=== PATIENT | female | born 1990 | race Caucasian/White ===

== ENCOUNTER → 2016-09-05 | Outpatient (REF) | payer BC | LOC: M LAB REF 13:05 | PROVIDERS: ATTEND Obstetrics & Gynecology | DX: Z11.3 Encounter for screening for infections with a predominantly sexual mode of transmission (principal) ==

== ENCOUNTER → 2017-02-20 | Outpatient (REF) | payer BC ==
[~2017-02-20] MED LIST: ALLE60TA69 PO; INDE1CAP5 PO; INSUDET SC; INSUH10VL SC; LEXA1TAB2 PO; PRIL20CA9 PO; ZOFR4TAB3 PO
== END ==
LOC: M LAB REF 17:02
PROVIDERS: ATTEND Obstetrics & Gynecology
DX: R30.0 Dysuria (principal); R10.2 Pelvic and perineal pain

== ENCOUNTER 2017-04-20 12:06 | Emergency (ER) | payer BC, OTHER ==
[~2017-04-20] VITALS: Ht 167.6 cm; Wt 77.3 kg
[2017-04-20] MEDS ORDERED: PRIL20CA9 PO (12:19)
[2017-04-20] MEDS ORDERED: INSUH10VL SC (12:19)
[2017-04-20] MEDS ORDERED: INSUDET SC (12:19)
[2017-04-20] MEDS ORDERED: LEXA1TAB2 PO (12:19)
[2017-04-20] MEDS ORDERED: INDE1CAP5 PO (12:19)
[2017-04-20] MEDS ORDERED: ALLE60TA69 PO (12:20)
[2017-04-20] MEDS ORDERED: ZOFR4TAB3 PO (12:20)
[2017-04-20] MEDS ORDERED: NS 1,000 ML IV ONE (12:30)
[2017-04-20] MEDS ORDERED: ONDANSETRON 4MG/2ML VIAL (J2405) IV ONE ×2 (12:30→13:30)
[2017-04-20] MEDS ORDERED: diphenhydrAMINE INJ 50MG/ML VIAL (J1200) IV STA (13:30)
[2017-04-20 14:44] VITALS: BP 105/64
== END 2017-04-20 14:51 | disposition home or self-care (01) ==
LOC: M ED 12:06
DX: A08.4 Viral intestinal infection, unspecified (principal); E10.9 Type 1 diabetes mellitus without complications
CPT/HCPCS: 96361; 96374; 96375; 96376; 99283; J1200; J2405

== ENCOUNTER 2017-07-09 08:22 | Emergency (ER) | payer OTHER ==
[~2017-07-09] VITALS: Ht 167.6 cm; Wt 76.4 kg
[2017-07-09] MEDS ORDERED: COLA100C5 PO (08:37)
[2017-07-09] MEDS ORDERED: MEDR1VL IM (08:38)
[2017-07-09] MEDS ORDERED: ONDANSETRON 4 MG ORAL DISINTEGRATING TAB (S0181) PO ONE (08:45)
[2017-07-09] MEDS ORDERED: PROMETHAZINE 25 MG TAB PO ONE (09:15)
[2017-07-09] MEDS ORDERED: ZOFR4TAB3 PO (09:21)
--- NOTE | 2017-07-09 09:21 | REP ---
Clinical: Epigastric and abdominal pain. Technique: Upright view of the chest with supine and upright views of the abdomen and pelvis. Findings: Frontal upright view of the chest demonstrates no acute cardiopulmonary process or free air below the diaphragm to suspect pneumoperitoneum. Supine and upright views of the abdomen and pelvis demonstrate nonspecific bowel gas pattern without obstruction or perforation. No organomegaly. No abnormal calcifications. Skeletal structures normal for age. Evidence of prior cholecystectomy and gastric surgery. Impression: Nonspecific bowel gas pattern. Signed by Jamin Patel MD 07/09/2017 09:12 A
[2017-07-09] MEDS ORDERED: MAGNESIUM CITRATE 300 ML BTL PO ONE (09:30)
[2017-07-09 09:33] VITALS: BP 128/77
== END 2017-07-09 09:38 | disposition home or self-care (01) ==
LOC: M ED 08:22
DX: R11.2 Nausea with vomiting, unspecified (principal); K59.00 Constipation, unspecified; E10.9 Type 1 diabetes mellitus without complications; Z79.899 Other long term (current) drug therapy; Z79.4 Long term (current) use of insulin; Z88.5 Allergy status to narcotic agent; Z88.8 Allergy status to other drugs, medicaments and biological substances

== ENCOUNTER → 2017-08-22 | Outpatient (CLI) | payer OTHER ==
[2017-08-22 16:35] LABS: HEMATOCRIT 48.2 % (36.0-47.0); MEAN CORPUSCULAR HEMOGLOBIN 29.9 pg (27.0-33.0); MEAN CORPUSCULAR HGB CONC 33.2 g/dl (32.0-36.5); MEAN CORPUSCULAR VOLUME 90.1 fl (80.0-96.0); PLATELET COUNT, AUTOMATED 375 10^3/uL (150-450); RED BLOOD COUNT 5.35 10^6/uL (4.00-5.40); RED CELL DISTRIBUTION WIDTH 12.8 % (11.5-14.5); WHITE BLOOD COUNT 16.3 10^3/uL (4.0-10.0)
[2017-08-22 16:54] LABS: ALBUMIN 4.5 GM/DL (3.2-5.2); ALBUMIN/GLOBULIN RATIO 1.13 (1.00-1.93); ALKALINE PHOSPHATASE 251 U/L (45-117); ALT/SGPT 98 U/L (12-78); ANION GAP 7 MEQ/L (8-16); AST/SGOT 73 U/L (7-37); BILIRUBIN,TOTAL 0.3 MG/DL (0.2-1.0); BLOOD UREA NITROGEN 12 MG/DL (7-18); CALCIUM LEVEL 9.8 MG/DL (8.5-10.1); CARBON DIOXIDE LEVEL 29 MEQ/L (21-32); CHLORIDE LEVEL 103 MEQ/L (98-107); CREATININE FOR GFR 0.98 MG/DL (0.55-1.02); FREE T4 1.31 NG/DL (0.76-1.46); GLOMERULAR FILTRATION RATE > 60.0 (>60); GLUCOSE, FASTING 210 MG/DL (70-105); POTASSIUM SERUM 4.3 MEQ/L (3.5-5.1); SODIUM LEVEL 139 MEQ/L (136-145); TOTAL PROTEIN 8.5 GM/DL (6.4-8.2)
[2017-08-25 00:09] LABS: TISSUE TRANSGLUTAMINASE IgA <2 U/mL (0-3)
== END ==
LOC: M LAB 15:52
DX: K59.00 Constipation, unspecified (principal)
CPT/HCPCS: 74019

== ENCOUNTER 2018-01-17 03:06 | Emergency (ER) | payer OTHER ==
[2018-01-17] MEDS ORDERED: ONDANSETRON 4MG/2ML VIAL (J2405) As Ordered (03:39)
[2018-01-17] MEDS: NS 1,000 ML IV (03:41)
[2018-01-17 03:50] LABS: VENOUS BASE EXCESS 0.6 (-2.0-2.0); VENOUS HCO3 26.1 MEQ/L (23.0-27.0); VENOUS O2 SATURATION 84.8 % (60.0-80.0); VENOUS PARTIAL PRESSURE CO2 45.3 mmHg (38.0-50.0); VENOUS PARTIAL PRESSURE O2 49.9 mmHg (30.0-50.0); VENOUS PH 7.379 UNITS (7.330-7.430); VENOUS STANDARD HCO3 24.7 MEQ/L; VENOUS TOTAL CO2 27.5 MEQ/L (24.0-28.0)
[2018-01-17 03:51] LABS: HEMATOCRIT 42.3 % (36.0-47.0); HEMOGLOBIN 13.9 g/dl (12.0-15.5); MEAN CORPUSCULAR HEMOGLOBIN 30.1 pg (27.0-33.0); MEAN CORPUSCULAR HGB CONC 32.9 g/dl (32.0-36.5); MEAN CORPUSCULAR VOLUME 91.6 fl (80.0-96.0); PLATELET COUNT, AUTOMATED 555 10^3/uL (150-450); RED BLOOD COUNT 4.62 10^6/uL (4.00-5.40); RED CELL DISTRIBUTION WIDTH 12.7 % (11.5-14.5); WHITE BLOOD COUNT 15.2 10^3/uL (4.0-10.0)
[2018-01-17 04:02] LABS: ADD MANUAL DIFFER YES; DIFF SLIDE NUMBER 70; POSITIVE DIFF POS FLAG
[2018-01-17 04:12] LABS: ANION GAP 7 MEQ/L (8-16); BLOOD UREA NITROGEN 14 MG/DL (7-18); CARBON DIOXIDE LEVEL 28 MEQ/L (21-32); CHLORIDE LEVEL 102 MEQ/L (98-107); GLOMERULAR FILTRATION RATE 57.8 (>60); GLUCOSE, FASTING 375 MG/DL (70-100); POTASSIUM SERUM 4.4 MEQ/L (3.5-5.1); SODIUM LEVEL 137 MEQ/L (136-145)
[2018-01-17 04:18] LABS: BEDSIDE GLUCOSE 193 MG/DL (70-105)
[2018-01-17 04:22] LABS: CONTROL LINE HCG INT CTR LINE PRESENT; HCG, SERUM QUALITATIVE NEGATIVE (NEGATIVE)
[2018-01-17 04:35] LABS: ATYPICAL LYMPH 2 % (0-5); EOSINOPHILS 1 % (0-5); LYMPHOCYTES 26 % (16-52); MONOCYTES 7 % (0-8); NEUTROPHILS 64 % (35-75); PLATELET ESTIMATE INCREASED (NORMAL)
[2018-01-17 04:45] LABS: KETONE, URINE AUTO RFX NEGATIVE (NEGATIVE); NITRITE, URINE AUTO RFX NEGATIVE (NEGATIVE); RBC, URINE AUTO RFX 2 /HPF (0-3); SPECIFIC GRAVITY UR AUTO RFX 1.017 (1.002-1.035); SQUAM EPITHELIAL CELL UR AURFX 1 /HPF (0-6); WBC, URINE AUTO RFX 2 /HPF (0-3)
[2018-01-17 04:53] LABS: LEUKOCYTE ESTERASE UR AUTO RFX TRACE (NEGATIVE)
[2018-01-17 05:13] LABS: BEDSIDE GLUCOSE 72 MG/DL (70-105)
[2018-01-21 11:16] LABS: BEDSIDE GLUCOSE 357 MG/DL (70-105)
[2018-01-31] MEDS: ONDANSETRON 4MG/2ML VIAL (J2405) IV (05:30)
== END 2018-01-17 05:45 | disposition home or self-care (01) ==
LOC: M ED 03:06
DX: E10.65 Type 1 diabetes mellitus with hyperglycemia (principal); K21.9 Gastro-esophageal reflux disease without esophagitis; Z88.5 Allergy status to narcotic agent; Z88.3 Allergy status to other anti-infective agents; Z79.899 Other long term (current) drug therapy
CPT/HCPCS: J2405

== ENCOUNTER → 2018-03-14 | Outpatient (CLI) | payer OTHER ==
[2018-03-14 14:38] LABS: BASO % 0.2 % (0.0-1.0); EOS % 0.1 % (0.0-3.0); HEMATOCRIT 41.6 % (36.0-47.0); HEMOGLOBIN 13.4 g/dl (12.0-15.5); IMMATURE GRANULOCYTE % 0.6 % (0-3.0); LYMPH # 1.6 10^3/uL (1.5-6.5); LYMPH % 8.4 % (24.0-44.0); MEAN CORPUSCULAR HEMOGLOBIN 30.5 pg (27.0-33.0); MEAN CORPUSCULAR HGB CONC 32.2 g/dl (32.0-36.5); MEAN CORPUSCULAR VOLUME 94.8 fl (80.0-96.0); MONO # 0.2 10^3/uL (0.0-0.8); NEUTROPHILS # 16.7 10^3/uL (1.8-7.7); NEUTROPHILS % 89.7 % (36.0-66.0); PLATELET COUNT, AUTOMATED 632 10^3/uL (150-450); RED BLOOD COUNT 4.39 10^6/uL (4.00-5.40); RED CELL DISTRIBUTION WIDTH 13.8 % (11.5-14.5); WHITE BLOOD COUNT 18.7 10^3/uL (4.0-10.0)
[2018-03-14 14:58] LABS: ALBUMIN 3.9 GM/DL (3.2-5.2); ALBUMIN/GLOBULIN RATIO 0.98 (1.00-1.93); ALKALINE PHOSPHATASE 137 U/L (45-117); ALT/SGPT 118 U/L (12-78); ANION GAP 8 MEQ/L (8-16); AST/SGOT 26 U/L (7-37); BILIRUBIN,TOTAL 0.2 MG/DL (0.2-1.0); BLOOD UREA NITROGEN 16 MG/DL (7-18); CALCIUM LEVEL 9.5 MG/DL (8.5-10.1); CARBON DIOXIDE LEVEL 24 MEQ/L (21-32); CHLORIDE LEVEL 105 MEQ/L (98-107); CREATININE FOR GFR 1.43 MG/DL (0.55-1.30); GLOMERULAR FILTRATION RATE 47.2 (>60); GLUCOSE, FASTING 215 MG/DL (70-100); POTASSIUM SERUM 5.1 MEQ/L (3.5-5.1); SODIUM LEVEL 137 MEQ/L (136-145); TOTAL PROTEIN 7.9 GM/DL (6.4-8.2)
== END ==
LOC: M LAB 14:13
DX: E84.9 Cystic fibrosis, unspecified (principal)
CPT/HCPCS: 80053

== ENCOUNTER 2018-03-16 03:43 | Emergency (ER) | payer OTHER ==
[2018-03-16 04:37] LABS: HEMOGLOBIN 15.2 g/dl (12.0-15.5); MEAN CORPUSCULAR HEMOGLOBIN 30.8 pg (27.0-33.0); MEAN CORPUSCULAR VOLUME 93.1 fl (80.0-96.0); PLATELET COUNT, AUTOMATED 678 10^3/uL (150-450); RED BLOOD COUNT 4.94 10^6/uL (4.00-5.40); RED CELL DISTRIBUTION WIDTH 13.6 % (11.5-14.5); WHITE BLOOD COUNT 25.1 10^3/uL (4.0-10.0)
[2018-03-16 04:40] LABS: ADD MANUAL DIFFER YES; DIFF SLIDE NUMBER 90; POSITIVE DIFF POS FLAG
[2018-03-16] MEDS: NS 1,000 ML IV ×2 (04:42→07:09)
[2018-03-16] MEDS: diphenhydrAMINE INJ 50MG/ML VIAL (J1200) IV (04:43)
[2018-03-16] MEDS: HALOPERIDOL 5 MG/ML VIAL (J1630) IV (04:44)
[2018-03-16] MEDS ORDERED: DEXTROSE 50% 50 ML SYRINGE As Ordered (04:45)
[2018-03-16] MEDS: HYDROMORPHONE HCL 0.5 MG/ 0.5 ML SYRINGE (J1170 PER 1) IV ×2 (04:46→08:55)
[2018-03-16 04:53] LABS: CONTROL LINE HCG INT CTR LINE PRESENT; HCG, SERUM QUALITATIVE NEGATIVE (NEGATIVE)
[2018-03-16 04:56] LABS: BEDSIDE GLUCOSE 51 MG/DL (70-105)
[2018-03-16 05:00] LABS: ATYPICAL LYMPH 4 % (0-5); LYMPHOCYTES 20 % (16-52); MONOCYTES 8 % (0-8); NEUTROPHILS 68 % (35-75); PLATELET ESTIMATE INCREASED (NORMAL)
[2018-03-16] MEDS: DEXTROSE 50% 50 ML SYRINGE IV (05:00)
[2018-03-16 05:01] LABS: ACETONE/KETONE 0.78 MG/DL (<2.81); ALBUMIN 4.2 GM/DL (3.2-5.2); ALBUMIN/GLOBULIN RATIO 0.95 (1.00-1.93); ALKALINE PHOSPHATASE 143 U/L (45-117); ALT/SGPT 137 U/L (12-78); ANION GAP 8 MEQ/L (8-16); AST/SGOT 37 U/L (7-37); BILIRUBIN,DIRECT 0.1 MG/DL (0.0-0.2); BILIRUBIN,TOTAL 0.5 MG/DL (0.2-1.0); BLOOD UREA NITROGEN 16 MG/DL (7-18); CALCIUM LEVEL 10.4 MG/DL (8.5-10.1); CARBON DIOXIDE LEVEL 32 MEQ/L (21-32); CHLORIDE LEVEL 105 MEQ/L (98-107); CREATININE FOR GFR 1.24 MG/DL (0.55-1.30); GLOMERULAR FILTRATION RATE 55.7 (>60); GLUCOSE, FASTING 52 MG/DL (70-100); LIPASE 32 U/L (73-393); POTASSIUM SERUM 3.8 MEQ/L (3.5-5.1); SODIUM LEVEL 145 MEQ/L (136-145); TOTAL PROTEIN 8.6 GM/DL (6.4-8.2)
[2018-03-16] MEDS: GASTROGRAFIN SOLUTION 30ML (Q9963) PO ×2 (05:11→05:41)
[2018-03-16] MEDS: HYDROCORTISONE 100 MG/2 ML VIAL (J1720) IV (05:13)
[2018-03-16] MEDS ORDERED: ISOVUE-370 76% 100ML VIAL (Q9967) As Ordered (05:56)
[2018-03-16 10:31] LABS: BEDSIDE GLUCOSE 99 MG/DL (70-105)
[2018-03-16] MEDS: ONDANSETRON 4MG/2ML VIAL (J2405) IV (12:05)
[2018-03-16 12:26] LABS: BEDSIDE GLUCOSE 125 MG/DL (70-105)
== END 2018-03-16 12:46 | disposition short-term general hospital (02) ==
LOC: M ED 03:43
DX: K56.609 Unspecified intestinal obstruction, unspecified as to partial versus complete obstruction (principal); E11.9 Type 2 diabetes mellitus without complications; I10 Essential (primary) hypertension; K21.9 Gastro-esophageal reflux disease without esophagitis; E84.9 Cystic fibrosis, unspecified; Z79.4 Long term (current) use of insulin; Z79.899 Other long term (current) drug therapy; Z88.5 Allergy status to narcotic agent
CPT/HCPCS: J1720

== ENCOUNTER 2018-04-14 14:39 | Emergency (ER) | payer OTHER ==
[2018-04-14] MEDS: ONDANSETRON 4MG/2ML VIAL (J2405) IV (15:51)
[2018-04-14] MEDS: GASTROGRAFIN SOLUTION 30ML PO ×2 (15:51→16:29)
[2018-04-14] MEDS: NS 1,000 ML IV ×2 (15:51→16:59)
[2018-04-14] MEDS: MORPHINE 4 MG/ML 1ML VIAL/SYRINGE (J2270) IV ×2 (15:52→16:56)
[2018-04-14 15:54] LABS: BASO # 0.1 10^3/uL (0.0-0.2); BASO % 0.6 % (0.0-1.0); EOS # 0.3 10^3/uL (0.0-0.50); EOS % 2.1 % (0.0-3.0); HEMATOCRIT 39.8 % (36.0-47.0); HEMOGLOBIN 13.4 g/dl (12.0-15.5); IMMATURE GRANULOCYTE % 0.2 % (0-3.0); LYMPH # 3.3 10^3/uL (1.5-6.5); LYMPH % 25.9 % (24.0-44.0); MEAN CORPUSCULAR HEMOGLOBIN 31.6 pg (27.0-33.0); MEAN CORPUSCULAR HGB CONC 33.7 g/dl (32.0-36.5); MEAN CORPUSCULAR VOLUME 93.9 fl (80.0-96.0); NEUTROPHILS # 8.1 10^3/uL (1.8-7.7); NEUTROPHILS % 63.2 % (36.0-66.0); PLATELET COUNT, AUTOMATED 568 10^3/uL (150-450); RED BLOOD COUNT 4.24 10^6/uL (4.00-5.40); RED CELL DISTRIBUTION WIDTH 12.8 % (11.5-14.5); WHITE BLOOD COUNT 12.9 10^3/uL (4.0-10.0)
[2018-04-14 16:09] LABS: CONTROL LINE HCG INT CTR LINE PRESENT; HCG, SERUM QUALITATIVE NEGATIVE (NEGATIVE)
[2018-04-14 16:20] LABS: ALT/SGPT 58 U/L (12-78); ANION GAP 8 MEQ/L (8-16); AST/SGOT 56 U/L (7-37); BLOOD UREA NITROGEN 11 MG/DL (7-18); CALCIUM LEVEL 9.2 MG/DL (8.5-10.1); CARBON DIOXIDE LEVEL 26 MEQ/L (21-32); CHLORIDE LEVEL 105 MEQ/L (98-107); CREATININE FOR GFR 1.03 MG/DL (0.55-1.30); GLOMERULAR FILTRATION RATE > 60.0 (>60); GLUCOSE, FASTING 267 MG/DL (70-100); SODIUM LEVEL 139 MEQ/L (136-145)
[2018-04-14 16:21] LABS: ALBUMIN 3.6 GM/DL (3.2-5.2); ALBUMIN/GLOBULIN RATIO 0.88 (1.00-1.93); ALKALINE PHOSPHATASE 204 U/L (45-117); BILIRUBIN,DIRECT < 0.1 MG/DL (0.0-0.2); BILIRUBIN,TOTAL 0.4 MG/DL (0.2-1.0); LIPASE 28 U/L (73-393); TOTAL PROTEIN 7.7 GM/DL (6.4-8.2)
[2018-04-14 16:23] LABS: POTASSIUM SERUM 5.8 MEQ/L (3.5-5.1)
[2018-04-14] MEDS ORDERED: ISOVUE-370 76% 100ML VIAL (Q9967) As Ordered (17:01)
== END 2018-04-14 18:23 | disposition home or self-care (01) ==
LOC: M ED 14:39
DX: R10.9 Unspecified abdominal pain (principal); E11.9 Type 2 diabetes mellitus without complications; E84.9 Cystic fibrosis, unspecified; N28.89 Other specified disorders of kidney and ureter; Z79.4 Long term (current) use of insulin; Z79.899 Other long term (current) drug therapy; Z88.5 Allergy status to narcotic agent; Z88.8 Allergy status to other drugs, medicaments and biological substances
CPT/HCPCS: J2270

== ENCOUNTER → 2018-09-26 | Outpatient (REF) | payer OTHER ==
[~2018-09-26] MED LIST changes: +AUGM875T28 PO; +BACT800T5 PO; +COLA100C5 PO; +IBUP100S5 PO; +IBUP80TA PO; -INDE1CAP5 PO; +INDE60CA4 PO; +IPRA0.00 INH; +LINZ145C; +MEDR1VL IM; +OMEP40CA2 PO; +PERC5TAB12 PO; +PRED20TA PO; +PRED5CON PO; +PROP20TA PO; +PULM1SOL INH; +REST15CA PO; +SODI3NEB INH; +TOBR0.3S37 NEB; +TOBR1NEB INH; +TYLE500T78 PO; +XANA0.5T PO; +ZENP1CAP64 PO; +ZOFR4TAB14 PO; -ZOFR4TAB3 PO; +ZOSY2INJ2 IV; +[UNRECOGNIZED DRUG - OTHER] NEB; +[UNRECOGNIZED DRUG - OTHER] PO
[2018-09-26 20:30] LABS: CHLAMYDIA DNA AMPLIFICATION NEGATIVE (NEGATIVE); GC DNA AMPLIFICATION NEGATIVE (NEGATIVE)
== END ==
LOC: M LAB REF 17:21
PROVIDERS: ATTEND Obstetrics & Gynecology
DX: Z11.3 Encounter for screening for infections with a predominantly sexual mode of transmission (principal)

== ENCOUNTER → 2018-10-08 | Outpatient (REF) | payer OTHER ==
[2018-10-08 20:39] LABS: CHLAMYDIA DNA AMPLIFICATION NEGATIVE (NEGATIVE); GC DNA AMPLIFICATION NEGATIVE (NEGATIVE)
== END ==
LOC: M LAB REF 17:27
PROVIDERS: ATTEND Obstetrics & Gynecology
DX: Z11.3 Encounter for screening for infections with a predominantly sexual mode of transmission (principal)

== ENCOUNTER 2018-11-20 18:24 | Emergency (ER) | payer OTHER ==
[~2018-11-20] VITALS: Ht 167.6 cm; Wt 77.3 kg
[~2018-11-20 18:24] MED LIST changes: -IBUP100S5 PO; +IBUP100S65 PO
[2018-11-20] MEDS ORDERED: AZIT-12 PO (18:58)
[2018-11-20] MEDS ORDERED: ONDANSETRON 4MG/2ML VIAL (J2405) IV ONE (19:45)
[2018-11-20] MEDS ORDERED: MORPHINE 4 MG/ML 1ML VIAL/SYRINGE (J2270) IV PRN (19:45)
[2018-11-20] MEDS ORDERED: NS 1,000 ML IV ONE (19:45)
[2018-11-20 19:48] LABS: VENOUS BASE EXCESS 2.4 (-2.0-2.0); VENOUS HCO3 29.7 MEQ/L (23.0-27.0); VENOUS O2 SATURATION 81.5 % (60.0-80.0); VENOUS PARTIAL PRESSURE CO2 56.5 mmHg (38.0-50.0); VENOUS PARTIAL PRESSURE O2 44.5 mmHg (30.0-50.0); VENOUS PH 7.338 UNITS (7.330-7.430); VENOUS STANDARD HCO3 26.2 MEQ/L; VENOUS TOTAL CO2 31.4 MEQ/L (24.0-28.0)
[2018-11-20 20:03] LABS: BASO # 0.1 10^3/uL (0.0-0.2); BASO % 0.4 % (0.0-1.0); EOS % 0.2 % (0.0-3.0); HEMOGLOBIN 14.4 g/dl (12.0-15.5); LYMPH # 0.9 10^3/uL (1.5-6.5); MEAN CORPUSCULAR HEMOGLOBIN 30.3 pg (27.0-33.0); MEAN CORPUSCULAR HGB CONC 32.7 g/dl (32.0-36.5); MEAN CORPUSCULAR VOLUME 92.4 fl (80.0-96.0); MONO # 0.8 10^3/uL (0.0-0.8); MONO % 5.4 % (0.0-5.0); NEUTROPHILS # 12.9 10^3/uL (1.8-7.7); NEUTROPHILS % 87.7 % (36.0-66.0); PLATELET COUNT, AUTOMATED 784 10^3/uL (150-450); RED BLOOD COUNT 4.76 10^6/uL (4.00-5.40); WHITE BLOOD COUNT 14.8 10^3/uL (4.0-10.0)
[2018-11-20 20:06] LABS: HCG, SERUM QUALITATIVE NEGATIVE (NEGATIVE)
[2018-11-20 20:08] LABS: ALBUMIN 4.2 GM/DL (3.2-5.2); ALT/SGPT 217 U/L (12-78); BILIRUBIN,DIRECT 0.2 MG/DL (0.0-0.2); BILIRUBIN,TOTAL 0.7 MG/DL (0.2-1.0); BLOOD UREA NITROGEN 13 MG/DL (7-18); CALCIUM LEVEL 9.3 MG/DL (8.5-10.1); CARBON DIOXIDE LEVEL 28 MEQ/L (21-32); CHLORIDE LEVEL 105 MEQ/L (98-107); CREATININE FOR GFR 0.85 MG/DL (0.55-1.30); GLOMERULAR FILTRATION RATE > 60.0 (>60); GLUCOSE, FASTING 157 MG/DL (70-100); LIPASE 23 U/L (73-393); POTASSIUM SERUM 4.4 MEQ/L (3.5-5.1); SODIUM LEVEL 138 MEQ/L (136-145); TOTAL PROTEIN 7.7 GM/DL (6.4-8.2)
[2018-11-20] MEDS ORDERED: ISOVUE-370 76% 100ML VIAL (Q9967) As Ordered ONE (20:17)
--- NOTE | 2018-11-20 20:53 | REP ---
Clinical: Abdominal pain and vomiting. Technique: Axial contrast enhanced images from the lung bases to the pubic symphysis using 100 ml Isovue 370 intravenous contrast material with coronal and sagittal re-formations. Comparison: 04/14/2018. Findings: Liver, bilateral adrenal glands, and kidneys are normal. 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 Small splenule is suggested in the left pericolic gutter. The enteric system is without obstruction or acute inflammatory process. Normal cecum, terminal ileum and appendix are identified in the right lower quadrant. Pelvis demonstrates normal bladder and age-appropriate uterus/adnexa. No pelvic fluid. No ascites. No free air. No significant intraperitoneal or retroperitoneal adenopathy. Abdominal aorta and vasculature appears normal. Osseous structures are intact. Lung bases are clear. Impression: 1. No acute abdominopelvic pathology is appreciated. Specifically, no ascites, focal inflammatory stranding, or adenopathy. 2. Evidence of prior cholecystectomy, splenectomy, and possible near complete auto-pancreatectomy. Electronically Signed by Jamin Patel MD 11/20/2018 08:44 P
[2018-11-20] MEDS ORDERED: METOCLOPRAMIDE INJ 10MG/2ML VIAL (J2765) As Ordered ONE (21:22)
[2018-11-20] MEDS ORDERED: METOCLOPRAMIDE INJ 10MG/2ML VIAL (J2765) IV ONE (21:45)
[2018-11-20 23:00] VITALS: BP 102/63
[2018-11-20] MEDS ORDERED: REGL10TA6 PO (23:12)
== END 2018-11-20 23:30 | disposition home or self-care (01) ==
LOC: M ED 18:24
DX: A08.4 Viral intestinal infection, unspecified (principal); E10.9 Type 1 diabetes mellitus without complications; Z79.899 Other long term (current) drug therapy; Z79.4 Long term (current) use of insulin; Z88.5 Allergy status to narcotic agent; Z88.8 Allergy status to other drugs, medicaments and biological substances
CPT/HCPCS: 74177; 80048; 80076; 81001; 82803; 83605; 83690; 84703; 85025; 93041; 96361; 96374; 96375; 99284; J2270; J2405; J2765; Q9967

== ENCOUNTER → 2018-12-22 | Outpatient (REF) | payer OTHER ==
[~2018-12-22] MED LIST changes: +AZIT-12 PO; +REGL10TA6 PO
[2018-12-22 14:07] LABS: HEMATOCRIT 41.5 % (36.0-47.0); HEMOGLOBIN 13.4 g/dl (12.0-15.5); MEAN CORPUSCULAR HEMOGLOBIN 29.9 pg (27.0-33.0); MEAN CORPUSCULAR HGB CONC 32.3 g/dl (32.0-36.5); MEAN CORPUSCULAR VOLUME 92.6 fl (80.0-96.0); PLATELET COUNT, AUTOMATED 534 10^3/uL (150-450); RED BLOOD COUNT 4.48 10^6/uL (4.00-5.40); WHITE BLOOD COUNT 18.2 10^3/uL (4.0-10.0)
[2018-12-22 14:35] LABS: ALBUMIN 3.8 GM/DL (3.2-5.2); ALT/SGPT 97 U/L (12-78); BILIRUBIN,TOTAL 0.2 MG/DL (0.2-1.0); BLOOD UREA NITROGEN 18 MG/DL (7-18); CALCIUM LEVEL 8.9 MG/DL (8.5-10.1); CARBON DIOXIDE LEVEL 26 MEQ/L (21-32); CHLORIDE LEVEL 105 MEQ/L (98-107); CREATININE FOR GFR 1.08 MG/DL (0.55-1.30); GLOMERULAR FILTRATION RATE > 60.0 (>60); GLUCOSE, FASTING 89 MG/DL (70-100); POTASSIUM SERUM 4.7 MEQ/L (3.5-5.1); SODIUM LEVEL 137 MEQ/L (136-145); TOTAL PROTEIN 7.4 GM/DL (6.4-8.2)
[2018-12-22 14:40] LABS: EOSINOPHILS 5 % (0-5); LYMPHOCYTES 25 % (16-52); MONOCYTES 6 % (0-8); NEUTROPHILS 64 % (35-75)
[2018-12-22 14:42] LABS: PLATELET ESTIMATE INCREASED (NORMAL)
== END ==
LOC: M LAB REF 13:38
PROVIDERS: ATTEND Internal Medicine Critical Care Medicine
DX: E84.8 Cystic fibrosis with other manifestations (principal)

== ENCOUNTER → 2018-12-29 | Outpatient (REF) | payer OTHER ==
[2018-12-29 12:04] LABS: HEMATOCRIT 41.4 % (36.0-47.0); HEMOGLOBIN 13.3 g/dl (12.0-15.5); MEAN CORPUSCULAR HEMOGLOBIN 30.3 pg (27.0-33.0); MEAN CORPUSCULAR HGB CONC 32.1 g/dl (32.0-36.5); MEAN CORPUSCULAR VOLUME 94.3 fl (80.0-96.0); PLATELET COUNT, AUTOMATED 636 10^3/uL (150-450); RED BLOOD COUNT 4.39 10^6/uL (4.00-5.40); WHITE BLOOD COUNT 11.5 10^3/uL (4.0-10.0)
[2018-12-29 12:24] LABS: ALBUMIN 3.4 GM/DL (3.2-5.2); ALT/SGPT 36 U/L (12-78); BILIRUBIN,TOTAL 0.2 MG/DL (0.2-1.0); BLOOD UREA NITROGEN 10 MG/DL (7-18); CALCIUM LEVEL 9.3 MG/DL (8.5-10.1); CARBON DIOXIDE LEVEL 28 MEQ/L (21-32); CHLORIDE LEVEL 105 MEQ/L (98-107); CREATININE FOR GFR 1.13 MG/DL (0.55-1.30); GLOMERULAR FILTRATION RATE > 60.0 (>60); GLUCOSE, FASTING 105 MG/DL (70-100); POTASSIUM SERUM 5.2 MEQ/L (3.5-5.1); SODIUM LEVEL 138 MEQ/L (136-145)
[2018-12-29 13:05] LABS: ATYPICAL LYMPH 5 % (0-5); BASOPHILS 2 % (0-4); EOSINOPHILS 9 % (0-5); LYMPHOCYTES 44 % (16-52); MONOCYTES 5 % (0-8); NEUTROPHILS 35 % (35-75)
[2018-12-29 13:06] LABS: CRENATED RBC 1+; PLATELET ESTIMATE INCREASED (NORMAL)
[2018-12-30 10:16] LABS: TOTAL 25(OH) VITAMIN D 20.6 NG/ML (30.0-100.0)
== END ==
LOC: M SHH 11:08
PROVIDERS: ATTEND Internal Medicine Critical Care Medicine
DX: E84.8 Cystic fibrosis with other manifestations (principal)

== ENCOUNTER → 2019-06-18 | Outpatient (CLI) | payer OTHER ==
[~2019-06-18] MED LIST changes: -OMEP40CA2 PO; +OMEP40CA97 PO
--- NOTE | 2019-06-18 08:15 | REP ---
C-SPINE SERIES: Seven views. HISTORY: Neck pain. FINDINGS: Cervical vertebral body heights are preserved. Alignment is normal. Disc spaces are maintained in height and signal intensity. No subluxation or instability is seen on flexion/extension views. AP and open mouth odontoid views are unremarkable. Oblique radiographs demonstrate intact neural foramina bilaterally at each cervical level and normally aligned facets. IMPRESSION: Unremarkable radiographs of the cervical spine. Electronically Signed by Sebastián Scott MD 06/18/2019 08:35 A
== END ==
LOC: M RAD 01:31
PROVIDERS: ATTEND Physician Assistant
DX: M54.2 Cervicalgia (principal)

== ENCOUNTER → 2019-07-29 | Outpatient (REF) | payer OTHER | LOC: M LAB REF 17:24 | PROVIDERS: ATTEND Physician Assistant | DX: J02.9 Acute pharyngitis, unspecified (principal) ==

== ENCOUNTER → 2019-09-23 | Outpatient (CLI) | payer OTHER ==
[2019-09-23 12:37] LABS: BASO # 0.1 10^3/uL (0.0-0.2); BASO % 1.1 % (0.0-1.0); EOS # 0.4 10^3/uL (0.0-0.5); HEMATOCRIT 45.6 % (36.0-47.0); HEMOGLOBIN 14.4 g/dl (12.0-15.5); LYMPH # 3.2 10^3/uL (1.5-5.0); LYMPH % 34.2 % (24.0-44.0); MEAN CORPUSCULAR HEMOGLOBIN 30.5 pg (27.0-33.0); MEAN CORPUSCULAR HGB CONC 31.6 g/dl (32.0-36.5); MEAN CORPUSCULAR VOLUME 96.6 fl (80.0-96.0); MONO # 1.1 10^3/uL (0.0-0.8); MONO % 11.1 % (0.0-5.0); NEUTROPHILS # 4.7 10^3/uL (1.5-8.5); NEUTROPHILS % 49.5 % (36.0-66.0); PLATELET COUNT, AUTOMATED 646 10^3/uL (150-450); RED BLOOD COUNT 4.72 10^6/uL (4.00-5.40); WHITE BLOOD COUNT 9.5 10^3/uL (4.0-10.0)
[2019-09-23 13:21] LABS: ALBUMIN 4.5 GM/DL (3.2-5.2); ALT/SGPT 131 U/L (12-78); BILIRUBIN,TOTAL 0.4 MG/DL (0.2-1.0); BLOOD UREA NITROGEN 14 MG/DL (7-18); CALCIUM LEVEL 9.8 MG/DL (8.5-10.1); CARBON DIOXIDE LEVEL 30 MEQ/L (21-32); CHLORIDE LEVEL 102 MEQ/L (98-107); CHOLESTEROL LEVEL 179 MG/DL (<200); CHOLESTEROL RISK RATIO 2.841 (<5); CK-MB VALUE MASS < 1.0 NG/ML (<3.6); CPK CREATINE PHOSPHOKINASE 244 U/L (26-192); GLOMERULAR FILTRATION RATE > 60.0 (>60); GLUCOSE, FASTING 40 MG/DL (70-100); HDL CHOLESTEROL 63 MG/DL (>40); LDL CHOLESTEROL 101 MG/DL (<100); MB/CK RELATIVE INDEX 0.41 (< OR =4); NON-HDL-C 116 MG/DL; POTASSIUM SERUM 4.2 MEQ/L (3.5-5.1); SODIUM LEVEL 140 MEQ/L (136-145); TOTAL PROTEIN 8.3 GM/DL (6.4-8.2); TRIGLYCERIDES LEVEL 77 MG/DL (<150); TROPONIN I < 0.02 NG/ML (< 0.10)
== END ==
LOC: M LAB 11:22
PROVIDERS: ATTEND Physician Assistant
DX: R07.89 Other chest pain (principal)

== ENCOUNTER → 2019-11-26 | Outpatient (CLI) | payer OTHER | LOC: M LABSMTC 10:23 | PROVIDERS: ATTEND Family Medicine | DX: Z11.59 Encounter for screening for other viral diseases (principal); Z20.89 Contact with and (suspected) exposure to other communicable diseases ==

== ENCOUNTER → 2019-12-15 | Outpatient (CLI) | payer OTHER ==
--- NOTE | 2019-12-18 00:21 | SLEEPHOME ---
DATE OF PROCEDURE: 12/15/2019 ORDERED BY: Oscar Hoffmann Diagnostic home sleep testing was performed due to concern for the obstructive sleep apnea syndrome in this patient with excessive daytime fatigue. For testing a nocturnal T3 respiratory monitoring device was used. Continuous record was made of pulse, oxygen saturation, airflow, chest, abdominal strain and body position. 9 hours and 59 minutes of data were reviewed. There were 6 hours and 52 minutes marked as time in bed. During the interval marked time in bed, there were 54 respiratory events identified of 10 seconds in duration or greater for a respiratory event index of 7.9. The events were primarily obstructive. Baseline pulse rate 89 beats per minute, pulse rate range was 46-134. Baseline saturation 96%, saturations fell to 87%. Testing was performed in both the supine and nonsupine positions. IMPRESSION: Abnormal home sleep testing with repetitive respiratory events and oxygen desaturations to 87% with a respiratory event index of 7.9 is consistent with the obstructive sleep apnea syndrome. RECOMMENDATIONS: The patient should be encouraged to undergo a formal sleep evaluation.
== END ==
LOC: M SLEEP HO 09:49
PROVIDERS: ATTEND Physician Assistant
DX: G47.8 Other sleep disorders (principal)

== ENCOUNTER 2020-02-14 08:24 | Emergency (ER) | payer OTHER ==
[~2020-02-14] VITALS: Ht 167.6 cm; Wt 84.1 kg
[2020-02-14] MEDS ORDERED: EFFE150C2 PO (08:31)
[2020-02-14] MEDS ORDERED: ELEX1TAB PO (08:31)
[2020-02-14] MEDS ORDERED: [UNRECOGNIZED DRUG - CODE] PO (08:31)
[2020-02-14] MEDS ORDERED: LANTINJ4 SC (08:31)
[2020-02-14] MEDS ORDERED: AMBI10TA PO (08:31)
[2020-02-14] MEDS ORDERED: diphenhydrAMINE 50MG/ML VIAL (J1200) IV ONE (09:15)
[2020-02-14] MEDS ORDERED: PROMETHAZINE INJ 25 MG/ML VIAL (J2550) IV ONE (09:15)
[2020-02-14] MEDS ORDERED: NS 1,000 ML IV ONE (09:15)
[2020-02-14] MEDS ORDERED: KETOROLAC 30 MG/ML 1ML VIAL IV ONE (09:15)
[2020-02-14 10:17] LABS: FREE T4 0.97 NG/DL (0.76-1.46)
--- NOTE | 2020-02-14 10:28 | REP ---
Clinical: Menorrhagia . Technique: Transabdominal pelvic ultrasound followed by transvaginal examination for better evaluation of the endometrium and adnexa with color Doppler evaluation of the ovaries. Findings: Bladder is unremarkable and measures 9.3 x 7.8 x 6.1 cm . Normal anteverted uterus measures 5.6 x 3.4 x 3.9 cm . The endometrial complex measures 3.0 mm thickness. No discrete uterine or endometrial abnormalities are appreciated. Bilateral ovaries are normal in appearance and vascularity without evidence for torsion. Right ovary measures 2.0 x 3.9 x 3.7 cm with 3.6 cm presumed physiologic cyst with small daughter cyst ; R I = 0.59 . Left ovary measures 3.1 x 1.3 x 2.5 cm ; R I = 0.49 . No pelvic fluid or adnexal mass lesion . Impression: 1. 3.6 cm presumed physiologic right ovarian cyst. Otherwise normal examination. Consider follow-up examination in 4-6 weeks if necessary to evaluate for resolution. Electronically Signed by Jamin Patel MD 02/14/2020 10:19 A
[2020-02-14 11:02] LABS: BASO # 0.1 10^3/uL (0.0-0.2); BASO % 0.9 % (0.0-1.0); EOS # 0.3 10^3/uL (0.0-0.5); EOS % 2.9 % (0.0-3.0); HEMATOCRIT 41.6 % (36.0-47.0); HEMOGLOBIN 13.3 g/dl (12.0-15.5); LYMPH # 2.5 10^3/uL (1.5-5.0); LYMPH % 24.6 % (24.0-44.0); MEAN CORPUSCULAR HEMOGLOBIN 30.3 pg (27.0-33.0); MEAN CORPUSCULAR VOLUME 94.8 fl (80.0-96.0); MONO % 10.1 % (0.0-5.0); NEUTROPHILS # 6.2 10^3/uL (1.5-8.5); NEUTROPHILS % 61.3 % (36.0-66.0); PLATELET COUNT, AUTOMATED 580 10^3/uL (150-450); RED BLOOD COUNT 4.39 10^6/uL (4.00-5.40); WHITE BLOOD COUNT 10.1 10^3/uL (4.0-10.0)
[2020-02-14 11:08] LABS: BLOOD UREA NITROGEN 14 MG/DL (7-18); CALCIUM LEVEL 9.1 MG/DL (8.5-10.1); CARBON DIOXIDE LEVEL 29 MEQ/L (21-32); CHLORIDE LEVEL 106 MEQ/L (98-107); CREATININE FOR GFR 0.95 MG/DL (0.55-1.30); GLOMERULAR FILTRATION RATE > 60.0 (>60); GLUCOSE, FASTING 74 MG/DL (70-100); POTASSIUM SERUM 4.3 MEQ/L (3.5-5.1); SODIUM LEVEL 139 MEQ/L (136-145)
[2020-02-14 12:53] VITALS: BP 131/65
[2020-02-14 13:10] LABS: CHLAMYDIA DNA AMPLIFICATION NEGATIVE (NEGATIVE); GC DNA AMPLIFICATION NEGATIVE (NEGATIVE)
== END 2020-02-14 12:56 | disposition home or self-care (01) ==
LOC: M ED 08:24
DX: G43.909 Migraine, unspecified, not intractable, without status migrainosus (principal); N83.201 Unspecified ovarian cyst, right side; N93.8 Other specified abnormal uterine and vaginal bleeding; E10.9 Type 1 diabetes mellitus without complications; E84.9 Cystic fibrosis, unspecified; Z79.899 Other long term (current) drug therapy; Z79.4 Long term (current) use of insulin; Z88.5 Allergy status to narcotic agent; Z88.8 Allergy status to other drugs, medicaments and biological substances
CPT/HCPCS: 36415; 76830; 76856; 80048; 84439; 84443; 84702; 85025; 87210; 87661; 87880; 93976; 96361; 96374; 96375; 99284; J1200; J1885

== ENCOUNTER 2020-02-25 15:38 | Emergency (ER) | payer OTHER ==
[~2020-02-25] VITALS: Ht 167.6 cm; Wt 84.9 kg
[~2020-02-25 15:38] MED LIST changes: +AMBI10TA PO; +EFFE150C2 PO; +ELEX1TAB PO; +LANTINJ4 SC; +[UNRECOGNIZED DRUG - CODE] PO
[2020-02-25] MEDS ORDERED: TIZA4TAB4 (15:48)
[2020-02-25] MEDS ORDERED: GABA-1171 (15:48)
[2020-02-25] MEDS ORDERED: GABA-843 (15:48)
[2020-02-25] MEDS ORDERED: METH4PACK (15:48)
[2020-02-25] MEDS ORDERED: NS 1,000 ML IV ONE (17:00)
[2020-02-25] MEDS ORDERED: KETOROLAC 30 MG/ML 1ML VIAL IV ONE (17:00)
[2020-02-25] MEDS ORDERED: METOCLOPRAMIDE INJ 10MG/2ML VIAL (J2765 PER 1) IV ONE (17:00)
[2020-02-25] MEDS ORDERED: diphenhydrAMINE 50MG/ML VIAL (J1200) IV ONE (17:00)
[2020-02-25 17:45] LABS: BASO # 0.1 10^3/uL (0.0-0.2); BASO % 0.4 % (0.0-1.0); EOS % 0.3 % (0.0-3.0); HEMOGLOBIN 13.6 g/dl (12.0-15.5); LYMPH # 3.1 10^3/uL (1.5-5.0); MEAN CORPUSCULAR HEMOGLOBIN 31.1 pg (27.0-33.0); MEAN CORPUSCULAR HGB CONC 33.2 g/dl (32.0-36.5); MEAN CORPUSCULAR VOLUME 93.8 fl (80.0-96.0); MONO # 0.9 10^3/uL (0.0-0.8); MONO % 6.5 % (0.0-5.0); NEUTROPHILS % 70.5 % (36.0-66.0); PLATELET COUNT, AUTOMATED 613 10^3/uL (150-450); RED BLOOD COUNT 4.37 10^6/uL (4.00-5.40); WHITE BLOOD COUNT 14.1 10^3/uL (4.0-10.0)
--- NOTE | 2020-02-25 18:48 | REPVR ---
PROCEDURE INFORMATION: Exam: CT Head Without Contrast Exam date and time: 02/25/2020 6:37 PM Age: 29 years old Clinical indication: Pain; Headache; Additional info: L sided MARIE, neck pain x months, tingling arms TECHNIQUE: Imaging protocol: Computed tomography of the head without contrast. Radiation optimization: All CT scans at this facility use at least one of these dose optimization techniques: automated exposure control; mA and/or kV adjustment per patient size (includes targeted exams where dose is matched to clinical indication); or iterative reconstruction. COMPARISON: No relevant prior studies available. FINDINGS: Brain: Normal. No hemorrhage. Unremarkable white matter. No mass effect. Ventricles: Normal. No ventriculomegaly. Bones/joints: Unremarkable. No acute fracture. Sinuses: Mild paranasal sinus disease. Mastoid air cells: Visualized mastoid air cells are well aerated. Soft tissues: Unremarkable. IMPRESSION: No acute intracranial abnormality. Electronically signed by: Eusebio Mcghee On 02/25/2020 18:47:57 PM
--- NOTE | 2020-02-25 18:50 | REPVR ---
PROCEDURE INFORMATION: Exam: CT Cervical Spine Without Contrast Exam date and time: 02/25/2020 6:37 PM Age: 29 years old Clinical indication: Neck pain; Additional info: L sided MARIE, neck pain x months, tingling arms TECHNIQUE: Imaging protocol: Computed tomography images of the cervical spine without contrast. Radiation optimization: All CT scans at this facility use at least one of these dose optimization techniques: automated exposure control; mA and/or kV adjustment per patient size (includes targeted exams where dose is matched to clinical indication); or iterative reconstruction. COMPARISON: CR Spine, Cervical 06/18/2019 1:40 AM FINDINGS: Vertebrae: Vertebral body height and AP alignment is preserved. No acute cervical spine fracture. Discs/Spinal canal/Neural foramina: No definite significant central canal stenosis within limitations of technique. Soft tissues: Unremarkable. Lungs: Lung apices are normal. Pleural space: No visible pneumothorax. IMPRESSION: No acute osseous abnormality. Electronically signed by: Eusebio Mcghee On 02/25/2020 18:50:20 PM
[2020-02-25] MEDS ORDERED: REGL10TA6 PO (18:59)
[2020-02-25] MEDS ORDERED: KETO10TAB PO (18:59)
[2020-02-25 19:11] VITALS: BP 115/62
== END 2020-02-25 19:14 | disposition home or self-care (01) ==
LOC: M ED 15:38
DX: R51 Headache (principal); M54.2 Cervicalgia; E10.9 Type 1 diabetes mellitus without complications; Z79.899 Other long term (current) drug therapy; Z79.4 Long term (current) use of insulin; Z88.5 Allergy status to narcotic agent; Z88.8 Allergy status to other drugs, medicaments and biological substances
CPT/HCPCS: 70450; 72125; 80047; 83735; 84702; 85025; 96361; 96374; 96375; 99284; J1200; J1885; J2765

== ENCOUNTER → 2020-03-09 | Outpatient (CLI) | payer OTHER ==
[~2020-03-09] MED LIST changes: +GABA-1171; +GABA-843; +KETO10TAB PO; +METH4PACK; +TIZA4TAB4
--- NOTE | 2020-03-09 09:11 | REPVR ---
PROCEDURE INFORMATION: Exam: MR Cervical Spine Without Contrast Exam date and time: 03/09/2020 8:21 AM Age: 29 years old Clinical indication: Patient HX: Neck pain >3months, nki, ; additional info: Cervicalgia TECHNIQUE: Imaging protocol: Multiplanar magnetic resonance images of the cervical spine without contrast. COMPARISON: CT Spine,cervical w/o contrast 02/25/2020 6:33 PM FINDINGS: Vertebrae: There is straightening of the normal cervical lordosis. There is no fracture or listhesis. Normal vertebral body alignment and heights are preserved. Spinal cord: The cervicomedullary junction and cervical cord appear normal. C2-C3: There is shallow disc bulging. The spinal canal and neural foramina are patent. C3-C4: There is shallow disc bulging. The spinal canal and neural foramina are patent. C4-C5: There is shallow disc bulging. The spinal canal and neural foramina are patent. C5-C6: No significant disc disease. No significant spinal stenosis. C6-C7 there is shallow disc bulging. The spinal canal and neural foramina are patent. C7-T1: No significant disc disease. No significant spinal stenosis. Vertebral arteries: Expected flow voids in the vertebral arteries. Soft tissues: Unremarkable. IMPRESSION: Mild degenerative disc disease. No canal or foraminal compromise. Electronically signed by: Nalini Woodruff On 03/09/2020 09:11:35 AM
== END ==
LOC: M RAD 07:36
PROVIDERS: ATTEND Family Medicine
DX: M50.21 Other cervical disc displacement, high cervical region (principal); M50.221 Other cervical disc displacement at C4-C5 level

== ENCOUNTER → 2020-04-04 | Outpatient (REF) | LOC: M EMP 12:00 | PROVIDERS: ATTEND Family Medicine | DX: Z20.828 Contact with and (suspected) exposure to other viral communicable diseases (principal) ==

== ENCOUNTER → 2020-04-13 | Outpatient (CLI) | payer OTHER | LOC: M LABSMTC 09:44 | PROVIDERS: ATTEND Pediatrics | DX: Z03.818 Encounter for observation for suspected exposure to other biological agents ruled out (principal); Z11.59 Encounter for screening for other viral diseases ==

== ENCOUNTER → 2020-05-09 | Outpatient (CLI) | payer OTHER ==
[2020-05-09 16:04] LABS: HEMOGLOBIN A1c 7.5 %
== END ==
LOC: M LAB 12:20
PROVIDERS: ATTEND Family Medicine
DX: E10.65 Type 1 diabetes mellitus with hyperglycemia (principal)

== ENCOUNTER → 2020-06-01 | Outpatient (CLI) | payer OTHER | LOC: M LABSMTC 11:39 | PROVIDERS: ATTEND Pediatrics | DX: Z20.828 Contact with and (suspected) exposure to other viral communicable diseases (principal) | CPT/HCPCS: C9803; U0003 ==

== ENCOUNTER 2020-08-13 22:21 | Emergency (ER) | payer BC, OTHER ==
[~2020-08-13] VITALS: Ht 167.6 cm; Wt 86.4 kg
[2020-08-13 22:21] VITALS: BP 141/77
[2020-08-13] MEDS ORDERED: IBUP80TA PO (22:31)
--- NOTE | 2020-08-13 23:13 | REPVR ---
PROCEDURE INFORMATION: Exam: XR Left Forearm Exam date and time: 08/13/2020 10:43 PM Age: 30 years old Clinical indication: Pain; Lower or forearm; Left; Additional info: Fall TECHNIQUE: Imaging protocol: XR Left forearm. Views: 2 views. COMPARISON: No relevant prior studies available. FINDINGS: Bones/joints: Negative ulnar variance. No fractures. Soft tissues: Normal. IMPRESSION: 1. Negative ulnar variance. 2. Otherwise negative left forearm. Electronically signed by: Jorge Logan On 08/13/2020 23:13:06 PM
== END 2020-08-13 23:40 | disposition home or self-care (01) ==
LOC: M ED 22:21
DX: S56.212A Strain of other flexor muscle, fascia and tendon at forearm level, left arm, initial encounter (principal); W01.0XXA Fall on same level from slipping, tripping and stumbling without subsequent striking against object, initial encounter; Y92.410 Unspecified street and highway as the place of occurrence of the external cause; E10.9 Type 1 diabetes mellitus without complications; E84.9 Cystic fibrosis, unspecified; Z79.899 Other long term (current) drug therapy; Z79.4 Long term (current) use of insulin; Z88.5 Allergy status to narcotic agent; Z88.8 Allergy status to other drugs, medicaments and biological substances

== ENCOUNTER → 2020-08-26 | Outpatient (CLI) | payer BC ==
[2020-08-26 10:10] LABS: BASO # 0.1 10^3/uL (0.0-0.2); EOS # 0.3 10^3/uL (0.0-0.5); EOS % 2.7 % (0.0-3.0); HEMATOCRIT 45.6 % (36.0-47.0); HEMOGLOBIN 14.3 g/dl (12.0-15.5); LYMPH # 2.5 10^3/uL (1.5-5.0); LYMPH % 24.6 % (24.0-44.0); MEAN CORPUSCULAR HEMOGLOBIN 29.7 pg (27.0-33.0); MEAN CORPUSCULAR HGB CONC 31.4 g/dl (32.0-36.5); MEAN CORPUSCULAR VOLUME 94.6 fl (80.0-96.0); MONO % 9.9 % (0.0-5.0); NEUTROPHILS # 6.2 10^3/uL (1.5-8.5); NEUTROPHILS % 61.5 % (36.0-66.0); PLATELET COUNT, AUTOMATED 466 10^3/uL (150-450); RED BLOOD COUNT 4.82 10^6/uL (4.00-5.40); WHITE BLOOD COUNT 10.1 10^3/uL (4.0-10.0)
[2020-08-26 10:53] LABS: ALT/SGPT 433 U/L (12-78); BILIRUBIN,TOTAL 0.3 MG/DL (0.2-1.0); BLOOD UREA NITROGEN 15 MG/DL (7-18); CALCIUM LEVEL 9.5 MG/DL (8.5-10.1); CARBON DIOXIDE LEVEL 28 MEQ/L (21-32); CHLORIDE LEVEL 100 MEQ/L (98-107); CREATININE FOR GFR 1.09 MG/DL (0.55-1.30); GLOMERULAR FILTRATION RATE > 60.0 (>60); GLUCOSE, FASTING 190 MG/DL (70-100); POTASSIUM SERUM 4.8 MEQ/L (3.5-5.1); SODIUM LEVEL 135 MEQ/L (136-145); TOTAL PROTEIN 7.6 GM/DL (6.4-8.2)
[2020-08-26 13:12] LABS: HEMOGLOBIN A1c 9.4 %
== END ==
LOC: M LAB 08:32
PROVIDERS: ATTEND Physician Assistant
DX: E10.65 Type 1 diabetes mellitus with hyperglycemia (principal)

== ENCOUNTER → 2020-08-26 | Outpatient (CLI) | payer BC ==
[2020-08-26 10:11] LABS: BASO # 0.1 10^3/uL (0.0-0.2); EOS # 0.3 10^3/uL (0.0-0.5); EOS % 2.8 % (0.0-3.0); HEMATOCRIT 45.4 % (36.0-47.0); HEMOGLOBIN 14.1 g/dl (12.0-15.5); LYMPH # 2.5 10^3/uL (1.5-5.0); LYMPH % 24.6 % (24.0-44.0); MEAN CORPUSCULAR HEMOGLOBIN 29.7 pg (27.0-33.0); MEAN CORPUSCULAR HGB CONC 31.1 g/dl (32.0-36.5); MEAN CORPUSCULAR VOLUME 95.6 fl (80.0-96.0); MONO # 1.1 10^3/uL (0.0-0.8); MONO % 10.2 % (0.0-5.0); NEUTROPHILS # 6.3 10^3/uL (1.5-8.5); PLATELET COUNT, AUTOMATED 486 10^3/uL (150-450); RED BLOOD COUNT 4.75 10^6/uL (4.00-5.40); WHITE BLOOD COUNT 10.3 10^3/uL (4.0-10.0)
[2020-08-26 10:30] LABS: INR 0.89; PARTIAL THROMBOPLASTIN TIME 29.2 SECONDS (24.2-38.5); PROTHROMBIN TIME 12.2 SECONDS (12.5-14.3)
[2020-08-26 10:52] LABS: ALT/SGPT 433 U/L (12-78); BILIRUBIN,TOTAL 0.3 MG/DL (0.2-1.0); BLOOD UREA NITROGEN 15 MG/DL (7-18); CALCIUM LEVEL 9.6 MG/DL (8.5-10.1); CARBON DIOXIDE LEVEL 28 MEQ/L (21-32); CHLORIDE LEVEL 100 MEQ/L (98-107); CHOLESTEROL LEVEL 206 MG/DL (<200); CHOLESTEROL RISK RATIO 4.204 (<5); GLOMERULAR FILTRATION RATE > 60.0 (>60); GLUCOSE, FASTING 183 MG/DL (70-100); HDL CHOLESTEROL 49 MG/DL (>40); IRON (FE) 123 UG/DL (50-170); LDL CHOLESTEROL 112 MG/DL (<100); MAGNESIUM LEVEL 2.1 MG/DL (1.8-2.4); NON-HDL-C 157 MG/DL; PERCENT SATURATION 34.5 % (13.2-45.0); POTASSIUM SERUM 4.7 MEQ/L (3.5-5.1); SODIUM LEVEL 134 MEQ/L (136-145); TOTAL IRON BINDING CAPACITY 357 UG/DL (250-450); TOTAL PROTEIN 7.6 GM/DL (6.4-8.2); TRIGLYCERIDES LEVEL 227 MG/DL (<150)
[2020-08-26 11:47] LABS: TOTAL 25(OH) VITAMIN D 22.8 NG/ML (30.0-100.0)
== END ==
LOC: M LAB 08:34
PROVIDERS: ATTEND Internal Medicine Pulmonary Disease
DX: E84.9 Cystic fibrosis, unspecified (principal)

== ENCOUNTER → 2020-09-01 | Outpatient (CLI) | payer BC ==
[~2020-09-01] MED LIST changes: +GABA-282; -GABA-843
[2020-09-01 11:34] LABS: ALBUMIN 3.6 GM/DL (3.2-5.2); ALT/SGPT 134 U/L (12-78); BILIRUBIN,DIRECT < 0.1 MG/DL (0.0-0.2); BILIRUBIN,TOTAL 0.4 MG/DL (0.2-1.0); TOTAL PROTEIN 7.5 GM/DL (6.4-8.2)
[2020-09-01 11:40] LABS: HEPATITIS B SURFACE ANTIGEN NEGATIVE (NEGATIVE)
[2020-09-01 12:07] LABS: HEPATITIS C VIRUS ABY INDEX < 0.0 INDEX (<0.8)
[2020-09-01 12:08] LABS: HEPATITIS B CORE ANTIBODY IGM NEGATIVE (NEGATIVE)
[2020-09-01 12:10] LABS: HEPATITIS A ANTIBODY IGM NEGATIVE (NEGATIVE)
== END ==
LOC: M LAB 10:09
PROVIDERS: ATTEND Internal Medicine Pulmonary Disease
DX: E84.9 Cystic fibrosis, unspecified (principal); R79.89 Other specified abnormal findings of blood chemistry

== ENCOUNTER → 2020-09-12 | Outpatient (CLI) | payer BC ==
--- NOTE | 2020-09-12 09:26 | REP ---
INDICATION: CF, ELEVATED LFT'S COMPARISON: 12/12/2015 TECHNIQUE: Real time reddy scale ultrasound examination using curved array transducer. FINDINGS: Liver is normal in contour, size, and echogenicity without focal hepatic lesions identified. Pancreas is incompletely evaluated due to interposed bowel gas. The gallbladder is normal and without gallstones, wall thickening, or pericholecystic fluid. No biliary ductal dilatation is appreciated and the common bile duct measures 4.0 mm diameter. Right kidney is normal in reniform shape without hydronephrosis and measures 11.2 x 4.8 x 4.3 cm. No ascites in the visualized right upper quadrant. IMPRESSION: Normal limited right upper quadrant ultrasound <Electronically signed by Jamin Patel > 09/12/20 [id number]
== END ==
LOC: M RAD 08:53
PROVIDERS: ATTEND Internal Medicine Pulmonary Disease
DX: E84.9 Cystic fibrosis, unspecified (principal); R79.89 Other specified abnormal findings of blood chemistry

== ENCOUNTER 2020-10-21 06:30 | Emergency (ER) | payer BC ==
[~2020-10-21] VITALS: Ht 167.6 cm; Wt 89.2 kg
[2020-10-21] MEDS ORDERED: KETOROLAC 30 MG/ML 1ML VIAL IV ONE (07:00)
[2020-10-21] MEDS ORDERED: NS 1,000 ML IV ONE (07:00)
[2020-10-21 07:44] LABS: BASO # 0.1 10^3/uL (0.0-0.2); BASO % 0.8 % (0.0-1.0); EOS # 0.4 10^3/uL (0.0-0.5); EOS % 3.8 % (0.0-3.0); HEMOGLOBIN 12.7 g/dl (12.0-15.5); LYMPH # 2.7 10^3/uL (1.5-5.0); LYMPH % 25.3 % (24.0-44.0); MEAN CORPUSCULAR HEMOGLOBIN 29.5 pg (27.0-33.0); MEAN CORPUSCULAR HGB CONC 31.8 g/dl (32.0-36.5); MONO # 1.2 10^3/uL (0.0-0.8); NEUTROPHILS # 6.2 10^3/uL (1.5-8.5); NEUTROPHILS % 58.8 % (36.0-66.0); PLATELET COUNT, AUTOMATED 650 10^3/uL (150-450); WHITE BLOOD COUNT 10.5 10^3/uL (4.0-10.0)
[2020-10-21] MEDS ORDERED: ONDANSETRON 4MG/2ML VIAL IV ONE (07:45)
[2020-10-21 08:07] LABS: ALBUMIN 3.6 GM/DL (3.2-5.2); ALT/SGPT 45 U/L (12-78); BILIRUBIN,DIRECT < 0.1 MG/DL (0.0-0.2); BILIRUBIN,TOTAL 0.2 MG/DL (0.2-1.0); LIPASE 17 U/L (73-393); TOTAL PROTEIN 7.2 GM/DL (6.4-8.2)
--- NOTE | 2020-10-21 08:23 | ECGEPIP ---
[facility] - ED Test Date: 2020-10-21 Pat Name: ENRRIQUE AMAYA Department: Room: - Gender: Female [employer]: sg : 1990 Requested By: VITOR Devries PA-C Order Number: [id number] Reading MD: Ct Montes Measurements Intervals [place] Rate: 83 P: 74 IA: 134 QRS: 46 QRSD: 70 T: 58 QT: 358 QTc: 420 Interpretive Statements Normal sinus rhythm No prior Electronically Signed on 10-21-2020 8:22:[address]es
--- NOTE | 2020-10-21 08:30 | REP ---
INDICATION: R flank pain, h/o kidney stones COMPARISON: 11/20/2018 TECHNIQUE: Axial noncontrast images from the lung bases to the pubic symphysis with coronal and sagittal reformations. This CT examination was performed using the following dose reduction techniques: Automated exposure control, adjustment of mA and/or kv according to the patient's size, and use of iterative reconstruction technique. FINDINGS: Right-sided hydroureteronephrosis is appreciated without evidence for obstructing calculus, but 2 mm calculus is identified within the dependent portion of the bladder suggesting recently passed obstructing stone. The right kidney is otherwise unremarkable and without further nephrolithiasis. The left kidney includes 3 mm nonobstructing calculus. Liver, and bilateral adrenal glands are normal. Patient appears to be status post cholecystectomy, splenectomy and pancreatectomy. A small splenule in the left renal fossa is again identified and unchanged. The enteric system demonstrates mild/moderate fecal stasis. No bowel obstruction or acute inflammatory process noted. Normal terminal ileum and appendix identified in the right lower quadrant. Pelvis demonstrates bladder as described above and normal uterus/right adnexa. 4.1 cm left adnexal cyst is likely physiologic. No ascites. No free air. No adenopathy. Abdominal aorta without aneurysm. Musculoskeletal structures are intact. IMPRESSION: 1. Findings suggest recently passed right ureteral stone now identified in the bladder. 2. 3 mm nonobstructing left renal calculus. 3. Moderate fecal stasis. 4. 4 cm left ovarian cyst likely physiologic. 5. Postsurgical changes as noted above. <Electronically signed by Jamin Patel > 10/21/20 [id number]
[2020-10-21] MEDS ORDERED: FLOM0.4C39 PO (08:38)
[2020-10-21] MEDS ORDERED: KETO10TAB PO (08:38)
[2020-10-21] MEDS ORDERED: ONDA4TAB6 PO (08:59)
[2020-10-21 09:19] VITALS: BP 141/84
--- NOTE | 2020-10-22 07:31 | ED PDOC ---
Post-Departure Follow-Up ct abd/p faxed to dr toro for fu Sol Baptiste MD Oct 22, 2020 07:31
== END 2020-10-21 09:15 | disposition home or self-care (01) ==
LOC: M ED 06:30
DX: N83.202 Unspecified ovarian cyst, left side (principal); N20.2 Calculus of kidney with calculus of ureter; K59.00 Constipation, unspecified; E10.65 Type 1 diabetes mellitus with hyperglycemia; K21.9 Gastro-esophageal reflux disease without esophagitis; E84.9 Cystic fibrosis, unspecified; Z79.899 Other long term (current) drug therapy; Z79.4 Long term (current) use of insulin; Z88.5 Allergy status to narcotic agent; Z88.8 Allergy status to other drugs, medicaments and biological substances
CPT/HCPCS: 36415; 74176; 80047; 80076; 81001; 83690; 84702; 85025; 93005; 96361; 96374; 96375; 99284; J1885; J2405

== ENCOUNTER 2020-12-27 10:06 | Emergency (ER) | payer BC ==
[~2020-12-27] VITALS: Ht 167.6 cm; Wt 88.2 kg
[~2020-12-27 10:06] MED LIST changes: +FLOM0.4C39 PO; +ONDA4TAB6 PO
[2020-12-27] MEDS ORDERED: ONDANSETRON 4MG/2ML VIAL As Ordered ONE (10:44)
[2020-12-27] MEDS ORDERED: ONDANSETRON 4MG/2ML VIAL IV ONE (10:45)
[2020-12-27 10:47] LABS: BASO # 0.1 10^3/uL (0.0-0.2); BASO % 0.6 % (0.0-1.0); EOS # 0.5 10^3/uL (0.0-0.5); EOS % 3.4 % (0.0-3.0); HEMATOCRIT 45.1 % (36.0-47.0); HEMOGLOBIN 14.7 g/dl (12.0-15.5); LYMPH # 3.4 10^3/uL (1.5-5.0); LYMPH % 23.1 % (24.0-44.0); MEAN CORPUSCULAR HEMOGLOBIN 30.2 pg (27.0-33.0); MEAN CORPUSCULAR HGB CONC 32.6 g/dl (32.0-36.5); MEAN CORPUSCULAR VOLUME 92.8 fl (80.0-96.0); MONO # 1.2 10^3/uL (0.0-0.8); MONO % 8.2 % (2.0-8.0); NEUTROPHILS # 9.5 10^3/uL (1.5-8.5); NEUTROPHILS % 64.4 % (36.0-66.0); PLATELET COUNT, AUTOMATED 702 10^3/uL (150-450); RED BLOOD COUNT 4.86 10^6/uL (4.00-5.40); WHITE BLOOD COUNT 14.7 10^3/uL (4.0-10.0)
[2020-12-27] MEDS: MORPHINE 2 MG/ML 1ML VIAL (J2270) IV PRN ×2 (10:48→12:45)
[2020-12-27 11:10] LABS: ALBUMIN 3.6 GM/DL (3.2-5.2); ALT/SGPT 63 U/L (12-78); BILIRUBIN,TOTAL 0.2 MG/DL (0.2-1.0); BLOOD UREA NITROGEN 7 MG/DL (7-18); CALCIUM LEVEL 9.2 MG/DL (8.5-10.1); CARBON DIOXIDE LEVEL 25 MEQ/L (21-32); CHLORIDE LEVEL 108 MEQ/L (98-107); CREATININE FOR GFR 0.94 MG/DL (0.55-1.30); GLOMERULAR FILTRATION RATE > 60.0 (>60); GLUCOSE, FASTING 112 MG/DL (70-100); HCG, SERUM QUANTITATIVE < 1.0 MIU/ML; POTASSIUM SERUM 4.8 MEQ/L (3.5-5.1); SODIUM LEVEL 137 MEQ/L (136-145); TOTAL PROTEIN 7.6 GM/DL (6.4-8.2)
[2020-12-27] MEDS ORDERED: KETOROLAC 30 MG/ML 1ML VIAL IV ONE ×2 (11:15→14:55)
[2020-12-27] MEDS ORDERED: NS 1,000 ML IV ONE (11:15)
--- NOTE | 2020-12-27 12:09 | REP ---
INDICATION: FLANK PAIN COMPARISON: 10/21/2020. TECHNIQUE: CT Scan of the abdomen and pelvis was performed without intravenous contrast. Sagittal and coronal reconstruction images performed. FINDINGS: Lung bases: Unremarkable. Liver: Grossly unremarkable. Gallbladder: Prior cholecystectomy. Spleen: Prior splenectomy. Adrenals: Normal. Pancreas: Prior pancreatectomy. Kidneys: There are no right renal calculi and there is no evidence of right hydroureteronephrosis. There is a punctate calcification in the upper pole the left kidney, and a 2 mm calcification in the mid left kidney. There is moderate left hydroureteronephrosis caused by a 2 mm calculus at the left ureterovesical junction. Small and large bowel: Grossly unremarkable. Free fluid: None. Abdominal aorta: No aneurysm. Adenopathy: None. Appendix: Not inflamed. Osseous structures: Unremarkable. Pelvis: No mass. No bladder calculus seen. IMPRESSION: There is moderate left hydroureteronephrosis caused by a 2 mm calculus at the left ureterovesical junction. <Electronically signed by Rashad Ray > 12/27/20 [id number]
[2020-12-27] MEDS ORDERED: cefTRIAXone SOD 1 GM in D5W MINI-BAG PLUS 50 ML IV ONE (12:30)
[2020-12-27] MEDS ORDERED: TAMSULOSIN 0.4 MG CAP PO ONE (12:30)
[2020-12-27] MEDS ORDERED: METOCLOPRAMIDE INJ 10MG/2ML VIAL (J2765 PER 1) IV ONE (12:30)
[2020-12-27 14:41] VITALS: BP 123/75
[2020-12-27] MEDS ORDERED: CEFD1CAP8 PO (14:52)
[2020-12-27] MEDS ORDERED: PERC5TAB12 PO (14:52)
[2020-12-27] MEDS ORDERED: KETO10TAB PO (14:52)
[2020-12-27] MEDS ORDERED: FLOM0.4C39 PO (14:52)
[2020-12-27] MEDS ORDERED: ONDA4TAB6 PO (14:54)
== END 2020-12-27 15:32 | disposition home or self-care (01) ==
LOC: M ED 10:06
DX: N13.1 Hydronephrosis with ureteral stricture, not elsewhere classified (principal); E11.9 Type 2 diabetes mellitus without complications; F33.9 Major depressive disorder, recurrent, unspecified; F41.9 Anxiety disorder, unspecified; K21.9 Gastro-esophageal reflux disease without esophagitis; J30.2 Other seasonal allergic rhinitis; Z79.899 Other long term (current) drug therapy; Z79.4 Long term (current) use of insulin; Z88.5 Allergy status to narcotic agent; Z88.8 Allergy status to other drugs, medicaments and biological substances; Z79.3 Long term (current) use of hormonal contraceptives
CPT/HCPCS: 74176; 80053; 81001; 84702; 85025; 87086; 96361; 96365; 96375; 96376; 99284; J0696; J1885; J2270; J2405; J2765

== ENCOUNTER 2020-12-29 09:53 | Emergency (ER) | payer BC ==
[~2020-12-29] VITALS: Ht 167.6 cm; Wt 89.6 kg
[~2020-12-29 09:53] MED LIST changes: +CEFD1CAP8 PO
[2020-12-29 11:31] LABS: BASO # 0.1 10^3/uL (0.0-0.2); BASO % 0.7 % (0.0-1.0); EOS # 0.4 10^3/uL (0.0-0.5); EOS % 3.3 % (0.0-3.0); HEMATOCRIT 41.1 % (36.0-47.0); HEMOGLOBIN 13.2 g/dl (12.0-15.5); LYMPH # 2.2 10^3/uL (1.5-5.0); MEAN CORPUSCULAR HEMOGLOBIN 30.1 pg (27.0-33.0); MEAN CORPUSCULAR HGB CONC 32.1 g/dl (32.0-36.5); MEAN CORPUSCULAR VOLUME 93.6 fl (80.0-96.0); NEUTROPHILS # 7.2 10^3/uL (1.5-8.5); NEUTROPHILS % 66.6 % (36.0-66.0); PLATELET COUNT, AUTOMATED 608 10^3/uL (150-450); RED BLOOD COUNT 4.39 10^6/uL (4.00-5.40); WHITE BLOOD COUNT 10.9 10^3/uL (4.0-10.0)
--- NOTE | 2020-12-29 11:52 | REP ---
INDICATION: left flank pain. COMPARISON: MULTIPLE THE LATEST 2 DAYS AGO TECHNIQUE: Noncontrast enhanced helical stone protocol technique FINDINGS: The lung bases are clear and unchanged. The left-sided hydronephrosis and hydroureter due to a calculus in the left ureterovesical junction seen on the prior exam is all resolved. Bilateral incidental extrarenal pelvis is noted. There is an unchanged nonobstructing left nephrolith. There are no urinary bladder calcifications. There is an unchanged incidental right-sided pelvic phlebolith. There is no change in the solid intra-abdominal organs, pancreas, or adrenal glands. There is no change in the bowel loops or the mesenteries. There is no free fluid or free air. There is no change in the osseous structures. IMPRESSION: Findings on the left have resolved as described above. There are no new abnormalities. <Electronically signed by Jacob Mathews > 12/29/20 [id number]
[2020-12-29 11:57] LABS: ALBUMIN 3.4 GM/DL (3.2-5.2); ALT/SGPT 210 U/L (12-78); BILIRUBIN,DIRECT < 0.1 MG/DL (0.0-0.2); BILIRUBIN,TOTAL 0.2 MG/DL (0.2-1.0); LIPASE 13 U/L (73-393)
[2020-12-29] MEDS ORDERED: NS 1,000 ML IV ONE (12:30)
[2020-12-29] MEDS ORDERED: PYRI1TAB5 PO (14:02)
[2020-12-29 14:26] VITALS: BP 133/74
== END 2020-12-29 14:34 | disposition home or self-care (01) ==
LOC: M ED 09:53
DX: R30.0 Dysuria (principal); E10.9 Type 1 diabetes mellitus without complications; K21.9 Gastro-esophageal reflux disease without esophagitis; E84.9 Cystic fibrosis, unspecified; Z87.442 Personal history of urinary calculi; Z79.899 Other long term (current) drug therapy; Z79.4 Long term (current) use of insulin; Z88.5 Allergy status to narcotic agent; Z88.8 Allergy status to other drugs, medicaments and biological substances

== ENCOUNTER → 2021-01-10 | Outpatient (CLI) | payer BC ==
[~2021-01-10] MED LIST changes: +PYRI1TAB5 PO
[2021-01-11 08:41] LABS: ALBUMIN 3.8 GM/DL (3.2-5.2); ALT/SGPT 83 U/L (12-78); BILIRUBIN,TOTAL 0.2 MG/DL (0.2-1.0); BLOOD UREA NITROGEN 10 MG/DL (7-18); CALCIUM LEVEL 9.5 MG/DL (8.5-10.1); CARBON DIOXIDE LEVEL 29 MEQ/L (21-32); CHLORIDE LEVEL 99 MEQ/L (98-107); CREATININE FOR GFR 1.18 MG/DL (0.55-1.30); FREE T4 0.94 NG/DL (0.76-1.46); GLOMERULAR FILTRATION RATE 57.7 (>60); GLUCOSE, FASTING 494 MG/DL (70-100); HEPATITIS B SURFACE ANTIBODY POSITIVE (POSITIVE); HEPATITIS B SURFACE ANTIGEN NEGATIVE (NEGATIVE); POTASSIUM SERUM 4.5 MEQ/L (3.5-5.1); SODIUM LEVEL 134 MEQ/L (136-145); TOTAL PROTEIN 7.6 GM/DL (6.4-8.2)
[2021-01-18 16:16] LABS: CALPROTECTIN STOOL 31 ug/g (0-120)
[2021-01-19 17:13] LABS: A1A FOR PHENOTYPE 123 mg/dL (100-188); ANTI-MITOCHONDRIAL ANTIBODY <20.0 Units (0.0-20.0); ANTI-SMOOTH MUSCLE ANTIBODY 3 Units (0-19); CERULOPLASMIN 25.1 mg/dL (19.0-39.0); TISSUE TRANSGLUTAMINASE IgA <2 U/mL (0-3)
== END ==
LOC: M LAB 16:20
PROVIDERS: ATTEND Internal Medicine Gastroenterology
DX: R19.4 Change in bowel habit (principal)

== ENCOUNTER → 2021-01-10 | Outpatient (CLI) | payer BC ==
--- NOTE | 2021-01-10 17:16 | REP ---
INDICATION: CALCULUS OF URETER /LAB FIRST COMPARISON: None. TECHNIQUE: Supine views of the abdomen and pelvis. FINDINGS: No obvious urinary tract calcifications are appreciated. Tiny 2 mm calcification in the right hemipelvis consistent with phlebolith and confirmed by recent CT. Small nonobstructing left intrarenal calculus identified on recent CT is not visible on x-ray. The bowel gas pattern demonstrates moderate fecal stasis without obstruction or perforation. No organomegaly. No foreign body. Skeletal structures intact. IMPRESSION: No obvious urinary tract calcifications identified by current radiographic evaluation. The small 2-3 mm left renal calculus on CT dated 12/29/2020 is not visible by x-ray. <Electronically signed by Jamin Patel > 01/10/21 [id number]
== END ==
LOC: M RAD 16:24
PROVIDERS: ATTEND Urology
DX: K59.89 Other specified functional intestinal disorders (principal)

== ENCOUNTER 2021-02-20 20:39 | Emergency (ER) | payer BC ==
[~2021-02-20] VITALS: Ht 167.6 cm; Wt 85.1 kg
[~2021-02-20 20:39] MED LIST changes: +OMEP40CA4 PO; -OMEP40CA97 PO
[2021-02-20] MEDS ORDERED: BUPR15TA PO (20:48)
[2021-02-20] MEDS ORDERED: XANA0.5T PO (20:48)
[2021-02-20] MEDS ORDERED: BUSP5TA PO (20:48)
[2021-02-20] MEDS ORDERED: ALPRAZolam 0.5 MG TAB PO ONE (22:15)
[2021-02-20 22:38] LABS: HEMATOCRIT 44.8 % (36.0-47.0); HEMOGLOBIN 14.6 g/dl (12.0-15.5); MEAN CORPUSCULAR HGB CONC 32.6 g/dl (32.0-36.5); PLATELET COUNT, AUTOMATED 687 10^3/uL (150-450); RED BLOOD COUNT 4.87 10^6/uL (4.00-5.40); WHITE BLOOD COUNT 13.3 10^3/uL (4.0-10.0)
[2021-02-20 23:16] LABS: ACETAMINOPHEN LEVEL < 2.0 UG/ML (10.0-30.0); ALBUMIN 3.7 GM/DL (3.2-5.2); ALT/SGPT 41 U/L (12-78); BILIRUBIN,DIRECT < 0.1 MG/DL (0.0-0.2); BILIRUBIN,TOTAL 0.2 MG/DL (0.2-1.0); BLOOD UREA NITROGEN 5 MG/DL (7-18); CALCIUM LEVEL 9.2 MG/DL (8.5-10.1); CARBON DIOXIDE LEVEL 25 MEQ/L (21-32); CHLORIDE LEVEL 106 MEQ/L (98-107); CREATININE FOR GFR 1.03 MG/DL (0.55-1.30); ETHYL ALCOHOL (ETHANOL) < 0.003 % (0.000-0.010); GLOMERULAR FILTRATION RATE > 60.0 (>60); GLUCOSE, FASTING 200 MG/DL (70-100); POTASSIUM SERUM 4.5 MEQ/L (3.5-5.1); SALICYLATE LEVEL < 1.7 MG/DL (5.0-30.0); SODIUM LEVEL 140 MEQ/L (136-145); TOTAL PROTEIN 7.7 GM/DL (6.4-8.2)
[2021-02-21 00:11] VITALS: BP 108/63
== END 2021-02-21 00:27 | disposition home or self-care (01) ==
LOC: M ED 20:39
DX: F33.9 Major depressive disorder, recurrent, unspecified (principal); F43.23 Adjustment disorder with mixed anxiety and depressed mood; D47.3 Essential (hemorrhagic) thrombocythemia; E11.65 Type 2 diabetes mellitus with hyperglycemia; R74.8 Abnormal levels of other serum enzymes; F41.9 Anxiety disorder, unspecified; E84.9 Cystic fibrosis, unspecified; Z79.4 Long term (current) use of insulin; Z79.899 Other long term (current) drug therapy; Z88.5 Allergy status to narcotic agent; Z88.1 Allergy status to other antibiotic agents; Z81.8 Family history of other mental and behavioral disorders

== ENCOUNTER → 2021-02-27 | Outpatient (REF) | payer BC ==
[~2021-02-27] MED LIST changes: +BASA100I; +BUPR15TA PO; +BUSP5TA PO; -CEFD1CAP8 PO; +CEFD300C41 PO; +HUMA100I5; +PLEC3TAB; +REGL5TAB2 PO; +TIZA10TA; -TIZA4TAB4
== END ==
LOC: M SFHCWAGY 13:14
PROVIDERS: ATTEND Obstetrics & Gynecology
DX: Z12.4 Encounter for screening for malignant neoplasm of cervix (principal)

== ENCOUNTER → 2021-04-23 | Outpatient (REF) ==
[~2021-04-23] MED LIST changes: -BASA100I; +CEFD1CAP8 PO; -CEFD300C41 PO; -HUMA100I5; -PLEC3TAB; -REGL5TAB2 PO; -TIZA10TA; +TIZA4TAB4
== END ==
LOC: M EMP 11:29
PROVIDERS: ATTEND Pediatrics
DX: Z20.822 Contact with and (suspected) exposure to COVID-19 (principal)

== ENCOUNTER → 2021-04-25 | Outpatient (REF) | LOC: M EMP 08:11 | PROVIDERS: ATTEND Family Medicine | DX: Z11.52 Encounter for screening for COVID-19 (principal) ==

== ENCOUNTER → 2021-05-25 | Outpatient (REF) | payer BC ==
[2021-05-25 11:59] LABS: BASO # 0.1 10^3/uL (0.0-0.2); BASO % 0.6 % (0.0-1.0); EOS # 0.2 10^3/uL (0.0-0.5); EOS % 1.2 % (0.0-3.0); HEMATOCRIT 45.8 % (36.0-47.0); LYMPH % 22.1 % (24.0-44.0); MEAN CORPUSCULAR HEMOGLOBIN 30.1 pg (27.0-33.0); MEAN CORPUSCULAR HGB CONC 32.8 g/dl (32.0-36.5); MONO # 0.9 10^3/uL (0.0-0.8); MONO % 6.4 % (2.0-8.0); NEUTROPHILS # 9.3 10^3/uL (1.5-8.5); NEUTROPHILS % 69.4 % (36.0-66.0); PLATELET COUNT, AUTOMATED 686 10^3/uL (150-450); RED BLOOD COUNT 4.98 10^6/uL (4.00-5.40); WHITE BLOOD COUNT 13.4 10^3/uL (4.0-10.0)
[2021-05-25 12:52] LABS: HEMOGLOBIN A1c 10.3 %
[2021-05-25 13:57] LABS: ALBUMIN 4.2 GM/DL (3.2-5.2); ALT/SGPT 52 U/L (12-78); BILIRUBIN,TOTAL 0.2 MG/DL (0.2-1.0); BLOOD UREA NITROGEN 12 MG/DL (7-18); CALCIUM LEVEL 10.5 MG/DL (8.5-10.1); CARBON DIOXIDE LEVEL 26 MEQ/L (21-32); CHLORIDE LEVEL 103 MEQ/L (98-107); CREATININE FOR GFR 0.83 MG/DL (0.55-1.30); GLOMERULAR FILTRATION RATE > 60.0 (>60); GLUCOSE, FASTING 99 MG/DL (70-100); POTASSIUM SERUM 4.4 MEQ/L (3.5-5.1); SODIUM LEVEL 138 MEQ/L (136-145); TOTAL 25(OH) VITAMIN D 30.1 NG/ML (30.0-100.0); TOTAL PROTEIN 8.2 GM/DL (6.4-8.2)
[2021-05-25 15:27] LABS: MALB URINE SIEMENS 8.4 MG/L; MAU/CREAT RATIO 6.1 MCG/MG (0.0-30.0)
== END ==
LOC: M LAB REF 11:16
PROVIDERS: ATTEND Physician Assistant
DX: E10.65 Type 1 diabetes mellitus with hyperglycemia (principal)

== ENCOUNTER 2021-06-16 09:50 | Emergency (ER) | payer BC ==
[~2021-06-16] VITALS: Ht 167.6 cm; Wt 78.0 kg
[~2021-06-16 09:50] MED LIST changes: +RALTEGRAVIR 400 MG TAB (ISENTRESS) PO SCH; +TRUVADA 200MG/300MG TABLET PO SCH
--- OUTSIDE RECORDS SUMMARY | 2021-06-16 09:59 | CCD ---
Author Author [facility] Organization [facility] Address Unknown Phone Unavailable Care Team Providers Care Software Applications Specialist Name Role Phone Hua Singh Unavailable PROBLEMS No Information ALLERGIES Allergen (clinical drug ingredient) Drug/Non Drug Allergy do cumented on EMR Reaction Allergy Type Onset Date Status acetaminophen / hydrocodone Hydrocodone-Acetaminophen([facility] Co de:[address]-22) Unknown Drug Allergy Active metronidazole Flagyl([facility] Code:[address]-34) Unknown Drug Allergy Active ENCOUNTERS from 1990 to 2021-06-06 Encounter Location Date Provider Diagnosis [facility] [address] [place] [address] [place] [address] May, Hua Singh IMMUNIZATIONS No Information SOCIAL HISTORY Tobacco Use: Social History Observation Description Date Details (start date - stop date) Never Smoker Sex Assigned At : Social History Observation Description Sex Assigned At Unknown Alcohol Screening: Question Answer Notes Did you have a drink containing alcohol in the past year? No Points 0 Interpretation Negative Tobacco Use: Question Answer Notes Are you a: never smoker REASON FOR REFERRAL No Information VITAL SIGNS No information MEDICATIONS Medication SIG (Take, Route, Frequency, Duration) Notes Start Da te End Date Status Doxycycline Hyclate 100 MG 1 capsule Orally Twice a day for 30 d ays Jan, Not-Taking HumaLOG 100 UNIT/ML as directed Subcutaneous Active Anoro Ellipta 62.5-25 MCG/INH 1 puff Inhalation Once a day Active Benadryl Not-Taking Triamcinolone Acetonide 0.1 % 1 application Externally BID for 14 day s Active predniSONE 10 MG 1 tablet Orally BID for 5 days, QD for 5 days f or 30 day(s) Not-Taking Ambien 10 MG 1 tablet at bedtime as needed Orally Once a day Active Triamcinolone Acetonide 0.1 % 1 application Externally Two times a Week for 14 Days Jan, Not-Taking Lantus 100 UNIT/ML as directed Subcutaneous Not-Taking Nexplanon 68 MG as directed Subcutaneous Active NovoLOG 100 UNIT/ML as directed Subcutaneous Not-Taking Tretinoin 0.05 % 1 application in the evening to face Externally Once a day for 30 days Jan, Not-Taking Levocetirizine Dihydrochloride 5 MG 1 tablet in the ev ening Orally Once a day for 30 day(s) Active ZyrTEC Allergy 10 MG 1 tablet Orally Once a day for 30 day(s) Active Clindamycin Phosphate 1 % 1 application Externally Twice a day f or 30 days Jan, Active PROCEDURES No Information RESULTS No Results REASON FOR VISIT yeast infections MEDICAL (GENERAL) HISTORY Type Description Date Medical History cystic fibrosis Medical History diabetes Medical History anxiety Medical History GERD Medical History depression Medical History kidney stones Surgical History cholecystectomy Surgical History cyst on spleen Surgical History endoscopy Goals Section No Information Health Concerns No Information MEDICAL EQUIPMENT No Information MENTAL STATUS No Information FUNCTIONAL STATUS No Information ASSESSMENTS No Information PLAN OF TREATMENT No Information Insurance Providers Payer Name Payer Address Payer Phone Insured Name Patient Relati onship to Insured Coverage Start Date Coverage End Date BCBS [place] ROSS PPO [phone] [facility] [employer] [place] [id number] ENRRIQUE AMAYA self
--- OUTSIDE RECORDS SUMMARY | 2021-06-16 09:59 | CCD | Continuity of Care Document ---
Author Author Lidia RAMOS PA Organization [place] [address] Phone [phone] Care Team Providers Care Lye Treater Name Role Phone Kavita English D.O. AUTM Bruce Gorman AUTM [phone] Ur Neurology AUTM [phone] Problems Active Problems Provider Date Type II diabetes mellitus uncontrolled Kavita English D.O. Onset: 11/18/2015 Cystic fibrosis with intestinal manifestations Kavita Smith D.O. Onset: 11/18/2015 Generalized anxiety disorder Kavita English D.O. Onse t: 11/18/2015 Entire body organ Kavita English D.O. Onset: 2015 Liver function tests abnormal Kavita English D.O. Ons et: 12/02/2015 Type 2 diabetes mellitus Kavita English D.O. Onset: 0 03/02/2016 Psoriasis Kavita English D.O. Onset: 2015 Seborrheic dermatitis of scalp Kavita English D.O. On set: 03/02/2016 Vitamin D deficiency Kavita English D.O. Onset: 09/03 Cystic fibrosis of the lung DONIS Proctor Onset: 01/2018 Type 1 diabetes mellitus uncontrolled DONIS Proctor O nset: 03/24/2018 Moderate recurrent major depression DONIS Castro Onse t: 08/22/2020 Long-term current use of insulin DONIS Castro Onset: 08/22/2020 Social History Type Date Description Comments Sex Unknown ETOH Use Denies alcohol use Tobacco Use Start: Unknown Patient has never smoked Recreational Drug Use Denies Drug Use Smoking Status Reviewed: 04/15/20 Patient has never smoked Exercise Type/Frequency Spin class Sun Exposure Uses sunscreen Seat Belt/Car Seat Always uses seat belt Allergies, Adverse Reactions, Alerts Active Allergies Criticality Reaction | Severity Comments Date Flagyl Unable to assess criticality Urticaria 11/18/2015 Hydrocodone Unable to assess criticality Urticaria 12/02/2015 Medications Active Medications SIG Qnty Indications Ordering Provide r Date Phentermine HCL 37.5mg Capsules take one capsule by mouth daily before first meal of day 30caps Kavita English D.O. 05/18/2021 Tamsulosin HCL 0.4mg Capsules 1 tab by mouth every day every morning 90caps Kavita Gonzalez er, D.O. 10/25/2020 Effexor XR 75mg Caps ER 24HR 1 by mouth every day in combination with effexor 150 mg 90caps Kavita English D.O. 08/23/2020 Nurtec 75mg Tablets Dispers one tablet by mouth once every 24 hours as needed 8tabs Gaston Dowling.O. 07/04/2020 Ajovy 225mg/1.5ML Solution Auto-In ject one injector once a month in subcutaneous tissue 4.5ml Gaston Aleman.OWagner 06/09/2020 Rizatriptan Benzoate 10mg Tablets 1 tablet by mouth as needed at onset of symptoms. repeat dose after 2 hours if necessary (8 tablets max per month) 42tabs Gaston Briones.OWagner 06/09/2020 Linzess 290mcg Capsules 1 by mouth every day 90caps Gaston Briones.O. 06/09 Novofine 32G X 6 mm Misc to be used with novolog pen 3-4 times daily 300units Gena BrionesOWagner 06/09/2020 Imitrex 100mg Tablets 1 tablet at the initial sign of headache and repeat in 2 hours if symptoms persist (10 headaches a month) 20tabs Gena BrionesOWagner 02/25 Tizanidine HCL 4mg Tablets 1 tablet by mouth every 8 hours as needed for pain/ spasms 90tabs M54.2 Gaston Hernandez.OWagner 02/19/2020 Venlafaxine HCL ER 150mg Caps ER 2 4HR 1 by mouth every day 90caps F33.1 Gaston Briones.OWagner 12/06 Ambien 10mg Tablets take one tablet by mouth before bed as needed 30tabs Gaston Briones.OWagner 09/24/2019 Trikafta 100-50-75&150mg TBPK Gaston Briones.OWagner 07/29/2019 Devilbiss Glass Nebulizer/Hand-Held Misc one device to use with albuterol solution, every 6 hours as needed E84.0 Gaston Briones.OWagner 12/22/2018 Marcia LC Sprint Nebulizer Set Misc nebulizer set, prognosis Good 2units E84.0 Kavita Gonzalez er, D.OWagner 12/12/2018 Ondansetron HCL 4mg Tablets 1-2 tablets by mouth every 6 hours as needed for nausea 42tabs J06.9 Gaston Briones.O. 11/11/[address] take 1 capsule by mouth every day 90caps E84.19 Gaston Briones.O. Xanax 0.5mg Tablets take one tablet by mouth every 12 hours as needed 60tabs Gaston Borden.OWagner Ventolin HFA 108(90Base) mcg/Act A erosol 2 puffs every 4 hours shortness of breath or wheezing Unknown Pulmozyme 1mg/ml Solution 1 vial via nebulizer once daily Unknown Azithromycin 250mg Tablets 1 tab by mouth daily Unknown Novolog Flexpen 100U nit/ML Solution Pen-Inject inject per sliding scale before meals maximum daily dose = 90 un its 45ml Gena BrionesO. Tobramycin 300mg/5ML Nebulizer Unknown Albuterol Sulfate (2 .5mg/3ML) 0.083% Nebulizer 3 mLs by nebulizer every 4 hour as needed for wheezing. Unknown Glucagon Emergency 1mg Kit use as needed for hypoglycemia Unknown Ipratropium [place]/Albuterol Sulfate 0.5-2.5(3)mg/3ML Solution take 3mLs by nebulation every 4 hrs as needed. Unknown Multivitamin Adults Tablets take 1 tablet once daily Unknown Vitamin C 500mg Tablets 1 by mouth every day Unknown Vitamin B Complex Tablets 1 by mouth every day Unknown Tretinoin 0.05% Cream Unknown History Medications Sulfacetamide Sodium 10% Solution 1 drop in both eyes 4 times a day for 5 days. 15ml Gena NortonO. 04/23/2021 - 05/25/2021 Immunizations Description No Information Available Vital Signs Date Vital Result Comment 05/25/2021 9:39am BP Systolic 130 mmHg BP Diastolic 80 mmHg Height 65.5 inches 5'5.50" Weight 171.50 lb BMI (Body Mass Index) 28.1 kg/m2 Heart Rate 94 /min Respiratory Rate 14 /min Body Temperature 98.0 F O2 % BldC Oximetry 98 % [place] Body Weight 125 lb 08/22/2020 10:01am BP Systolic 122 mmHg BP Diastolic 72 mmHg Height 65.5 inches 5'5.50" Weight 190.12 lb BMI (Body Mass Index) 31.2 kg/m2 Heart Rate 112 /min Respiratory Rate 18 /min Body Temperature 98.5 F O2 % BldC Oximetry 95 % [place] Body Weight 125 lb Results Test Acquired Date Facility Test Result H/L Range Note Hemoglobin A1c 05/25/2021 [facility] [address] [place] [address] [phone] Hemoglobin A1c 10.3 % Normal 1 Estimated Average Glucose 249 mg/dL High 60-110 CBC With Differential 05/25/[address] [place] [address] [phone] White Blood Count 13.4 10 High 4.0-10.0 Red Blood Count 4.98 10 Normal 4.00-5.40 Hemoglobin 15.0 g/dL Normal 12.0-15.5 Hematocrit 45.8 % Normal 36.0-47.0 Mean Corpuscular Volume 92.0 fl Normal 80.0-96.0 Mean Corpuscular Hemoglobin 30.1 pg Normal 27.0-33.0 Mean Corpuscular HGB Conc 32.8 g/dL Normal 32.0-36.5 Red Cell Distribution Width 13.2 % Normal 11.5-14.5 Platelet Count, Automated 686 10 High 150-450 Neutrophils % 69.4 % High 36.0-66.0 Lymph % 22.1 % Low 24.0-44.0 Overton % 6.4 % Normal 2.0-8.0 Eos % 1.2 % Normal 0.0-3.0 Baso % 0.6 % Normal 0.0-1.0 Immature Granulocyte % 0.3 % Normal 0-3.0 Nucleated Red Blood Cell % 0.0 % Normal 0-0 Neutrophils # 9.3 10 High 1.5-8.5 Lymph # 3.0 10 Normal 1.5-5.0 Overton # 0.9 10 High 0.0-0.8 Eos # 0.2 10 Normal 0.0-0.5 Baso # 0.1 10 Normal 0.0-0.2 Microalbumin Random 05/25/2021 [facility] [address] [place] [address] [phone] Creatinine, Urine 137.0 mg/dL Normal Malb Urine Siemens 8.4 mg/L Normal Carlos/Creat Ratio 6.1 MCG/MG Normal 0.0-30.0 2 Laboratory test finding 05/25/[address] [address] [phone] Total 25(Oh) Vitamin D 30.1 NG/ML Normal 30.0-100. 0 Comprehensive Metabolic Profil 05/25/[address] [address] [phone] Glucose, Fasting 99 mg/dL Normal 70-100 Blood Urea Nitrogen 12 mg/dL Normal 7-18 Creatinine For GFR 0.83 mg/dL Normal 0.55-1.30 Glomerular Filtration Rate > 60.0 Normal >60 3 Sodium Level 138 mEq/L Normal 136-145 Potassium Serum 4.4 mEq/L Normal 3.5-5.1 Chloride Level 103 mEq/L Normal 98-107 Carbon Dioxide Level 26 mEq/L Normal 21-32 Anion Gap 9 mEq/L Normal 8-16 Calcium Level 10.5 mg/dL High 8.5-10.1 Ast/Sgot 23 U/L Normal 7-37 Alt/SGPT 52 U/L Normal 12-78 Alkaline Phosphatase 236 U/L High 45-117 Bilirubin,Total 0.2 mg/dL Normal 0.2-1.0 Total Protein 8.2 GM/DL Normal 6.4-8.2 Albumin 4.2 GM/DL Normal 3.2-5.2 Albumin/Globulin Ratio 1.1 Low 1.2-2.2 Complete Blood Count 02/20/2021 [facility] Outpatient Test ing (Registration) [address] [place] [address] [phone] White Blood Count 13.3 10 High 4.0-10.0 Red Blood Count 4.87 10 Normal 4.00-5.40 Hemoglobin 14.6 g/dL Normal 12.0-15.5 Hematocrit 44.8 % Normal 36.0-47.0 Mean Corpuscular Volume 92.0 fl Normal 80.0-96.0 Mean Corpuscular Hemoglobin 30.0 pg Normal 27.0-33.0 Mean Corpuscular HGB Conc 32.6 g/dL Normal 32.0-36.5 Red Cell Distribution Width 13.4 % Normal 11.5-14.5 Platelet Count, Automated 687 10 High 150-450 Nucleated Red Blood Cell % 0.0 % Normal 0-0 Liver Profile 02/20/2021 [facility] Outpatient Testi ng (Registration) [address] [place] [address] [id number] [phone] Ast/Sgot 18 U/L Normal 7-37 Alt/SGPT 41 U/L Normal 12-78 Alkaline Phosphatase 220 U/L High 45-117 Bilirubin,Total 0.2 mg/dL Normal 0.2-1.0 Bilirubin,Direct < 0.1 mg/dL Normal 0.0-0.2 Total Protein 7.7 GM/DL Normal 6.4-8.2 Albumin 3.7 GM/DL Normal 3.2-5.2 Albumin/Globulin Ratio 0.9 Low 1.2-2.2 Basic Metabolic Profile 02/20/2021 [facility] Outpatient T esting (Registration) [address] [place] [address] [phone] Glucose, Fasting 200 mg/dL High 70-100 Blood Urea Nitrogen 5 mg/dL Low 7-18 Creatinine For GFR 1.03 mg/dL Normal 0.55-1.30 Glomerular Filtration Rate > 60.0 Normal >60 4 Sodium Level 140 mEq/L Normal 136-145 Potassium Serum 4.5 mEq/L Normal 3.5-5.1 Chloride Level 106 mEq/L Normal 98-107 Carbon Dioxide Level 25 mEq/L Normal 21-32 Anion Gap 9 mEq/L Normal 8-16 Calcium Level 9.2 mg/dL Normal 8.5-10.1 Laboratory test finding 02/20/2021 [facility] Outpatient T esting (Registration) [address] [place] [address] [id number] [phone] Ethyl Alcohol (Ethanol) < 0.003 % Normal 0.000-0. 010 Salicylate Level < 1.7 mg/dL Low 5.0-30.0 Acetaminophen Level < 2.0 UG/ML Low 10.0-30.0 Thyroid Stimulating Hormone 3.050 uIU/ML Normal 0.358-3.740 Comprehensive Metabolic Profil 01/10/2021 [facility] Outpa tient Testing (Registration) [address] [place] [address] [phone] Glucose, Fasting 494 mg/dL Critical high 70-100 Blood Urea Nitrogen 10 mg/dL Normal 7-18 Creatinine For GFR 1.18 mg/dL Normal 0.55-1.30 Glomerular Filtration Rate 57.7 Low >60 5 Sodium Level 134 mEq/L Low 136-145 Potassium Serum 4.5 mEq/L Normal 3.5-5.1 Chloride Level 99 mEq/L Normal 98-107 Carbon Dioxide Level 29 mEq/L Normal 21-32 Anion Gap 6 mEq/L Low 8-16 Calcium Level 9.5 mg/dL Normal 8.5-10.1 Ast/Sgot 42 U/L High 7-37 Alt/SGPT 83 U/L High 12-78 Alkaline Phosphatase 264 U/L High 45-117 Bilirubin,Total 0.2 mg/dL Normal 0.2-1.0 Total Protein 7.6 GM/DL Normal 6.4-8.2 Albumin 3.8 GM/DL Normal 3.2-5.2 Albumin/Globulin Ratio 1.0 Low 1.2-2.2 Laboratory test finding 01/10/2021 [facility] Outpatient T esting (Registration) [address] [place] [address] [phone] Tissue Transglutaminase IgA <2 U/mL Normal 0-3 6 Ceruloplasmin 25.1 mg/dL Normal 19.0-39.0 7 Anti-Mitochondrial Antibody <20.0 units Normal 0.0-20.0 8 Alpha 1 Antitrypsin Phenotype 01/10/2021 [facility] Outpat ient Testing (Registration) [address] [place] [address] [phone] A1a For Phenotype 123 mg/dL Normal 100-188 Eohbw-8-Ngnlkxgwpgn Phenotype MM Normal . 9 Laboratory test finding 01/10/2021 [facility] Outpatient T esting (Registration) [address] [place] [address] [phone] Anti-Smooth Muscle Antibody 3 units Normal 0-19 10 FT4&TSH Panel 01/10/2021 [facility] Outpatient Testi ng (Registration) [address] [place] [address] [phone] Thyroid Stimulating Hormone 1.900 uIU/ML Normal 0. 358-3.740 Free T4 0.94 ng/dL Normal 0.76-1.46 Laboratory test finding 01/10/2021 [facility] Outpatient T esting (Registration) [address] [place] [address] [phone] Hepatitis C Virus Ruby Index 0.0 INDEX Normal <0.8 11 Immunoglobulin A 428.0 mg/dL High 70-400 Hepatitis B Surface Antigen NEGATIVE Normal Negative Hepatitis B Surface Antibody POSITIVE Normal Positive Laboratory test finding 01/10/2021 [facility] Outpatient T esting (Registration) [address] [place], [place] [address] [phone] Pancreatic Elastase Stool TNP Normal 12 Calprotectin Stool 31 ug/g Normal 0-120 13 Gastrointestinal (GI) Panel 01/10/2021 [facility] Outpatie nt Testing (Registration) [address] [place] [address] [phone] Gastrointestinal (GI) Panel This Gastrointes <SEE NOTE > 14 Ua W/ Reflex To Culture 12/27/2020 [facility] Outpatient T esting (Registration) [address] [place] [address] [phone] Appearance, Urine RFX HAZY Normal Clear Color, Urine RFX STRAW Normal Yellow PH,Urine RFX 5.0 units Normal 5.0-9.0 Specific [place] Ur Auto RFX 1.009 Normal 1.002-1.035 Protein, Urine Auto RFX NEGATIVE mg/dL Normal Negative Glucose, Urine (Ua) Auto RFX NEGATIVE mg/dL Normal Negative Ketone, Urine Auto RFX NEGATIVE mg/dL Normal Negative Urobilinogen, Urine Auto RFX 0.2 mg/dL Normal 0.0-2.0 Bilirubin, Urine Auto RFX NEGATIVE Normal Negative Nitrite, Urine Auto RFX NEGATIVE Normal Negative Leukocyte Esterase Ur Auto RFX 3+ High Negative Blood, Urine Blood RFX 3+ High Negative WBC, Urine Auto RFX 11 /HPF High 0-3 RBC, Urine Auto RFX 32 /HPF High 0-3 Bacteria, Urine Auto RFX 1+ High Negative Squam Epithelial Cell Ur Aurfx 4 /HPF Normal 0-6 Mucus, Urine RFX SMALL Normal Negative Hyaline Cast, Urine Auto RFX 0 /LPF Normal 0-1 CBC With Differential 12/27/2020 [facility] Outpatient Loretta ting (Registration) [address] [place] [address] [phone] White Blood Count 14.7 10 High 4.0-10.0 Red Blood Count 4.86 10 Normal 4.00-5.40 Hemoglobin 14.7 g/dL Normal 12.0-15.5 Hematocrit 45.1 % Normal 36.0-47.0 Mean Corpuscular Volume 92.8 fl Normal 80.0-96.0 Mean Corpuscular Hemoglobin 30.2 pg Normal 27.0-33.0 Mean Corpuscular HGB Conc 32.6 g/dL Normal 32.0-36.5 Red Cell Distribution Width 13.4 % Normal 11.5-14.5 Platelet Count, Automated 702 10 High 150-450 Neutrophils % 64.4 % Normal 36.0-66.0 Lymph % 23.1 % Low 24.0-44.0 Overton % 8.2 % High 2.0-8.0 Eos % 3.4 % High 0.0-3.0 Baso % 0.6 % Normal 0.0-1.0 Immature Granulocyte % 0.3 % Normal 0-3.0 Nucleated Red Blood Cell % 0.0 % Normal 0-0 Neutrophils # 9.5 10 High 1.5-8.5 Lymph # 3.4 10 Normal 1.5-5.0 Overton # 1.2 10 High 0.0-0.8 Eos # 0.5 10 Normal 0.0-0.5 Baso # 0.1 10 Normal 0.0-0.2 Comprehensive Metabolic Profil 12/27/2020 [facility] Outpa tient Testing (Registration) [address] [place], [place] [id number] [phone] Glucose, Fasting 112 mg/dL High 70-100 Blood Urea Nitrogen 7 mg/dL Normal 7-18 Creatinine For GFR 0.94 mg/dL Normal 0.55-1.30 Glomerular Filtration Rate > 60.0 Normal >60 1 5 Sodium Level 137 mEq/L Normal 136-145 Potassium Serum 4.8 mEq/L Normal 3.5-5.1 Chloride Level 108 mEq/L High 98-107 Carbon Dioxide Level 25 mEq/L Normal 21-32 Anion Gap 4 mEq/L Low 8-16 Calcium Level 9.2 mg/dL Normal 8.5-10.1 Ast/Sgot 24 U/L Normal 7-37 Alt/SGPT 63 U/L Normal 12-78 Alkaline Phosphatase 261 U/L High 45-117 Bilirubin,Total 0.2 mg/dL Normal 0.2-1.0 Total Protein 7.6 GM/DL Normal 6.4-8.2 Albumin 3.6 GM/DL Normal 3.2-5.2 Albumin/Globulin Ratio 0.9 Low 1.2-2.2 Laboratory test finding 12/27/2020 [facility] Outpatient T esting (Registration) [address] [place] [address] [phone] HCG, Serum Quantitative < 1.0 MIU/ML Normal 16 Reflex Urine Culture 12/27/2020 [facility] Outpatient Test ing (Registration) [address] [place] [address] [phone] Reflex Urine Culture FULL REPORT IN L <SEE NOTE> Norm al 17 1 REFERENCE RANGES: <=5.6% NORMAL 5.7-6.4% SUGGESTS IMPAIRED GLUCOSE META BOLISM/PREDIABETIC >= 6.5% ABNORMAL 2 THE [employer] ATION STATES THAT MICROALBUMINURIA IS PRESENT IF THE MICROALBUMIN/CREATININE RATIO EXCEEDS 30 MCG/MG. THE THRESHOLD FOR CLINICAL ALBUMINURIA IS REACHED AT 300 MCG/MG. THE CLASSIFICATION OF A PATIENT SHOULD BE BASED UPON AT LEAST 2 OF 3 ABNORMAL RESULTS ON SPECIMENS COLLECTED WITHIN A 3 TO 6 MONTH TIME FRAME. 3 Units are mL/min/1.73 m2 Chronic Kidney Disease Staging per NKF: Stage I & II GFR >=60 Normal to Mildly Decreased Stage III GFR 30-59 Moderately Decreased Stage IV GFR 15-29 Severely Decreased Stage V GFR <15 Very Little GFR Left ESRD GFR <15 on APPLIANCE SERVICE SUPERVISOR 4 Units are mL/min/1.73 m2 Chronic Kidney Disease Staging per NKF: Stage I & II GFR >=60 Normal to Mildly Decreased Stage III GFR 30-59 Moderately Decreased Stage IV GFR 15-29 Severely Decreased Stage V GFR <15 Very Little GFR Left ESRD GFR <15 on APPLIANCE SERVICE SUPERVISOR 5 Units are mL/min/1.73 m2 Chronic Kidney Disease Staging per NKF: Stage I & II GFR >=60 Normal to Mildly Decreased Stage III GFR 30-59 Moderately Decreased Stage IV GFR 15-29 Severely Decreased Stage V GFR <15 Very Little GFR Left ESRD GFR <15 on APPLIANCE SERVICE SUPERVISOR 6 Negative 0 - 3 Weak Positive 4 - 10 Positive >10 . Tissue Transglutaminase (tTG) has been identified as the endomysial antigen. Studies have demonstr- ated that endomysial IgA antibodies have over 99% specificity for gluten sensitive enteropathy. 7 Performed at: - [facility] [address] [id number] Wealth Management Advisor: Charley Tiwari MD, Phone: [phone] Performed at: - [facility] [address] [id number] Wealth Management Advisor: Vance Veras MD, Phone: [phone] 8 Negative 0.0 - 20.0 Equivocal 20.1 - 24.9 Positive >24.9 . Mitochondrial (M2) Antibodies are found in 90-96% of patients with primary biliary cirrhosis. 9 Phenotype Population A- 1-AT Concentration* Incidence % % of MM (Typical Range) MM 86.5% 100% (96 - 189) MS 8.0% 86% (83 - 161) MZ 3.9% 61% (60 - 111) FM 0.4% 100% (93 - 191) SZ 0.3% 41% (42 - 75) SS 0.1% 64% (62 - 119) ZZ 0.05% 19% (16 - 38) FS 0.05% 70% (70 - 128) FZ Unknown 46% (44 - 88) FF Unknown Unknown *A-1-AT concentration in the homozygous MM phenotype is taken as the reference normal. Percent deficiency in each phenotype is reported relative to this reference. Ranges used to confirm phenotype. 10 Negative 0 - 19 Weak positive 20 - 30 Moderate to strong positive >30 . Actin Antibodies are found in 52-85% of patients with autoimmune hepatitis or chronic active hepatitis and in 22% of patients with primary biliary cirrhosis. 11 Negative Not infected with HCV, unless recent infection is suspected or other evidence exists to indicate HCV infection. 12 Request Problem Test not performed. Consistency of stool specimen too watery for analysis. TEST: [id number] Pancreatic Elastase, Fecal Testing performed at reference lab . Report copy to follow on a separate form. 01/17/21 REF LAB#:[id number] 13 Concentration Interpreta tion Follow-Up <16 - 50 ug/g Normal None >50 -120 ug/g Borderline Re-evaluate in 4-6 weeks >120 ug/g Abnormal Repeat as clinically indicated 14 This Gastrointestinal PCR Pa rodríguez detects the following bacteria, parasites and viruses: Campylobacter (jejuni, coli and upsaliensis), Clostridium difficile (toxin A/B), Plesiomonas shigelloides, Salmonella, Yersinia enterocolitica, Vibrio (parahaemolyticus, vulnificus and cholerae), Vibrio clolerae, Enteroaggregative E. coli (EAEC), Enteropathogenis E. coli (EPEC), Enterotoxigenic E. coli (ETEC) it/st, Shiga-like producing E. coli (STEC) stx1/stc2, E.coli O157, Shigella/Enteroinvasive E. coli (EIEC), Cryptosporidium, Cyclospora cayetanensis, Entamoeba histolytica, Giardia lamblia, Adenovirus F 40/41, Astrovirus, Norovirus GI/GII, Rotavirus A and Sapovirus (I, II, IV, V). NEGATIVE by MULTIPLEXED NUCLEIC ACID PCR 15 Units are mL/min/1.73 m2 Chronic Kidney Disease Staging per NKF: Stage I & II GFR >=60 Normal to Mildly Decreased Stage III GFR 30-59 Moderately Decreased Stage IV GFR 15-29 Severely Decreased Stage V GFR <15 Very Little GFR Left ESRD GFR <15 on APPLIANCE SERVICE SUPERVISOR 16 GESTATIONAL AGE APPROXIMATE HCG RANGE (MIU/ML) - 0.2-1 WEEK 5-50 1-2 WEEKS 50-500 2-3 WEEKS 100-5,000 3-4 WEEKS 500-10,000 4-5 WEEKS 1,000-50,000 5-6 WEEKS 10,000-100,000 6-8 WEEKS 15,000-200,000 2-3 MONTHS 10,000-100,00 0 NON FEMALES LESS THAN 3.0 Patient samples may contain human heterophilic antibodies that could react with immunoassays to give falsely elevated or depressed results. This assay has been designed to minimize interference from heterophilic antibodies. Elevated hCG levels have also been associated with trophoblastic disease and nontrophoblastic neoplasms. The possibility of having these diseases should be considered before a diagnosis of is made. This test is not intended for use as a surrogate marker for aiding in the diagnosis or monitoring the treatment of cancer patients. Siemens Nostalgia Bingo methodology. 17 FULL REPORT IN LAB NOTES (eC W and [facility]). NO GROWTH Procedures Date Code Description Status 05/25/2021 16773 Office/Outpatient Established Lo w MDM 20-29 Min Completed Medical Devices Description No Information Available Encounters Type Date Location Provider Dx Diagnosis Office Visit 05/25/2021 9:30a [facility] DONIS Castro E10.65 Type 1 diabetes mellitus wit h hyperglycemia E84.0 Cystic fibrosis with pulmona ry manifestations F33.1 Major depressive disorder, r ecurrent, moderate E66.3 Overweight Z68.28 Body mass index [BMI] 28.0-2 8.9, adult Assessments Date Code Description Provider 05/25/2021 E10.65 Type 1 diabetes mellitus with hy perglycemia DONIS Castro 05/25/2021 E84.0 Cystic fibrosis with pulmonary m anifestations DONIS Castro 05/25/2021 F33.1 Major depressive disorder, recur rent, moderate DONIS Castro 05/25/2021 E66.3 Overweight DONIS Castro 05/25/2021 Z68.28 Body mass index [BMI] 28.0-28.9, adult DONIS Castro Plan of Treatment Future Appointment(s):* 06/27/2021 8:00 am - DONIS Castro at [facility] Functional Status Description No Information Available Mental Status Description No Information Available Referrals Description No Information Available
--- OUTSIDE RECORDS SUMMARY | 2021-06-16 09:59 | CCD | Continuity of Care Document ---
Author Author Lidia WOOTEN MD Organization Unknown Address [address] [place] [address] Phone [phone] Care Team Providers Care Audit Control Clerk Name Role Phone Patricia Zaldivar MD AUTM [phone] Kavita English DO AUTM Unavailable Problems Description No Information Available Social History Type Date Description Comments ETOH Use Rarely consumes alcohol Tobacco Use Start: Unknown Patient has never smoked Allergies and adverse reactions Active Allergies Criticality Reaction | Severity Comments Date Hydrocodone Unable to assess criticality 02/14/2021 Flagyl Unable to assess criticality 02/14/2021 Medications Active Medications SIG Qnty Indications Ordering Provide r Date Nifedipine 10mg Capsules 6 caps concentrated to 0.2% in 30gm eucerin cream; apply to perianal area three times a day for anal fissure 60caps Ayo Wooten MD Humalog 100Unit/ML Solution Cartridge Unknown Trikafta 100-50-75&150mg TBPK Unknown Linzess 290mcg Capsules 1 by mouth every day Unknown Ambien 10mg Tablets Unknown Albuterol Sulfate ER 4mg Tablets E R 12HR Unknown Omeprazole 40mg Capsules DR Unknown Pulmozyme 1mg/ml Solution Unknown Effexor XR 150mg Caps ER 24HR Unknown Wellbutrin SR 150mg Tablets ER 12HR Unknown Buspirone HCL 5mg Tablets Unknown Xanax 0.5mg Tablets 1 by mouth twice a day as needed anxiety Unknown Xyzal Allergy 24HR 5mg Tablets Unknown Azithromycin 250mg Tablets Unknown Immunizations Description No Information Available Vital Signs Date Vital Result Comment 05/23/2021 1:21pm BP Systolic 152 mmHg BP Diastolic 93 mmHg Heart Rate 90 /min Body Temperature 98.0 F Respiratory Rate 16 /min Height 66 inches 5'6" Weight 174.00 lb BMI (Body Mass Index) 28.1 kg/m2 02/14/2021 10:14am BP Systolic 125 mmHg BP Diastolic 76 mmHg Heart Rate 82 /min Body Temperature 98.2 F Respiratory Rate 18 /min Height 66 inches 5'6" Weight 190.00 lb BMI (Body Mass Index) 30.7 kg/m2 Results Description No Information Available Procedures Date Code Description Status 05/23/2021 26040 Office/Outpatient Established SF MDM 10-19 Min Completed 02/14/2021 79075 Office/Outpatient New SF MDM 15- 29 Minutes Completed Medical Devices Description No Information Available Encounters Type Date Location Provider Dx Diagnosis Office Visit 05/23/2021 1:15p [facility] Ayo Wooten MD 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 For all intents and purposes is healed. I told her that if she had any recurrent pain to call and be seen but otherwise stay with her stool softeners and fiber and fluids. Functional Status Description No Information Available Mental Status Description No Information Available Referrals Description No Information Available
--- OUTSIDE RECORDS SUMMARY | 2021-06-16 09:59 | CCD | Continuity of Care Document ---
Author Author Lidia RAMOS PA Organization Unknown [place] [address] Phone [phone] Care Team Providers Care Certified Medical Dosimetrist Name Role Phone Kavita English D.O. AUTM [phone] Gorman AUTM [phone] [facility] AUTM [phone] Problems Active Problems Provider Date Type II [...] Seat Belt/Car Seat Always uses seat belt Allergies and adverse reactions Active Allergies Criticality Reaction | Severity Comments Date Flagyl Unable to assess criticality Urticaria 11/18/2015 Hydrocodone Unable to assess criticality Urticaria 12/02/2015 Medications Active Medications SIG Qnty Indications Ordering Provide r Date Vitamin D (Ergocalciferol) 1.25mg (90106 Ut) Capsules 1 capsule weekly for 12 weeks 12capdevin Shoemaker D.O. 05/31/2021 Phentermine HCL 37.5mg Capsules take one capsule by mouth daily before first meal of day 30caps Gaston Briones.O. 05/18/2021 Tamsulosin HCL 0.4mg Capsules 1 tab by mouth every day every morning 90caps Kavita Gonzalez er, D.O. 10/25/2020 Effexor XR 75mg Caps ER 24HR 1 by mouth every day in combination with effexor 150 mg 90rubys Kavita English D.O. 08/23/2020 Nurtec 75mg Tablets [...] with novolog pen 3-4 times daily 300units Gaston Briones.O. 06/09/2020 Imitrex 100mg Tablets 1 tablet at the initial sign of headache and repeat in 2 hours if symptoms persist (10 headaches a month) 20tabs Gaston Briones.OWagner 02/25 Tizanidine HCL 4mg Tablets 1 tablet by mouth every 8 hours as needed for pain/ spasms 90tabs M54.2 Gaston Hernandez.O. 02/19/2020 Venlafaxine HCL ER 150mg Caps ER 2 4HR 1 by mouth every day 90caps F33.1 Gaston Briones.O. 12/06 Ambien 10mg Tablets take one tablet by mouth before bed as needed 30tabs Gaston Briones.O. 09/24/2019 Trikafta 100-50-75&150mg TBPK Gaston Briones.O. 07/29/2019 Devilbiss Glass Nebulizer/Hand-Held Misc one device to use with albuterol solution, every 6 hours as needed E84.0 Gaston Briones.OWagner 12/22/2018 Marcia LC Sprint Nebulizer Set Misc nebulizer set, prognosis Good 2units E84.0 Kavita Gonzalez er, D.O. 12/12/2018 Ondansetron HCL 4mg Tablets 1-2 tablets by mouth every 6 hours as needed for nausea 42tabs J06.9 Gaston Briones.O. 11/11/[address] take 1 capsule by mouth every day 90caps E84.19 Gaston Briones.O. Xanax 0.5mg Tablets take one tablet by mouth every 12 hours as needed 60tabs Gaston Borden.O. Ventolin HFA 108(90Base) mcg/Act A erosol 2 [...] use as needed for hypoglycemia Unknown Ipratropium Sharples/Albuterol Sulfate 0.5-2.5(3)mg/3ML Solution take 3mLs by nebulation [...] F O2 % BldC Oximetry 98 % [place] Body Weight 125 lb 08/22/2020 10:01am BP Systolic 122 mmHg BP Diastolic 72 mmHg Height 65.5 inches 5'5.50" Weight 190.12 lb BMI (Body Mass Index) 31.2 kg/m2 Heart Rate 112 /min Respiratory Rate 18 /min Body Temperature 98.5 F O2 % BldC Oximetry 95 % [place] Body Weight 125 lb Results Test Acquired Date Facility Test Result H/L Range Note Hemoglobin A1c 05/25/2021 [facility] [address] [place] [address] [phone] Hemoglobin A1c 10.3 % Normal 1 Estimated Average Glucose 249 mg/dL High 60-110 CBC With Differential 05/25/[address] [address] [phone] White Blood Count 13.4 10 High 4.0-10.0 [...] 36.0-66.0 Lymph % 22.1 % Low 24.0-44.0 Briscoe % 6.4 % Normal 2.0-8.0 Eos % 1.2 % Normal 0.0-3.0 Baso % 0.6 % Normal 0.0-1.0 Immature Granulocyte % 0.3 % Normal 0-3.0 Nucleated Red Blood Cell % 0.0 % Normal 0-0 Neutrophils # 9.3 10 High 1.5-8.5 Lymph # 3.0 10 Normal 1.5-5.0 Briscoe # 0.9 10 High 0.0-0.8 Eos # 0.2 10 Normal 0.0-0.5 Baso # 0.1 10 Normal 0.0-0.2 Microalbumin Random 05/25/2021 [facility] [address] [place] [phone] Creatinine, Urine 137.0 mg/dL Normal Malb Urine Siemens 8.4 mg/L Normal Carlos/Creat Ratio 6.1 MCG/MG Normal 0.0-30.0 2 Laboratory test finding 05/25/2021 [place] [place] [address] [place] [address] [phone] Total 25(Oh) Vitamin D 30.1 NG/ML Normal 30.0-100. 0 Comprehensive Metabolic Profil 05/25/[address] [address] [phone] Glucose, Fasting 99 mg/dL Normal 70-100 Blood [...] 1.1 Low 1.2-2.2 Complete Blood Count 02/20/2021 [facility] Outpatient Test ing (Registration) [address] [place] [address] [phone] White Blood Count 13.3 10 High 4.0-10.0 [...] 0.0 % Normal 0-0 Liver Profile 02/20/2021 [facility] Outpatient Testi ng (Registration) [address] [place] [address] [phone] Ast/Sgot 18 U/L Normal 7-37 Alt/SGPT 41 U/L Normal 12-78 Alkaline Phosphatase 220 U/L High 45-117 Bilirubin,Total 0.2 mg/dL Normal 0.2-1.0 Bilirubin,Direct < 0.1 mg/dL Normal 0.0-0.2 Total Protein 7.7 GM/DL Normal 6.4-8.2 Albumin 3.7 GM/DL Normal 3.2-5.2 Albumin/Globulin Ratio 0.9 Low 1.2-2.2 Basic Metabolic Profile 02/20/2021 [facility] Outpatient T esting (Registration) [address] [place] [address] [phone] Glucose, Fasting 200 mg/dL High 70-100 Blood [...] mg/dL Normal 8.5-10.1 Laboratory test finding 02/20/2021 [facility] Outpatient T esting (Registration) [address] [place] [address] [phone] Ethyl Alcohol (Ethanol) < 0.003 % Normal 0.000-0. 010 Salicylate Level < 1.7 mg/dL Low 5.0-30.0 Acetaminophen Level < 2.0 UG/ML Low 10.0-30.0 Thyroid Stimulating Hormone 3.050 uIU/ML Normal 0.358-3.740 Comprehensive Metabolic Profil 01/10/2021 [facility] Outpa tient Testing (Registration) [address] [place] [address] [phone] Glucose, Fasting 494 mg/dL Critical high 70-100 [...] 1.0 Low 1.2-2.2 Laboratory test finding 01/10/2021 [facility] Outpatient T esting (Registration) [address] [place] [address] [phone] Tissue Transglutaminase IgA <2 U/mL Normal 0-3 6 Ceruloplasmin 25.1 mg/dL Normal 19.0-39.0 7 Anti-Mitochondrial Antibody <20.0 units Normal 0.0-20.0 8 Alpha 1 Antitrypsin Phenotype 01/10/2021 [facility] Outpat ient Testing (Registration) [address] [place], [place] [address] [phone] A1a For Phenotype 123 mg/dL Normal 100-188 Pmqvr-8-Mdnmjhkztyd Phenotype MM Normal . 9 Laboratory test finding 01/10/2021 [facility] Outpatient T esting (Registration) [address] [place], [place] [address] [phone] Anti-Smooth Muscle Antibody 3 units Normal 0-19 10 FT4&TSH Panel 01/10/2021 [facility] Outpatient Testi ng (Registration) [address] [place] [address] [phone] Thyroid Stimulating Hormone 1.900 uIU/ML Normal 0. 358-3.740 Free T4 0.94 ng/dL Normal 0.76-1.46 Laboratory test finding 01/10/2021 [facility] Outpatient T esting (Registration) [address] [place] [address] [phone] Hepatitis C Virus Ruby Index 0.0 INDEX Normal <0.8 11 Immunoglobulin A 428.0 mg/dL High 70-400 Hepatitis B Surface Antigen NEGATIVE Normal Negative Hepatitis B Surface Antibody POSITIVE Normal Positive Laboratory test finding 01/10/2021 [facility] Outpatient T esting (Registration) [address] [place] [address] [phone] Pancreatic Elastase Stool TNP Normal 12 Calprotectin Stool 31 ug/g Normal 0-120 13 Gastrointestinal (GI) Panel 01/10/2021 [facility] Outpatie nt Testing (Registration) [address] [place] [address] [phone] Gastrointestinal (GI) Panel This Gastrointes <SEE NOTE > 14 Ua W/ Reflex To Culture 12/27/2020 [facility] Outpatient T esting (Registration) [address] [place] [address] [phone] Appearance, Urine RFX HAZY Normal Clear Color, Urine RFX STRAW Normal Yellow PH,Urine RFX 5.0 units Normal 5.0-9.0 Specific Palmer Ur Auto RFX 1.009 Normal 1.002-1.035 Protein, [...] /LPF Normal 0-1 CBC With Differential 12/27/2020 [facility] Outpatient Loretta ting (Registration) [address] [place] [address] [phone] White Blood Count 14.7 10 High 4.0-10.0 [...] 36.0-66.0 Lymph % 23.1 % Low 24.0-44.0 Briscoe % 8.2 % High 2.0-8.0 Eos % 3.4 % High 0.0-3.0 Baso % 0.6 % Normal 0.0-1.0 Immature Granulocyte % 0.3 % Normal 0-3.0 Nucleated Red Blood Cell % 0.0 % Normal 0-0 Neutrophils # 9.5 10 High 1.5-8.5 Lymph # 3.4 10 Normal 1.5-5.0 Briscoe # 1.2 10 High 0.0-0.8 Eos # 0.5 10 Normal 0.0-0.5 Baso # 0.1 10 Normal 0.0-0.2 Comprehensive Metabolic Profil 12/27/2020 [facility] Outpa tient Testing (Registration) [address] [place] [address] [phone] Glucose, Fasting 112 mg/dL High 70-100 Blood [...] 0.9 Low 1.2-2.2 Laboratory test finding 12/27/2020 [facility] Outpatient T esting (Registration) [address] [place] [address] [phone] HCG, Serum Quantitative < 1.0 MIU/ML Normal 16 Reflex Urine Culture 12/27/2020 [facility] Outpatient Test ing (Registration) [address] [place] [address] [phone] Reflex Urine Culture FULL REPORT IN L <SEE NOTE> Norm al 17 1 REFERENCE RANGES: <=5.6% NORMAL 5.7-6.4% SUGGESTS IMPAIRED GLUCOSE META BOLISM/PREDIABETIC >= 6.5% ABNORMAL 2 THE [employer] AT[employer] STATES THAT MICROALBUMINURIA IS [...] Little GFR Left ESRD GFR <15 on WAREHOUSE COORDINATOR 4 Units are mL/min/1.73 m2 Chronic Kidney Disease Staging per NKF: Stage I & II GFR >=60 Normal to Mildly Decreased Stage III GFR 30-59 Moderately Decreased Stage IV GFR 15-29 Severely Decreased Stage V GFR <15 Very Little GFR Left ESRD GFR <15 on WAREHOUSE COORDINATOR 5 Units are mL/min/1.73 m2 Chronic Kidney Disease Staging per NKF: Stage I & II GFR >=60 Normal to Mildly Decreased Stage III GFR 30-59 Moderately Decreased Stage IV GFR 15-29 Severely Decreased Stage V GFR <15 Very Little GFR Left ESRD GFR <15 on WAREHOUSE COORDINATOR 6 Negative 0 - 3 Weak Positive 4 - 10 Positive >10 . Tissue Transglutaminase (tTG) has been identified as the endomysial antigen. Studies have demonstr- ated that endomysial IgA antibodies have over 99% specificity for gluten sensitive enteropathy. 7 Performed at: - [facility] [address] [id number] Cheesemaker Helper: Charley Tiwari MD, Phone: [phone] Performed at: - [facility] [address] [id number] Cheesemaker Helper: Vance Veras MD, Phone: [phone] 8 Negative 0.0 - 20.0 Equivocal 20.1 [...] stool specimen too watery for analysis. TEST: [id number] Pancreatic Elastase, Fecal Testing performed at reference lab . Report copy to follow on a separate form. 01/17/21 REF LAB#:[id number] 13 Concentration Interpreta tion Follow-Up <16 - [...] Little GFR Left ESRD GFR <15 on WAREHOUSE COORDINATOR 16 GESTATIONAL AGE APPROXIMATE HCG RANGE (MIU/ML) [...] monitoring the treatment of cancer patients. Siemens Chelaile methodology. 17 FULL REPORT IN LAB NOTES (eC W and [facility]). NO GROWTH Procedures Date Code Description Status 05/25/2021 81175 Office/Outpatient Established Lo w MDM 20-29 Min Completed Medical Devices Description No Information Available Encounters Type Date Location Provider Dx Diagnosis Office Visit 05/25/2021 9:30a [facility] DONIS Han E10.65 Type 1 diabetes mellitus wit h [...] 06/27/2021 8:00 am - DONIS Castro at [facility] Functional Status Description No Information Available Mental Status Description No Information Available Referrals Description No Information Available
--- OUTSIDE RECORDS SUMMARY | 2021-06-16 09:59 | CCD | Continuity of Care Document ---
Author Author Lidia RAMOS PA Organization Unknown [place] [address] Phone [phone] Care Team Providers Care Head Sampler Name Role Phone Kavita English D.O. AUTM Bruce Gorman AUTM [phone] Ur Neurology AUTM [phone] Problems Active Problems Provider Date Type II [...] On set: 03/02/2016 Vitamin D deficiency Kavita Englsih D.O. Onset: 09/03 Cystic fibrosis of the [...] hours as needed E84.0 Gaston Briones.OWagner 12/22/2018 Amrcia LC Sprint Nebulizer Set Misc nebulizer set, [...] use as needed for hypoglycemia Unknown Ipratropium [place]/Albuterol Sulfate 0.5-2.5(3)mg/3ML Solution take 3mLs by nebulation [...] F O2 % BldC Oximetry 98 % [place] Body Weight 125 lb 08/22/2020 10:01am BP Systolic 122 mmHg BP Diastolic 72 mmHg Height 65.5 inches 5'5.50" Weight 190.12 lb BMI (Body Mass Index) 31.2 kg/m2 Heart Rate 112 /min Respiratory Rate 18 /min Body Temperature 98.5 F O2 % BldC Oximetry 95 % Seco Body Weight 125 lb Results Test Acquired Date Facility Test Result H/L Range Note Hemoglobin A1c 05/25/2021 [facility]ter [address] [place] [address] [phone] Hemoglobin A1c 10.3 % Normal 1 Estimated Average Glucose 249 mg/dL High 60-110 CBC With Differential 05/25/[address] [place] [address] [phone] White Blood Count 13.4 10 High 4.0-10.0 [...] 36.0-66.0 Lymph % 22.1 % Low 24.0-44.0 [place] % 6.4 % Normal 2.0-8.0 Eos % 1.2 % Normal 0.0-3.0 Baso % 0.6 % Normal 0.0-1.0 Immature Granulocyte % 0.3 % Normal 0-3.0 Nucleated Red Blood Cell % 0.0 % Normal 0-0 Neutrophils # 9.3 10 High 1.5-8.5 Lymph # 3.0 10 Normal 1.5-5.0 [place] # 0.9 10 High 0.0-0.8 Eos # 0.2 10 Normal 0.0-0.5 Baso # 0.1 10 Normal 0.0-0.2 Microalbumin Random 05/25/2021 [facility] nter [address] [place] [address] [phone] Creatinine, Urine 137.0 mg/dL Normal Malb Urine Siemens 8.4 mg/L Normal Carlos/Creat Ratio 6.1 MCG/MG Normal 0.0-30.0 2 Laboratory test finding 05/25/[address] [address] [phone] Total 25(Oh) Vitamin D 30.1 NG/ML Normal 30.0-100. 0 Comprehensive Metabolic Profil 05/25/[address] [address] [phone] Glucose, Fasting 99 mg/dL Normal 70-100 Blood [...] 1.1 Low 1.2-2.2 Complete Blood Count 02/20/2021 [facility] Outpatient Test ing (Registration) [address] [place] [address] [phone] White Blood Count 13.3 10 High 4.0-10.0 [...] 0.0 % Normal 0-0 Liver Profile 02/20/2021 [facility] Outpatient Testi ng (Registration) [address] [place] [address] [phone] Ast/Sgot 18 U/L Normal 7-37 Alt/SGPT 41 U/L Normal 12-78 Alkaline Phosphatase 220 U/L High 45-117 Bilirubin,Total 0.2 mg/dL Normal 0.2-1.0 Bilirubin,Direct < 0.1 mg/dL Normal 0.0-0.2 Total Protein 7.7 GM/DL Normal 6.4-8.2 Albumin 3.7 GM/DL Normal 3.2-5.2 Albumin/Globulin Ratio 0.9 Low 1.2-2.2 Basic Metabolic Profile 02/20/2021 [facility] Outpatient T esting (Registration) [address] [place] [address] [phone] Glucose, Fasting 200 mg/dL High 70-100 Blood [...] mg/dL Normal 8.5-10.1 Laboratory test finding 02/20/2021 [facility] Outpatient T esting (Registration) [address] [place] [address] [phone] Ethyl Alcohol (Ethanol) < 0.003 % Normal 0.000-0. 010 Salicylate Level < 1.7 mg/dL Low 5.0-30.0 Acetaminophen Level < 2.0 UG/ML Low 10.0-30.0 Thyroid Stimulating Hormone 3.050 uIU/ML Normal 0.358-3.740 Comprehensive Metabolic Profil 01/10/2021 [facility] Outpa tient Testing (Registration) [address] [place] [address] [phone] Glucose, Fasting 494 mg/dL Critical high 70-100 [...] 1.0 Low 1.2-2.2 Laboratory test finding 01/10/2021 [facility] Outpatient T esting (Registration) [address] [place] [address] [phone] Tissue Transglutaminase IgA <2 U/mL Normal 0-3 6 Ceruloplasmin 25.1 mg/dL Normal 19.0-39.0 7 Anti-Mitochondrial Antibody <20.0 units Normal 0.0-20.0 8 Alpha 1 Antitrypsin Phenotype 01/10/2021 [facility] Outpat ient Testing (Registration) [address] [place] [address] [phone] A1a For Phenotype 123 mg/dL Normal 100-188 Copvs-6-Kajxycycqmn Phenotype MM Normal . 9 Laboratory test finding 01/10/2021 [facility] Outpatient T esting (Registration) [address] [place] [address] [phone] Anti-Smooth Muscle Antibody 3 units Normal 0-19 10 FT4&TSH Panel 01/10/2021 [facility] Outpatient Testi ng (Registration) [address] [place] [address] [phone] Thyroid Stimulating Hormone 1.900 uIU/ML Normal 0. 358-3.740 Free T4 0.94 ng/dL Normal 0.76-1.46 Laboratory test finding 01/10/2021 [facility] Outpatient T esting (Registration) [address] [place] [address] [phone] Hepatitis C Virus Ruby Index 0.0 INDEX Normal <0.8 11 Immunoglobulin A 428.0 mg/dL High 70-400 Hepatitis B Surface Antigen NEGATIVE Normal Negative Hepatitis B Surface Antibody POSITIVE Normal Positive Laboratory test finding 01/10/2021 [facility] Outpatient T esting (Registration) [address] [place], [place] [address] [phone] Pancreatic Elastase Stool TNP Normal 12 Calprotectin Stool 31 ug/g Normal 0-120 13 Gastrointestinal (GI) Panel 01/10/2021 [facility] Outpatie nt Testing (Registration) [address] [place] [address] [phone] Gastrointestinal (GI) Panel This Gastrointes <SEE NOTE > 14 Ua W/ Reflex To Culture 12/27/2020 [facility] Outpatient T esting (Registration) [address] [place] [address] [phone] Appearance, Urine RFX HAZY Normal Clear Color, Urine RFX STRAW Normal Yellow PH,Urine RFX 5.0 units Normal 5.0-9.0 Specific [place] Ur Auto RFX 1.009 Normal 1.002-1.035 Protein, [...] /LPF Normal 0-1 CBC With Differential 12/27/2020 [facility] Outpatient Loretta ting (Registration) [address] [place] [address] [phone] White Blood Count 14.7 10 High 4.0-10.0 [...] 36.0-66.0 Lymph % 23.1 % Low 24.0-44.0 [place] % 8.2 % High 2.0-8.0 Eos % 3.4 % High 0.0-3.0 Baso % 0.6 % Normal 0.0-1.0 Immature Granulocyte % 0.3 % Normal 0-3.0 Nucleated Red Blood Cell % 0.0 % Normal 0-0 Neutrophils # 9.5 10 High 1.5-8.5 Lymph # 3.4 10 Normal 1.5-5.0 [place] # 1.2 10 High 0.0-0.8 Eos # 0.5 10 Normal 0.0-0.5 Baso # 0.1 10 Normal 0.0-0.2 Comprehensive Metabolic Profil 12/27/2020 [facility] Outpa tient Testing (Registration) [address] [place], [place] [id number] [phone] Glucose, Fasting 112 mg/dL High 70-100 Blood [...] 0.9 Low 1.2-2.2 Laboratory test finding 12/27/2020 [facility] Outpatient T esting (Registration) [address] [place] [address] [phone] HCG, Serum Quantitative < 1.0 MIU/ML Normal 16 Reflex Urine Culture 12/27/2020 [facility] Outpatient Test ing (Registration) [address] [place] [address] [phone] Reflex Urine Culture FULL REPORT IN L <SEE NOTE> Norm al 17 1 REFERENCE RANGES: <=5.6% NORMAL 5.7-6.4% SUGGESTS IMPAIRED GLUCOSE META BOLISM/PREDIABETIC >= 6.5% ABNORMAL 2 THE [employer] AT[employer] STATES THAT MICROALBUMINURIA IS [...] Little GFR Left ESRD GFR <15 on TISSUE COORDINATOR 4 Units are mL/min/1.73 m2 Chronic Kidney Disease Staging per NKF: Stage I & II GFR >=60 Normal to Mildly Decreased Stage III GFR 30-59 Moderately Decreased Stage IV GFR 15-29 Severely Decreased Stage V GFR <15 Very Little GFR Left ESRD GFR <15 on TISSUE COORDINATOR 5 Units are mL/min/1.73 m2 Chronic Kidney Disease Staging per NKF: Stage I & II GFR >=60 Normal to Mildly Decreased Stage III GFR 30-59 Moderately Decreased Stage IV GFR 15-29 Severely Decreased Stage V GFR <15 Very Little GFR Left ESRD GFR <15 on TISSUE COORDINATOR 6 Negative 0 - 3 Weak Positive 4 - 10 Positive >10 . Tissue Transglutaminase (tTG) has been identified as the endomysial antigen. Studies have demonstr- ated that endomysial IgA antibodies have over 99% specificity for gluten sensitive enteropathy. 7 Performed at: - [facility] [address] [id number] Mapping Analyst: Charley Tiwari MD, Phone: [phone] Performed at: - [facility] [address] [id number] Mapping Analyst: Vance Veras MD, Phone: [phone] Negative 0.0 - 20.0 Equivocal 20.1 [...] stool specimen too watery for analysis. TEST: [id number] Pancreatic Elastase, Fecal Testing performed at reference lab . Report copy to follow on a separate form. 01/17/21 REF LAB#:[id number] Concentration Interpreta tion Follow-Up <16 - [...] Little GFR Left ESRD GFR <15 on TISSUE COORDINATOR 16 GESTATIONAL AGE APPROXIMATE HCG RANGE [...] monitoring the treatment of cancer patients. Siemens Sak[employer] methodology. 17 FULL REPORT IN LAB NOTES (eC W and Medent). NO GROWTH Procedures Date Code Description Status 05/25/2021 12070 Office/Outpatient Established Lo w MDM 20-29 Min Completed Medical Devices Description No Information Available Encounters Type Date Location Provider Dx Diagnosis Office Visit 05/25/2021 9:30a [facility] DONIS Castro E10.65 Type 1 diabetes mellitus [...] 06/27/2021 8:00 am - DONIS Castro at [facility] Functional Status Description No Information Available Mental Status Description No Information Available Referrals Description No Information Available
--- OUTSIDE RECORDS SUMMARY | 2021-06-16 09:59 | CCD | Continuity of Care Document ---
Author Lidia Thomas PA-C Organization Unknown Address [facility] [address] [place] [address] Phone [phone] Care Team Providers Care Staff Registered Nurse Name Role Phone AUTM Unavailable Kavita English Unavailable Problems Description No Information Available Social History Type Date Description Comments Sex Unknown Allergies and adverse reactions Active Allergies Criticality Reaction | Severity Comments Date Flagyl Unable to assess criticality Hives 09/23/2019 Hydrocodone Unable to assess criticality Hives 09/23/2019 Vancomycin Unable to assess criticality Red Man's Sy ndrome 09/23/2019 Adhesives Unable to assess criticality SKIN IRRITATION 09/23/2019 NKFA Unable to assess criticality 09/23/2019 Environmental Unable to assess criticality 09/23/2019 Medications Active Medications SIG Qnty Indications Ordering Provide r Date Bupropion Hydrochloride ER (XL) 150mg Tablets ER 24HR 1 by mouth every day 90tabs F33.9 James Mejia 12/28/2020 Buspirone HCL 5mg Tablets 1 tab by mouth twice a day 90tabs F33.9 Sebastián Chappell MD 05/18/2020 Ambien 10mg Tablets 1 tab by mouth every day at bedtime 30tabs F33.9 Sebastián Chappell MD 05/18/2020 Venlafaxine HCL ER 75mg Caps ER 24 HR 1 by mouth every day, add to 150mg to total 225mg 90caps F41.0 Christian Chappell MD 05/02/2020 Venlafaxine HCL ER 150mg Caps ER 2 4HR 1 by mouth every day 90caps Sebastián Chappell MD 11/19/2019 Lantus Solostar 100U nit/ML Solution Pen-Inject Inject 26 Units Into The Skin Q Night. MDD 48 Units Unknown 09/14/2019 Anoro Ellipta 62.5-25mcg/Inh Aeros ol Inl 1 puff Itl D Unknown 09/09/2019 BD Pen Needle/Lori/Ultra -Fine/32G X 4mm 32G X 4 mm Misc Use as Directed 4 Times Daily Unknown 09/02/2019 Contour Next Blood Glucose Test S trips Use To Test Blood Sugar 6 Times Daily Unknown 09/01/2019 Microlet Lancets Misc Use 6 Times Daily as Directed Unknown 09/01/2019 Novolog Flexpen 100U nit/ML Solution Pen-Inject Inject Into The Skin With Meals Using Al gorithm. Total Daily Dose Not To Exceed 75 Units With Titration And Priming Unkno wn 09/01/[address] SANCHEZ 1 C PO qd Unknown 08/25/2019 Nitrofurantoin Monohydrate/Macrocrystals 100mg Capsules Unknown 08/22/2019 Baqsimi One Pack 3mg/Dose Powder Use One [place] In One Nostril To Treat Severe Hypoglycemia Unknown 08/21/2019 Novolog 100Unit/ML Solution Use as Directed To Prime And Fill Insulin Pump MDD 100 Units Per Day Unknown 08/07/2019 Fluconazole 200mg Tablets TK 1 T PO After Finishing Antibiotics And 2 Days Later If Symptoms Persist Unknown 08/06/2019 Alprazolam 0.5mg Tablets 1 tab by mouth twice a day as needed 60tabs F41.0 Sebastián Chappell MD F41.9 F33.9 Proventil HFA 108(90Base) mcg/Act Aerosol Unknown Azithromycin 250mg Tablets Unknown Pulmozyme 1mg/ml Solution Unknown Trikafta 100-50-75&150mg TBPK Unknown Nexplanon 68mg Implant Unknown Fexofenadine HCL 180mg Tablets Unknown Glucagon Emergency 1mg Kit Unknown Ipratropium [place]/Albuterol Sulfate 0.5-2.5(3)mg/3ML Solution Unknown [address] [id number] Gracie Unknown Tizanidine HCL 2mg Capsules Unknown Sawyer Podhaler 28mg Capsules 4 cap Unknown Fluticasone Propionate 50mcg/Act Suspension Unknown Ketoconazole 2% Shampoo Unknown Ketostix Strips Unknown Immunizations Description No Information Available Vital Signs Date Vital Result Comment 09/23/2019 9:48am BP Systolic Sitting 125 mmHg BP Diastolic Sitting 80 mmHg Heart Rate 84 /min Body Temperature 97.8 F Oral Respiratory Rate 18 /min O2 % BldC Oximetry 100 % Weight 173.00 lb Weight 78.473 kg Height 66 inches 5'6" BMI (Body Mass Index) 27.9 kg/m2 BSA (Body Surface Area) 1.88 m2 Results Description No Information Available Procedures Date Code Description Status 05/31/2021 56151 Office/Outpatient Established Mo d MDM 30-39 Min Completed 03/02/2021 48180 Office/Outpatient Established Mo d MDM 30-39 Min Completed 01/30/2021 00955 Office/Outpatient Established Mo d MDM 30-39 Min Completed 12/28/2020 19024 Office/Outpatient Established Mo d MDM 30-39 Min Completed Medical Devices Description No Information Available Encounters Type Date Location Provider Dx Diagnosis Office Visit 05/31/2021 8:20a [facility] Steve Mascorro PA-C F33.9 Major depressive disorder, recurrent, unspecified F41.9 Anxiety disorder, unspecifie d Assessments Date Code Description Provider 05/31/2021 F33.9 Major depressive disorder, recur rent, unspecified Steve Mascorro PA-C 05/31/2021 F41.9 Anxiety disorder, unspecified Ca russel Mascorro PA-C 05/19/2021 F33.9 Major depressive disorder, recur rent, unspecified Nara Yolis, [facility] 05/19/2021 F41.9 Anxiety disorder, unspecified Th ea Yolis, [facility] 04/03/2021 F33.9 Major depressive disorder, recur rent, unspecified Nara Yolis, [facility] 04/03/2021 F41.9 Anxiety disorder, unspecified Th ea Yolis, [facility] 03/17/2021 F33.9 Major depressive disorder, recur rent, unspecified Nara Yolis, [facility] 03/17/2021 F41.9 Anxiety disorder, unspecified Th ea Yolis, [facility] 03/02/2021 F33.9 Major depressive disorder, recur rent, unspecified Steve Mascorro, PA-C 03/02/2021 F33.9 Major depressive disorder, recur rent, unspecified Nara Yolis, [facility] 03/02/2021 F41.9 Anxiety disorder, unspecified Ca leb Mascorro, PA-C 03/02/2021 F41.9 Anxiety disorder, unspecified Th ea Yolis, [facility] 02/22/2021 F33.9 Major depressive disorder, recur rent, unspecified Sloane Beagle, [facility] 02/22/2021 F41.9 Anxiety disorder, unspecified Me kacie Beagle, [facility] 02/02/2021 F33.9 Major depressive disorder, recur rent, unspecified Nara Yolis, [facility] 02/02/2021 F41.9 Anxiety disorder, unspecified Th ea Yolis, [facility] 01/30/2021 F33.9 Major depressive disorder, recur rent, unspecified Steve Mascorro, PA-C 01/30/2021 F41.9 Anxiety disorder, unspecified Ca leb Mascorro, PA-C 01/20/2021 F33.9 Major depressive disorder, recur rent, unspecified Nara Yolis, [facility] 01/20/2021 F41.9 Anxiety disorder, unspecified Th ea Yolis, [facility] 01/05/2021 F33.9 Major depressive disorder, recur rent, unspecified Nara Yolis, [facility] 01/05/2021 F41.9 Anxiety disorder, unspecified Th ea Yolis, [facility] 12/28/2020 F33.9 Major depressive disorder, recur rent, unspecified Steve Mascorro, PA-C 12/28/2020 F41.9 Anxiety disorder, unspecified Ca leb Mascorro, PA-C 12/22/2020 F33.9 Major depressive disorder, recur rent, unspecified Nara Yolis, [facility] 12/22/2020 F41.9 Anxiety disorder, unspecified Th ea Yolis, [facility] Plan of Treatment Future Appointment(s):* 08/28/2021 8:20 am - Steve Mascorro PA-C at [facility] * 07/11/2021 3:00 pm - [facility] at [facility] * 06/28/2021 3:00 pm - [facility] at [facility] * 06/14/2021 3:00 pm - [facility] at [facility] Functional Status Description No Information Available Mental Status Description No Information Available Referrals Description No Information Available
--- OUTSIDE RECORDS SUMMARY | 2021-06-16 09:59 | CCD | Continuity of Care Document ---
Author Author Lidia SOUZAP- Organization Unknown Address [address], [address] [place] [address] Phone [phone] Care Team Providers Care Plant Anatomist Name Role Phone EvaristoAngelKavita jung DO AUTM Problems Description No Information Available Social History Type Date Description Comments Sex Unknown Tobacco Use Start: Unknown Never Smoked Cigarettes ETOH Use Rarely consumes alcohol Sun Exposure minimum amount of sun exposure Sun Exposure Tanning bed - Has used in past. No longer using. Sun Exposure Has never experienced blistering from sunburns Sun Exposure Uses > 30 SPF Allergies and adverse reactions Active Allergies Criticality Reaction | Severity Comments Date Benzoyl Peroxide Unable to assess criticality 05/18/2021 Flagyl Unable to assess criticality 05/18/2021 Hydrocodone Unable to assess criticality 05/18/2021 Medications Active Medications SIG Qnty Indications Ordering Provide r Date Adapalene 0.3% Gel Apply thin layer to face every night 45gm L70.0 NOLVIA Carlin Sulfacetamide Sodium 10% Liquid Wash face 1-2 times daily 480ml L70.0 NOLVIA Carlin 05/22/2021 Nexplanon Unknown Glucagon Emergency Kit For Low Blood Sugar Unknown Ipratropium [place] Unknown Albuterol Sulfate Unknown 000 Pulmozyme Unknown Ventolin HFA Unknown Omeprazole Unknown Ondansetron Unknown Triamcinolone Acetonide Unknown 0 Venlafaxine HCL Unknown 0 Imitrex Unknown Linzess Unknown Rizatriptan Benzoate Unknown Meloxicam Unknown Tamsulosin HCL Unknown Phentermine HCL Unknown 0 Nurtec Unknown Ajovy Unknown Xanax Unknown Ambien Unknown Novolog Unknown Lantus Unknown Wellbutrin XL Unknown Effexor XR Unknown Immunizations Description No Information Available Vital Signs Date Vital Result Comment 05/22/2021 12:32pm BP Systolic 122 mmHg BP Diastolic 82 mmHg Heart Rate 80 /min Weight 186.00 lb Results Description No Information Available Procedures Date Code Description Status 05/22/2021 53528 Office/Outpatient New Moderate M DM 45-59 Minutes Completed Medical Devices Description No Information Available Encounters Type Date Location Provider Dx Diagnosis Office Visit 05/22/2021 12:30p Main Office NOLVIA Carlin L70. 0 Acne vulgaris Assessments Date Code Description Provider 05/31/2021 L98.8 Other specified disorders of the skin and subcutaneous tissue Cosmetic Consultation 05/22/2021 L70.0 Acne vulgaris NOLVIA Kaiser 05/22/2021 L70.0 Acne vulgaris NOLVIA Carlin 05/17/2021 L98.8 Other specified disorders of the skin and subcutaneous tissue Cosmetic Consultation Plan of Treatment Future Appointment(s):* 07/03/2021 2:00 pm - NOLVIA Carlin at Main Office * 06/02/2021 8:30 am - Aliza at [facility] * 06/05/2021 2:30 pm - Nathanael Schultz at [facility] 05/22/2021 - NOLVIA Carlin* L70.0 Acne vulgaris* New Medication:* Sulfacetamide Sodium 10 % - Wash face 1-2 times daily * Adapalene 0.3 % - Apply thin layer to face every night * Comments:* Discussed diagnosis and treatment.Skin looks great from recent peel.Start Sulfacetamide Sodium 10% wash 1-2 times daily.Discussed if wash is not covered by insurance to purchase an OTC Sulfa Lo bar.Start Adapalene 0.3% gel daily. Discussed to apply on a dry surface and that a pea-size will cover the whole face and that more is not better. Discussed using daily and that if there is a day that is too dry to skip that day and just use lotion until better, then restart Adapalene.Discussion about importance of using topical on a regular basis. Discussed that it takes 12-16 weeks for a full efficacy using topicals. Can use moisturizers PRN. States she plans on continuing to get chemical peels. States she is now going to obtain them on our cosmetic side instead of where she had recent peel.Call with problems. * Follow up:* 6 weeks - acne follow up Functional Status Description No Information Available Mental Status Description No Information Available Referrals Description No Information Available"
--- OUTSIDE RECORDS SUMMARY | 2021-06-16 09:59 | CCD | Continuity of Care Document ---
Author Author Lidia WOOTEN MD Organization Unknown Address [address] [place] [address] Phone [phone] Care Team Providers Care Patcher Wood Welder Name Role Phone Patricia Zaldivar MD AUTM [phone] Kavita English DO AUTM Unavailable Problems Description [...] Information Available Procedures Date Code Description Status 02/14/2021 72811 Office/Outpatient 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
--- OUTSIDE RECORDS SUMMARY | 2021-06-16 09:59 | CCD | Continuity of Care Document ---
Author Author Lidia MC [facility] Organization Unknown Address [facility] [address] [place] [address] Phone [phone] Care Team Providers Care Precision Agriculture Specialist Name Role Phone AUTM Unavailable Kavita English [...] Baqsimi One Pack 3mg/Dose Powder Use One [place] In One Nostril To Treat Severe Hypoglycemia [...] Unknown Glucagon Emergency 1mg Kit Unknown Ipratropium [place]/Albuterol Sulfate 0.5-2.5(3)mg/3ML Solution Unknown [address] [id number] C[address] Gracie Unknown Tizanidine HCL 2mg [...] Available Procedures Date Code Description Status 05/31/2021 30540 Office/Outpatient Established Mo d MDM 30-39 Min Completed 03/02/2021 05991 Office/Outpatient Established Mo d MDM 30-39 Min Completed 01/30/2021 54312 Office/Outpatient Established Mo d MDM 30-39 Min Completed 12/28/2020 02092 Office/Outpatient Established Mo d MDM 30-39 Min Completed Medical Devices Description No Information Available Encounters Description No Information Available Assessments Date Code Description Provider 05/31/2021 F33.9 Major depressive disorder, recur rent, unspecified Steve Mascorro PA-C 05/31/2021 F41.9 Anxiety disorder, unspecified Ca russel Mascorro PA-C 05/19/2021 F33.9 Major depressive disorder, recur rent, unspecified Nara Yolis, [facility] 05/19/2021 F41.9 Anxiety disorder, unspecified Th ea Yolis, [facility] 04/03/2021 F33.9 Major depressive disorder, recur rent, unspecified Nara Yolis, [facility] 04/03/2021 F41.9 Anxiety disorder, unspecified Th ea Yolis, [facility] 03/17/2021 F33.9 Major depressive disorder, recur rent, unspecified Nara Yolis, [facility] 03/17/2021 F41.9 Anxiety disorder, unspecified Th ea Yolis, [facility] 03/02/2021 F33.9 Major depressive disorder, recur rent, unspecified Steve Mascorro PA-C 03/02/2021 F33.9 Major depressive disorder, recur rent, unspecified Nara Yolis, [facility] 03/02/2021 F41.9 Anxiety disorder, unspecified Ca isaiahb Subha, [facility] 03/02/2021 F41.9 Anxiety disorder, unspecified Th ea Yolis, [facility] 02/22/2021 F33.9 Major depressive disorder, recur rent, unspecified Sloane Martin, [facility] 02/22/2021 F41.9 Anxiety disorder, unspecified Me kacie Martin, [facility] 02/02/2021 F33.9 Major depressive disorder, recur rent, unspecified Nara Yolis, [facility] 02/02/2021 F41.9 Anxiety disorder, unspecified Th ea Yolis, [facility] 01/30/2021 F33.9 Major depressive disorder, recur rent, unspecified Steve Subha, PA-C 01/30/2021 F41.9 Anxiety disorder, unspecified Ca isaiahb Subha, [facility] 01/20/2021 F33.9 Major depressive disorder, recur rent, unspecified Nara Yolis, [facility] 01/20/2021 F41.9 Anxiety disorder, unspecified Th ea Yolis, [facility] 01/05/2021 F33.9 Major depressive disorder, recur rent, unspecified Nara Yolis, [facility] 01/05/2021 F41.9 Anxiety disorder, unspecified Th ea Yolis, [facility] 12/28/2020 F33.9 Major depressive disorder, recur rent, unspecified Steve Mascorro, [facility] 12/28/2020 F41.9 Anxiety disorder, unspecified Ca leb Subha, [facility] 12/22/2020 F33.9 Major depressive disorder, recur rent, unspecified Nara Yolis, [facility] 12/22/2020 F41.9 Anxiety disorder, unspecified Th ea Yolis, [facility] Plan of Treatment Future Appointment(s):* 08/28/2021 8:20 am - Steve Mascorro PA-C at [facility] * 07/11/2021 3:00 pm - AMBER Rock at [facility] * 06/28/2021 3:00 pm - AMBER Rock at [facility] Functional Status Description No Information Available Mental Status Description No Information Available Referrals Description No Information Available
--- OUTSIDE RECORDS SUMMARY | 2021-06-16 10:00 | CCD | Continuity of Care Document ---
Author Author Lidia MC [facility] Organization Unknown Address [facility] [address] [place] [address] Phone [phone] Care Team Providers Care Outside Machinist Helper Name Role Phone AUTM Unavailable Kavita English Unavailable Problems Description No Information Available Social History Type Date Description Comments Sex Unknown Allergies, Adverse Reactions, Alerts Active Allergies Criticality [...] 150mg to total 225mg 90caps F41.0 Christian marizol Chappell MD 05/02/2020 Venlafaxine HCL ER 150mg [...] Unkno wn 09/01/[address] TK 1 C PO qd Unknown 08/25/2019 Nitrofurantoin Monohydrate/Macrocrystals 100mg Capsules Unknown 08/22/2019 Baqsimi One Pack 3mg/Dose Powder Use One [place] In One Nostril To Treat Severe Hypoglycemia [...] Unknown Glucagon Emergency 1mg Kit Unknown Ipratropium [place]/Albuterol Sulfate 0.5-2.5(3)mg/3ML Solution Unknown [address] [id number] C[address] Gracie Unknown Tizanidine HCL 2mg [...] Information Available Procedures Date Code Description Status 03/02/2021 13286 Office/Outpatient Established Mo d MDM 30-39 Min Completed 01/30/2021 78341 Office/Outpatient Established Mo d MDM 30-39 Min Completed 12/28/2020 69459 Office/Outpatient Established Mo d MDM 30-39 Min Completed Medical Devices Description No Information Available Encounters Description No Information Available Assessments Date Code Description Provider 05/19/2021 F33.9 Major depressive disorder, recur rent, unspecified Nara Yolis, [facility] 05/19/2021 F41.9 Anxiety disorder, unspecified Th ea Yolis, [facility] 04/03/2021 F33.9 Major depressive disorder, recur rent, unspecified Nara Yolis, [facility] 04/03/2021 F41.9 Anxiety disorder, unspecified Th ea Yolis, [facility] 03/17/2021 F33.9 Major depressive disorder, recur rent, unspecified Nara Yolis, [facility] 03/17/2021 F41.9 Anxiety disorder, unspecified Th ea Yolis, [facility] 03/02/2021 F33.9 Major depressive disorder, recur rent, unspecified Steve Mascorro PA-C 03/02/2021 F33.9 Major depressive disorder, recur rent, unspecified Nara Yolis, [facility] 03/02/2021 F41.9 Anxiety disorder, unspecified Ca russel Mascorro PA-C 03/02/2021 F41.9 Anxiety disorder, unspecified Th ea Yolis, [facility] 02/22/2021 F33.9 Major depressive disorder, recur rent, unspecified Sloane Martin, [facility] 02/22/2021 F41.9 Anxiety disorder, unspecified Me kacie Martin, [facility] 02/02/2021 F33.9 Major depressive disorder, recur rent, unspecified Nara Yolis, [facility] 02/02/2021 F41.9 Anxiety disorder, unspecified Th ea Yolis, [facility] 01/30/2021 F33.9 Major depressive disorder, recur rent, unspecified Steve Mascorro, [facility] 01/30/2021 F41.9 Anxiety disorder, unspecified Ca leb Subha, PA-C 01/20/2021 F33.9 Major depressive disorder, recur rent, unspecified Nara Yolis, [facility] 01/20/2021 F41.9 Anxiety disorder, unspecified Th ea Yolis, [facility] 01/05/2021 F33.9 Major depressive disorder, recur rent, unspecified Nara Yolis, [facility] 01/05/2021 F41.9 Anxiety disorder, unspecified Th ea Yolis, [facility] 12/28/2020 F33.9 Major depressive disorder, recur rent, unspecified Steve Mascorro, [facility] 12/28/2020 F41.9 Anxiety disorder, unspecified Ca leb Subha, [facility] 12/22/2020 F33.9 Major depressive disorder, recur rent, unspecified Nara Yolis, [facility] 12/22/2020 F41.9 Anxiety disorder, unspecified Th ea Yolis, [facility] Plan of Treatment Future Appointment(s):* 07/11/2021 3:00 pm - AMBER [facility] at [facility] * 06/28/2021 3:00 pm - AM[facility] [place] at [facility] * 06/14/2021 3:00 pm - AMBER [place] at [facility] * 05/31/2021 8:20 am - Steve Mascorro PA-C at [facility] Functional Status Description No Information Available Mental Status Description No Information Available Referrals Description No Information Available
--- OUTSIDE RECORDS SUMMARY | 2021-06-16 10:00 | CCD | Continuity of Care Document ---
Author Author Lidia MC [facility] Organization Unknown Address [facility] [address] [place] [address] Phone [phone] Care Team Providers Care Car Racer Name Role Phone AUTM Unavailable Kavita English [...] Baqsimi One Pack 3mg/Dose Powder Use One [place] In One Nostril To Treat Severe Hypoglycemia [...] Unknown Glucagon Emergency 1mg Kit Unknown Ipratropium [place]/Albuterol Sulfate 0.5-2.5(3)mg/3ML Solution Unknown [address] [id number] Caps [address] Gracie Unknown Tizanidine HCL 2mg [...] Available Procedures Date Code Description Status 03/02/2021 64370 Office/Outpatient Established Mo d MDM 30-39 Min Completed 01/30/2021 50323 Office/Outpatient Established Mo d MDM 30-39 Min Completed 12/28/2020 98725 Office/Outpatient Established Mo d MDM 30-39 Min Completed Medical Devices Description No Information Available Encounters Description No Information Available Assessments Date Code Description Provider 05/19/2021 F33.9 Major depressive disorder, recur rent, unspecified Nara Yolis, [facility] 05/19/2021 F41.9 Anxiety disorder, unspecified Th ea Yolis, [facility] 04/03/2021 F33.9 Major depressive disorder, recur rent, unspecified Nara Yolis, [facility] 04/03/2021 F41.9 Anxiety disorder, unspecified Th ea Yolis, [facility] 03/17/2021 F33.9 Major depressive disorder, recur rent, unspecified Nara Yolis, [facility] 03/17/2021 F41.9 Anxiety disorder, unspecified Th ea Yolis, [facility] 03/02/2021 F33.9 Major depressive disorder, recur rent, unspecified Steve Mascorro PA-C 03/02/2021 F33.9 Major depressive disorder, recur rent, unspecified Nara Yolis, [facility] 03/02/2021 F41.9 Anxiety disorder, unspecified Ca russel Mascorro PA-C 03/02/2021 F41.9 Anxiety disorder, unspecified Th ea Yolis, [facility] 02/22/2021 F33.9 Major depressive disorder, recur rent, unspecified Sloane Martin, [facility] 02/22/2021 F41.9 Anxiety disorder, unspecified Me kacie Martin, [facility] 02/02/2021 F33.9 Major depressive disorder, recur rent, unspecified Nara Yolis, [facility] 02/02/2021 F41.9 Anxiety disorder, unspecified Th ea Yolis, [facility] 01/30/2021 F33.9 Major depressive disorder, recur rent, unspecified Steve Mascorro, [facility] 01/30/2021 F41.9 Anxiety disorder, unspecified Ca leb Subha, PA-C 01/20/2021 F33.9 Major depressive disorder, recur rent, unspecified Nara Yolis, [facility] 01/20/2021 F41.9 Anxiety disorder, unspecified Th ea Yolis, [facility] 01/05/2021 F33.9 Major depressive disorder, recur rent, unspecified Nara Yolis, [facility] 01/05/2021 F41.9 Anxiety disorder, unspecified Th ea Yolis, [facility] 12/28/2020 F33.9 Major depressive disorder, recur rent, unspecified Steve Mascorro, [facility] 12/28/2020 F41.9 Anxiety disorder, unspecified Ca leb Subha, [facility] 12/22/2020 F33.9 Major depressive disorder, recur rent, unspecified Nara Yolis, [facility] 12/22/2020 F41.9 Anxiety disorder, unspecified Th ea Yolis, [facility] Plan of Treatment Future Appointment(s):* 07/11/2021 3:00 pm - AMBER Rock at [facility] * 06/28/2021 3:00 pm - AMBER Rock at [facility] * 06/14/2021 3:00 pm - AMBER Rock at [facility] * 05/31/2021 8:20 am - Steve Mascorro PA-C at [facility] Functional Status Description No Information Available Mental Status Description No Information Available Referrals Description No Information Available
--- OUTSIDE RECORDS SUMMARY | 2021-06-16 10:00 | CCD | Continuity of Care Document ---
Author Author Lidia MC [facility] Organization Unknown Address [facility] [address] [place] [address] Phone [phone] Care Team Providers Care Principal Java Software Engineer Name Role Phone AUTM Unavailable Kavita English [...] Baqsimi One Pack 3mg/Dose Powder Use One [place] In One Nostril To Treat Severe Hypoglycemia [...] Unknown Glucagon Emergency 1mg Kit Unknown Ipratropium [place]/Albuterol Sulfate 0.5-2.5(3)mg/3ML Solution Unknown 0 [address] [id number] C[address] Gracie Unknown Tizanidine HCL 2mg [...] Available Procedures Date Code Description Status 03/02/2021 49611 Office/Outpatient Established Mo d MDM 30-39 Min Completed 01/30/2021 05881 Office/Outpatient Established Mo d MDM 30-39 Min Completed 12/28/2020 22057 Office/Outpatient Established Mo d MDM 30-39 Min Completed Medical Devices Description No Information Available Encounters Description No Information Available Assessments Date Code Description Provider 05/19/2021 F33.9 Major depressive disorder, recur rent, unspecified Nara Yolis, [facility] 05/19/2021 F41.9 Anxiety disorder, unspecified Th ea Yolis, [facility] 04/03/2021 F33.9 Major depressive disorder, recur rent, unspecified Nara Yolis, [facility] 04/03/2021 F41.9 Anxiety disorder, unspecified Th ea Yolis, [facility] 03/17/2021 F33.9 Major depressive disorder, recur rent, unspecified Nara Yolis, [facility] 03/17/2021 F41.9 Anxiety disorder, unspecified Th ea Yolis, [facility] 03/02/2021 F33.9 Major depressive disorder, recur rent, unspecified Steve Mascorro PA-C 03/02/2021 F33.9 Major depressive disorder, recur rent, unspecified Nara Yolis, [facility] 03/02/2021 F41.9 Anxiety disorder, unspecified Ca russel Mascorro PA-C 03/02/2021 F41.9 Anxiety disorder, unspecified Th ea Yolis, [facility] 02/22/2021 F33.9 Major depressive disorder, recur rent, unspecified Sloane Martin, [facility] 02/22/2021 F41.9 Anxiety disorder, unspecified Me kacie Martin, [facility] 02/02/2021 F33.9 Major depressive disorder, recur rent, unspecified Nara Yolis, [facility] 02/02/2021 F41.9 Anxiety disorder, unspecified Th ea Yolis, [facility] 01/30/2021 F33.9 Major depressive disorder, recur rent, unspecified Steve Mascorro, [facility] 01/30/2021 F41.9 Anxiety disorder, unspecified Ca leb Subha, PA-C 01/20/2021 F33.9 Major depressive disorder, recur rent, unspecified Nara Yolis, [facility] 01/20/2021 F41.9 Anxiety disorder, unspecified Th ea Yolis, [facility] 01/05/2021 F33.9 Major depressive disorder, recur rent, unspecified Nara Yolis, [facility] 01/05/2021 F41.9 Anxiety disorder, unspecified Th ea Yolis, [facility] 12/28/2020 F33.9 Major depressive disorder, recur rent, unspecified Steve Mascorro, [facility] 12/28/2020 F41.9 Anxiety disorder, unspecified Ca leb Subha, [facility] 12/22/2020 F33.9 Major depressive disorder, recur rent, unspecified Nara Yolis, [facility] 12/22/2020 F41.9 Anxiety disorder, unspecified Th ea Yolis, [facility] Plan of Treatment Future Appointment(s):* 07/11/2021 3:00 pm - AMBER Rock at [facility] * 06/28/2021 3:00 pm - AMBER [place] at [facility] * 06/14/2021 3:00 pm - AMBER Rock at [facility] * 05/31/2021 8:20 am - Steve Mascorro PA-C at [facility] Functional Status Description No Information Available Mental Status Description No Information Available Referrals Description No Information Available
--- OUTSIDE RECORDS SUMMARY | 2021-06-16 10:02 | CCD ---
Author Author [facility] Organization [facility] Address Unknown Phone Unavailable Care Team Providers Care Yarrow Gatherer Name Role Phone Alma Cota MD Unavailable Unavailable BeataAlma MD Unavailable Unavailable Beata, Alma Aaron MD Unavailable Unavailable Beata, Alma Aaron MD Unavailable Unavailable Beata, Alma Aaron MD Unavailable Unavailable BeataAlma MD Unavailable Unavailable BeataAlma MD Unavailable Unavailable BeataAlma MD Unavailable Unavailable BeataAlma MD Unavailable Unavailable BeataAlma MD Unavailable Unavailable BeataAlma MD Unavailable Unavailable BeataAlma MD Unavailable Unavailable BeataAlma MD Unavailable Unavailable BeataAlma MD Unavailable Unavailable BeataAlma MD Unavailable Unavailable BeataAlma MD Unavailable Unavailable BeataAlma MD Unavailable Unavailable BeataAlma MD Unavailable Unavailable Beata, Alma Aaron MD Unavailable Unavailable Beata, Alma Aaron MD Unavailable Unavailable Beata, Alma Aaron MD Unavailable Unavailable Beata, Alma Aaron MD Unavailable Unavailable Beata, Alma Aaron MD Unavailable Unavailable Beata, Alma Aaron MD Unavailable Unavailable Beata, Alma Aaron MD Unavailable Unavailable Beata, Alma Aaron MD Unavailable Unavailable Beata, Alma Aaron MD Unavailable Unavailable Beata, Alma Aaron MD Unavailable Unavailable Beata, Alma Aaron MD Unavailable Unavailable Beata, Alma Aaron MD Unavailable Unavailable Beata, Alma Aaron MD Unavailable Unavailable Beata, Alma Aaron MD Unavailable Unavailable Beata, Alma Aaron MD Unavailable Unavailable Beata, Alma Aaron MD Unavailable Unavailable Beata, Alma Aaron MD Unavailable Unavailable Beata, Alma Aaron MD Unavailable Unavailable Beata, Alma Aaron MD Unavailable Unavailable Beata, Alma Aaron MD Unavailable Unavailable Beata, Alma Aaron MD Unavailable Unavailable Beata, Alma Aaron MD Unavailable Unavailable Beata, Alma Aaron MD Unavailable Unavailable Beata, Alma Aaron MD Unavailable Unavailable Beata, Alma Aaron MD Unavailable Unavailable Beata, Alma Aaron MD Unavailable Unavailable Beata, Alma Aaron MD Unavailable Unavailable Beata, Alma Aaron MD Unavailable Unavailable Beata, Alma Aaron MD Unavailable Unavailable Beata, Alma Aaron MD Unavailable Unavailable Beata, Alma Aaron MD Unavailable Unavailable Beata, Alma Aaron MD Unavailable Unavailable Beata, Alma Aaron MD Unavailable Unavailable Beata, Alma Aaron MD Unavailable Unavailable Beata, Alma Aaron MD Unavailable Unavailable Beata, Alma Aaron MD Unavailable Unavailable Beata, Alma Aaron MD Unavailable Unavailable Beata, Alma Aaron MD Unavailable Unavailable Beata, Alma Aaron MD Unavailable Unavailable Beata, Alma Aaron MD Unavailable Unavailable Beata, Alma Aaron MD Unavailable Unavailable Beata, Alma Aaron MD Unavailable Unavailable Imani Tuttle MD Unavailable Unavailable Imani Tuttle MD Unavailable Unavailable Imani Tuttle MD Unavailable Unavailable Imani Tuttle MD Unavailable Unavailable Imani Tuttle MD Unavailable Unavailable Imani Tuttle MD Unavailable Unavailable Imani Tuttle MD Unavailable Unavailable Imani Tuttle MD Unavailable Unavailable Tuttle, Sumendra MD Unavailable Unavailable Tuttle, Sumendra MD Unavailable Unavailable Tuttle, Sumendra MD Unavailable Unavailable Tuttle, Sumendra MD Unavailable Unavailable Tuttle, Sumendra MD Unavailable Unavailable Tuttle, Sumendra MD Unavailable Unavailable Tuttle, Sumendra MD Unavailable Unavailable Tuttle, Sumendra MD Unavailable Unavailable Tuttle, Sumendra MD Unavailable Unavailable Tuttle, Sumendra MD Unavailable Unavailable Tuttle, Sumendra MD Unavailable Unavailable Tuttle, Sumendra MD Unavailable Unavailable Tuttle, Sumendra MD Unavailable Unavailable Tuttle, Sumendra MD Unavailable Unavailable Tuttle, Sumendra MD Unavailable Unavailable Tuttle, Sumendra MD Unavailable Unavailable Tuttle, Sumendra MD Unavailable Unavailable Tuttle, Sumendra MD Unavailable Unavailable Tuttle, Sumendra MD Unavailable Unavailable Tuttle, Sumendra MD Unavailable Unavailable Tuttle, Sumendra MD Unavailable Unavailable Tuttle, Sumendra MD Unavailable Unavailable Tuttle, Sumendra MD Unavailable Unavailable Tuttle, Sumendra MD Unavailable Unavailable Tuttle, Sumendra MD Unavailable Unavailable Tuttle, Sumendra MD Unavailable Unavailable Tuttle, Sumendra MD Unavailable Unavailable Tuttle, Sumendra MD Unavailable Unavailable Tuttle, Sumendra MD Unavailable Unavailable Tuttle, Sumendra MD Unavailable Unavailable Tuttle, Sumendra MD Unavailable Unavailable IBARRA, J ROMAINE PA Unavailable Unavailable IBARRA, J ROMAINE PA Unavailable Unavailable IBARRA, J ROMAINE PA Unavailable Unavailable IBARRA, J ROMAINE PA Unavailable Unavailable IBARRA, J ROMAINE PA Unavailable Unavailable IBARRA, J ROMAINE PA Unavailable Unavailable IBARRA, J ROMAINE PA Unavailable Unavailable IBARRA, J ROMAINE PA Unavailable Unavailable IBARRA, J ROMAINE PA Unavailable Unavailable IBARRA, J ROMAINE PA Unavailable Unavailable IBARRA, J ROMAINE PA Unavailable Unavailable IBARRA, J ROMAINE PA Unavailable Unavailable IBARRA, J ROMAINE PA Unavailable Unavailable IBARRA, J ROMAINE PA Unavailable Unavailable IBARRA, J ROMAINE PA Unavailable Unavailable IBARRA, J ROMAINE PA Unavailable Unavailable IBARRA, J ROMAINE PA Unavailable Unavailable IBARRA, J ROMAINE PA Unavailable Unavailable IBARRA, J ROMAINE PA Unavailable Unavailable IBARRA, J ROMAINE PA Unavailable Unavailable IBARRA, J ROMAINE PA Unavailable Unavailable IBARRA, J ROMAINE PA Unavailable Unavailable IBARRA, J ROMAINE PA Unavailable Unavailable IBARRA, J ROMAINE PA Unavailable Unavailable IBARRA, J ROMAINE PA Unavailable Unavailable IBARRA, J ROMAINE PA Unavailable Unavailable IBARRA, J ROMAINE PA Unavailable Unavailable Kal RAYA Unavailable Unavailable Sexton, M Barratt PA Unavailable Unavailable Sexton, M Barratt PA Unavailable Unavailable Sexton, M Barratt PA Unavailable Unavailable Sexton, M Barratt PA Unavailable Unavailable Sexton, M Barratt PA Unavailable Unavailable Sexton, M Barratt PA Unavailable Unavailable Sexton, M Barratt PA Unavailable Unavailable Sexton, M Barratt PA Unavailable Unavailable Sexton, M Barratt PA Unavailable Unavailable Sexton, M Barratt PA Unavailable Unavailable Sexton, M Barratt PA Unavailable Unavailable Sexton, M Barratt PA Unavailable Unavailable Sexton, M Barratt PA Unavailable Unavailable Sexton, M Barratt PA Unavailable Unavailable Sexton, M Barratt PA Unavailable Unavailable Sexton, M Barratt PA Unavailable Unavailable Sexton, M Barratt PA Unavailable Unavailable Sexton, M Barratt PA Unavailable Unavailable Sexton, M Barratt PA Unavailable Unavailable Sexton, M Barratt PA Unavailable Unavailable Sexton, M Barratt PA Unavailable Unavailable Sexton, M Barratt PA Unavailable Unavailable Sexton, M Barratt PA Unavailable Unavailable Sexton, M Barratt PA Unavailable Unavailable Sexton, M Barratt PA Unavailable Unavailable Sexton, M Barratt PA Unavailable Unavailable Sexton, M Barratt PA Unavailable Unavailable Sexton, M Barratt PA Unavailable Unavailable Sexton, M Barratt PA Unavailable Unavailable KENNEDY, L RADHAMES Unavailable Unavailable IBARRA, J ROMAINE PA Unavailable Unavailable IBARRA, J ROMAINE PA Unavailable Unavailable IBARRA, J ROMAINE PA Unavailable Unavailable IBARRA, J ROMAINE PA Unavailable Unavailable IBARRA, J ROMAINE PA Unavailable Unavailable IBARRA, J ROMAINE PA Unavailable Unavailable IBARRA, J ROMAINE PA Unavailable Unavailable IBARRA, J ROMAINE PA Unavailable Unavailable IBARRA, J ROMAINE PA Unavailable Unavailable IBARRA, J ROMAINE PA Unavailable Unavailable IBARRA, J ROMAINE PA Unavailable Unavailable IBARRA, J ROMAINE PA Unavailable Unavailable IBARRA, J ROMAINE PA Unavailable Unavailable IBARRA, J ROMAINE PA Unavailable Unavailable IBARRA, J ROMAINE PA Unavailable Unavailable IBARRA, J ROMAINE PA Unavailable Unavailable IBARRA, J ROMAINE PA Unavailable Unavailable IBARRA, J ROMAINE PA Unavailable Unavailable IBARRA, J ROMAINE PA Unavailable Unavailable IBARRA, J ROMAINE PA Unavailable Unavailable IBARRA, J ROMAINE PA Unavailable Unavailable IBARRA, J ROMAINE PA Unavailable Unavailable IBARRA, J ROMAINE PA Unavailable Unavailable IBARRA, J ROMAINE PA Unavailable Unavailable IBARRA, J ROMAINE PA Unavailable Unavailable IBARRA, J ROMAINE PA Unavailable Unavailable IBARRA, J ROMAINE PA Unavailable Unavailable KENNEDY L RADHAMES Unavailable Unavailable James Zaldivar MD Unavailable Unavailable James Zaldivar MD Unavailable Unavailable James Zaldivar MD Unavailable Unavailable James Zaldivar MD Unavailable Unavailable James Zaldivar MD Unavailable Unavailable James Zaldivar MD Unavailable Unavailable James Zaldivar MD Unavailable Unavailable James Zaldivar MD Unavailable Unavailable James Zaldivar MD Unavailable Unavailable James Zaldivar MD Unavailable Unavailable James Zaldivar MD Unavailable Unavailable James Zaldivar MD Unavailable Unavailable James Zaldivar MD Unavailable Unavailable James Zaldivar MD Unavailable Unavailable James Zaldivar MD Unavailable Unavailable James Zaldivar MD Unavailable Unavailable James Zaldivar MD Unavailable Unavailable James Zaldivar MD Unavailable Unavailable James Zaldivar MD Unavailable Unavailable James Zaldivar MD Unavailable Unavailable James Zaldivar MD Unavailable Unavailable James Zaldivar MD Unavailable Unavailable James Zaldivar MD Unavailable Unavailable James Zaldivar MD Unavailable Unavailable James Zaldivar MD Unavailable Unavailable James Zaldivar MD Unavailable Unavailable James Zaldivar MD Unavailable Unavailable James Zaldivar MD Unavailable Unavailable James Zaldivar MD Unavailable Unavailable James Zaldivar MD Unavailable Unavailable James Zaldivar MD Unavailable Unavailable James Zaldivar MD Unavailable Unavailable James Zaldivar MD Unavailable Unavailable James Zaldivar MD Unavailable Unavailable James Zaldivar MD Unavailable Unavailable James Zaldivar MD Unavailable Unavailable James Zaldivar MD Unavailable Unavailable James Zaldivar MD Unavailable Unavailable James Zaldivar MD Unavailable Unavailable James Zaldivar MD Unavailable Unavailable James Zaldivar MD Unavailable Unavailable James Zaldivar MD Unavailable Unavailable James Zaldivar MD Unavailable Unavailable James Zaldivar MD Unavailable Unavailable James Zaldivar MD Unavailable Unavailable James Zaldivar MD Unavailable Unavailable James Zaldivar MD Unavailable Unavailable James Zaldivar MD Unavailable Unavailable James Zaldivar MD Unavailable Unavailable James Zaldivar MD Unavailable Unavailable James Zaldivar MD Unavailable Unavailable James Zaldivar MD Unavailable Unavailable James Zaldivar MD Unavailable Unavailable James Zaldivar MD Unavailable Unavailable James Zaldivar MD Unavailable Unavailable James Zaldivar MD Unavailable Unavailable James Zaldivar MD Unavailable Unavailable James Zaldivar MD Unavailable Unavailable James Zaldivar MD Unavailable Unavailable James Zaldivar MD Unavailable Unavailable James Zaldivar MD Unavailable Unavailable James Zaldivar MD Unavailable Unavailable James Zaldivar MD Unavailable Unavailable James Zaldivar MD Unavailable Unavailable ÁLVARO MC Unavailable Unavailable DARIAN FRANCISCO Unavailable Unavailable ELODIA LEBRON Unavailable Unavailable Kayla Wooten MD Unavailable Unavailable Kayla Wooten MD Unavailable Unavailable Kayla Wooten MD Unavailable Unavailable Kayla Wooten MD Unavailable Unavailable Kayla Wooten MD Unavailable Unavailable Kayla Wooten MD Unavailable Unavailable Kayla Wooten MD Unavailable Unavailable Kayla Wooten MD Unavailable Unavailable Kayla Wooten MD Unavailable Unavailable Kayla Wooten MD Unavailable Unavailable Kayla Wooten MD Unavailable Unavailable Kayla Wooten MD Unavailable Unavailable Kayla Wooten MD Unavailable Unavailable Kayla Wooten MD Unavailable Unavailable Kayla Wooten MD Unavailable Unavailable Kayla Wooten MD Unavailable Unavailable Kayla Wooten MD Unavailable Unavailable Kayla Wooten MD Unavailable Unavailable Kayla Wooten MD Unavailable Unavailable Kayla Wooten MD Unavailable Unavailable Kayla Wooten MD Unavailable Unavailable Kayla Wooten MD Unavailable Unavailable Kayla Wooten MD Unavailable Unavailable Kayla Wooten MD Unavailable Unavailable Kayla Wooten MD Unavailable Unavailable Kayla Wooten MD Unavailable Unavailable Kayla Wooten MD Unavailable Unavailable Kayla Wooten MD Unavailable Unavailable Kayla Wooten MD Unavailable Unavailable Kayla Wooten MD Unavailable Unavailable Kayla Wooten MD Unavailable Unavailable Kayla Wooten MD Unavailable Unavailable WootenKayla treadwell MD Unavailable Unavailable WootenKayla treadwell MD Unavailable Unavailable WootenKayla treadwell MD Unavailable Unavailable WootenKayla treadwell MD Unavailable Unavailable WootenKayla treadwell MD Unavailable Unavailable WootenKayla treadwell MD Unavailable Unavailable WootenKayla treadwell MD Unavailable Unavailable WootenKayla treadwell MD Unavailable Unavailable WootenKayla MD Unavailable Unavailable WootenKayla treadwell MD Unavailable Unavailable WootenKalya MD Unavailable Unavailable WootenKayla treadwell MD Unavailable Unavailable WootenKayla MD Unavailable Unavailable WootenKayla treadwell MD Unavailable Unavailable WootenKayla MD Unavailable Unavailable WootenKayla treadwell MD Unavailable Unavailable WootenKayla MD Unavailable Unavailable WootenKayla treadwell MD Unavailable Unavailable WootenKayla treadwell MD Unavailable Unavailable WootenKayla treadwell MD Unavailable Unavailable WootenKayla treadwell MD Unavailable Unavailable WootenKayla treadwell MD Unavailable Unavailable WootenKayla treadwell MD Unavailable Unavailable WootenKayla treadwell MD Unavailable Unavailable WootenKayla treadwell MD Unavailable Unavailable Kayla Wooten MD Unavailable Unavailable WootenKayla treadwell MD Unavailable Unavailable Kayla Wooten MD Unavailable Unavailable Kayla Wooten MD Unavailable Unavailable Kyala Wooten MD Unavailable Unavailable Kayla Wooten MD Unavailable Unavailable WootenKayla treadwell MD Unavailable Unavailable Kayla Wooten MD Unavailable Unavailable Kayla Wooten MD Unavailable Unavailable Kayla Wooetn MD Unavailable Unavailable Kayla Wooten MD Unavailable Unavailable Kayla Wooten MD Unavailable Unavailable Kayla Wooten MD Unavailable Unavailable Kayla Wooten MD Unavailable Unavailable Kayla Wooten MD Unavailable Unavailable Kayla Wooten MD Unavailable Unavailable Kayla Wooten MD Unavailable Unavailable Kayla Wooten MD Unavailable Unavailable Kayla Wooten MD Unavailable Unavailable Kayla Wooten MD Unavailable Unavailable Kayla Wooten MD Unavailable Unavailable MEDENT_991, NA Unavailable [phone] CRISTINA SOUZA Unavailable [phone] CRISTINA SOUZA Unavailable [phone] EUSEBIO-TEJAL, GRAHAM DO Unavailable Unavailable EUSEBIO-TEJAL, GRAHAM DO Unavailable Unavailable EUSEBIO-TEJAL, GRAHAM DO Unavailable Unavailable EUSEBIO-TEJAL, GRAHAM DO Unavailable Unavailable EUSEBIO-TEJAL, GRAHAM DO Unavailable Unavailable EUSEBIO-TEJAL, GRAHAM DO Unavailable Unavailable EUSEBIO-TEJAL, GRAHAM DO Unavailable Unavailable EUSEBIO-TEJAL, GRAHAM DO Unavailable Unavailable EUSEBIO-TEJAL, GRAHAM DO Unavailable Unavailable EUSEBIO-TEJAL, GRAHAM DO Unavailable Unavailable EUSEBIO-TEJAL, GRAHAM DO Unavailable Unavailable EUSEBIO-TEJAL, GRAHAM DO Unavailable Unavailable EUSEBIO-TEJAL, GRAHAM DO Unavailable Unavailable EUSEBIO-TEJAL, GRAHAM DO Unavailable Unavailable EUSEBIO-TEJAL, GRAHAM DO Unavailable Unavailable EUSEBIO-TEJAL, GRAHAM DO Unavailable Unavailable EUSEBIO-TEJAL, GRAHAM DO Unavailable Unavailable EUSEBIO-TEJAL, GRAHAM DO Unavailable Unavailable EUSEBIO-TEJAL, GRAHAM DO Unavailable Unavailable EUSEBIO-TEJAL, GRAHAM DO Unavailable Unavailable EUSEBIO-TEJAL, GRAHAM DO Unavailable Unavailable EUSEBIO-TEJAL, GRAHAM DO Unavailable Unavailable EUSEBIO-TEJAL, GRAHAM DO Unavailable Unavailable EUSEBIO-TEJAL, GRAHAM DO Unavailable Unavailable EUSEBIO-TEJAL, GRAHAM DO Unavailable Unavailable EUSEBIO-TEJAL, GRAHAM DO Unavailable Unavailable EUSEBIO-TEJAL, GRAHAM DO Unavailable Unavailable EUSEBIO-TEJAL, GRAHAM DO Unavailable Unavailable EUSEBIO-TEJAL, GRAHAM DO Unavailable Unavailable EUSEBIO-TEJAL, GRAHAM DO Unavailable Unavailable EUSEBIO-TEJAL, GRAHAM DO Unavailable Unavailable EUSEBIO-TEJAL, GRAHAM DO Unavailable Unavailable EUSEBIO-TEJAL, GRAHAM DO Unavailable Unavailable EUSEBIO-TEJAL, GRAHAM DO Unavailable Unavailable EUSEBIO-TEJAL, GRAHAM DO Unavailable Unavailable EUSEBIO-TEJAL, GRAHAM DO Unavailable Unavailable EUSEBIO-TEJAL, GRAHAM DO Unavailable Unavailable EUSEBIO-TEJAL, GRAHAM DO Unavailable Unavailable EUSEBIO-TEJAL, GRAHAM DO Unavailable Unavailable EUSEBIO-TEJAL, GRAHAM DO Unavailable Unavailable EUSEBIO-TEJAL, GRAHAM DO Unavailable Unavailable EUSEBIO-TEJAL, GARHAM DO Unavailable Unavailable EUSEBIO-TEJAL, GRAHAM DO Unavailable Unavailable EUSEBIO-TEJAL, GRAHAM DO Unavailable Unavailable EUSEBIO-TEJAL, GRAHAM DO Unavailable Unavailable EUSEBIO-TEJAL, GRAHAM DO Unavailable Unavailable EUSEBIO-TEJAL, GRAHAM DO Unavailable Unavailable EUSEBIO-TEJAL, GRAHAM DO Unavailable Unavailable EUSEBIO-TEJAL, GRAHAM DO Unavailable Unavailable EUSEBIO-TEJAL, GRAHAM DO Unavailable Unavailable EUSEBIO-TEJAL, GRAHAM DO Unavailable Unavailable EUSEBIO-TEJAL, GRAHAM DO Unavailable Unavailable EUSEBIO-TEJAL, GRAHAM DO Unavailable Unavailable EUSEBIO-TEJAL, GRAHAM DO Unavailable Unavailable EUSEBIO-TEJAL, GRAHAM DO Unavailable Unavailable EUSEBIO-TEJAL, GRAHAM DO Unavailable Unavailable EUSEBIO-TEJAL, GARHAM DO Unavailable Unavailable EUSEBIO-TEJAL, GRAHAM DO Unavailable Unavailable EUSEBIO-TEJAL, GRAHAM DO Unavailable Unavailable EUSEBIO-TEJAL, GRAHAM DO Unavailable Unavailable EUSEBIO-TEJAL, GRAHAM DO Unavailable Unavailable EUSEBIO-TEJAL, GRAHAM DO Unavailable Unavailable EUSEBIO-TEJAL, GRAHAM DO Unavailable Unavailable EUSEBIO-TEJAL, GRAHAM DO Unavailable Unavailable EUSEBIO-TEJAL, GRAHAM DO Unavailable Unavailable EUSEBIO-TEJAL, GRAHAM DO Unavailable Unavailable EUSEBIO-TEJAL, GRAHAM DO Unavailable Unavailable EUSEBIO-TEJAL, GRAHAM DO Unavailable Unavailable EUSEBIO-TEJAL, GRAHAM DO Unavailable Unavailable EUSEBIO-TEJAL, GRAHAM DO Unavailable Unavailable EUSEBIO-TEJAL, GRAHAM DO Unavailable Unavailable EUSEBIO-ETJAL, GRAHAM DO Unavailable Unavailable EUSEBIO-TEJAL, GRAHAM DO Unavailable Unavailable EUSEBIO-TEJAL, GRAHAM DO Unavailable Unavailable EUSEBIO-TEJAL, GRAHAM DO Unavailable Unavailable EUSEBIO-TEJAL, GRAHAM DO Unavailable Unavailable EUSEBIO-TEJAL, GRAHAM DO Unavailable Unavailable EUSEBIO-TEJAL, GRAHAM DO Unavailable Unavailable EUSEBIO-TEJAL, GRAHAM DO Unavailable Unavailable EUSEBIO-TEJAL, GRAHAM DO Unavailable Unavailable EUSEBIO-TEJAL, GRAHAM DO Unavailable Unavailable EUSEBIO-TEJAL, GRAHAM DO Unavailable Unavailable EUSEBIO-TEJAL, GRAHAM DO Unavailable Unavailable EUSEBIO-TEJAL, GRAHAM DO Unavailable Unavailable CHANLIKal HERNANDEZ MD Unavailable Unavailable CHANLIECCO, Kal CALVO MD Unavailable Unavailable CHANLIECCO, Kal CALVO MD Unavailable Unavailable CHANLIECCO, Kal CALVO MD Unavailable Unavailable CHANLIECSHELLEY, Kal CALVO MD Unavailable Unavailable CHANLIECSHELLEY, Kal CALVO MD Unavailable Unavailable CHANLIECCO, Kal CALVO MD Unavailable Unavailable CHANLIECSHELLEY, Kal CALVO MD Unavailable Unavailable CHANLIECCO, Kal CALVO MD Unavailable Unavailable CHANLIECCO, Kal CALVO MD Unavailable Unavailable CHANLIECSHELLEY, Kal CALVO MD Unavailable Unavailable MARISOL Leta GRIMALDO Unavailable Unavailable Fish, [facility], PA-C Unavailable Unavailabl e Fish, [facility], PA-C Unavailable Unavailabl e Fish, [facility], PA-C Unavailable Unavailabl e Fish, [facility], PA-C Unavailable Unavailabl e Fish, [facility], PA-C Unavailable Unavailabl e Fish, [facility], PA-C Unavailable Unavailabl e Fish, [facility], PA-C Unavailable Unavailabl e Fish, [facility], PA-C Unavailable Unavailabl e Fish, [facility], PA-C Unavailable Unavailabl e Fish, [facility], PA-C Unavailable Unavailabl e Fish, [facility], PA-C Unavailable Unavailabl e Fish, [facility], PA-C Unavailable Unavailabl e Fish, [facility], PA-C Unavailable Unavailabl e Fish, [facility], PA-C Unavailable Unavailabl e Fish, [facility], PA-C Unavailable Unavailabl e Fish, [facility], PA-C Unavailable Unavailabl e Fish, [facility], PA-C Unavailable Unavailabl e Fish, [facility], PA-C Unavailable Unavailabl e Fish, [facility], PA-C Unavailable Unavailabl e Fish, [facility], PA-C Unavailable Unavailabl e Fish, [facility], PA-C Unavailable Unavailabl e Fish, [facility], PA-C Unavailable Unavailabl e Fish, Jacquelyn Huong MPAS, PA-C Unavailable Unavailabl e Fish, [facility], PA-C Unavailable Unavailabl e Fish, [facility], PA-C Unavailable Unavailabl e Fish, [facility], PA-C Unavailable Unavailabl e Fish, [facility], PA-C Unavailable Unavailabl e Fish, [facility], PA-C Unavailable Unavailabl e Fish, [facility], PA-C Unavailable Unavailabl e Fish, [facility], PA-C Unavailable Unavailabl e Fish, [facility], PA-C Unavailable Unavailabl e Fish, [facility], PA-C Unavailable Unavailabl e Fish, [facility], PA-C Unavailable Unavailabl e Fish, [facility], PA-C Unavailable Unavailabl e Fish, [facility], PA-C Unavailable Unavailabl e Fish, [facility], PA-C Unavailable Unavailabl e Jatinder Chappell MD Unavailable Unavailable Jatinder Chappell MD Unavailable Unavailable Jatinder Chappell MD Unavailable Unavailable Jatinder Chappell MD Unavailable Unavailable Jatinder Chappell MD Unavailable Unavailable Jatinder Chappell MD Unavailable Unavailable Jatinder Chappell MD Unavailable Unavailable Jatinder Chappell MD Unavailable Unavailable Jatinder Chappell MD Unavailable Unavailable Jatinder Chappell MD Unavailable Unavailable Jatinder Chappell MD Unavailable Unavailable Jatinder Chappell MD Unavailable Unavailable Jatinder Chappell MD Unavailable Unavailable Jatinder Chappell MD Unavailable Unavailable Jatinder Chappell MD Unavailable Unavailable Jatinder Chappell MD Unavailable Unavailable Jatinder Chappell MD Unavailable Unavailable Jatinder Chappell MD Unavailable Unavailable Jatinder Chappell MD Unavailable Unavailable Jatinder Chapplel MD Unavailable Unavailable Jatinder Chappell MD Unavailable Unavailable Jatinder Chappell MD Unavailable Unavailable Jatinder Chappell MD Unavailable Unavailable Jatinder Chappell MD Unavailable Unavailable Jatinder Chappell MD Unavailable Unavailable Jatinder Chappell MD Unavailable Unavailable RAMONA LOPEZISSA Unavailable Unavailable RING, K RADHAMES PA Unavailable Unavailable RING, K RADHAMES PA Unavailable Unavailable RING, K RADHAMES PA Unavailable Unavailable RING, K RADHAMES PA Unavailable Unavailable RING, K RADHAMES PA Unavailable Unavailable RING, K RADHAMES PA Unavailable Unavailable RING, K RADHAMES PA Unavailable Unavailable RING, K RADHAMES PA Unavailable Unavailable RING, K RADHAMES PA Unavailable Unavailable RING, K RADHAMES PA Unavailable Unavailable RING, K RADHAMES PA Unavailable Unavailable RING, K RADHAMES PA Unavailable Unavailable RING, K RADHAMES PA Unavailable Unavailable RING, K RADHAMES PA Unavailable Unavailable RING, K RADHAMES PA Unavailable Unavailable RING, K RADHAMES PA Unavailable Unavailable RING, K RADHAMES PA Unavailable Unavailable RING, K RADHAMES PA Unavailable Unavailable RING, K RADHAMES PA Unavailable Unavailable RING, K RADHAMES PA Unavailable Unavailable RING, K RADHAMES PA Unavailable Unavailable Aman MEEKS MD Unavailable Unavailable Aman MEEKS MD Unavailable Unavailable Aman MEEKS MD Unavailable Unavailable Aman MEEKS MD Unavailable Unavailable Aman MEEKS MD Unavailable Unavailable Aman MEEKS MD Unavailable Unavailable Aman MEEKS MD Unavailable Unavailable Aman MEEKS MD Unavailable Unavailable Aman MEEKS MD Unavailable Unavailable Aman MEEKS MD Unavailable Unavailable Aman MEEKS MD Unavailable Unavailable Aman MEEKS MD Unavailable Unavailable Aman MEEKS MD Unavailable Unavailable Aman MEEKS MD Unavailable Unavailable Aman MEEKS MD Unavailable Unavailable Aman MEEKS MD Unavailable Unavailable Aman MEEKS MD Unavailable Unavailable Aman MEEKS MD Unavailable Unavailable Aman MEEKS MD Unavailable Unavailable Aman MEEKS MD Unavailable Unavailable Aman MEEKS MD Unavailable Unavailable Aman MEEKS MD Unavailable Unavailable Aman MEEKS MD Unavailable Unavailable Aman MEEKS MD Unavailable Unavailable Aman MEEKS MD Unavailable Unavailable Aamn MEEKS MD Unavailable Unavailable Aman MEEKS MD Unavailable Unavailable Aman MEEKS MD Unavailable Unavailable Aman MEEKS MD Unavailable Unavailable Aman MEEKS MD Unavailable Unavailable Aman MEEKS MD Unavailable Unavailable Aman MEEKS MD Unavailable Unavailable Aman MEEKS MD Unavailable Unavailable Aman MEEKS MD Unavailable Unavailable Aman MEEKS MD Unavailable Unavailable Aman MEEKS MD Unavailable Unavailable Aman MEEKS MD Unavailable Unavailable Aman MEEKS MD Unavailable Unavailable Aman MEEKS MD Unavailable Unavailable Aman MEEKS MD Unavailable Unavailable Aman MEEKS MD Unavailable Unavailable Aman MEEKS MD Unavailable Unavailable Aman MEEKS MD Unavailable Unavailable Aman MEEKS MD Unavailable Unavailable Aman MEEKS MD Unavailable Unavailable Aman MEEKS MD Unavailable Unavailable Aman MEEKS MD Unavailable Unavailable Aman MEEKS MD Unavailable Unavailable Aman MEEKS MD Unavailable Unavailable Aman MEEKS MD Unavailable Unavailable Aman MEEKS MD Unavailable Unavailable Aman MEEKS MD Unavailable Unavailable Aman MEEKS MD Unavailable Unavailable Aman MEEKS MD Unavailable Unavailable Aman MEEKS MD Unavailable Unavailable Aman MEEKS MD Unavailable Unavailable Aman MEEKS MD Unavailable Unavailable Aman MEEKS MD Unavailable Unavailable Aman MEEKS MD Unavailable Unavailable Aman MEEKS MD Unavailable Unavailable Aman MEEKS MD Unavailable Unavailable Aman MEEKS MD Unavailable Unavailable Aman MEEKS MD Unavailable Unavailable Aman MEEKS MD Unavailable Unavailable Aman MEEKS MD Unavailable Unavailable Aman MEEKS MD Unavailable Unavailable Aman MEEKS MD Unavailable Unavailable Aman MEEKS MD Unavailable Unavailable Aman MEEKS MD Unavailable Unavailable Aman MEEKS MD Unavailable Unavailable Aman MEEKS MD Unavailable Unavailable Aman MEEKS MD Unavailable Unavailable Aman MEEKS MD Unavailable Unavailable Aman MEEKS MD Unavailable Unavailable Aman MEEKS MD Unavailable Unavailable Aman MEEKS MD Unavailable Unavailable Aman MEEKS MD Unavailable Unavailable Aman MEEKS MD Unavailable Unavailable Aman MEEKS MD Unavailable Unavailable Aman MEEKS MD Unavailable Unavailable Aman MEEKS MD Unavailable Unavailable Aman MEEKS MD Unavailable Unavailable Aman MEEKS MD Unavailable Unavailable Aman MEEKS MD Unavailable Unavailable Aman MEEKS MD Unavailable Unavailable Aman MEEKS MD Unavailable Unavailable Aman MEEKS MD Unavailable Unavailable Aman MEEKS MD Unavailable Unavailable Aman MEEKS MD Unavailable Unavailable TALYA, Aman YEPEZ MD Unavailable Unavailable TALYA, Aman YEPEZ MD Unavailable Unavailable TALYA, Aman YEPEZ MD Unavailable Unavailable TALYA, Aman YEPEZ MD Unavailable Unavailable TALYA, Aman YEPEZ MD Unavailable Unavailable Lacey BURGOS Unavailable Unavailable VARINDER, Leta ALCALA MD Unavailable Unavailable VARINDER, Leta ALCALA MD Unavailable Unavailable VARINDER, Leta ALCALA MD Unavailable Unavailable VARINDER, Leta ALCALA MD Unavailable Unavailable VARINDER, Leta ALCALA MD Unavailable Unavailable VARINDER, Leta ALCALA MD Unavailable Unavailable VARINDER, Leta ALCALA MD Unavailable Unavailable VARINDER, Leta ALCALA MD Unavailable Unavailable VARINDER, A FREDRICK RODRIGUEZ Unavailable Unavailable VARINDER, Leta ALCALA MD Unavailable Unavailable VARINDER, Leta ALCALA MD Unavailable Unavailable VARINDER, Leta ALCALA MD Unavailable Unavailable VARINDER, Leta ALCALA MD Unavailable Unavailable VARINDER, A FREDRICK RODRIGUEZ Unavailable Unavailable VARINDER, Leta ALCALA MD Unavailable Unavailable VARINDER, Leta ALCALA MD Unavailable Unavailable VARINDER, Leta ALCALA MD Unavailable Unavailable VARINDER, Leta ALCALA MD Unavailable Unavailable VARINDER, Leta ALCALA MD Unavailable Unavailable VARINDER, A FREDRICK RODRIGUEZ Unavailable Unavailable VARINDER, Leta ALCALA MD Unavailable Unavailable VARINDER, Leta ALCALA MD Unavailable Unavailable VARINDER, Leta ALCALA MD Unavailable Unavailable VARINDER, Leta ALCALA MD Unavailable Unavailable VARINDER, Leta ALCALA MD Unavailable Unavailable VARINDER, Leta ALCALA MD Unavailable Unavailable VARINDER, Leta ALCALA MD Unavailable Unavailable VARINDER, Leta ALCALA MD Unavailable Unavailable VARINDER, Leta ALCALA MD Unavailable Unavailable VARINDER, Leta ALCALA MD Unavailable Unavailable VARINDER, A FREDRICK RODRIGUEZ Unavailable Unavailable VARINDER, A FREDRICK RODRIGUEZ Unavailable Unavailable VARINDER, Leta ALCALA MD Unavailable Unavailable VARINDER, Leta ALCALA MD Unavailable Unavailable VARINDER, Leta ALCALA MD Unavailable Unavailable VARINDER, A FREDRICK RODRIGUEZ Unavailable Unavailable VARINDER, Leta ALCALA MD Unavailable Unavailable VARINDER, A FREDRICK RODRIGUEZ Unavailable Unavailable VARINDER, Leta ALCALA MD Unavailable Unavailable VARINDER, A FREDRICK RODRIGUEZ Unavailable Unavailable VARINDER, A FREDRICK RODRIGUEZ Unavailable Unavailable VARINDER, Leta ALCALA MD Unavailable Unavailable VARINDER, Leta ALCALA MD Unavailable Unavailable VARINDER, Leta ALCALA MD Unavailable Unavailable VARINDER, Leta ALCALA MD Unavailable Unavailable VARINDER, Leta ALCALA MD Unavailable Unavailable VARINDER, Leta ALCALA MD Unavailable Unavailable VARINDER, Leta ALCALA MD Unavailable Unavailable VARINDER, Leta ALCALA MD Unavailable Unavailable VARINDER, Leta ALCALA MD Unavailable Unavailable VARINDER, Leta ALCALA MD Unavailable Unavailable VARINDER, Leta ALCALA MD Unavailable Unavailable VARINDER, Leta ALCALA MD Unavailable Unavailable VARINDER, Leta ALCALA MD Unavailable Unavailable VARINDER, Leta ALCALA MD Unavailable Unavailable VARINDER, Leta ALCALA MD Unavailable Unavailable VARINDER, Leta ALCALA MD Unavailable Unavailable VARINDER, Leta ALCALA MD Unavailable Unavailable VARINDER, Leta ALCALA MD Unavailable Unavailable VARINDER, Leta ALCALA MD Unavailable Unavailable VARINDER, Leta ALCALA MD Unavailable Unavailable VARINDER, Leta ALCALA MD Unavailable Unavailable VARINDER, Leta ALCALA MD Unavailable Unavailable VARINDER, Leta ALCALA MD Unavailable Unavailable VARINDER, Leta ALCALA MD Unavailable Unavailable VARINDER, Leta ALCALA MD Unavailable Unavailable VARINDER, Leta ALCALA MD Unavailable Unavailable Jeanne Roa MD Unavailable Unavailable Jeanne Roa MD Unavailable Unavailable Jeanne Roa MD Unavailable Unavailable Memo Leo MD Unavailable Unavailable ImMemo caballero MD Unavailable Unavailable Memo Leo MD Unavailable Unavailable ImMemo caballero MD Unavailable Unavailable ImMemo caballero MD Unavailable Unavailable ImMemo caballero MD Unavailable Unavailable ImdaMemo mojica MD Unavailable Unavailable ImMemo caballero MD Unavailable Unavailable ImMemo caballero MD Unavailable Unavailable ImMemo caballero MD Unavailable Unavailable Memo Leo MD Unavailable Unavailable ImMeom caballero MD Unavailable Unavailable ImMemo caballero MD Unavailable Unavailable ImdaMemo mojica MD Unavailable Unavailable ImdaMemo mojica MD Unavailable Unavailable ImMemo caballero MD Unavailable Unavailable ImdaMemo mojica MD Unavailable Unavailable ImMemo caballero MD Unavailable Unavailable ImdaMemo mojica MD Unavailable Unavailable Imdad, Memo MD Unavailable Unavailable Imdad, Memo MD Unavailable Unavailable Imdad, Memo MD Unavailable Unavailable Imdad, Memo MD Unavailable Unavailable Imdad, Memo MD Unavailable Unavailable Imdad, Memo MD Unavailable Unavailable Imdad, Memo MD Unavailable Unavailable Imdad, Memo MD Unavailable Unavailable Imdad, Memo MD Unavailable Unavailable Imdad, Memo MD Unavailable Unavailable Imdad, Memo MD Unavailable Unavailable Imdad, Memo MD Unavailable Unavailable Imdad, Memo MD Unavailable Unavailable Imdad, Memo MD Unavailable Unavailable Imdad, Memo MD Unavailable Unavailable Imdad, Memo MD Unavailable Unavailable Imdad, Memo MD Unavailable Unavailable Imdad, Memo MD Unavailable Unavailable Imdad, Memo MD Unavailable Unavailable Imdad, Memo MD Unavailable Unavailable Imdad, Memo MD Unavailable Unavailable Imdad, Memo MD Unavailable Unavailable Imdad, Memo MD Unavailable Unavailable Imdad, Memo MD Unavailable Unavailable Imdad, Memo MD Unavailable Unavailable Imdad, Memo MD Unavailable Unavailable Imdad, Memo MD Unavailable Unavailable Imdad, Memo MD Unavailable Unavailable Imdad, Memo MD Unavailable Unavailable Imdad, Memo MD Unavailable Unavailable Imdad, Memo MD Unavailable Unavailable Imdad, Memo MD Unavailable Unavailable Imdad, Memo MD Unavailable Unavailable James FLEMING Unavailable Unavailable Shan ARMENDARIZ Unavailable Unavailable O'jose, A Humza PA Unavailable Unavailable O'jose, A Humza PA Unavailable Unavailable O'jose, A Humza PA Unavailable Unavailable O'jose, A Humza PA Unavailable Unavailable O'jose, A Humza PA Unavailable Unavailable O'jose, A Humza PA Unavailable Unavailable O'jose, A Humza PA Unavailable Unavailable O'jose, A Humza PA Unavailable Unavailable O'jose, A Humza PA Unavailable Unavailable O'jose, A Humza PA Unavailable Unavailable O'jose, A Humza PA Unavailable Unavailable O'jose, A Humza PA Unavailable Unavailable O'jose, A Humza PA Unavailable Unavailable O'jose, A Humza PA Unavailable Unavailable O'jose, A Humza PA Unavailable Unavailable O'jose, A Humza PA Unavailable Unavailable O'jose, A Humza PA Unavailable Unavailable O'jose, A Humza PA Unavailable Unavailable O'jose, A Huzma PA Unavailable Unavailable O'jose, A Humza PA Unavailable Unavailable O'jose, A Humza PA Unavailable Unavailable O'jose, A Humza PA Unavailable Unavailable O'jose, A Humza PA Unavailable Unavailable O'jose, A Humza PA Unavailable Unavailable O'jsoe, A Humza PA Unavailable Unavailable O'jose, A Humza PA Unavailable Unavailable O'jose, A Humza PA Unavailable Unavailable O'jose, A Humza PA Unavailable Unavailable O'jose, A Humza PA Unavailable Unavailable O'jose, A Humza PA Unavailable Unavailable O'jose, A Humza PA Unavailable Unavailable O'jose, A Humza PA Unavailable Unavailable O'jose, A Humza PA Unavailable Unavailable SMITH Leta ARIEL MNT Unavailable Unavailable EUSEBIO-TEJAL, GRAHAM DO Unavailable Unavailable EUSEBIO-TEJAL, GRAHAM DO Unavailable Unavailable EUSEBIO-TEJAL, GRAHAM DO Unavailable Unavailable EUSEBIO-TEJAL, GRAHAM DO Unavailable Unavailable EUSEBIO-TEAJL, GRAHAM DO Unavailable Unavailable EUSEBIO-TEJAL, GRAHAM DO Unavailable Unavailable EUSEBIO-TEJAL, GRAHAM DO Unavailable Unavailable EUSEBIO-TEJAL, GRAHAM DO Unavailable Unavailable EUSEBIO-TEJAL, GRAHAM DO Unavailable Unavailable EUSEBIO-TEJAL, GRAHAM DO Unavailable Unavailable EUSEBIO-TEJAL, GRAHAM DO Unavailable Unavailable EUSEBIO-TEJAL, GRAHAM DO Unavailable Unavailable EUSEBIO-TEJAL, GRAHAM DO Unavailable Unavailable EUSEBIO-TEJAL, GRAHAM DO Unavailable Unavailable EUSEBIO-TEJAL, GRAHAM DO Unavailable Unavailable EUSEBIO-TEJAL, GRAHAM DO Unavailable Unavailable EUSEBIO-TEJAL, GRAHAM DO Unavailable Unavailable EUSEBIO-TEJAL, GRAHAM DO Unavailable Unavailable EUSEBIO-TEJAL, GRAHAM DO Unavailable Unavailable EUSEBIO-TEJAL, GRAHAM DO Unavailable Unavailable EUSEBIO-TEJAL, GRAHAM DO Unavailable Unavailable EUSEBIO-TEJAL, GRAHAM DO Unavailable Unavailable EUSEBOI-TEJAL, GRAHAM DO Unavailable Unavailable EUSEBIO-TEJAL, GRAHAM DO Unavailable Unavailable EUSEBIO-TEJAL, GRAHMA DO Unavailable Unavailable EUSEBIO-TEJAL, GRAHAM DO Unavailable Unavailable EUSEBIO-TEJAL, GRAHAM DO Unavailable Unavailable EUSEBIO-TEJAL, GRAHAM DO Unavailable Unavailable EUSEBIO-TEJAL, GRAHAM DO Unavailable Unavailable EUSEBIO-TEJAL, GRAHAM DO Unavailable Unavailable EUSEBIO-TEJAL, GRAHAM DO Unavailable Unavailable EUSEBIO-TEJAL, RGAHAM DO Unavailable Unavailable EUSEBIO-TEJAL, GRAAHM DO Unavailable Unavailable EUSEBIO-TEJAL, GRAHAM DO Unavailable Unavailable EUSEBIO-TEJAL, GRAHAM DO Unavailable Unavailable EUSEBIO-TEJAL, GRAHAM DO Unavailable Unavailable EUSEBIO-TEJAL, GRAHAM DO Unavailable Unavailable EUSEBIO-TEJAL, GRAHAM DO Unavailable Unavailable EUSEBIO-TEJAL, GRAHAM DO Unavailable Unavailable EUSEBIO-TEJAL, GRAHAM DO Unavailable Unavailable EUSEBIO-TEJAL, GRAHAM DO Unavailable Unavailable EUSEBIO-TEJAL, GRAHAM DO Unavailable Unavailable EUSEBIO-TEJAL, GRAHAM DO Unavailable Unavailable EUSEBIO-TEJAL, GRAHAM DO Unavailable Unavailable EUSEBIO-TEJAL, GRAHAM DO Unavailable Unavailable EUSEBIO-TEJAL, GRAHAM DO Unavailable Unavailable EUSEBIO-TEJAL, GRAHAM DO Unavailable Unavailable EUSEBIO-TEJAL, GRAHAM DO Unavailable Unavailable EUSEBIO-TEJAL, GRAHAM DO Unavailable Unavailable EUSEBIO-TEJAL, GRAHAM DO Unavailable Unavailable EUSEBIO-TEJAL, GRAHAM DO Unavailable Unavailable EUSEBIO-TEJAL, GRAHAM DO Unavailable Unavailable EUSEBIO-TEJAL, GRAHAM DO Unavailable Unavailable EUSEBIO-TEJAL, GRAHAM DO Unavailable Unavailable EUSEBIO-TEJAL, GRAHAM DO Unavailable Unavailable EUSEBIO-TEJAL, GRAHAM DO Unavailable Unavailable EUSEBIO-TEJAL, GRAHAM DO Unavailable Unavailable EUSEBIO-TEJAL, GRAHAM DO Unavailable Unavailable EUSEBIO-TEJAL, GRAHAM DO Unavailable Unavailable EUSEBIO-TEJAL, GRAHAM DO Unavailable Unavailable EUSEBIO-TEJAL, GRAHAM DO Unavailable Unavailable EUSEBIO-TEJAL, GRAHAM DO Unavailable Unavailable EUSEBIO-TEJAL, GRAHAM DO Unavailable Unavailable EUSEBIO-TEJAL, GRAHAM DO Unavailable Unavailable EUSEBIO-TEJAL, GRAHAM DO Unavailable Unavailable EUSEBIO-TEJAL, GRAHAM DO Unavailable Unavailable EUSEBIO-TEJAL, GRAHAM DO Unavailable Unavailable EUSEBIO-TEJAL, GRAHAM DO Unavailable Unavailable EUSEBIO-TEJAL, GRAHAM DO Unavailable Unavailable EUSEBIO-TEJAL, GRAHAM DO Unavailable Unavailable EUSEBIO-TEJAL, GRAHAM DO Unavailable Unavailable EUSEBIO-TEJAL, GRAHAM DO Unavailable Unavailable EUSEBIO-TEJAL, GRAHAM DO Unavailable Unavailable EUSEBIO-TEJAL, GRAHAM DO Unavailable Unavailable EUSEBIO-TEJAL, GRAHAM DO Unavailable Unavailable EUSEBIO-TEJAL, GRAHAM DO Unavailable Unavailable EUSEBIO-TEJAL, GRAHAM DO Unavailable Unavailable EUSEBIO-TEJAL, GRAHAM DO Unavailable Unavailable EUSEBIO-TEJAL, GRAHAM DO Unavailable Unavailable EUSEBIO-TEJAL, GRAHAM DO Unavailable Unavailable EUSEBIO-TEJAL, GRAHAM DO Unavailable Unavailable EUSEBIO-TEJAL, GRAHAM DO Unavailable Unavailable EUSEBIO-TEJAL, GRAHAM DO Unavailable Unavailable EUSEBIO-TEJAL, GRAHAM DO Unavailable Unavailable FEDORS, MANDI NETWORK TECHNICIAN Unavailable Unavailable FEDORS, MANDI NETWORK TECHNICIAN Unavailable Unavailable FEDORS, MANDI NETWORK TECHNICIAN Unavailable Unavailable FEDORS, MANDI NETWORK TECHNICIAN Unavailable Unavailable FEDORS, MANDI NETWORK TECHNICIAN Unavailable Unavailable FEDORS, MANDI NETWORK TECHNICIAN Unavailable Unavailable FEDORS, MANDI NETWORK TECHNICIAN Unavailable Unavailable FEDORS, MANDI NETWORK TECHNICIAN Unavailable Unavailable FEDORS, AMNDI NETWORK TECHNICIAN Unavailable Unavailable FEDORS, MANDI NETWORK TECHNICIAN Unavailable Unavailable FEDORS, MANDI NETWORK TECHNICIAN Unavailable Unavailable FEDORS, MANDI NETWORK TECHNICIAN Unavailable Unavailable FEDORS, MANDI NETWORK TECHNICIAN Unavailable Unavailable FEDORS, MANDI NETWORK TECHNICIAN Unavailable Unavailable FEDORS, MANDI NETWORK TECHNICIAN Unavailable Unavailable FEDORS, MANDI NETWORK TECHNICIAN Unavailable Unavailable FEDORS, MANDI NETWORK TECHNICIAN Unavailable Unavailable FEDORS, MANDI NETWORK TECHNICIAN Unavailable Unavailable FEDORS, MANDI NETWORK TECHNICIAN Unavailable Unavailable FEDORS, MANDI NETWORK TECHNICIAN Unavailable Unavailable BISWAS, JAMAR Unavailable Unavailable Re-disclosure Warning The records that you are about to access may contain information from federally-assisted alcohol or drug abuse programs. If such information is present, then the following federally mandated warning applies: This information has been disclosed to you from records protected by federal confidentiality rules (42 CFR part 2). The federal rules prohibit you from making any further disclosure of this information unless further disclosure is expressly permitted by the written consent of the person to whom it pertains or as otherwise permitted by 42 CFR part 2. A general authorization for the release of medical or other information is NOT sufficient for this purpose. The Federal rules restrict any use of the information to criminally investigate or prosecute any alcohol or drug abuse patient.The records that you are about to access may contain highly sensitive health information, the redisclosure of which is protected by Article 27-F of the [facility] Public Health law. If you continue you may have access to information: Regarding HIV / AIDS; Provided by facilities licensed or operated by the [facility] Office of Mental Health; or Provided by the [facility] Office for People With Developmental Disabilities. If such information is present, then the following [facility] mandated warning applies: This information has been disclosed to you from confidential records which are protected by state law. State law prohibits you from making any further disclosure of this information without the specific written consent of the person to whom it pertains, or as otherwise permitted by law. Any unauthorized further disclosure in violation of state law may result in a fine or penitentiary sentence or both. A general authorization for the release of medical or other information is NOT sufficient authorization for further disc losure. Family History Family Member Name Family Member Gender Family Member Status Date o f Status Description Data Source(s) Unknown Unknown Problem MEDENT ([facility], ) Unknown Female Problem MEDENT ([facility]) Encounters Encounter Providers Location Date Indications Data Source(s ) Outpatient Attender: Agnieszka Cota MD 09/26/2021 12:00:0 0 AM [facility] Outpatient 06/20/2021 12:00:00 AM [facility] Outpatient Attender: Agnieszka Cota MD 06/20/2021 12:00:0 0 AM [facility] Outpatient Attender: ÁLVARO MC 06/14/20 02:56:00 PM EDT - 06/14/2021 02:56:00 PM [facility] Outpatient Attender: KAITLIN ARMENDARIZ [id number] 06/05/2021 04:08:46 PM [facility] Outpatient Attender: RADHAMES BENAVIDESAttender: RADHAMES BENAVIDES [id number] 06/05/2021 12:00:00 AM EDT - 06/06/2021 08:37:58 AM [facility] Outpatient Attender: Jeanne PEREIRAeferrer: GRAHAM POLLACK DO [id number] 06/05/2021 12:00:00 AM [facility] Outpatient Attender: LAW FLEMING 06/05/2021 12: 00:00 AM EDT Cystic fibrosis, unspecified [facility] Cystic fibrosis, unspecified [place] [address] [address] 06/05/2021 12:00:00 AM EDT eCW1 ([facility]) Outpatient Attender: ROMAINE DYKES [facility] 05/31 08:20:00 AM EDT MED[facility] ([facility]) Outpatient Attender: ROMAINE DYKES 05/31 08:10:00 AM EDT - 05/31/2021 08:10:00 AM EDT [facility] Outpatient Attender: Humza DYKES [facility] 05/25/2021 09:30:00 AM EDT [facility] ([facility]) Outpatient Attender: Ayo Wooten MD [place] 05/23/2021 01:15:00 PM EDT [facility] ([facility]) Outpatient Attender: CRISTINA SOUZA Main Office 05/22/2021 12:30:00 P M EDT MEDENT ([facility]) Outpatient Attender: ÁLVARO MC 05/19/20 03:08:00 PM EDT - 05/19/2021 03:08:00 PM EDT [facility] Emergency Attender: LUBNA PEMBERTON MD 04/21/2021 06:28:00 PM EDT - 04/21/2021 10:38:00 PM EDT [facility] Patient discharged. Outpatient 04/18/2021 12:00:00 AM [facility] Outpatient Attender: Imani Tuttle MD 04/18/2021 12:00:00 AM [facility] Outpatient Attender: ÁLVARO MC 04/03/20 05:02:00 PM EDT - 04/03/2021 05:02:00 PM EDT [facility] Outpatient Attender: Agnieszka Cota MD 03/29/2021 12:00:0 0 AM [facility] Outpatient Attender: ÁLVARO MC 03/17/20 08:02:00 AM EDT - 03/17/2021 08:02:00 AM EDT [facility] Outpatient Attender: Agnieszka Cota MD 03/07/2021 12:00:0 0 AM [facility] Outpatient Attender: ROMAINE DYKES [facility] 03/02 01:00:00 PM EDT [facility] Outpatient Attender: ÁLVARO MC 03/02/20 12:59:00 PM EDT - 03/02/2021 12:59:00 PM EDT [facility] Outpatient Attender: ROMAINE GARCIAttender: ÁLVARO [place] 03/02/2021 10:00:00 AM EDT - 03/02/2021 10:00:00 AM EDT [facility] Outpatient [address] [address] 02/27/2021 12:00:00 AM EDT eC ([facility]) Outpatient Attender: CORNELIUS LOPEZ 021 10:55:00 AM EDT - 02/22/2021 10:55:00 AM EDT [facility] Outpatient Attender: YOGESH RAYA 02/17/2021 12:00:0 0 AM EDT Cystic fibrosis, unspecified [facility] Cystic fibrosis, unspecified Outpatient Attender: Ayo Wooten MD [place] 02/14/2021 10:15:00 AM EDT [facility] ([facility]) Outpatient 02/14/2021 12:00:00 AM [facility] Outpatient 02/10/2021 12:00:00 AM [facility] Outpatient Attender: ÁLVARO MC 02/03/20 10:02:00 AM EDT - 02/02/2021 10:02:00 AM EDT [facility] Outpatient Attender: JAMAR BISWAS [id number] 02/02/2021 09:22:50 AM [facility] Outpatient Attender: ROMAINE DYKES 01/30 09:01:00 AM EDT - 01/30/2021 09:01:00 AM EDT [facility] Outpatient Attender: ROMAINE DYKES [facility] 01/30 09:00:00 AM EDT [facility] Outpatient Attender: ÁLVARO MC 01/21/20 10:06:00 AM EDT - 01/20/2021 10:06:00 AM EDT [facility] Outpatient [address] [address] 01/10/2021 12:00:00 AM EDT eCW1 ([facility]) Outpatient Attender: Patricia Zaldivar [place] [id number] 01/06/2021 10:30:00 AM EDT [facility] ([facility]) Outpatient Attender: ÁLVARO MC 01/06/20 01:01:00 PM EDT - 01/05/2021 01:01:00 PM EDT [facility] Unknown [address] [address] 12/29/2020 12:00:00 AM EDT eCW1 ([facility]) Outpatient Attender: TYLER BURGOS 12/29/2020 12:00:00 AM [facility] Outpatient Attender: Memo Leo MD 12/29/2020 12:00:00 AM [facility] Outpatient Attender: ROMAINE DYKES 12/28 09:43:00 AM EDT - 12/28/2020 09:43:00 AM T [facility] Outpatient Attender: ROMAINE DYKES Family [facility] 12/28 09:40:00 AM EDT [facility] ([facility]) Outpatient Attender: RADHAMES [place] [facility] 12/24/2020 12:40:00 PM EDT [facility] ([facility]) Outpatient 12/23/2020 12:00:00 AM [facility] Outpatient Attender: ÁLVARO MC 12/23/19 09:01:00 AM EDT - 12/22/2020 09:01:00 AM EDT [facility] Outpatient [address] [address] 12/14/2020 12:00:00 AM EDT eCW1 ([facility]) Outpatient Attender: Imani Tuttle MD 12/12/2020 12:00:00 AM EDT [facility] Outpatient Attender: Agnieszka Cota MD [id number] 12/07/2020 1 2:00:00 AM EDT Vitamin D deficiency, unspecified [facility] Vitamin D deficiency, unspecified Outpatient Attender: Agnieszka Cota MD 12/02/2020 12:00:0 0 AM EDT [facility] Outpatient Attender: ROMAINE DYKES 11/15 03:06:00 PM EDT - 11/15/2020 03:06:00 PM EDT [facility] Outpatient [address] [id number] 11/15/2020 12:00:00 AM EDT [facility] ([facility]) Outpatient Attender: ÁLVARO MC 11/01/19 10:02:00 AM EDT - 10/31/2020 10:02:00 AM EDT [facility] Outpatient Attender: RE DAMON 2020 12:00:00 AM EST - 10/26/2020 12:00:00 AM [facility] Outpatient Attender: ROMAINE IBARRA PAAttender: ÁLVARO Conway 10/13/2020 12:40:00 PM [facility] - 10/13/2020 12:40:00 PM [facility] Outpatient Attender: ÁLVARO MC 10/13/19 10:01:00 AM [facility] - 10/13/2020 10:01:00 AM [facility] Office Visit Attender: Huong ACUNA PA-C Physical Therapy 10/13/2020 07:45:00 AM EST [facility] ([facility]) Outpatient Attender: ÁLVARO MC 10/04/19 01:52:00 PM [facility] - 10/04/2020 01:52:00 PM [facility] Office Visit Attender: David DYKES Physical Therapy 08:45:00 AM EST [facility] ([facility]) Outpatient Attender: ÁLVARO MC 09/19/19 10:58:00 AM EST - 09/19/2020 10:58:00 AM [facility] Outpatient Admitter: FREDRICK REEDER MDReferrer: Isaac REEDER MD [id number] 09/16/2020 12:00:00 AM [facility] Office Visit Attender: Huong ACUNA PA-C Physical Therapy 09/15/2020 09:30:00 AM EST [facility] ([facility]) Outpatient Attender: ROMAINE DYKES 09/12 01:45:00 PM EST - 09/12/2020 01:45:00 PM [facility] Outpatient Attender: JAMAR BISWAS [id number] 09/02/2020 11:47:31 AM E [facility] Outpatient Attender: Imani Tuttle MDReferrer: MARVIN POLLACK DO 07A-PPCPOB 09/02/2020 12:00:00 AM [facility] Outpatient Attender: Agnieszka Cota MD [id number] 08/31/2020 1 2:00:00 AM [facility] Type 1 diabetes mellitus with hyperglycemia [facility] Type 1 diabetes mellitus with hyperglyce juan manuel Outpatient Admitter: FREDRICK REEDER MDReferrer: Isaac REEDER MD [id number] 08/24/2020 12:00:00 AM [facility] Outpatient Attender: Humza DYKES [facility] 08/22/2020 08:40:00 AM EST [facility] ([facility]) Office Visit Attender: NA [id number]_[id number] Physical Therapy 020 02:00:00 PM EST [facility] ([facility]) Outpatient Attender: ÁLVARO MC 08/18/20 08:03:00 AM EST - 08/18/2020 08:03:00 AM [facility] OFFICE OUTPATIENT NEW 30 MINUTES Attender: Huong ACUNA PA-C Physical Therapy 08/15/2020 12:30:00 PM EST [facility] ([facility]) Outpatient Attender: DARIAN DIAZ 08/03/2020 12 :00:00 AM [facility] Outpatient Attender: MARLENI MEEKS MDReferrer: GRAHAMSRIDEVI LONGORIABER 07/28/2020 02:10:09 PM EST [facility] Recurring Patient Referrer: GRAHAM KAPLANRIC DO 07/28/2020 12:47:08 PM EST [facility] Recurring Patient Referrer: GRAHAM ROGEREMLOBER DO 07/28/2020 12:39:55 PM EST [facility] Recurring Patient Referrer: GRAHAM ROGEREANOTrentonTEJAL DO 07/28/2020 12:39:17 PM EST [facility] Recurring Patient Referrer: GRAHAM ROGEREANOTrentonTEJAL DO 06/16/2020 09:35:41 AM EDT [facility] Outpatient Attender: ROMAINE DYKES Family Practice 06/15 08:20:00 AM EDT [facility] ([facility]) Outpatient Attender: ROMAINE IBARRA PAReferrer: Sebastián potts MD 06/15/2020 08:19:00 AM EDT - 06[facility]15[facility]: Humza DYKES [facility] 06/09/2020 08:40:[address] Outpatient Attender: Agnieszka Cota MD 06/07/2020 12:00:0 0 AM [facility] Outpatient Attender: Agnieszka Cota MD 06/07/2020 12:00:0 0 AM [facility] Outpatient Attender: Agnieszka Cota MD 06/03/2020 12:00:0 0 AM [facility] Outpatient Attender: ÁLVARO MCReferrer: Sebastián craig MD 06/02/2020 09:01:00 AM EDT - 06/02/2020 09:01:00 AM [facility] Outpatient Attender: Agnieszka Ctoa MD 05/25/2020 12:00:0 0 AM [facility] Outpatient Attender: ARIEL SMITH MNT [id number] 05/23/2020 02:28:15 P M [facility] Outpatient Attender: JAMAR BISWAS [id number] 05/23/2020 01:43:57 PM E [facility] Outpatient Attender: MANDI KNOX YASMEEN 07A-[id number] 2019 12:00:00 AM EDT - 05/24/2020 12:00:00 AM EDT Cystic fibrosis, unspecified [facility] Cystic fibrosis, unspecified Outpatient Attender: ELODIA LEBRON 05/23/2020 12:00:00 AM [facility] Outpatient Attender: ROMAINE BENJAMINeferrer: Sebastián potts MD 05/18/2020 09:03:00 AM EDT - 05/18/2020 09:03:00 AM EDT [facility] Outpatient Attender: ROMAINE DYKES [facility] 05/02 02:00:00 PM EDT [facility] Outpatient Attender: ROMAINE Booerrer: Sebastián potts MD 05/02/2020 01:52:00 PM EDT - 05/02/2020 01:52:00 PM EDT [facility] Outpatient Attender: ÁLVARO Cuevas daphne: ROMAINE IBARRA PAReferrer: Sebastián Chappell MD 05/02/2020 01:01:00 PM EDT - 05/02/2020 01:01:00 PM T [facility] Outpatient Attender: ROMAINE Booerrer: Sebastián potts MD 04/18/2020 09:44:00 AM EDT - 04/18/2020 09:44:00 AM EDT [facility] Outpatient Attender: ROMAINE DYKES Family Practice 04/18 09:40:00 AM EDT [facility] ([facility] Outpatient Attender: ÁLVARO Cuevas daphne: ROMAINE Booerrer: Sebastián Chappell MD 04/18/2020 09:04:00 AM EDT - 04/18/2020 09:04:00 AM EDT [facility] Outpatient Attender: ÁLVARO Ballerrer: Sebastián craig MD 03/17/2020 09:05:00 AM EDT - 03/17/2020 09:05:00 AM EDT [facility] Outpatient Attender: MANDI ARTEAGARED NETWORK TECHNICIAN 07A-[id number] 2019 12:00:00 AM EDT - 02/23/2020 01:54:59 PM EDT Cystic fibrosis, unspecified [facility] Cystic fibrosis, unspecified Immunizations Vaccine Date Status Description Data Source(s) COVID-19 VACCINE Pfizer 06/03/2021 12:00:00 AM EDT completed [facility] Vaccine Series Complete: YESThis Data wa s Submitted to [facility] Via [facility]. meningococcal B, OMV 10/25/2020 12:00:00 AM EST completed <td ID="[id number]">Meningococcal B, OMV (Bexsero)</td><td>10/25/2020</td><td></td> [facility] Meningococcal MCV4O 10/25/2020 12:00:00 AM EST completed < td ID="[id number]">Meningococcal Conjugate MCV4O (MENVEO)</td><td>10/25/2020</td><td></td> [facility] COVID-19 VACCINE Pfizer 09/16/2020 12:00:00 AM EST completed [facility] Vaccine Series Complete: YESThis Data wa s Submitted to [facility] Via [employer]. 208 08/24/2020 12:00:00 AM EST completed <td I D="[id number]">Pfizer SARS-CoV-2 Vaccination</td><td>08/24/2020</td><td></td> [facility] COVID-19 VACCINE Pfizer 08/24/2020 12:00:00 AM EST completed [facility] Vaccine Series Complete: NOThis Data was Submitted to [facility] Via [employer]. New in 2011. IIV4 05/11/2020 12:00:00 AM EDT completed <t d ID="[id number]">Influenza Quad IM Pres Free (0.5 mL dose)</td><td>05/11/2020, 06/03/2019</td><td></td> [facility] Medications Medication Brand Name Start Date Product Form Dose Route Admi nistrative Instructions Pharmacy Instructions Status Indications Reaction Description Data Source(s) Ergocalciferol 65433 UNT Oral Capsule Vitamin D (Ergocalcife rol) 05/31/2021 12:00:00 AM EDT active M [facility] ([facility]) adapalene 0.003 MG/MG Topical Gel Adapalene 05/22/2021 12:00:00 AM EDT active [facility] ([facility]) Sulfacetamide Sodium 100 MG/ML Medicated Liquid Soap Sulface tamide Sodium 05/22/2021 12:00:00 AM EDT active [facility] ([facility]) Phentermine Hydrochloride 37.5 MG Oral Capsule Phentermine H CL 05/18/2021 12:00:00 AM EDT ORAL active M [facility] ([facility]) Sulfacetamide Sodium 100 MG/ML Ophthalmic Solution Sulfaceta mide Sodium 04/23/2021 12:00:00 AM EDT OPHTHALMIC completed [facility] ([facility]) Nifedipine 10 MG Oral Capsule Nifedipine 02/14/2021 12:00:00 AM EDT active [facility] ([facility]) 24 HR Bupropion Hydrochloride 150 MG Extended Release Oral Tablet Bupropion Hydrochloride ER (XL) 12/28/2020 12:00:00 AM EDT ORAL a ctive [facility] ([facility]) Ciprofloxacin 500 MG Oral Tablet [Cipro] Cipro 12/24/2020 12:00: 00 AM EDT ORAL active [facility] ([facility]) Prednisone 10 MG Oral Tablet PredniSONE 10 MG PredniSONE 10 MG 12/14/2020 12:00:00 AM EDT 1.0 {tablet} active Pr edniSONE 10 MG [facility]CW1 [facility] Triamcinolone Acetonide 1 MG/ML Topical Cream Triamcin olone Acetonide 0.1 % Triamcinolone Acetonide 0.1 % 12/14/2020 12:00:00 AM EDT 1.0 {appli cation} active Triamcinolone Acetonide 0 .1 % [facility] levocetirizine dihydrochloride 5 MG Oral Tablet Levocetirizine Dihydrochloride 5 MG Levocetirizine Dihydrochloride 5 MG 12/14/2020 12:00:00 AM EDT 1.0 {tablet_in_the_evening} active Levoceti rizine Dihydrochloride 5 MG eCW1 ([facility]) Prednisone 10 MG Oral Tablet PredniSONE 10 MG PredniSONE 10 MG 12/14/2020 12:00:00 AM EDT 1.0 {tablet} active Pr edniSONE 10 MG eCW1 ([facility]) Triamcinolone Acetonide 1 MG/ML Topical Cream Triamcin olone Acetonide 0.1 % Triamcinolone Acetonide 0.1 % 12/14/2020 12:00:00 AM EDT 1.0 {appli cation} active Triamcinolone Acetonide 0 .1 % eCW1 ([facility]) levocetirizine dihydrochloride 5 MG Oral Tablet Levocetirizine Dihydrochloride 5 MG Levocetirizine Dihydrochloride 5 MG 12/14/2020 12:00:00 AM EDT 1.0 {tablet_in_the_evening} active Levoceti rizine Dihydrochloride 5 MG eCW1 ([facility]) Insulin Lispro 100 UNT/ML Injectable Bailey ution [Humalog] HumaLOG 100 UNIT/ML Subcutaneous Solution HumaLOG 100 UNIT/ML Subcutaneous Solution 11/25/2020 12:00:00 AM EDT active Diab etes mellitus related to CF (cystic fibrosis) Use as directed via insulin pump, total daily dose not to exceed 100 units with titration. Dx:E84.8 [facility] Diabetes mellitus related to CF (cystic fibrosis) Tamsulosin hydrochloride 0.4 MG Oral Capsule Tamsulosin HCL 10/25/2020 12:00:00 AM EST ORAL active [facility] ([facility]) doxycycline hyclate 100 MG Oral Capsule Doxycycline Hyclate 100 MG Oral Capsule (VIBRAMYCIN) Doxycycline Hyclate 100 MG Oral Capsule (VIBRAMYCIN) 0 10/11/2020 12:00:00 AM EST 100 mg Oral active Take 100 mg by mouth Two Times Daily [facility] Clindamycin 10 MG/ML Topical Lotion Clin damycin Phosphate 1 % External Lotion (CLEOCIN T) Clindamycin Phosphate 1 % External Lotion (CLEOCIN T) 10/11/2020 12:00:00 AM EST active APPLY EXTERNALLY TO THE AFFECTED AREA TWICE DAILY [facility] meloxicam 15 MG Oral Tablet Meloxicam 09/18/2020 12:00:00 AM EST active [facility] ([facility]) T: slim X2 Ins Harvest Crew Supervisor/Control 7.4 Device [address]-7 09/05/2020 12:00 :00 AM EST active [facility] Felisa Microlet Lancets 8680-5823-96 09/02/2020 12:00:00 AM EST active Diabetes mellitus related to CF (cystic fibrosis) Use as directed. Use as directed to check blood sugar 6 times daily. Dx:E84.9 [facility] Diabetes mellitus related to CF (cystic fibrosis) BD Pen Needle Olri U/F 32G X 4 MM (Insulin Pen Needle) [id number] 08/31/2020 12:00:00 AM EST active Type 1 diabetes mellitus with hyperglycemia Use as directed. Use as directed to inject insulin 4 times per day. Dx: E10.65 [facility] Type 1 diabetes mellitus with hyperglyce juan manuel Contour Next Test In Vitro Strip (glucose blood) 0043-3765-2 5 08/31/2020 12:00:00 AM EST active Diab etes mellitus related to CF (cystic fibrosis) Use as instructed 6x daily. Dx:E84.9 [facility] Diabetes mellitus related to CF (cystic fibrosis) 24 HR venlafaxine 75 MG Extended Release Oral Capsule [Effex or] Effexor XR 08/23/2020 12:00:00 AM EST ORAL active [facility] ([facility]) Acetaminophen 325 MG / Oxycodone Hydroch loride 5 MG Oral Tablet oxyCODONE- Acetaminophen 5-325 MG Oral Tablet (PERCOCET) oxyCODONE-Acetaminophen 5-325 MG Oral Tablet (PERCOCET) 08/18/2020 12:00:00 AM EST aborted TAKE 1 TABLET BY MOUTH EVERY 12 HOURS FOR PAIN. MAXIMUM DAILY DOSE IS 2 [facility] Acetaminophen 325 MG / Oxycodone Hydrochloride 5 MG Or al Tablet Oxycodone-Acetaminophen 08/18/2020 12:00:00 AM EST ORAL active [facility] ([facility]) Nurtec 75 MG Oral Tablet Disintegrating [address]-3 08/03/20 12:00:00 AM EST active DISSOLVE 1 TABLE T ON THE TONGUE EVERY 24 HOURS NEEDED [facility] Trikafta 100-50-75 & 150 MG Oral Tablet Therapy Pack (nbnsrdcvqxu-ytgumekqvr-xiaaqslko and ivacaftor) 06017-037-85 07/29 12:00:00 AM EST active Cystic fibrosis Take 2 orange tablets in the morning. Take 1 blue tablet in the evening [facility] Cystic fibrosis Dornase Tanner 1 MG/ML Inhalant Solution [ Pulmozyme] Pulmozyme 1 MG/ML Inhalation Solution (dornase tanner) Pulmozyme 1 MG/ML Inhalation Solution (dornase tanner) 07/29/2020 12:00:00 AM EST 2.5 mg Inhalation active Cy stic fibrosis Inhale 2.5 mg into the lungs daily [facility] Cystic fibrosis Tobramycin 28 MG Inhalant Powder Tobramycin 28 MG Inha lation Capsule Tobramycin 28 MG Inhalation Capsule 07/29/2020 12:00:00 AM EST 4 {capsule} Inhal ation active Cystic fibrosis Place 4 capsules into Inhaler and inh Two Times Daily Alternating 28 days on and 28 days off. [facility] Cystic fibrosis rizatriptan 10 MG Oral Tablet Rizatriptan Benzoate 10 MG Oral Tablet (MAXALT) Rizatriptan Benzoate 10 MG Oral Tablet (MAXALT) 07/22/2020 12:00:00 AM EST active [facility] 07/04/2020 12:00:00 AM EST ORAL active [facility] ([facility]) Ondansetron 4 MG Oral Tablet Ondansetron HCl 4 MG Oral Tablet (ZOFRAN) Ondansetron HCl 4 MG Oral Tablet (ZOFRAN) 06/22/2020 12:00:00 AM EST active TK 1 TO 2 TS PO Q 6 H PRF NAUSEA [facility] linaclotide 0.29 MG Oral Capsule [Linzess] Linzess 290 MCG Oral Capsule Linzess 290 MCG Oral Capsule 06/10/2020 12:00:00 AM EDT active TK 1 C PO QD [facility] Novofine 06/09/2020 12:00:00 AM EDT active [facility] ([facility]) Toujeo Max Solostar Toujeo Max Solostar 06/09/2020 12:00:00 AM EDT SUBCUTANEOUS active [facility] ([facility]) hydrocortisone acetate 25 MG Rectal Suppository Hydrocortiso ne Acetate 06/09/2020 12:00:00 AM EDT active [facility] ([facility]) linaclotide 0.29 MG Oral Capsule [Linzess] Linzess 06/09/2020 12:00:00 AM EDT ORAL active [facility] ([facility]) Ajovy Ajovy 06/09/2020 12:00:00 AM EDT SUBCUTANEOUS act ho [facility] ([facility]) rizatriptan 10 MG Oral Tablet Rizatriptan Benzoate 06/09/2020 12:00 :00 AM EDT ORAL active [facility] ([facility]) 60 ACTUAT Albuterol 0.09 MG/ACTUAT Meter ed Dose Inhaler albuterol (PROVENTIL HFA) inhaler 2 puff albuterol (PROVENTIL HFA) inhaler 2 puff 05/23/2020 01 :00:00 PM EDT 2 {puff} Inhalation active Ups [facility] Azithromycin 250 MG Oral Tablet Azithromycin 250 MG Or al Tablet (ZITHROMAX) Azithromycin 250 MG Oral Tablet (ZITHROMAX) 05/23/2020 12:00:00 AM EDT 250 mg Oral active Cystic fibrosis Take 1 tablet by mouth daily [facility] Cystic fibrosis Dornase Tanner 1 MG/ML Inhalant Solution [ Pulmozyme] Pulmozyme 1 MG/ML Inhalation Solution (dornase tanner) Pulmozyme 1 MG/ML Inhalation Solution (dornase tanner) 05/23/2020 12:00:00 AM EDT 2.5 mg Inhalation active Cy stic fibrosis Inhale 2.5 mg into the lungs daily [facility] Cystic fibrosis Albuterol Sulfate HFA 108 (90 Base) MCG/ ACT Inhalation Aerosol Solution (PROVENTIL HFA) 9365-7360-75 05/23/2020 12:00:00 AM EDT 2 {puff} Inha lation active Cystic fibrosis with intesti nal manifestationSeasonal allergic rhinitis, unspecified trigger Inhale 2 puffs into the lungs every 4 (four) hours as needed for Wheezing [facility] Cystic fibrosis with intestinal manifest ation Seasonal allergic rhinitis, unspecified trigger Sodium Chloride 0.598 MEQ/ML Inhalant So lution Sodium Chloride 3.5 % Inhalation Nebulization Solution Sodium Chloride 3.5 % Inhalation Nebulization Solution 05/23/2020 12:00:00 AM EDT 4 mL Inhalation active Cy stic fibrosis Inhale 4 mLs into the lungs Two Times Daily [facility] Cystic fibrosis Tobramycin 28 MG Inhalant Powder Tobramycin 28 MG Inha lation Capsule Tobramycin 28 MG Inhalation Capsule 05/23/2020 12:00:00 AM EDT 4 {capsule} Inhal ation active Cystic fibrosis Place 4 capsules into Inhaler and inh Two Times Daily Alternating 28 days on and 28 days off. [facility] Cystic fibrosis Albuterol 0.833 MG/ML / Ipratropium Brom domo 0.167 MG/ML Inhalant Solution Ipratropium-Albuterol 0.5-2.5 (3) MG/3ML Inhalation Solution (DUONEB) Ipratropium-Albuterol 0.5-2.5 (3) MG/3ML Inhalation Solution (DUONEB) 05/23/2020 12:00:00 AM EDT 3 mL Nebulization active Seasonal allergic rhinitis, unspecified triggerCystic fibrosis with intestinal manifestation Take 3 mLs by nebulization every 4 (four) hours as needed (for wheezing) [facility] Seasonal allergic rhinitis, unspecified trigger Cystic fibrosis with intestinal manifest ation 30 ACTUAT umeclidinium 0.0625 MG/ACTUAT / vilanterol 0.025 MG/ACTUAT Dry Powder Inhaler Umeclidinium-Vilanterol 62.5-25 MCG/INH Inhalation Aerosol Powder Breath Activated (ANORO ELLIPTA) Umeclidinium-Vilanterol 62.5-25 MCG/INH Inhalation Aerosol Powder Breath Activated (ANORO ELLIPTA) 05/23/2020 12:00:00 AM EDT 1 {puff} Inhalation active CF (cystic fibrosis) Inhale 1 puff into the lungs daily [facility] CF (cystic fibrosis) Omeprazole 40 MG Delayed Release Oral Ca psule Omeprazole 40 MG Oral Capsule Delayed Release (PRILOSEC) Omeprazole 40 MG Oral Capsule Delayed Re lease (PRILOSEC) 05/23/2020 12:00:00 AM EDT 40 mg Oral ac tive Cystic fibrosis with intestinal manifestation Take 1 capsule by mouth daily [facility] Cystic fibrosis with intestinal manifest ation buspirone hydrochloride 5 MG Oral Tablet Buspirone HCL 05/18/2020 12:00:00 AM EDT ORAL active [facility] ([facility]) Zolpidem tartrate 10 MG Oral Tablet [Ambien] Ambien 12:00:00 AM EDT ORAL active [facility] ( [facility]) Fluzone Quadrivalent Fluzone Quadrivalent 05/11/2020 12:00:00 AM EDT completed [facility] ([facility]) Eszopiclone 1 MG Oral Tablet Eszopiclone 05/02/2020 12:00:00 AM EDT ORAL completed [facility] ([facility]) 24 HR venlafaxine 75 MG Extended Release Oral Capsule Venlaf axine HCL ER 05/02/2020 12:00:00 AM EDT ORAL active [facility] ([facility]) Zolpidem tartrate 12.5 MG Extended Release Oral Tablet [Ambi en] Ambien CR 04/18/2020 12:00:00 AM EDT ORAL completed [facility] ([facility]) Amoxicillin 875 MG / Clavulanate 125 MG Oral Tablet [Augment in] Augmentin 04/13/2020 12:00:00 AM EDT ORAL completed [facility] ([facility]) Metoclopramide 10 MG Oral Tablet Metoclopramide HCl 10 MG Oral Tablet (REGLAN) Metoclopramide HCl 10 MG Oral Tablet (REGLAN) 02/25/2020 12:00:00 AM EDT aborted TAKE 1 TABLET BY MOUTH EV MOHIT 6 HOURS NEEDED FOR NAUSEA [facility] Metoclopramide 10 MG Oral Tablet Metoclopramide HCL 02/25/2020 1 2:00:00 AM EDT completed [facility] ([facility]) Ketorolac Tromethamine 10 MG Oral Tablet Ketorolac Trometham ine 02/25/2020 12:00:00 AM EDT completed [facility] ([facility]) Azithromycin 250 MG Oral Tablet Azithromycin 250 MG Or al Tablet (ZITHROMAX) Azithromycin 250 MG Oral Tablet (ZITHROMAX) 01/12/2020 12:00:00 AM EDT 250 mg Oral aborted Cystic fibrosis Take 1 tablet by mouth daily [facility] Cystic fibrosis Dornase Tanner 1 MG/ML Inhalant Solution D ornase Tanner 1 MG/ML Inhalation Solution (Pulmozyme) Dornase Tanner 1 MG/ML Inhalation Solution (Pulmozyme) 0 12/02/2019 12:00:00 AM EDT 2.5 mg Inhalation aborted Cystic fibros is Inhale 2.5 mg into the lungs daily [facility] Cystic fibrosis 30 ACTUAT umeclidinium 0.0625 MG/ACTUAT / vilanterol 0.025 MG/ACTUAT Dry Powder Inhaler Umeclidinium-Vilanterol 62.5-25 MCG/INH Inhalation Aerosol Powder Breath Activated (ANORO ELLIPTA) Umeclidinium-Vilanterol 62.5-25 MCG/INH Inhalation Aerosol Powder Breath Activated (ANORO ELLIPTA) 11/25/2019 12:00:00 AM EDT 1 {puff} Inhalation aborted CF (cystic fibrosis) Inhale 1 puff into the lungs daily [facility] CF (cystic fibrosis) Albuterol Sulfate HFA 108 (90 Base) MCG/ ACT Inhalation Aerosol Solution (PROVENTIL HFA;VENTOLIN HFA) 9493-9806-11 11/18/2019 12:00:00 AM EDT 2 {puff} Inhalation aborted Cystic fibrosis with intestinal manifestationSeasonal allergic rhinitis, unspecified trigger Inhale 2 puffs into the lungs every 4 (four) hours as needed for Wheezing [facility] Cystic fibrosis with intestinal manifest ation Seasonal allergic rhinitis, unspecified trigger Sodium Chloride 0.598 MEQ/ML Inhalant So lution Sodium Chloride 3.5 % Inhalation Nebulization Solution Sodium Chloride 3.5 % Inhalation Nebulization Solution 10/28/2019 12:00:00 AM EDT 4 mL Inhalation aborted Cy stic fibrosis Inhale 4 mLs into the lungs Two Times Daily [facility] Cystic fibrosis 3 ML Insulin Glargine 100 UNT/ML Pen Inj jose Insulin Glargine 100 UNIT/ML Subcutaneous Solution Pen-injector (LANTUS SOLOSTAR) Insulin Glargine 100 UNIT/ML Subcutaneous Solution Pen-injector (LANTUS SOLOSTAR) 09/14/2019 12:00:00 AM EST aborted Type 1 diabetes mellitus with hyperglycemia Inject 26 Units into the skin nightly - Subcutaneous max daily dose 48 units Dx: E10.65 [facility] Type 1 diabetes mellitus with hyperglyce juan manuel 3 ML Insulin Glargine 100 UNT/ML Pen Inj jose Insulin Glargine 100 UNIT/ML Subcutaneous Solution Pen-injector (LANTUS SOLOSTAR) Insulin Glargine 100 UNIT/ML Subcutaneous Solution Pen-injector (LANTUS SOLOSTAR) 09/01/2019 12:00:00 AM EST active Type 1 diabetes mellitus with hyperglycemia Inject 18 Units into the skin nightly - Subcutaneous Dx: E10.65 [facility] Type 1 diabetes mellitus with hyperglyce juan manuel Insulin Pen Needle 32G X 4 MM (BD PEN NEEDLE LORI U/F) [id number] 09/01/2019 12:00:00 AM EST aborted Type 1 diabetes mellitus with hyperglycemia Use as directed. Use as directed to inject insulin 4 times per day. Dx: E10.65 [facility] Type 1 diabetes mellitus with hyperglyce [facility] Glucose Blood In Vitro Strip (CONTOUR NEXT TEST) [id number] 09/01/2019 12:00:00 AM EST aborted Diabetes mellitus relate d to CF (cystic fibrosis) Use as instructed 6x daily. Dx:E84.9 [facility] Diabetes mellitus related to CF (cystic fibrosis) [facility] 5153-9771-78 09/01/2019 12:00:00 AM EST active Diabetes mellitus related to CF (cystic fibrosis) Use as directed. 6x daily. Dx:E84.9 [facility] Diabetes mellitus related to CF (cystic fibrosis) Tobramycin 28 MG Inhalant Powder Tobramycin 28 MG Inha lation Capsule Tobramycin 28 MG Inhalation Capsule 07/02/2019 12:00:00 AM EST 4 {capsule} Inhal ation aborted Cystic fibrosis Place 4 capsules into Inhaler and inh Two Times Daily Alternating 28 days on and 28 days off. [facility] Cystic fibrosis Dornase Tanner 1 MG/ML Inhalant Solution D ornase Tanner 1 MG/ML Inhalation Solution (PULMOZYME) Dornase Tanner 1 MG/ML Inhalation Solution (PULMOZYME) 1 09/01/2018 12:00:00 AM EST 2.5 mg Inhalation active Cystic fibros is Inhale 2.5 mg into the lungs daily [facility] Cystic fibrosis tizanidine 2 MG Oral Capsule tiZANidine HCl 2 MG Oral Capsule (ZANAFLEX) tiZANidine HCl 2 MG Oral Capsule (ZANAFLEX) 06/16/2019 12:00:00 AM EDT aborted TK 1 TO 2 CS PO Q 6 H NEE DED FOR NECK SPASMS [facility] Albuterol 0.833 MG/ML / Ipratropium Brom domo 0.167 MG/ML Inhalant Solution ipratropium-albuterol (DUONEB) 0.5-2.5 (3) MG/3ML SOLN ipratropium-albuterol (DUONEB) 0.5-2.5 (3) MG/3ML SOLN 09/23/2018 12:00:00 AM EST 3 mL Nebulization aborted Seasonal allergic rh initis, unspecified triggerCystic fibrosis with intestinal manifestation Take 3 mLs by nebulization e very 4 (four) hours as needed (for wheezing) [facility] Seasonal allergic rhinitis, unspecified trigger Cystic fibrosis with intestinal manifest ation Omeprazole 40 MG Delayed Release Oral Ca psule omeprazole (PRILOSEC) 40 MG capsule omeprazole (PRILOSEC) 40 MG capsule 09/23/2018 12:00:00 AM EST 40 mg Oral aborted Cystic fibrosis with intestinal dmitry festation Take 1 capsule by mouth daily [facility] Cystic fibrosis with intestinal manifest ation Insulin, Aspart, Human 100 UNT/ML Inject able Solution insulin aspart (NOVOLOG) 100 UNIT/ML vial insulin aspart (NOVOLOG) 100 UNIT/ML vial 09/15/2018 1 2:00:00 AM EST aborted Type 1 diabetes mellitus with hyperglycemia Use as directed to prime and fill insulin pump. Max daily dose of 100 units per day. [facility] Type 1 diabetes mellitus with hyperglyce juan manuel Glucagon 1 MG Injection glucagon 1 MG injection glucagon 1 M G injection 08/25/2018 12:00:00 AM EST aborted Use as needed for hypoglycemia. Dx E 10.65 [facility] KETOSTIX strip [id number] 08/25/2018 12:00:00 AM EST aborted Use as directed to test urine for ketones. [facility] Naproxen sodium 220 MG Oral Capsule Naproxen Sodium 22 0 MG Oral Capsule (Aleve) Naproxen Sodium 220 MG Oral Capsule (Aleve) 1 {capsule} Oral aborted Take 1 capsule by mouth Two Times Daily For neck pain [facility] Acetaminophen 325 MG Oral Capsule Acetaminophen 325 MG Oral Capsule (Tylenol) Acetaminophen 325 MG Oral Capsule (Tylenol) 1000 mg Oral aborted Take 1,000 mg by mouth Three times daily as needed [facility] Methylprednisolone 4 MG Oral Tablet meth ylPREDNISolone 4 MG Oral Tablet (MEDROL) methylPREDNISolone 4 MG Oral Tablet (MEDROL) 4 mg Oral aborted Take 4 mg by mouth daily Weaning dose, due to stop on 02/25/2020 [facility] gabapentin 100 MG Oral Capsule Gabapentin 100 MG Oral Capsule (NEURONTIN) Gabapentin 100 MG Oral Capsule (NEURONTIN) 100 mg Oral aborted Take 100 mg by mouth Two Times Daily 100MG BID during day and 300mg nightly [facility] Tamsulosin hydrochloride 0.4 MG Oral Cap tutu Tamsulosin HCl 0.4 MG Oral Capsule (Flomax) Tamsulosin HCl 0.4 MG Oral Capsule (Flomax) 0.4 mg Ora l aborted Take 0.4 mg by mouth daily [facility] naratriptan 2.5 MG Oral Tablet Naratriptan HCl 2.5 MG Oral Tablet (AMERGE) Naratriptan HCl 2.5 MG Oral Tablet (AMERGE) 2.5 mg Oral aborted Migraine Take 2.5 mg by mouth as need ed for Migraine2.5 mg at onset of headache, may repeat in 4 hours if needed Indications: Migraine Headache [facility] Migraine Insulin Glargine (TOUJEO MAX SOLOSTAR SC) 30 U Subcutan eous aborted Inject 30 Units [facility] Providers Payer name Policy type / Coverage type Policy ID Covered green party ID Covered green party's relationship to rosa Policy Rosa Plan Information BCBS GENERIC C [id number] Child [id number] [place] 090/590 [id number] SP [id number] [facility] LiquidText PLUS [id number] SP [id number] [place] 090/590 [id number] MO2 [id number] [facility] [id number] Self [id number] [place] P[place]/[id number] [id number] [facility] [id number] 0 [id number] [place] P[place] 302/307 [id number] SP [id number] [facility] LiquidText PLUS [id number] SP [id number] [facility] [id number] Self [id number] [facility] [id number] Self [id number] [facility] [id number] Self [id number] [place] [employer] [id number] ...[id number] Self [id number] [place] [employer] [id number] ...[id number] Self [id number] [place] [employer] [id number] ...[id number] Self [id number] [place] [employer] [id number] ..[id number] Self [id number] [facility] [id number] Judy [id number] 1 Blue Cross Blue Shield P [id number] SELF [id number] EXCELLUS H [id number] Self [id number] [place] PPO 302/307 [id number] SP [id number] EXCELLUS H [id number] Self [id number] [employer] Commercial [id number] ...[id number] Self VY [id number] [facility] O [id number] S [id number]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 ALBUMINURIA IS REACHED AT 300 MCG/MG. THE CLASSIFICATION OF A PATIENT SHOULD BE BASED UPON AT LEAST 2 OF 3 ABNORMAL RESULTS ON SPECIMENS COLLECTED WITHIN A 3 TO 6 MONTH TIME FRAME. ID Date Data Source [id number] 05/25/2021 10:26:00 AM EDT [facility] ([facility]) Name Value Range Interpretation Code Description Data Kim rce(s) Supporting Document(s) Red Blood Count 4.98 10 4.00-5.40 Normal (applies to non-numeric results) [facility] ([facility]) White Blood Count 13.4 10 4.0-10.0 Above high normal [facility] ([facility]) Hematocrit 45.8 % 36.0-47.0 Normal (applies to non-numeric resul ts) [facility] ([facility]) Hemoglobin 15.0 g/dL 12.0-15.5 Normal (applies to non-numeric resul ts) [facility] ([facility]) Mean Corpuscular Hemoglobin 30.1 pg 27.0-33.0 Norm al (applies to non-numeric results) [facility] ([facility]) Mean Corpuscular Volume 92.0 fl 80.0-96.0 Normal ( applies to non-numeric results) [facility] ([facility]) Mean Corpuscular HGB Conc 32.8 g/dL 32.0-36.5 Normal (applies to non-numeric results) [facility] ([facility]) Platelet Count, Automated 686 10 150-450 Above high normal [facility] ([facility]) Red Cell Distribution Width 13.2 % 11.5-14.5 Norm al (applies to non-numeric results) [facility] ([facility]) Furnas % 6.4 % 2.0-8.0 Normal (applies to non-numeric resul ts) [facility] ([facility]) Neutrophils % 69.4 % 36.0-66.0 Above high normal [facility] ([facility]) Lymph % 22.1 % 24.0-44.0 Below low normal [facility] ( [facility]) Eos % 1.2 % 0.0-3.0 Normal (applies to non-numeric resul ts) [facility] ([facility]) Baso % 0.6 % 0.0-1.0 Normal (applies to non-numeric resul ts) [facility] ([facility]) Immature Granulocyte % 0.3 % 0-3.0 Normal (applies to non-n umeric results) [facility] ([facility]) Nucleated Red Blood Cell % 0.0 % 0-0 Normal (applies to n on-numeric results) [facility] ([facility]) Neutrophils # 9.3 10 1.5-8.5 Above high normal [facility] ([facility]) Furnas # 0.9 10 0.0-0.8 Above high normal [facility] ([facility]) Lymph # 3.0 10 1.5-5.0 Normal (applies to non-numeric resul ts) [facility] ([facility]) Eos # 0.2 10 0.0-0.5 Normal (applies to non-numeric resul ts) [facility] ([facility]) Baso # 0.1 10 0.0-0.2 Normal (applies to non-numeric resul ts) [facility] ([facility]) ID Date Data Source [id number] 05/25/2021 10:26:00 AM EDT [facility] ([facility]) Name Value Range Interpretation Code Description Data Kim rce(s) Supporting Document(s) Hemoglobin A1c 10.3 % Normal (applies to non-numeric r esults) [facility]) <content>REFERENCE RANGES:</content><br/ ><content></content>
<content><=5.6% NORMAL</content>
<content>5.7-6.4% SUGGESTS IMPAIRED GLUCOSE METABOLISM/PREDIABETIC</content>
<content>>= 6.5% ABNORMAL</content>
<content></content> Estimated Average Glucose 249 mg/dL 60-110 Above high normal [facility] ([facility]) ID Date Data Source [id number] 04/21/2021 06:28:00 PM EDT [facility] 1 OrderSheet [facility] Emergency Department [address] [place] [address] Phone #: ext- [phone] 04/21/2021 18:27 [id number] Sex: F : 1990 Age: 30yWEIGHT:83.9 kg (S) HEIGHT:66 inches (S) BMI:29.9ALLERGIES: Flagyl, HYDROcodone GFCHIEF COMPLAINT: abd painDIAGNOSIS: Candidiasis, Diabetes mellitus, Constipation, Urinary incontinence, Anal fissureLAB ORDERSOrder Description Priority Entered Acknowledged InitialedCBC w Diff STAT 19:04/21/2021 Ack'd: 20:11 20:12 Mansoor Hobson RN PA;CMP STAT 19:04/21/2021 Ack'd: 20:11 20:12 Mansoor Hobson RN PA;Lactic Acid STAT 19:04/21/2021 Ack'd: 20:11 20:12 Mansoor Hobson RN PA;Lipase STAT 19:04/21/2021 Ack'd: 20:11 20:12 Mansoor Hobson RN PA;Urinalysis (Clean STAT 19:04/21/2021 Ack'd: 20:11 21:02 StevenCatch) Mansoor Johnson RN PA;DIAGNOSTIC STUDY ORDERSOrder Description Priority Entered Acknowledged InitialedCT Abd PEL W/ IV STAT 19:53 04/21/2021 Ack'd: 20:11 22:37 StevenContrast Only Mansoor Johnson RN(Oxygen?(No)) PA;(IV?(Yes)) Reason for Study: Abdominal Pain, GI BleedMEDICATION/IV/DRIP/FLUID ORDERSOrder Description Priority Entered Acknowledged InitialedNS IV 1000 mL 19:09 04/21/2021 20:13 Willian,Bolus: : Bolus 1000 Femi MaxmL (X1) PA;Protonix PO 40 mg 19:09 04/21/2021 19:30 Willian,(Do not crush or Femi Max 2 OrderSheet [facility] Emergency Department [address] [place] [address] Phone #: ext- [phone] 04/21/2021 18:27 Patient: LIDIA AMAYA Sex: F : 1990 Age: 30ychew) PA;Ofirmev IV 1000 mg 19:09 04/21/2021 20:13 Willian,(NOW x1, Infuse Femi Maxover 15 minutes) PA;NS IV 1000 mL 19:56 04/21/2021 21:27 Willian,Bolus: : Bolus 1000 Femi Sanchez (X1) PA;GENERAL ORDERSOrder Description Priority Entered Acknowledged InitialedSaline Lock 19:09 04/21/2021 19:23 Femi Dorsey PA;Accucheck 21:27 04/21/2021 Ack'd: 21:44 22:37 Mansoor Hobson RN PA;[Electronically signed by Delgado Palacios RN (22:38 04/21/2021)][Electronically signed by Femi Jones (19:46 04/22/2021)][Electronically locked by Delgado Palacios RN (22:38 04/21/2021)] Name Value Range Interpretation Code Description Data Kim rce(s) Supporting Document(s) ID Date Data Source [id number] 04/21/2021 06:28:00 PM EDT [facility] 1 Medication Reconciliation Report [facility] Emergency Department [address] [place] [address] Phone #: ext- [phone] 04/21/2021 18:27 Patient: LIDIA AMAYA Sex: F : 1990 Age: 30yWeight: 83.9 kgHeight/Length: 66 in.BMI: 29.9ALLERGIES: Flagyl, HYDROcodone GFThe patient's Home Medications are listed below:CONTINUE TAKING THE FOLLOWING MEDICATIONS: Ambien Oral (10 mg), daily busPIRone HCl Oral (5 mg), 2x a day Effexor XR Oral (150 mg) 225mg, daily Linzess Oral (290 mcg), daily Nifedipine cream topical , 2x a day NovoLIN R Injection (100 unit/mL) insulin pump PriLOSEC Oral 40 mg, daily Pulmozyme Inhalation (1 mg/mL), daily Wellbutrin XL Oral (150 mg), daily Xanax Oral (0.5 mg), daily Zenpep Oral ([id number] unit) 1 capsule, 3x a dayThe source(s) of the original Home Medication information:Not obtained.The following Medications were given to the patient in the Emergency Department:Protonix [PO] PO 40 mg, administered: 19:30 04/21/2021 2 Medication Reconciliation Report [facility] Emergency Department [address] [place] [address] Phone #: ext- [phone] 04/21/2021 18:27 Patient: LIDIA AMAYA Sex: F : 1990 Age: 30yNS [IV] IV Fluids bolus 1000 mL wide open, administered: 20:13 04/21/2021Ofirmev IV IV Fluids bolus 0, then 1000mg, administered: 20:13 04/21/2021NS [IV] IV Fluids bolus 1000 mL wide open, administered: 21:27 04/21/2021The following Medications were prescribed to the patient:fluconazole 150 mg tablet Take 1 tablet single dose as needed for 1 days -- May repeat in 1 week if s/spersist. Dispense 2 tablet. Refills: 0. Substitution permitted. Note to Pharmacy - USE Rx DISCOUNTCARD: $12.85, BIN:[id number], PCN:VIANCA, Group:[id number], ID:[id number].Pharmacy - [id number] - [address], [place] [id number]. . -- DONIS Peters Name Value Range Interpretation Code Description Data Kim rce(s) Supporting Document(s) ID Date Data Source [id number] 04/21/2021 06:28:00 PM EDT [facility] 1 Medication Administration Record [facility] Emergency Department [address] [place] [address] Phone #: otd- [phone] 04/21/2021 18:27 Patient: LIDIA AMAYA Sex: F : 1990 Age: 30yWeight: 83.9 kgHeight/Length: 66 inBMI: 29.9ALLERGIES: Flagyl, HYDROcodone GF Date/Time Medication Administered Medication OrderedStart NS [IV] NS IV 1000 mL Bolus: : Bolus [id number] 04/21/2021 Dose: IV Fluids mL (X1)Mansoor Dorsey, Bolus: 1000 mL wide open---- Dispensed: 1000 mL bagStop Site: #1 right qoklavh50:29 04/21/2021Mansoor Dorsey,Given PROTONIX [PO] (PANTOPRAZOLE Protonix PO 40 mg (Do not crush19:30 04/21/2021 SODIUM) or chew)Mansoor Cheung, Dose: 40 mg Tablets POStart Ofirmev IV * Ofirmev IV 1000 mg (NOW x1,20:13 04/21/2021 Dose: 1000mg * IV Fluids Infuse over 15 minutes)Mansoor Dorsey,----Stop21:14 04/21/2021Mansoor DorseyStart NS [IV] NS IV 1000 mL Bolus: : Bolus [id number] 04/21/2021 Dose: IV Fluids mL (X1)Mansoor Dorsey, Bolus: 1000 mL wide open---- Dispensed: 1000 mL bagStop Site: #1 right :23 04/21/2021tenilay Palacios RN Name Value Range Interpretation Code Description Data Kim rce(s) Supporting Document(s) ID Date Data Source [id number] 04/21/2021 06:28:00 PM EDT [facility] 1 General Instructions [facility] Emergency Department [address] [place] [address] Phone #: ext- [phone] 04/21/2021 18:27 [facility]: [id number] Sex: F : 1990 Age: 30yChronic, moderately well controlled type 1 diabetes secondary to cystic fibrosis with hyperglycemia andhyperosmolar nonketotic state. No diabetic ketoacidosis or coma.Mild vulvovaginal candidiasisConstipationChronic anal fissureStress incontinence.INSTRUCTIONSWarnings: Further evaluation is necessary. It is very important to follow up with a healthcare provider.GENERAL WARNINGS: Return or contact your physician immediately if your condition worsens orchanges unexpectedly, if not improving as expected, or if other problems arise. Specifically return if pain orfever worsens.Your Current Medications: Your current home medications have been reviewed.CONTINUE TAKING THE FOLLOWING MEDICATIONS:Ambien Oral : Tablet 10 mg, daily.busPIRone HCl Oral : Tablet 5 mg, 2x a day.Effexor XR Oral : Capsule Extended Release 24 Hour 150 mg, 225mg daily.Linzess Oral : Capsule 290 mcg, daily.Nifedipine cream topical * : 2x a day.NovoLIN R Injection : Solution 100 unit/mL, insulin pump.PriLOSEC Oral : 40 mg daily.Pulmozyme Inhalation : Solution 1 mg/mL, daily.Wellbutrin XL Oral : Tablet Extended Release 24 Hour 150 mg, daily.Xanax Oral : Tablet 0.5 mg, daily.Zenpep Oral : Capsule Delayed Release Particles [id number] unit, 1 capsule 3x a day.Prescription Medications:fluconazole 150 mg tablet Take 1 tablet single dose as needed for 1 days -- May repeat in 1 week if s/spersist. Dispense 2 tablet. Refills: 0. Substitution permitted. Note to Pharmacy - USE Rx DISCOUNTCARD: $12.85, BIN:[id number], PCN:VIANCA, Group:[id number], ID:[id number].Pharmacy - [facility] #[id number] - [address], [place] [id number]. .Follow-up:Follow up with a specialist as scheduled. Reason for referral: evaluation and treatment. Summary of careprovided to patient. 2 General Instructions [facility] Emergency Department [address] [place] [id number] Phone #: ext- [phone] 04/21/2021 18:27 Patient: LIDIA AMAYA Sex: F : 1990 Age: 30yUnderstanding of the discharge instructions verbalized by patient. ADDITIONAL INFORMATIONDiabetes with High Blood SugarYou have been treated for high blood sugar (hyperglycemia). This may be because of an infection orother illness. Or it may be from eating too many sweets or starches. Or it may be from not takingenough insulin or other diabetes medicine.Home careCheck your blood sugar level at least 2 times a day. Write it down the results. Do this beforebreakfast and before dinner. If you take insulin, also write down your routine insulin dose. Note anyother doses you needed based on your sliding scale or as advised by your healthcare provider. [place] for the next 3 to 5 days.High blood sugar may cause symptoms that you can learn to spot. These include: Peeing often Thirst Headache Breath that smells fruity Nausea or vomiting Belly painIf you have symptoms of high blood sugar, use a blood or urine test to find out what your blood sugarlevel is. If it is above your usual range, use the sliding scale regular insulin dose from your healthcareprovider. Call your provider for advice if you were not given a range for your insulin dose. If yourblood sugar is over 240 mg/dL, check your urine for ketones.Follow- up careFollow up with your healthcare provider, or as advised. You may need to meet with your provider inthe next week. You will likely look at your blood sugar records together. You may need to changeyour dose of insulin or other diabetes medicine.When to seek medical adviceCall your healthcare provider right away if these occur: 3 General Instructions [facility] Emergency Department [address] [place] [address] Phone #: ext- [phone] 04/21/2021 18:27 ----- Patient: LIDIA AMAYA Sex: F : 1990 Age: 30y Symptoms of high blood sugar that don't get better with the treatment your provider advised. This is especially true if you also have ketones in your urine. Blood sugar over 300 mg/dl. If you can't reach your healthcare provider, go to a hospital emergency room or urgent care center.Call 120[facility]ci 911 if you have any of the following: Confusion Dizziness, lightheadedness, or loss of consciousness Shortness of breath Chest pain Weakness of an arm, leg, or one side of the face Sudden trouble with speech or vision [id number] [employer] [place] [address]. All rights reserved. This information is not intended as asubstitute for professional medical care. Always follow your healthcare professional's instructions.Yeast Infection (Lala Vaginal Infection)You have a Lala vaginal infection. This is also known as a yeast infection. It is most often causedby a type of yeast (fungus) called Lala. Lala are normally found in the vagina. But if theyincrease in number, this can lead to infection and cause symptoms. 4 General Instructions [facility] Emergency Department [address] [place] [address] Phone #: [phone] 04/21/2021 18:27 [id number] Sex: F : 1990 Age: 30ySymptoms of a yeast infection can include: Clumpy or thin, white discharge, which may look like cottage cheese Itching or burning Burning with urinationCertain factors can make a yeast infection more likely. These can include: Taking certain medicines, such as antibiotics or control pills Diabetes Weak immune systemA yeast infection is most often treated with antifungal medicine. This may be given as a vaginal creamor pills you take by mouth. Treatment may last for about 1 to 7 days. Women with severe or recurrentinfections may need longer courses of treatment.Home care If you're prescribed medicine, be sure to use it as directed. Finish all of the medicine, even if your symptoms go away. Note: Don't try to treat yourself using [id number] products without talking to your provider first. He or she will let you know if this is a good option for you. Ask your provider what steps you can take to help reduce your risk of having a yeast infection in the future.Follow-up careFollow up with your healthcare provider, or as directed.When to seek medical adviceCall your healthcare provider right away if: You have a fever of 100.4F (38C) or higher, or as directed by your provider. Your symptoms worsen, or they don't go away within a few days of starting treatment. You have new pain in the lower belly or pelvic region. You have side effects that bother you or a reaction to the cream or pills you're prescribed. You or any partners you have sex with have new symptoms, such as a rash, joint pain, or sores. 5 General Instructions [facility] Emergency Department [address] [place] [address] Phone #: ext- [phone] 04/21/2021 18:27 Patient: LIDIA AMAYA Sex: F : 1990 Age: 30y [phone] [employer] [place] [address]. All rights reserved. This information is not intended as asubstitute for professional medical care. Always follow your healthcare professional's instructions.Constipation (Adult)Constipation means that you have bowel movements that are less frequent than usual. Stools oftenbecome very hard and difficult to pass.Constipation is very common. At some point in life, it affects almost everyone. Since everyone'sbowel habits are different, what is constipation to one person may not be to another. Your healthcareprovider may do tests to diagnose constipation. It depends on what he or she finds when evaluatingyou.Symptoms of constipation include: Abdominal pain Bloating Vomiting Painful bowel movements Itching, swelling, bleeding, or pain around the anusCausesConstipation can have many causes. These include: Diet low in fiber Too much dairy Not drinking enough liquids Lack of exercise or physical activity (especially true for older adults) 6 General Instructions [facility] Emergency Department [address] [place] [address] Phone #: ext- [phone] 04/21/2021 18:27 Patient: LIDIA AMAYA Sex: F : 1990 Age: 30y Changes in lifestyle or daily routine, including , aging, work, and travel Frequent use or misuse of laxatives Ignoring the urge to have a bowel movement or delaying it until later Medicines, such as certain prescription pain medicines, iron supplements, antacids, certain antidepressants, and calcium supplements Diseases like irritable bowel syndrome, bowel obstructions, stroke, diabetes, thyroid disease, Parkinson disease, hemorrhoids, and colon cancerComplicationsPotential complications of co nstipation can include: Hemorrhoids Rectal bleeding from hemorrhoids or anal fissures (skin tears) Hernias Dependency on laxatives Chronic constipation Fecal impaction, a severe form of constipation in which a large amount of hard stool is in your rectum that you can't pass Bowel obstruction or perforationHome careAll treatment should be done after talking with your healthcare provider. This is especially true if youhave another medical problems, are taking prescription medicines, or are an older adult. Treatmentmost often involves lifestyle changes. You may also need medicines. Your healthcare provider will tellyou which will work best for you. Follow the advice below to help avoid this problem in the future.Lifestyle changesThese lifestyle changes can help prevent constipation: Diet. Eat a high-fiber diet, with fresh fruit and vegetables, and reduce dairy intake, meats, and processed foods Fluids. It's important to get enough fluids each day. Drink plenty of water when you eat more fiber. If you are on diet that limits the amount of fluid you can have, talk about this with your healthcare provider. 7 General Instructions [facility] Emergency Department [address] [place] [address] Phone #: [phone]- [phone] 04/21/2021 18:27 Patient: LIDIA AMAYA Sex: F : 1990 Age: 30y Regular exercise. Check with your healthcare provider first.MedicinesTake any medicines as directed. Some laxatives are safe to use only every now and then. Others canbe taken on a regular basis. While laxatives don't cause bowel dependence, they are treating thesymptoms. So your constipation may return if you don't make other changes. Talk with yourhealthcare provider or pharmacist if you have questions.Prescription pain medicines can cause constipation. If you are taking this kind of medicine, ask yourhealthcare provider if you should also take a stool softener.Medicines you may take to treat constipation include: Fiber supplements Stool softeners Laxatives Enemas Rectal suppositoriesFollow-up careFollow up with your healthcare provider if symptoms don't get better in the next few days. You mayneed to have more tests or see a specialist.Call [phone] if any of these occur: Trouble breathing Stiff, rigid abdomen that is severely painful to touch Confusion Fainting or loss of consciousness Rapid heart rate Chest painWhen to seek medical adviceCall your healthcare provider right away if any of these occur: 8 General Instructions [facility] Emergency Department [address] [place] [address] Phone #: ext- [phone] 04/21/2021 18:27 Patient: LIDIA AMAYA Sex: F : 1990 Age: 30y Fever of 100.4F (38C) or higher, or as directed by your healthcare provider Failure to resume normal bowel movements Pain in your abdomen or back gets worse Nausea or vomiting Swelling in your abdomen Blood in the stool Black, tarry stool Involuntary weight loss Weakness [phone] [employer]. [address] [place] [address], [place] [address]. All rights reserved. This information is not intended as asubstitute for professional medical care. Always follow your healthcare professional's instructions.Lower Gastrointestinal (GI) Bleeding (Stable)You have signs of blood in your stool. This is called rectal bleeding. The bleeding may have begun inanother part of your gastrointestinal (GI) tract. If the blood is bright red, it is likely coming from thelower part of the GI tract. If the blood is black or dark, it might be coming from higher up in the GItract. Very small amounts of GI bleeding may not be visible and can only be discovered during a teston your stool. Possible causes of lower GI bleeding include: Swollen inflamed veins in the rectum (hemorrhoids) Tear in the lining of the anus (anal fissures) Inflammation of a small pouch in the intestine (diverticulitis) Inflammatory bowel disease (Crohn's disease or ulcerative colitis) Polyps (growths) in the intestine Swelling and irritation of the colon (infectious colitis) Colon cancerNote: Iron supplements and medicines for diarrhea or upset stomach can cause black stools. Foodssuch as licorice and red beets can also discolor the stool and be mistaken for bleeding. These are notbleeding and are not a cause for alarm.Home care 9 General Instructions [facility] Emergency Department [address] [place] [address] Phone #: ext- [phone] 04/21/2021 18:27 Patient: LIDIA AMAYA Sex: F : 1990 Age: 30yYou have not lost a large amount of blood and your condition appears stable at this time. You mayresume normal activity as long as you feel well.Don't take NSAIDs, such as aspirin, ibuprofen, or naproxen. They can irritate the stomach and causefurther bleeding. If you are taking these medicines for other medical reasons, talk to your healthcareprovider before you stop them.Follow-up careFollow up with your healthcare provider, or as advised. Further tests may be needed to find the causeof your bleeding.When to seek medical adviceCall your healthcare provider right away for any of the following: Large amount of rectal bleeding Increasing abdominal pain Weakness, dizzinessCall 911Call 911 if any of the following occur: Loss of consciousness Vomiting blood [phone] [employer] [place] [address]. All rights reserved. This information is not intended as asubstitute for professional medical care. Always follow your healthcare professional's instructions.Urinary Incontinence, Female (Adult)Urinary incontinence means loss of bladder control. This problem affects many women, especially asthey get older. If you have incontinence, you may be e mbarrassed to ask for help. But know that thisproblem can be treated.Types of IncontinenceThere are different types of incontinence. Two of the main types are described here. You can havemore than one type. Stress incontinence. With this type, urine leaks when pressure (stress) is put on the bladder. This may happen when you cough, sneeze, or laugh. Stress incontinence most often 10 General Instructions [facility] Emergency Department [address] [place] [address] Phone #: ext- [phone] 04/21/2021 18:27 Patient: LIDIA AMAYA Sex: F : 1990 Age: 30y occurs because the pelvic floor muscles that support the bladder and urethra are weak. This can happen after and vaginal childbirth or a hysterectomy. It can also be due to excess body weight or hormone changes. Urge incontinence (also called overactive bladder). With this type, a sudden u rge to urinate is felt often. This may happen even though there may not be much urine in the bladder. The need to urinate often during the night is common. Urge incontinence most often occurs because of bladder spasms. This may be due to bladder irritation or infection. Damage to bladder nerves or pelvic muscles, constipation, and certain medicines can also lead to urge incontinence.Treatment depends on the cause. Further evaluation is needed to find the type you have. This willlikely include an exam and certain tests. Based on the results, you and your healthcare provider canthen plan treatment. Until a diagnosis is made, the home care tips below can help ease symptoms.Home care Do pelvic floor muscle exercises, if they are prescribed. The pelvic floor muscles help support the bladder and urethra. Many women find that their symptoms improve when doing special exercises that strengthen these muscles. To do the exercises, contract the muscles you would use to stop your stream of urine. But do this when you're not urinating. Hold for 10 seconds, then relax. Repeat 10 to 20 times in a row, at least 3 times a day. Your healthcare provider may give you other instructions for how to do the exercises and how often. Keep a bladder diary. This helps track how often and how much you urinate over a set period of time. Bring this diary with you to your next visit with the provider. The information can help your provider learn more about your bladder problem. Lose weight, if advised to by your provider. Extra weight puts pressure on the bladder. Your provider can help you create a weight-loss plan that's right for you. This may include exercising more and making certain diet changes. Don't have foods and drinks that may irritate the bladder. These can include alcohol and caffeinated drinks. Quit smoking. Smoking and other tobacco use can lead to a long-term (chronic) cough that strains the pelvic floor muscles. Smoking may also damage the bladder and urethra. Talk with your provider about treatments or methods you can use to quit smoking. If drinking large amounts of fluid makes you have symptoms, you may be advised to limit your fluid intake. You may also be advised to drink most of your fluids during the day and to limit fluids at night. If you're worried about urine leakage or accidents, you may wear absorbent pads to catch urine. Change the pads often. This helps reduce discomfort. It may also reduce the risk of skin 11 General Instructions [facility] Emergency Department [address] [place] [address] Phone #: ext- [phone] 04/21/2021 18:27 Patient: [id number] Sex: F : 1990 Age: 30y or bladder infections.Follow-up careFollow up with your healthcare provider, or as directed. It may take some to find the right treatmentfor your problem. But healthy lifestyle changes can be made right away. These include such things asexercising on a regular basis, eating a healthy diet, losing weight (if needed), and quitting smoking.Your treatment plan may include special therapies or medicines. Certain procedures or surgery mayalso be options. Talk about any questions you have with your provider.When to seek medical adviceCall the healthcare provider right away if any of these occur: Fever of 100.4F (38C) or higher, or as directed by your provider Bladder pain or fullness Belly swelling Nausea or vomiting Back pain Weakness, dizziness, or fainting [employer]. [address] [place] [address], [place] [address]. All rights reserved. This information is not intended as asubstitute for professional medical care. Always follow your healthcare professional's instructions. You have been given the following additional information: Diabetes with High Blood Sugar Yeast Infection, Vaginal (Lala Vaginal Infection) Constipation (Adult) Lower GI Bleeding (Stable) Urinary Incontinence, Female (Adult)(Electronically signed by DONIS Peters 04/22/2021 19:46) Name Value Range Interpretation Code Description Data Kim rce(s) Supporting Document(s) ID Date Data Source [id number] 04/21/2021 06:28:00 PM EDT [facility] 1 Clinical Report - Nurses [facility] Emergency Department [address] [place] [address] Phone #: ext- [phone] 04/21/2021 18:27 Patient: LIDIA AMAYA Sex: F : 1990 Age: 30yTRIAGEArrived by private vehicle. Historian: patient. Unaccompanied. ( [place] RECT[place], pain is bad and bleeding, has 2 episodes of incontinence and has had a hard timehaving a bm did have one after an enema, here today because she is scared and in pain, called thespecialist and has an appointment on 05/23, will not see earlier because she is in between insurance).Acuity: LEVEL 3.Chief Complaint: (rectal pain and mild discomfort in lower abd with some incontience).Alert. No acute distress.The patient has had nausea.Treatment DIRECTOR OF EPIDEMIOLOGY:Took Tylenol. (1000).SEPSIS SCREEN: SIRS SCREEN NEGATIVE. SEPSIS SCREEN NEGATIVE. No suspected or confirmedsigns of infection present. --18:43 04/21/21 Joana Zavaleta R.N.18:29 04/21/21. BP: 135/97. MAP: 109. HR: 87. RR: 18. O2 saturation: 100%. Temp: 97.6 F (oral). Painlevel now: 08/28. --18:43 04/21/21 Joana Zavaleta R.N.Weight: 83.9 kg stated. Height/Length: 66 inches Per Patient. BMI: 29.9. --18:29 04/21/21 Joana Zavaleta R.N.MedicationsLinzess Oral (Capsule 290 mcg), daily. --18:36 04/21/21 Joana Zavaleta R.N. PriLOSEC Oral 40 mg, daily. --18:36 04/21/21 Joana Zavaleta R.N. Zenpep Oral (Capsule Delayed Release Particles [id number] unit) 1 capsule, 3x a day. --18:369 Joana Zavaleta R.N. Pulmozyme Inhalation (Solution 1 mg/mL), daily. --18:37 04/21/21 Joana Zavaleta R.N. Effexor XR Oral (Capsule Extended Release 24 Hour 150 mg) 225mg, daily. --18:37 04/21/21 Joana Zavaleta R.N. NovoLIN R Injection (Solution 100 unit/mL) insulin pump. --18:37 04/21/21 Joana Zavaleta R.N. Wellbutrin XL Oral (Tablet Extended Release 24 Hour 150 mg), daily. --18:38 04/21/21 Joana Zavaleta R.N. busPIRone HCl Oral (Tablet 5 mg), 2x a day. --18:38 04/21/21 Joana Zavaleta R.N. Xanax Oral (Tablet 0.5 mg), daily. --18:38 04/21/21 Joana Zavaleta R.N. Ambien Oral (Tablet 10 mg), daily. --18:38 04/21/21 Joana Zavaleta R.N. Nifedipine cream topical , 2x a day. --18:45 04/21/21 Joana Zavaleta R.N.AllergiesFlagyl. 2 Clinical Report - Nurses [facility] Emergency Department [address] [place] [address] Phone #: ext- [phone] 04/21/2021 18:27 Patient: LIDIA AMAYA Sex: F : 1990 Age: 30yHYDROcodone GF. --18:35 04/21/21 Joana Zavaleta R.N.PROBLEMS:Anal Fissure.Nephrolithiasis.Depression.Constipation.Anxiety Reaction.Ibs.Acid reflux.Diabetes Mellitus.Cystic Fibrosis. --18:40 04/21/21 Joana Zavaleta R.N.ADDITIONAL SURGERIES:Cholecystectomy.Splenectomy. --18:40 04/21/21 Joana Zavaleta R.N.HistoryPAST MEDICAL HX: Immunizations: up-to-date. Last normal menstrual period- 2 days ago.SOCIAL HX: Never smoker. Occasional alcohol use. No drug use. No recent travel. No knowncontact with a sick individual. She was offered HIV testing but declined and hepatitis C testing butdeclined. She has not traveled outside the [place]Infectious disease exposure: No infectious disease exposure. The patient was not exposed to Coronavirus.(has had covid vaccine). Patient is not a known carrier of tuberculosis, hepatitis, HIV, MRSA or VRE.Patient is not a known carrier of CRE.SELF HARM ASSESSMENT: Self harm assessment was performed. The patient answered "no" to thequestion(s) "Have you recently felt down, depressed, or hopeless?" and "Do you have thoughts of harmingor killing yo urself?".ABUSE ASSESSMENT: Abuse assessment. Abuse denied. No suspicion of abuse. No report of abuse.NUTRITIONAL RISK ASSESSMENT: The nutritional risk assessment revealed no deficiencies.FUNCTIONAL ASSESSMENT: Functional assessment: no impairments noted.LEARNING NEEDS ASSESSMENT: The learning needs assessment revealed no barriers.FALL RISK ASSESSMENT: Fall risk assessment completed. No risk factors identified.SKIN INTEGRITY ASSESSMENT: Skin integrity risk assessment completed. No skin integrity riskidentified. --18:43 04/21/21 Joana Zavaleta R.N.Interventions 3 Clinical Report - Nurses [facility] Emergency Department [address] [place] [address] Phone #: ext- [phone] 04/21/2021 18:27 Patient: LIDIA AMAYA Sex: F : 1990 Age: 30y Identification band on patient. To treatment room. --18:43 04/21/21 Joana Zavaleta R.N.PHYSICAL ASSESSMENTGENERAL / NEURO / PSYCH: Alert. Appears in no acute distress.HEENT: Mucous membranes are pink.RESPIRATORY: Respirations not labored. Breath sounds within normal limits.CVS: Normal sinus rhythm noted. Capillary refill less than 2 seconds.GI / : Abdomen soft and nontender. Bowel sounds within normal limits. Blood present in the stool. (pt reporting 2x episodes urinary incontinence, diffciulty having BMs, and blood in stool as chronic).SKIN: Skin is warm and dry. --19:12 04/21/21 Mansoor Dorsey.NURSING PROGRESS NOTESPatient gowned. Reassurance given. Two patient identifiers checked. Call light placed in reach. Siderails up x 2. Bed placed in lowest position. Brakes of bed on. Patient ready for evaluation. --18:4304/21/21 Joana Zavaleta R.N. 19:30 04/21/2021 Protonix (Pantoprazole Sodium) PO Tablets 40 mg given. Allergies verified and confirmed 5 rights. Information reviewed with patient including reason for taking this medication, signs of allergic reaction and precautions. Verbalizes understanding. --19:30 04/21/21 Mansoor Dorsey 20:07 04/21/2021 Site #1 started via IV in the right forearm with an 20g angiocath; one attempt. Saline lock flushed with 10 mL saline (previous attempts made by primary and charge nurse). --20:07 04/21/21 Yenifer Palacios R.N. 20:13 04/21/2021 Started bag #1 1000 mL IV Fluids NS; bolus of 1000 mL wide open via site #1 via IV pump. Allergies verified and confirmed 5 rights. IV patency established. IV site checked: no pain, redness, or swelling. IV flushed thoroughly pre- and post-medication administration. Information reviewed with patient including reason for taking this medication, signs of allergic reaction and precautions. Verbalizes understanding. --20:13 04/21/21 Mansoor Dorsey 20:13 04/21/2021 [facility] IV * IV Fluids 1000mg Infuse over 15mins --20:13 04/21/21 Mansoor Bañuelos Reassessment after medication administered. No adverse reaction. Reassessment after fluids administered. She reports no complaints and she is calm and resting quietly. Overall patient status is the same- she states feels the same. Two patient identifiers checked. Call light placed in reach. Side rails up x 2. Bed placed in lowest position. Brakes of bed on. Patient waiting for evaluation, lab results and disposition. --21:01 04/21/21 Mansoor Dorsey 21:14 04/21/2021 [facility] IV IV Fluids Discontinued: bag #1 infused. Total amount infused: 100 mL. IV patency established. IV site checked: no pain, redness, or swelling. IV flushed thoroughly. --21:29 04/21/21 Mansoor Dorsey 21:27 04/21/2021 Started bag #1 1000 mL IV Fluids NS; bolus of 1000 mL wide open then at via site #1 via IV pump. Allergies verified and confirmed 5 rights. IV patency established. IV site checked: no pain, 4 Clinical Report - Nurses [facility] Emergency Department [address] [place] [address] Phone #: ext- [phone] 04/21/2021 18:27 Patient: LIDIA AMAYA Sex: F : 1990 Age: 30y redness, or swelling. IV flushed thoroughly pre- and post-medication administration. Information reviewed with patient including reason for taking this medication, signs of allergic reaction and precautions. Verbalizes understanding. --21:27 04/21/21 Mansoor Dorsey 21:29 04/21/2021 IV Fluids NS via IV site #1 Discontinued: bag #1 infused. Total amount infused: 1000 mL. IV patency established. IV site checked: no pain, redness, or swelling. IV flushed thoroughly. --21:29 04/21/21 Mansoor Dorsey Oxygen administered. Monitoring of patient in place. Reassurance given to the patient. Rounding: Pain: denies pain. Position: states comfortable and repositioned. Personal care / toileting: denies toileting needs. Proximity of possessions / care items: call light within easy reach. Plug ins: assured IV pump plugged in; checked status of equipment in use; located all cords, tubes, and lines to prevent fall hazard. Set expectations: advised patient of rounding protocol timing and asked if they needed anything else at this time. Reassessment after medication administered. No adverse reaction. Pain gone now. Reassessment after fluids administered. She reports no complaints, she is calm, resting quietly and sleeping and she has had no adverse reaction. Overall patient status is improved- she states feels the same. Two patient identifiers checked. Call light placed in reach. Side rails up x 2. Bed placed in lowest position. Brakes of bed on. --21:36 04/21/21 Mansoor Dorsey 22:23 04/21/2021 IV Fluids NS via IV site #1 Discontinued: bag #2 completed. Total amount infused: 1000 mL. IV patency established. IV site checked: no pain, redness, or swelling. IV flushed thoroughly. --22:38 04/21/21 Delgado Palacios RN.DISPOSITION / DISCHARGE [place] Coma Scale: 15- eyes open- spontaneous (4); best verbal response- oriented (5); best motor response- obeys commands (6). Condition at departure: improved. No learning barriers present. Discharge instructions provided and reviewed with the patient. Reviewed me dication(s) side effects, precautions, dosing and course information. Prescription(s) sent electronically to pharmacy. Reviewed referral to a surgeon for followup. Patient verbalized understanding. The patient was discharged home. She left ambulatory and via private vehicle. Patient driving. --:37 04/21/21 Delgado Palacios RN 22:33 04/21/21. BP: 125/77 (regular adult cuff) taken on the right arm, via an automated monitor, while lying. MAP: 93. HR: 74 (regular, normal rate and strong). RR: 16 (regular, unlabored and normal). O2 saturation: 100% on room air. Temp: 97.1 F (oral). Pain level now: 0/10. --:37 04/21/21 Delgado Palacios RN Departure time: :04/21/2021. --:04/21/21 Delgado Palacios RN.Locked/Released at 04/21/2021 22:38 by Delgado Palacios RN 5 Clinical Report - Nurses [facility] Emergency Department [address] [place] [address] Phone #: ext- [phone] 04/21/2021 18:27 Patient: LIDIA AMAYA Sex: F : 1990 Age: 30y Name Value Range Interpretation Code Description Data Kim rce(s) Supporting Document(s) ID Date Data Source [id number] 04/21/2021 06:28:00 PM EDT [facility] 1 Clinical Report - Physicians/Mid Levels [facility] Emergency Department [address] [place] [address] Phone #: ext- [phone] 04/21/2021 18:27 Patient: LIDIA AMAYA Sex: F : 1990 Age: 30y Time Seen: 19:03 04/21/2021. Arrived- By private vehicle. Historian- patient.HISTORY OF PRESENT ILLNESS Chief Complaint: ABDOMINAL PAIN Constipation, anal fissure, urinary incontinence. (HAS A RECTAL FISSURE sees specialist in [place], pain is bad and bleeding, has 2 episodes of incontinence and has had a hard time having a bm did have one after an enema, here today because she has had two episodes of urinary incontinence and is scared and in pain, called the specialist and has an appointment on 05/23, will not see earlier because she is in between insurance). Still present. It was gradual in onset and has been intermittent. The symptoms are described as moderate. The patient has had abdominal pain. No pelvic pain, vaginal pain, low back pain, flank pain or pain with urination. No urinary frequency, urgency of urination or hematuria. Last n ormal menstrual period- 2 days ago. Similar symptoms previously. Patient has had similar symptoms several times. Recent medical care: Not recently seen/assessed.REVIEW OF SYSTEMSNo nausea, vomiting, diarrhea, black stools or headache. No fever, chills, anorexia, eye discomfort orsore throat. No cough, difficulty breathing, chest pain, skin rash or enlarged lymph nodes. No joint pain.PAST HISTORYProblems:Depression.Nephrolithiasis.Anal Fissure.Constipation.Anxiety Reaction.Ibs.Acid reflux.Diabetes Mellitus.Cystic Fibrosis. Additional Surgeries: Cholecystectomy. Splenectomy. 2 Clinical Report - Physicians/Mid Levels [facility] Emergency Department [address] [place] [address] Phone #: ext- [phone] 04/21/2021 18:27 Patient: LIDIA AMAYA Sex: F : 1990 Age: 30y Medications: Nifedipine cream topical , 2x a day. Ambien Oral (Tablet 10 mg), daily. Xanax Oral (Tablet 0.5 mg), daily. busPIRone HCl Oral (Tablet 5 mg), 2x a day. Wellbutrin XL Oral (Tablet Extended Release 24 Hour 150 mg), daily. NovoLIN R Injection (Solution 100 unit/mL) insulin pump. Effexor XR Oral (Capsule Extended Release 24 Hour 150 mg) 225mg, daily. Pulmozyme Inhalation (Solution 1 mg/mL), daily. Zenpep Oral (Capsule Delayed Release Particles [id number] unit) 1 capsule, 3x a day. PriLOSEC Oral 40 mg, daily. Linzess Oral (Capsule 290 mcg), daily. Allergies: Flagyl. HYDROcodone GF.SOCIAL HISTORYNever smoker. Occasional alcohol use. No drug use.PHYSICAL EXAMVital Signs: 04/21/2021 18:29 BP: 135/97. MAP: 109. HR: 87. RR: 18. O2 saturation: 100%. Temp: 97.6F. Pain level now: 08/28. Have been reviewed as normal. Oxygen saturation normal.Appearance: Alert. Oriented X3. No acute distress.HEENT: Normal external inspection.ENT: Pharynx normal.Neck: Neck supple.CVS: Heart sounds normal.Respiratory: No respiratory distress. Breath sounds normal. Chest nontender.Abdomen: Soft and nontender. Bowel sounds normal. No organomegaly. No mass.Back: Normal external inspection.Skin: Skin warm and dry. Normal skin color. No rash. Normal skin turgor.Extremities: Extremities nontender. No lower extremity edema.Neuro: Oriented X 3.LABS, X-RAYS, AND EKGCT Abdomen - Pelvis: 1. Prominent caliber retrocecal appendix, with no regional inflammation. Becauseof the size,correlate for any clinical signs of appendicitis.2. Hepatic steatosis.3. Small nonobstructing renal calculi.4. Constipation.5. 3.7 cm right ovarian cyst.6. Pancreatic atrophy. Study type: upper abdomen; lower abdomen; pelvis. Abdomen - pelvic CTperformed with IV contrast. The study was interpreted by the radiologist and contemporaneously by me. 3 Clinical Report - Physicians/Mid Levels [facility] Emergency Department [address] [place] [address] Phone #: ext- [phone] 04/21/2021 18:27 ------- Patient: LIDIA AMAYA Sex: F : 1990 Age: 30yInterpretation time: 22:07 04/21/2021.Laboratory Tests: Laboratory tests have been ordered, with results reviewed and considered in themedical decision making process.CBC w Diff: (PRISCILLA: 04/21/2021 19:10) ( MsgRcvd 04/21/2021 19:54) Final results Test Result Flag Units (Reference) CBC W/AUTOMATED DIFF COMPLETE BLOOD COUNT WBC 12.5 H 10/uL (4.2 - 11.0) RBC 4.61 10/uL (4.20 - 5.40) HEMOGLOBIN 13.9 g/dL (12.0 - 16.0) HEMATOCRIT 41.3 % (37.0 - 47.0) MCV 89.6 fL (81.0 - 101) MCH 30.2 pg (27.0 - 34.0) MCHC 33.7 g/dL (31.0 - 36.0) RDW 13.2 % (11.5 - 14.5) PLATELETS 584 H 10/uL (150 - 450) MPV 11.0 H fL (7.4 - 10.4) NEUT 61.3 % (37.0 - 80.0) LYMPH 24.2 L % (25.0 - 40.0) MONO 11.0 H % (3.0 - 8.0) EOS 2.6 % (0.0 - 7.0) BASO 0.7 % (0.0 - 2.5) %IG 0.2 H % (0.0 - 0.0) %NRBC 0.0 % (0.0 - 0.0) #NEUT 7.68 H 10/uL (2.00 - 6.90) #LYMPH 3.03 10/uL (0.60 - 3.40) #MONO 1.38 H 10/uL (0.00 - 0.90) #EOS 0.33 10/uL (0.00 - 0.70) #BASO 0.09 10/uL (0.00 - 0.20) #IG 0.03 10/uL (0.00 - 0.10) #NRBC 0.00 10/uL (0.00 - 0.00) MANUAL DIFF SEE BELOW SEGS 66 % (37 - 80) %LYMPH 22 L % (25 - 40) %MONO 9 H % (3 - 8) %EOS 3 % (0 - 7) RBC MORPH NOT INDICATEDCMP: (PRISCILLA: 04/21/2021 19:10) ( MsgRcvd 04/21/2021 19:50) Final results Test Result Flag Units (Reference) COMPREHENSIVE METABOLIC PANEL COMPREHENSIVE METABOLIC PANEL SODIUM 134 mEq/L (134 - 153) POTASSIUM 4.4 mEq/L (3.6 - 5.0) CHLORIDE 97 L mEq/L (98 - 107) CO2 25 MEQ/L (22 - 30) GLUCOSE 449 HH MG/DL (70 - 99) CALL/ READ BACK Dr. Pemberton in ED BY: GOLDEN DATE/TIME 04.21.21 at 1945. BUN 8 MG/DL (7 - 21) CREATININE 1.2 MG/DL (0.7 - 1.5) BUN/CREAT 7 L (8 - 27) TOTAL PROTEIN 6.8 G/DL (6.3 - 8.2) ALBUMIN 4.1 G/DL (3.9 - 5.0) 4 Clinical Report - Physicians/Mid Levels [facility] Emergency Department [address] [place] [address] Phone #: ext- [phone] 04/21/2021 18:27 Patient: LIDIA AMAYA Sex: F : 1990 Age: 30y GLOBULIN 2.7 GM/DL (2.4 - 3.2) A/G RATIO 1.5 (0.8 - 2.0) CALCIUM 9.7 MG/DL (8.4 - 10.2) TOTAL BILI <0.7 MG/DL (0.2 - 1.3) ALKALINE PHOS 256 H U/L (38 - 126) SGOT/AST 39 U/L (5 - 40) SGPT/ALT 88 H U/L (7 - 56) ANION GAP 12.0 mmol/L (8.0 - 16.0) AGE 30 yrs NON-AA GFR 56 mL/min AFR AMER GFR >60 mL/min Male GFR Interprentation 20-49 yrs >60 mL/min Normal 50-59 yrs >56 mL/min Normal 60- 69 yrs >49 mL/min Normal 70-79yrs >42 mL/min Normal 80 and above >35 mL/min Normal Female GFR Interpretation 20-39 yrs >60 mL/min Normal 40-49 yrs >58 mL/min Normal 50-59 yrs >51 mL/min Normal 60-69 yrs >45 mL/min Normal 70-79 yrs >39 mL/min Normal 80 and above >32 mL/min Normal Lactic Acid: (PRISCILLA: 04/21/2021 19:10) ( [facility] 04/21/2021 19:32) Final results Test Result Flag Units (Reference) LACTIC ACID 3.0 H MMOL/L (0.2 - 2.2) Lipase: (PRISCILLA: 04/21/2021 19:10) ( [facility] 04/21/2021 19:50) Final results Test Result Flag Units (Reference) LIPASE 5 L U/L (13 - 60) Urinalysis: (PRISCILLA: 04/21/2021 18:45) ( [facility] 04/21/[facility]21 19:19) Final results Test Result Flag Units (Reference) URINALYSIS URINALYSIS SOURCE R COLOR yellow (NORMAL: Yello CLARITY clear (NORMAL: Clear SPEC GRAVITY 1.015 (1.001 - 1.030 pH 5 (5 - 9) GLUCOSE 1000 A (NORMAL: Negat BILIRUBIN NEG (NORMAL: Negat KETONE NEG (NORMAL: Negat PROTEIN NEG (NORMAL: Negat NITRITE NEG (NORMAL: Negat BLOOD 25 A (NORMAL: Negat LEUK EST NEG (NORMAL: Negat UROBILINOGEN NOR (less than 1.0 MICROSCOPIC See Below WBC 0 - 1 (NORMAL: NONE RBC 0 - 1 (NORMAL: NONE EPITHELIAL FEW (NORMAL: NONE BACTERIA Trace (NORMAL: NONE YEAST Trace A.PROGRESS AND PROCEDURESCourse of Care: 22:Apr 21 2021. Evaluation after observation and results of tests back. (DiscussedCT findings, labs and repeat Accucheck 267 and pt is feeling much better. Pt is agreeable with dx and tx 5 Clinical Report - Physicians/Mid Levels [facility] Emergency Department [address] [place] [address] Phone #: ext- [phone] 04/21/2021 18:27 Patient: LIDIA AMAYA Sex: F : 1990 Age: 30y plan.). Patient counseled in person regarding the patient's stable condition, test results, diagnosis and need for follow-up. Patient agrees with plan of care. 22:Apr 21 2021. 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 No diabetic ketoacidosis or coma. Mild vulvovaginal candidiasis Constipation Chronic anal fissure Stress incontinence.INSTRUCTIONS Warnings: Further evaluation is necessary. It is very important to follow up with a healthcare provider. GENERAL WARNINGS: Return or contact your physician immediately if your condition worsens or changes unexpectedly, if not improving as expected, or if other problems arise. Specifically return if pain or fever worsens. Your Current Medications: Your current home medications have been reviewed. CONTINUE TAKING THE FOLLOWING MEDICATIONS: Ambien Oral : Tablet 10 mg, daily. busPIRone HCl Oral : Tablet 5 mg, 2x a day. Effexor XR Oral : Capsule Extended Release 24 Hour 150 mg, 225mg daily. Linzess Oral : Capsule 290 mcg, daily. Nifedipine cream topical * : 2x a day. NovoLIN R Injection : Solution 100 unit/mL, insulin pump. PriLOSEC Oral : 40 mg daily. Pulmozyme Inhalation : Solution 1 mg/mL, daily. Wellbutrin XL Oral : Tablet Extended Release 24 Hour 150 mg, daily. Xanax Oral : Tablet 0.5 mg, daily. Zenpep Oral : Capsule Delayed Release Particles [id number] unit, 1 caps ule 3x a day. Prescription Medications: fluconazole 150 mg tablet Take 1 tablet single dose as needed for 1 days -- May repeat in 1 week if s/s persist. Dispense 2 tablet. Refills: 0. Substitution permitted. Note to Pharmacy - USE Rx DISCOUNT CARD: $12.85, BIN:[id number], PCN:[id number], Group:[id number], ID:[id number]. [id number] [address], [place] [id number]. 6 Clinical Report - Physicians/Mid Levels [facility] Emergency Department [address] [place] [address] Phone #: ext- [phone] 04/21/2021 18:27 [facility]: [id number] Sex: F : 1990 Age: 30y . Follow-up: Follow up with a sp ecialist as scheduled. Reason for referral: evaluation and treatment. Summary of care provided to patient. Understanding of the discharge instructions verbalized by patient.(Electronically signed by DONIS Peters 04/22/2021 19:46) Name Value Range Interpretation Code Description Data Kim rce(s) Supporting Document(s) ID Date Data Source [id number] 04/21/2021 06:28:00 PM EDT [facility] Addenda for LIDIA AMAYA VisitID: [id number] Date: 14:29accucheck order done in error, no finger stick glucose reading done (for Robert)(Electronically signed by Gerard Chinchilla M.D. - 04/26/2021 14:29) Name Value Range Interpretation Code Description Data Kim rce(s) Supporting Document(s) ID Date Data Source [id number] 04/25/2021 08:12:00 AM EDT [facility] Name Value Range Interpretation Code Description Data Kim rce(s) Supporting Document(s) SARS coronavirus 2 RNA [Presence] in Res piratory specimen by KALIN with probe detection NEGATIVE [facility] This lab was ordered by [facility] a nd reported by [facility]. ID Date Data Source [id number] 04/23/2021 12:07:00 PM EDT [facility] Name Value Range Interpretation Code Description Data Kim rce(s) Supporting Document(s) SARS coronavirus 2 RNA [Presence] in Res piratory specimen by KALIN with probe detection NEGATIVE [facility] This lab was ordered by [facility] a nd reported by [facility]. ID Date Data Source [id number] 04/22/2021 03:59:00 PM EDT [facility] [address] [place] [address] PHONE: [phone] FAX: [phone] Name .................. : [facility]rez [facility] Number.................. : [id number] ROOM. ................. : TR-05 Number ................... : [id number] Stay type ............. : E/R Discharge Date......... ... : 04/21/21 Admit Date ......... : 04/21/21 Admit Phys .................... : NIECY Date of ....... : 1990 Family Phys ................... : Phone .................. : [phone] Age ................................ : 30 Film# .................. .:[id number] Sex ................................. : F Unsigned transcriptions are preliminary reports and do not represent a medical or legal document CT ABD & PELVIS W/ IV ONLY [id number] COMPLETE:04/21/21 22:32 DLA Reason(s): Abdominal Pain CT ABDOMEN AND PELVIS WITH IV CONTRAST INDICATION: Abdominal pain, GI bleed COMPARISON: None IV CONTRAST: 75 cc Isovue-[id number] Preliminary report for this exam was provided by [employer] . One or more of the following dose reduction techniques were utilized in effectively lowering the radiation dose for this examination: Automated Exposure Control, Adjustment of the mA and/or kV according to patient size, or Iterative reconstruction. FINDINGS: LUNG BASES: No pulmonary nodules or masses. No pleural effusions. LIVER/BILIARY: Severe hepatic steatosis. No focal liver lesion. Cholecystectomy. SPLEEN: Removed PANCREAS: Severe fatty replacement. ADRENALS: Normal bilaterally. KIDNEYS/: 3 mm peripheral left mid kidney calculus. Additional bilateral punctate calculi. No hydronephrosis. No solid or cystic renal masses are identified. Grossly normal bladder. Page 1 of 3 [facility] [address] [place] [address] PHONE: [phone] FAX: [phone] Name .................. : MONIQUE Torrez Acct Number.................. : [id number] ROOM. ................. : TR-05 MR Number ................... : [id number] Stay type ............. : E/R Discharge Date......... ... : 04/21/21 Admit Date ......... : 04/21/21 Admit Phys .................... : NIECY Date of ....... : 1990 Family Phys ................... : Phone .................. : [phone] Age ................................ : 30 Film# .................. .:[id number] Sex ................................. : F Unsigned transcriptions are preliminary reports and do not represent a medical or legal document CT ABD & PELVIS W/ IV ONLY 32258 COMPLETE:04/21/21 22:32 DLA Reason(s): Abdominal Pain No abnormal enlargement of the uterus or left adnexal structures. Right adnexal 37 mm cyst. No calcification or cyst wall hyperemia is noted. BOWEL/GI: No diverticulitis or colitis. No free air or free fluid. Retrocecal appendix. Appendiceal diameter of 10 mm is larger than normal but there is no surrounding inflammatory change. No low attenuation contents to suggest mucocele. Moderately increased throughout colon. No abnormal gastric distention. NODES/RETROPERITONEUM: No adenopathy. No AAA. SKELETAL: Within normal limits. IMPRESSION: Prominent appendiceal diameter but no indication of inflammatory change or mucocele. Correlate for any clinical symptoms of appendicitis. This may be normal variation for this patient. Hepatic steatosis. Splenectomy. Fatty pancreas replacement. Moderately increased stool throughout the colon without obstruction. 37 mm right ovarian cyst. No free fluid or cyst wall hyperemia. Small peripheral nonobstructive renal calculi. Electronically Reviewed and Signed By Jatinder Acosta MD , 04/22/21 15:59, SCB Page 2 of [address] [place] [address] PHONE: [phone] FAX: [phone] Name .................. : MONIQUE Torrez Acct Number.................. : [id number] ROOM. ................. : TR-05 Number ................... : [id number] Stay type ............. : E/R Discharge Date......... ... : 04/21/21 Admit Date ......... : 04/21/21 Admit Phys .................... : [facility] Date of ....... : 1990 Family Phys ................... : Phone .................. : [phone] Age ................................ : 30 Film# .................. .:[id number] Sex ................................. : F Unsigned transcriptions are preliminary reports and do not represent a medical or legal document CT ABD & PELVIS W/ IV ONLY [id number] COMPLETE:04/21/21 22:32 DLA Reason(s): Abdominal Pain Transcribe Initials: BLANCA , Transcribe Date: 04/22/21 13:14, Dictation Date: Copy for: ROBERT SHANNON via fax Copy for: EMERGENCY DEPT via modem Copy for: 710 MED REC DISCHARGED Page 3 of 3 Name Value Range Interpretation Code Description Data Kim rce(s) Supporting Document(s) ID Date Data Source [id number] 04/21/2021 07:53:00 PM EDT [facility] Name Value Range Interpretation Code Description Data Kim rce(s) Supporting Document(s) CBC W/AUTOMATED DIFF [facility] COMPLETE BLOOD COUNT Leukocytes [#/volume] in Blood by Automated count 12.5 10^3/uL 4.2 - 11.0 H [facility] Erythrocytes [#/volume] in Blood by Automated count 4.61 10^6/uL 4. 20 - 5.40 [facility] Hemoglobin [Mass/volume] in Blood 13.9 g/dL 12.0 - 16.0 [facility] Hematocrit [Volume Fraction] of Blood by Automated count 41.3 % 3 7.0 - 47.0 [facility] Erythrocyte mean corpuscular volume [Entitic volume] by Auto mated count 89.6 fL 81.0 - 101 [facility] Erythrocyte mean corpuscular hemoglobin [Entitic mass] by Automated count 30.2 pg 27.0 - 34.0 [facility] Erythrocyte mean corpuscular hemoglobin concentration [Mass/volume] by Automated count 33.7 g/dL 31.0 - 36.0 [facility] Erythrocyte distribution width [Ratio] by Automated count 13.2 % 11.5 - 14.5 [facility] Platelets [#/volume] in Blood by Automated count 584 10^3/uL 150 - 45 0 H [facility] Platelet mean volume [Entitic volume] in Blood by Automated count 11.0 fL 7.4 - 10.4 H [facility] Neutrophils/100 leukocytes in Blood by Automated count 61.3 % 37. 0 - 80.0 [facility] Lymphocytes/100 leukocytes in Blood by Manual count 24.2 % 25.0 - 40.0 L [facility] Monocytes/100 leukocytes in Blood by Automated count 11.0 % 3.0 - 8.0 H [facility] Eosinophils/100 leukocytes in Blood by Automated count 2.6 % 0.0 - 7.0 [facility] Basophils/100 leukocytes in Blood by Automated count 0.7 % 0.0 - 2.5 [facility] %IG 0.2 % 0.0 - 0.0 H [facility] %NRBC 0.0 % 0.0 - 0.0 [facility] Neutrophils [#/volume] in Blood by Automated count 7.68 10^3/uL 2.00 - 6.90 H [facility] Lymphocytes [#/volume] in Blood by Automated count 3.03 10^3/uL 0.60 - 3.40 [facility] Monocytes [#/volume] in Blood by Automated count 1.38 10^3/uL 0.00 - 0.90 H [facility] Eosinophils [#/volume] in Blood by Automated count 0.33 10^3/uL 0.00 - 0.70 [facility] Basophils [#/volume] in Blood by Automated count 0.09 10^3/uL 0.00 - 0.20 [facility] #IG 0.03 10^3/uL 0.00 - 0.10 [facility] #NRBC 0.00 10^3/uL 0.00 - 0.00 [facility] ospital MANUAL DIFF SEE BELOW [facility] ital Segmented neutrophils/100 leukocytes in Blood by Manual count 66 % 37 - 80 [facility] %LYMPH 22 % 25 - 40 L [facility] al %MONO 9 % 3 - 8 H [facility] %EOS 3 % 0 - 7 [facility] RBC MORPH NOT INDICATED [facility] ID Date Data Source [id number] 04/21/2021 07:50:00 PM EDT [facility] Name Value Range Interpretation Code Description Data Kim rce(s) Supporting Document(s) Lipase [Enzymatic activity/volume] in Serum or Plasma 5 U/L 13 - 60 L [facility] ID Date Data Source [id number] 04/21/2021 07:49:00 PM EDT [facility] Name Value Range Interpretation Code Description Data Kim rce(s) Supporting Document(s) COMPREHENSIVE METABOLIC PANEL [facility] COMPREHENSIVE METABOLIC PANEL Sodium [Moles/volume] in Serum or Plasma 134 mEq/L 134 - 153 [facility] Potassium [Moles/volume] in Serum or Plasma 4.4 mEq/L 3.6 - 5.0 [facility] Chloride [Moles/volume] in Serum or Plasma 97 mEq/L 98 - 107 L [facility] Carbon dioxide, total [Moles/volume] in Serum or Plasma 25 MEQ/L 22 - 30 [facility] Glucose [Mass/volume] in Serum or Plasma 449 MG/DL 70 - 99 HH [facility] CALL/ READ BACK Dr. Pemberton in ED [facility] BY: GOLDEN [facility]21 at 1945. [facility] BUN 8 MG/DL 7 - 21 [facility] Creatinine [Mass/volume] in Serum or Plasma 1.2 MG/DL 0.7 - 1.5 [facility] BUN/CREAT 7 8 - [address] [facility] Protein [Mass/volume] in Serum or Plasma 6.8 G/DL 6.3 - 8.2 [facility] Albumin [Mass/volume] in Serum or Plasma 4.1 G/DL 3.9 - 5.0 [facility] Globulin [Mass/volume] in Serum by calculation 2.7 GM/DL 2.4 - 3.2 [facility] A/G RATIO 1.5 0.8 - 2.0 [facility] Calcium [Mass/volume] in Serum or Plasma 9.7 MG/DL 8.4 - 10.2 [facility] Bilirubin.total [Mass/volume] in Serum or Plasma <0.7 MG/DL 0.2 - 1.3 [facility] Alkaline phosphatase [Enzymatic activity/volume] in Serum or Plasma 256 U/L 38 - 126 H [facility] Aspartate aminotransferase [Enzymatic activity/volume] in Serum or Plasma 39 U/L 5 - 40 [facility] Alanine aminotransferase [Enzymatic activity/volume] in Seru m or Plasma 88 U/L 7 - 56 H [facility] Anion gap 3 in Serum or Plasma 12.0 mmol/L 8.0 - 16.0 [facility] AGE 30 yrs [facility] NON-[facility] GFR 56 mL/min [facility] AFR AMER GFR >60 mL/min [facility] Male GFR In terprentation 20-49 yrs >60 mL/min Normal 50-59 yrs >56 mL/min Normal 60-69 yrs >49 mL/min Normal 70-79yrs >42 mL/min Normal 80 and above >35 mL/min Normal Female GFR Interpretation 20-39 yrs >60 mL/min Normal 40-49 yrs >58 mL/min Normal 50-59 yrs >51 mL/min Normal 60-69 yrs >45 mL/min Normal 70-79 yrs >39 mL/min Normal 80 and above >32 mL/min Normal ID Date Data Source [id number] 04/21/2021 07:32:00 PM EDT [facility] Name Value Range Interpretation Code Description Data Kim rce(s) Supporting Document(s) Lactate [Moles/volume] in Serum or Plasma 3.0 MMOL/L 0.2 - 2.2 H [facility] ID Date Data Source [id number] 04/21/2021 07:19:00 PM EDT [facility] Name Value Range Interpretation Code Description Data Kim rce(s) Supporting Document(s) URINALYSIS [facility] URINALYSIS SOURCE R [facility] COLOR yellow NORMAL: Yellow [facility] CLARITY clear NORMAL: Clear [facility] Specific gravity of Urine by Test strip 1.015 1.001 - 1.030 [facility] pH 5 5 - 9 [facility] al Glucose [Mass/volume] in Urine by Test strip 1000 NORMAL: Negat [facility] Bilirubin.total [Presence] in Urine by Test strip NEG NORMAL: Negative [facility] Ketones [Presence] in Urine by Test strip NEG NORMAL: Negative [facility] Protein [Mass/volume] in Urine by Test strip NEG NORMAL: Negat [facility] Nitrite [Presence] in Urine by Test strip NEG NORMAL: Negative [facility] BLOOD 25 NORMAL: Negative [facility] LEUK EST NEG NORMAL: Negative [facility] Urobilinogen [Mass/volume] in Urine by Test strip NOR less jason n 1.0 mg/dL [facility] MICROSCOPIC See Below [facility] ital WBC 0 - 1 NORMAL: NONE SEEN [facility] Erythrocytes [#/volume] in Urine by Test strip 0 - 1 NORMAL: NON E SEEN [facility] EPITHELIAL FEW NORMAL: NONE SEEN [facility] Bacteria [Presence] in Urine sediment by Light microscopy Tr toni NORMAL: NONE SEEN [facility] YEAST Trace A [facility] ID Date Data Source [id number] 02/20/2021 10:33:00 PM EDT [facility] Name Value Range Interpretation Code Description Data Kim rce(s) Supporting Document(s) Ethanol [Mass/volume] in Serum or Plasma Laboratory test result 0.000-0.010 Normal (applies to non-numeric results) [facility] ([facility]) Salicylates [Mass/volume] in Serum or Plasma Laboratory test res ult 5.0-30.0 Below low normal [facility] ([facility]) Acetaminophen [Mass/volume] in Serum or Plasma Laboratory test r esult 10.0-30.0 Below low normal [facility] ([facility]) Thyrotropin [Units/volume] in Serum or Plasma 3.050 uIU/ML 0. 358-3.740 Normal (applies to non-numeric results) [facility] ID Date Data Source [id number] 02/20/2021 10:33:00 PM EDT [facility] ([facility]) Name Value Range Interpretation Code Description Data Kim rce(s) Supporting Document(s) Glucose, Fasting 200 mg/dL 70-100 Above high normal [facility] ([facility]) Blood Urea Nitrogen 5 mg/dL 7-18 Below low normal [facility] ([facility]) Creatinine For GFR 1.03 mg/dL 0.55-1.30 Normal (applies to non -numeric results) [facility] ([facility]) Glomerular Filtration Rate Laboratory test result Normal (applies to non- numeric results) [facility] ([facility]) <content>Units are mL/min/1.73 m2</content>
<content></content>
<content>Chronic Kidney Disease Staging per NKF:</content>
<content></content>
<content>Stage I & II GFR >=60 Normal to Mildly Decreased</content>
<content>Stage III GFR 30- 59 Moderately Decreased</content>
<content>Stage IV GFR 15-29 Severely Decreased</content>
<content>Stage V GFR <15 Very Little GFR Left</content>
<content>ESRD GFR <15 on GRAPHIC PRE PRESS TRADES WORKER</content>
<content></content> Potassium Serum 4.5 meq/L 3.5-5.1 Normal (applies to non-numeric results) [facility] ([facility]) Sodium Level 140 meq/L 136-145 Normal (applies to non-numeric res ults) [facility] ([facility]) Carbon Dioxide Level 25 meq/L 21-32 Normal (applies to non-num raymon results) [facility] ([facility]) Chloride Level 106 meq/L 98-107 Normal (applies to non-numeric r esults) [facility] ([facility]) Anion Gap 9 meq/L 8-16 Normal (applies to non-numeric resul ts) [facility] ([facility]) Calcium Level 9.2 mg/dL 8.5-10.1 Normal (applies to non-numeric re sults) [facility] ([facility]) ID Date Data Source [id number] 02/20/2021 10:33:00 PM EDT [facility] ([facility]) Name Value Range Interpretation Code Description Data Kim rce(s) Supporting Document(s) Alt/SGPT 41 U/L 12-78 Normal (applies to non-numeric resul ts) [facility] ([facility]) Ast/Sgot 18 U/L 7-37 Normal (applies to non-numeric resul ts) [facility] ([facility]) Bilirubin,Total 0.2 mg/dL 0.2-1.0 Normal (applies to non-numeric results) [facility] ([facility]) Bilirubin,Direct Laboratory test result 0.0-0.2 Normal ( applies to non-numeric results) [facility] ([facility]) Alkaline Phosphatase 220 U/L 45-117 Above high normal [facility] ([facility]) Total Protein 7.7 GM/DL 6.4-8.2 Normal (applies to non-numeric re sults) [facility] ([facility]) Albumin 3.7 GM/DL 3.2-5.2 Normal (applies to non-numeric resul ts) [facility] ([facility]) Albumin/Globulin Ratio 0.9 1.2-2.2 Below low normal [facility] ([facility]) ID Date Data Source [id number] 02/20/2021 10:33:00 PM EDT [facility] ([facility]) Name Value Range Interpretation Code Description Data Kim rce(s) Supporting Document(s) White Blood Count 13.3 10 4.0-10.0 Above high normal [facility] ([facility]) Hemoglobin 14.6 g/dL 12.0-15.5 Normal (applies to non-numeric resul ts) [facility] ([facility]) Red Blood Count 4.87 10 4.00-5.40 Normal (applies to non-numeric results) [facility] ([facility]) Hematocrit 44.8 % 36.0-47.0 Normal (applies to non-numeric resul ts) [facility] ([facility]) Mean Corpuscular Volume 92.0 fl 80.0-96.0 Normal ( applies to non-numeric results) [facility] ([facility]) Mean Corpuscular HGB Conc 32.6 g/dL 32.0-36.5 Normal (applies to non-numeric results) [facility] ([facility]) Mean Corpuscular Hemoglobin 30.0 pg 27.0-33.0 Norm al (applies to non-numeric results) [facility] ([facility]) Platelet Count, Automated 687 10 150-450 Above high normal [facility] ([facility]) Red Cell Distribution Width 13.4 % 11.5-14.5 Norm al (applies to non-numeric results) [facility] ([facility]) Nucleated Red Blood Cell % 0.0 % 0-0 Normal (applies to n on-numeric results) [facility] ([facility]) ID Date Data Source [id number] 02/02/2021 09:22:50 AM EDT [facility] Name Value Range Interpretation Code Description Data Kim rce(s) Supporting Document(s) Progress Note [facility] [id number] [file] [id number]/ [file] [id number] [file] [id number] ID Date Data Source [id number] 01/10/2021 05:00:00 PM EDT [facility] ([facility]) Name Value Range Interpretation Code Description Data Kim rce(s) Supporting Document(s) Gastrointestinal (GI) Panel Laboratory test result [facility] ([facility]) This Gastrointestinal PCR Panel detects the following bacteria, parasites and viruses: [...] V). NEGATIVE by MULTIPLEXED NUCLEIC ACID PCR ID Date Data Source [id number] 01/10/2021 05:00:00 PM EDT [facility] ([facility]) Name Value Range Interpretation Code Description Data Kim rce(s) Supporting Document(s) Elastase.pancreatic [Mass/mass] in Stool Laboratory test result Normal (applies to non-numeric results) [facility] ([facility]) Request Problem Test not performed. Consistency of stool specimen too watery for analysis. TEST: [id number] Pancreatic Elastase, Fecal Testing performed at reference lab . Report copy to follow on a separate form. 01/17/21 REF LAB#:[id number] Calprotectin [Mass/mass] in Stool 31 ug/g 0-120 Normal (applies to non-numeric results) [facility] ([facility]) <content>Concentration Interpretatio n Follow-Up</content>
<content><16 - 50 ug/g Normal None</content>
<content>>50 -120 ug/g Borderline Re-evaluate in 4-6 weeks</content>
<content>>120 ug/g Abnormal Repeat as clinically</content>
<content>indicated</content>
<content></content> ID Date Data Source [id number] 01/10/2021 05:00:00 PM EDT [facility] ([facility]) Name Value Range Interpretation Code Description Data Kim rce(s) Supporting Document(s) Elastase.pancreatic [Mass/mass] in Stool Laboratory test result [facility] ([facility]) Request Problem Test not performed. Consistency of stool specimen too watery for analysis. TEST: [id number] Pancreatic Elastase, Fecal Testing performed at reference lab . Report copy to follow on a separate form. 01/17/21 REF LAB#:[id number] ID Date Data Source [id number] 01/10/2021 05:00:00 PM EDT [facility] ([facility] Name Value Range Interpretation Code Description Data Kim rce(s) Supporting Document(s) Gastrointestinal (GI) Panel Laboratory test result [facility] ([facility]) This Gastrointestinal PCR Panel detects the following bacteria, parasites and viruses: [...] V). NEGATIVE by MULTIPLEXED NUCLEIC ACID PCR ID Date Data Source [id number] 01/10/2021 05:00:00 PM EDT [facility] ([facility]) Name Value Range Interpretation Code Description Data [facility](s) Supporting Document(s) Calprotectin [Mass/mass] in Stool 31 ug/g 0-120 [facility] ([facility]) <content>Concentration Interpretatio n Follow-Up</content>
<content><16 - 50 ug/g Normal None</content>
<content>>50 -120 ug/g Borderline Re-evaluate in 4-6 weeks</content>
<content>>120 ug/g Abnormal Repeat as clinically</content>
<content>indicated</content>
<content></content> ID Date Data Source [id number] 01/10/2021 04:58:00 PM EDT [facility] ([facility]) Name Value Range Interpretation Code Description Data [facility](s) Supporting Document(s) Hepatitis C virus Ab [Units/volume] in Serum by Immunoassay 0.0 INDEX Normal (applies to non-numeric results) [facility] ([facility]) Negative Not infected with HCV, unless recent infection is suspected or other evidence exists to indicate HCV infection. IgA [Mass/volume] in Serum or Plasma 428.0 mg/dL 70-400 Above hig h normal [facility] ([facility]) Hepatitis B virus surface Ag [Presence] in Serum or Pl asma by Immunoassay Laboratory test result Normal (applies to non-numeric results) [facility]) Hepatitis B virus surface Ab [Presence] in Serum by Im munoassay Laboratory test result Normal (applies to non-numeric results) [facility]) ID Date Data Source [id number] 01/10/2021 04:58:00 PM EDT [facility]) Name Value Range Interpretation Code Description Data Kim rce(s) Supporting Document(s) Thyroid Stimulating Hormone 1.900 uIU/ML 0.358-3.740 Norm al (applies to non- numeric results) [facility]) Free T4 0.94 ng/dL 0.76-1.46 Normal (applies to non-numeric resul ts) [facility]) ID Date Data Source [id number] 01/10/2021 04:58:00 PM EDT [facility]) Name Value Range Interpretation Code Description Data Kim rce(s) Supporting Document(s) Actin IgG Ab [Units/volume] in Serum or Plasma 3 units 0 -19 Normal (applies to non-numeric results) [facility]) Negative 0 - 19 Weak positive 20 - 30 Moderate to strong positive >30 . Actin Antibodies are found in 52-85% of patients with autoimmune hepatitis or chronic active hepatitis and in 22% of patients with primary biliary cirrhosis. ID Date Data Source [id number] 01/10/2021 04:58:00 PM EDT [facility]) Name Value Range Interpretation Code Description Data Kim rce(s) Supporting Document(s) Laboratory test finding (navigational concept) 123 mg/dL 1 00-188 Normal (applies to non-numeric results) [facility]) Laboratory test finding (navigational concept) Laboratory test r esult Normal (applies to non-numeric results) [facility]) Phenotype Population A-1-AT Concent ration* Incidence % % of MM (Typical Range) [...] this reference. Ranges used to confirm phenotype. ID Date Data Source [id number] 01/10/2021 04:58:00 PM EDT [facility] ([facility]) Name Value Range Interpretation Code Description Data Kim rce(s) Supporting Document(s) Tissue transglutaminase IgA Ab [Units/volume] in Serum Labor atory test result 0-3 Normal (applies to non-numeric results) [facility] ([facility]) Negative 0 - 3 Weak Positive 4 - 10 Positive >10 . Tissue Transglutaminase (tTG) has been identified as the endomysial antigen. Studies have demonstr- ated that endomysial IgA antibodies have over 99% specificity for gluten sensitive enteropathy. Ceruloplasmin [Mass/volume] in Serum or Plasma 25.1 mg/dL 1 9.0-39.0 Normal (applies to non-numeric results) [facility] ([facility]) Performed at: - [facility] [address] [id number] Process Automation Engineer: Charley Tiwari MD, Phone: [phone] Performed at: - [facility] [address] [id number] Process Automation Engineer: Vance Veras MD, Phone: [phone] Mitochondria Ab [Units/volume] in Serum Laboratory test result 0 .0-20.0 Normal (applies to non-numeric results) [facility]) Negative 0.0 - 20.0 Equivocal 20.1 - 24.9 Positive >24.9 . Mitochondrial (M2) Antibodies are found in 90-96% of patients with primary biliary cirrhosis. ID Date Data Source [id number] 01/10/2021 04:58:00 PM EDT [facility] ([facility]) Name Value Range Interpretation Code Description Data Kim rce(s) Supporting Document(s) Glucose, Fasting 494 mg/dL 70-100 Above upper panic limits [facility] ([facility]) Blood Urea Nitrogen 10 mg/dL 7-18 Normal (applies to non-nume dennys results) [facility] ([facility]) Glomerular Filtration Rate 57.7 Below low normal [facility] ([facility]) <content>Units are mL/min/1.73 m2</content>
<content></content>
<content>Chronic Kidney Disease Staging per NKF:</content>
<content></content>
<content>Stage I & II GFR >=60 Normal to Mildly Decreased</content>
<content>Stage III GFR 30- 59 Moderately Decreased</content>
<content>Stage IV GFR 15-29 Severely Decreased</content>
<content>Stage V GFR <15 Very Little GFR Left</content>
<content>ESRD GFR <15 on GRAPHIC PRE PRESS TRADES WORKER</content>
<content></content> Creatinine For GFR 1.18 mg/dL 0.55-1.30 Normal (applies to non -numeric results) [facility] ([facility]) Sodium Level 134 meq/L 136-145 Below low normal [facility] ([facility]) Potassium Serum 4.5 meq/L 3.5-5.1 Normal (applies to non-numeric results) [facility] ([facility]) Carbon Dioxide Level 29 meq/L 21-32 Normal (applies to non-num raymon results) [facility] ([facility]) Chloride Level 99 meq/L 98-107 Normal (applies to non-numeric r esults) [facility] ([facility]) Calcium Level 9.5 mg/dL 8.5-10.1 Normal (applies to non-numeric re sults) [facility] ([facility]) Anion Gap 6 meq/L 8-16 Below low normal [facility] ( [facility]) Ast/Sgot 42 U/L 7-37 Above high normal [facility] ([facility]) Alkaline Phosphatase 264 U/L 45-117 Above high normal [facility] ([facility]) Alt/SGPT 83 U/L 12-78 Above high normal [facility] ([facility]) Bilirubin,Total 0.2 mg/dL 0.2-1.0 Normal (applies to non-numeric results) [facility] ([facility]) Total Protein 7.6 GM/DL 6.4-8.2 Normal (applies to non-numeric re sults) [facility] ([facility]) Albumin 3.8 GM/DL 3.2-5.2 Normal (applies to non-numeric resul ts) [facility] ([facility]) Albumin/Globulin Ratio 1.0 1.2-2.2 Below low normal [facility] ([facility]) ID Date Data Source [id number] 01/10/2021 04:58:00 PM EDT [facility] ([facility]) Name Value Range Interpretation Code Description Data Kim rce(s) Supporting Document(s) Ceruloplasmin [Mass/volume] in Serum or Plasma 25.1 mg/dL 19.0-39.0 [facility] ([facility]) Performed at: - [facility] [address] [id number] Process Automation Engineer: Charley Tiwari MD, Phone: [phone] Performed at: - [facility] [address] [id number] Process Automation Engineer: Vance Veras MD, Phone: [phone] Tissue transglutaminase IgA Ab [Units/volume] in Serum Labor atory test result 0-3 [facility] ([facility]) Negative 0 - 3 Weak Positive 4 - 10 Positive >10 . Tissue Transglutaminase (tTG) has been identified as the endomysial antigen. Studies have demonstr- ated that endomysial IgA antibodies have over 99% specificity for gluten sensitive enteropathy. Deprecated Mitochondria M2 IgG Ab [Units/volume] in Se rum Laboratory test result 0.0-20.0 [facility] ([facility]) Negative 0.0 - 20.0 Equivocal 20.1 - 24.9 Positive >24.9 . Mitochondrial (M2) Antibodies are found in 90-96% of patients with primary biliary cirrhosis. ID Date Data Source [id number] 01/10/2021 04:58:00 PM EDT [facility] ([facility]) Name Value Range Interpretation Code Description Data Kim rce(s) Supporting Document(s) Laboratory test finding (navigational concept) Laboratory test result [facility] ([facility]) Phenotype Population A-1-AT Concent ration* Incidence % % of MM (Typical Range) [...] this reference. Ranges used to confirm phenotype. Laboratory test finding (navigational concept) 123 mg/dL 100-188 [facility] ([facility]) ID Date Data Source [id number] 01/10/2021 04:58:00 PM EDT [facility] ([facility]) Name Value Range Interpretation Code Description Data Kim rce(s) Supporting Document(s) Actin IgG Ab [Units/volume] in Serum or Plasma 3 units 0-19 [facility] ([facility]) Negative 0 - 19 Weak positive 20 - 30 Moderate to strong positive >30 . Actin Antibodies are found in 52-85% of patients with autoimmune hepatitis or chronic active hepatitis and in 22% of patients with primary biliary cirrhosis. ID Date Data Source [id number] 01/10/2021 04:58:00 PM EDT [facility] ([facility]) Name Value Range Interpretation Code Description Data Kim rce(s) Supporting Document(s) Laboratory test finding (navigational concept) 1.900 uIU/ML 0.358-3.7 40 [facility] ([facility]) Laboratory test finding (navigational concept) 0.94 ng/dL 0.76-1.46 [facility] ([facility]) ID Date Data Source [id number] 01/10/2021 04:58:00 PM EDT [facility] ([facility]) Name Value Range Interpretation Code Description Data Kim rce(s) Supporting Document(s) Hepatitis B virus surface Ag [Presence] in Serum or Pl asma by Immunoassay Laboratory test result [facility] ([facility]) IgA [Mass/volume] in Serum or Plasma 428.0 mg/dL 70-400 [facility] ([facility]) Hepatitis C virus Ab [Units/volume] in Serum by Immunoassay 0.0 INDEX [facility] ([facility]) Negative Not infected with HCV, unless recent infection is suspected or other evidence exists to indicate HCV infection. Hepatitis B virus surface Ab [Presence] in Serum by Im munoassay Laboratory test result [facility] ([facility]) ID Date Data Source [id number] 01/10/2021 04:58:00 PM EDT [facility] ([facility] Name Value Range Interpretation Code Description Data Kim rce(s) Supporting Document(s) Blood Urea Nitrogen 10 mg/dL 7-18 [facility] ([facility]) Glucose, Fasting 494 mg/dL 70-100 Above upper panic limits [facility] ([facility]) Creatinine For GFR 1.18 mg/dL 0.55-1.30 [facility] ([facility]) Glomerular Filtration Rate 57.7 [facility] ([facility]) <content>Units are mL/min/1.73 m2</content>
<content></content>
<content>Chronic Kidney Disease Staging per NKF:</content>
<content></content>
<content>Stage I & II GFR >=60 Normal to Mildly Decreased</content>
<content>Stage III GFR 30- 59 Moderately Decreased</content>
<content>Stage IV GFR 15-29 Severely Decreased</content>
<content>Stage V GFR <15 Very Little GFR Left</content>
<content>ESRD GFR <15 on GRAPHIC PRE PRESS TRADES WORKER</content>
<content></content> Sodium Level 134 meq/L 136-145 [facility] ([facility]) Chloride Level 99 meq/L 98-107 [facility] ([facility] Potassium Serum 4.5 meq/L 3.5-5.1 [facility] ([facility] Calcium Level 9.5 mg/dL 8.5-10.1 [facility] ([facility]) Carbon Dioxide Level 29 meq/L 21-32 [facility] ([facility]) Anion Gap 6 meq/L 8-16 [facility] ([facility]) Alt/SGPT 83 U/L 12-78 [facility] ([facility]) Ast/Sgot 42 U/L 7-37 [facility] ([facility]) Bilirubin,Total 0.2 mg/dL 0.2-1.0 [facility] ([facility] Total Protein 7.6 GM/DL 6.4-8.2 [facility] ([facility]) Alkaline Phosphatase 264 U/L 45-117 [facility] ([facility]) Albumin 3.8 GM/DL 3.2-5.2 [facility] ([facility]) Albumin/Globulin Ratio 1.0 1.2-2.2 [facility] ([facility]) ID Date Data Source [id number] 12/27/2020 10:31:00 AM EDT [facility] ([facility]) Name Value Range Interpretation Code Description Data Kim rce(s) Supporting Document(s) Reflex Urine Culture Laboratory test result Norm al (applies to non-numeric results) [facility] ([facility]) FULL REPORT IN LAB NOTES ([facility] and [facility] ). NO GROWTH ID Date Data Source [id number] 12/27/2020 10:31:00 AM EDT [facility] ([facility]) Name Value Range Interpretation Code Description Data Kim rce(s) Supporting Document(s) Choriogonadotropin.beta subunit [Moles/volume] in Seru m or Plasma Laboratory test result Normal (applies to non-numeric results) [facility] ([facility]) GESTATIONAL AGE APPROXIMATE HCG RANGE (MIU/ML) - [...] monitoring the treatment of cancer patients. Siemens Mercaux methodology. ID Date Data Source [id number] 12/27/2020 10:31:00 AM EDT [facility] ([facility]) Name Value Range Interpretation Code Description Data Kim rce(s) Supporting Document(s) Blood Urea Nitrogen 7 mg/dL 7-18 Normal (applies to non-nume dennys results) [facility] ([facility]) Glucose, Fasting 112 mg/dL 70-100 Above high normal [facility]) Glomerular Filtration Rate Laboratory test result Normal (applies to non- numeric results) [facility]) <content>Units are mL/min/1.73 m2</content>
<content></content>
<content>Chronic Kidney Disease Staging per NKF:</content>
<content></content>
<content>Stage I & II GFR >=60 Normal to Mildly Decreased</content>
<content>Stage III GFR 30- 59 Moderately Decreased</content>
<content>Stage IV GFR 15-29 Severely Decreased</content>
<content>Stage V GFR <15 Very Little GFR Left</content>
<content>ESRD GFR <15 on GRAPHIC PRE PRESS TRADES WORKER</content>
<content></content> Creatinine For GFR 0.94 mg/dL 0.55-1.30 Normal (applies to non -numeric results) [facility] ([facility]) Sodium Level 137 meq/L 136-145 Normal (applies to non-numeric res ults) [facility] ([facility]) Potassium Serum 4.8 meq/L 3.5-5.1 Normal (applies to non-numeric results) [facility] ([facility]) Chloride Level 108 meq/L 98-107 Above high normal [facility] ([facility]) Anion Gap 4 meq/L 8-16 [facility] Carbon Dioxide Level 25 meq/L 21-32 Normal (applies to non-num raymon results) [facility] ([facility]) Alt/SGPT 63 U/L 12-78 Normal (applies to non-numeric resul ts) [facility] ([facility]) Ast/Sgot 24 U/L 7-37 Normal (applies to non-numeric resul ts) [facility] ([facility]) Calcium Level 9.2 mg/dL 8.5-10.1 Normal (applies to non-numeric re sults) [facility] ([facility]) Alkaline Phosphatase 261 U/L 45-117 [facility] Bilirubin,Total 0.2 mg/dL 0.2-1.0 Normal (applies to non-numeric results) [facility] ([facility]) Albumin 3.6 GM/DL 3.2-5.2 Normal (applies to non-numeric resul ts) [facility] ([facility]) Total Protein 7.6 GM/DL 6.4-8.2 Normal (applies to non-numeric re sults) [facility] ([facility]) Albumin/Globulin Ratio 0.9 1.2-2.2 Below low normal [facility] ([facility]) ID Date Data Source [id number] 12/27/2020 10:31:00 AM EDT [facility] ([facility]) Name Value Range Interpretation Code Description Data Kim rce(s) Supporting Document(s) White Blood Count 14.7 10 4.0-10.0 Above high normal [facility] ([facility]) Red Blood Count 4.86 10 4.00-5.40 Normal (applies to non-numeric results) [facility] ([facility]) Hematocrit 45.1 % 36.0-47.0 Normal (applies to non-numeric resul ts) [facility] ([facility]) Hemoglobin 14.7 g/dL 12.0-15.5 Normal (applies to non-numeric resul ts) [facility] ([facility]) Mean Corpuscular Hemoglobin 30.2 pg 27.0-33.0 Norm al (applies to non-numeric results) [facility] ([facility]) Mean Corpuscular Volume 92.8 fl 80.0-96.0 Normal ( applies to non-numeric results) [facility] Red Cell Distribution Width 13.4 % 11.5-14.5 Norm al (applies to non-numeric results) [facility] ([facility]) Mean Corpuscular HGB Conc 32.6 g/dL 32.0-36.5 Normal (applies to non-numeric results) [facility] ([facility]) Neutrophils % 64.4 % 36.0-66.0 Normal (applies to non-numeric re sults) [facility] ([facility]) Platelet Count, Automated 702 10 150-450 Above high normal [facility] ([facility]) Eos % 3.4 % 0.0-3.0 Above high normal [facility] ([facility]) Lymph % 23.1 % 24.0-44.0 Below low normal [facility] ( [facility]) [place] % 8.2 % 2.0-8.0 Above high normal [facility] ([facility]) Immature Granulocyte % 0.3 % 0-3.0 Normal (applies to non-n umeric results) [facility] ([facility]) Baso % 0.6 % 0.0-1.0 Normal (applies to non-numeric resul ts) [facility] ([facility]) Nucleated Red Blood Cell % 0.0 % 0-0 Normal (applies to n on-numeric results) [facility] ([facility]) Lymph # 3.4 10 1.5-5.0 Normal (applies to non-numeric resul ts) [facility] ([facility]) Neutrophils # 9.5 10 1.5-8.5 Above high normal [facility] ([facility]) [place] # 1.2 10 0.0-0.8 Above high normal [facility] ([facility]) Eos # 0.5 10 0.0-0.5 Normal (applies to non-numeric resul ts) [facility] ([facility]) Baso # 0.1 10 0.0-0.2 Normal (applies to non-numeric resul ts) [facility] ([facility]) ID Date Data Source [id number] 12/27/2020 10:31:00 AM EDT [facility] ([facility]) Name Value Range Interpretation Code Description Data Kim rce(s) Supporting Document(s) Appearance, Urine RFX Laboratory test result Nor mal (applies to non-numeric results) [facility] ([facility]) Color, Urine RFX Laboratory test result Normal ( applies to non-numeric results) [facility] ([facility]) Specific [place] Ur Auto RFX 1.009 1.002-1.035 Nor mal (applies to non-numeric results) [facility]) PH,Urine RFX 5.0 units 5.0-9.0 Normal (applies to non-numeric res ults) [facility] ([facility]) Protein, Urine Auto RFX Laboratory test result N ormal (applies to non-numeric results) [facility] ([facility]) Glucose, Urine (Ua) Auto RFX Laboratory test result Normal (applies to non- numeric results) [facility] ([facility]) Ketone, Urine Auto RFX Laboratory test result No rmal (applies to non-numeric results) [facility] ([facility]) Urobilinogen, Urine Auto RFX 0.2 mg/dL 0.0-2.0 Nor mal (applies to non-numeric results) [facility] ([facility]) Bilirubin, Urine Auto RFX Laboratory test result Normal (applies to non- numeric results) [facility] ([facility]) Blood, Urine Blood RFX Laboratory test result Above high n ormal [facility] ([facility]) Nitrite, Urine Auto RFX Laboratory test result N ormal (applies to non-numeric results) [facility] ([facility]) Leukocyte Esterase Ur Auto RFX Laboratory test result Abov e high normal [facility] ([facility]) WBC, Urine Auto RFX 11 /HPF 0-3 Above high normal [facility] ([facility]) RBC, Urine Auto RFX 32 /HPF 0-3 Above high normal [facility] ([facility]) Bacteria, Urine Auto RFX Laboratory test result Above high normal [facility] ([facility]) Squam Epithelial Cell Ur Aurfx 4 /HPF 0-6 N ormal (applies to non-numeric results) [facility] ([facility]) Mucus, Urine RFX Laboratory test result Normal ( applies to non-numeric results) [facility] ([facility]) Hyaline Cast, Urine Auto RFX 0 /LPF 0-1 Normal (appl ies to non-numeric results) [facility] ([facility]) ID Date Data Source [id number] 12/24/2020 12:00:00 AM EDT [facility] Name Value Range Interpretation Code Description Data Kim rce(s) Supporting Document(s) SARS-CoV2 Rapid Antigen Negative [facility] This lab was ordered by [facility] and reported by [facility]. ID Date Data Source [id number] 12/07/2020 10:54:34 AM EDT [facility] Name Value Range Interpretation Code Description Data Kim rce(s) Supporting Document(s) Progress Note [facility] SEGEJk6vAlPNLmTn11/FHLyoCDKaw2LaPAedXSk1KZrlROTyF8NxWZS5uX4aVTJ0DToOCqFcYpKrTUWj lbm [file] AgICAgICAgICAgICAgICAgICAgICAgICAgICAgICAgICAgICAgICAgICAgICAgICAgICAgICAgICAgIC ExFRSzNNFrXOXiQPYuBEBtZKXsLPKbZKGhHDNtECOhWXCeKZOsIM9EMBQgFKNaRUOxRJRhMTIhUVJmOJ AgICAgICAgICAgICAgICAgICAgICAgICAgICAgICAg OHWiSNKmPNXsVIPjCNNtBJIsNEDzUMMgJIEfSCZtYEHzVCUpVYHuHXItNBZuZDOwQT3KABPoGJIqBUWz ICAgICAgICAgICAgICAgICAgICAgICAgICAgICAgICAgICAgICAgICAgICAgICAgICAgICAgICAgICAg ICAgICAgICAgICAgICAgICAgICAgICAgICAgICAgIA 0KICAgICAgICAgICAgICAgICAgICAgICAgICAgICAgICAgICAgICAgICAgICAgICAgICAgICAgICAgIC HrZSUyHXGePIQdSXTrFSCaYOZaRFCoHDZeFPKcQYNgBRZpMNQsUHWuMM4RKDLkDOPxJVIpTGDiSKMqLP AgICAgICAgICAgICAgICAgICAgICAgICAgICAgICAg QVQuKEPmGZRsTDIzZLFfADCzVCGoWQCfSIQrTMNeBAMrGDDgHPYwAJEiLNIzELOpVJCyGF3LMKZdBISo ICAgICAgICAgICAgICAgICAgICAgICAgICAgICAgICAgICAgICAgICAgICAgICAgICAgICAgICAgICAg ICAgICAgICAgICAgICAgICAgICAgICAgICAgICAgIC WpLI1WDNErFHWdYHIaSQUvLBYxEYAyQCFwMCKsHNCrOARxKXCuMQQjGRTrDBCjKQEaCBXtGCDhANPqJD BnNBAxTUJcWPHvAABpLXHeXGDuRVFsUHKjYLNzTLKvCXJpBKAiNYEoGBNgEN3UQVWiTFOjVXOwHROgML AgICAgICAgICAgICAgICAgICAgICAgICAgICAgICAg KRAzGAFwAHLbWKXdEUCdHEYlRHNcWZRcUQNgSKSkCMCtNASqDAFhOMUjNHKvFUHoYNNtUPRlQK6KAFQw ICAgICAgICAgICAgICAgICAgICAgICAgICAgICAgICAgICAgICAgICAgICAgICAgICAgICAgICAgICAg ICAgICAgICAgICAgICAgICAgICAgICAgICAgICAgIC MaGFMeSQ0USCCdAIJvWFZbIDIsCOSqIQGyFCFfIGBeDIUmTRLwLDBmQCXoXNUgEUMrDEYsWEQpYISwTE XyHCSiOSFdIWPgUMBmFLRiYAEcVNQsDHIwZYNdXVUnPQTuPRGbTLFjGNBgDBFhZB4QTS75qGIhf2O2CG AiAL4ypdh/Jk8RWWyjlqKonLEyCE4FJiVoKR0ywi8Z TdFjYU8grq0UZAvBZhIvN0R5mDZyDFAhQUEMCuWpW75vKIckXr12QTpmILQiNqCkWDu4Pv7JAiSbJ8jm NZBrBvG4SIExJjCmMTwtSB8Mw1DicDXnHVa+Gb9HNB0cj9EqDIlhGoTaHB4hnk3QHPqLLhMqI7NefpP0 JLQfUHGtNp7WDRZiCKDeuXCyEuWdEKBGDkFfQ5KlbB 61KKIGOm5+AIhnfjEwPsrQUxPaOKSot3TuELf5TY4SHYFeRGf2fPTlKWOzP1Med1RdGo34XZKdQkseDD ktYCKKRQHkxfLugKHxODgUTkFzvRA3NbCyCoIwQhGdOLN7UADqZN9rAZdeFR3YTJJ9KKboHDOrYFBjB4 bTVvJkRPReMQEfaBmsJR3TJcXcU9BbshRiyERgNfBk IFINCj4+ITdldnXrZlbGPtM6DGFbb4NyAUd8XV9NUIGnPQyeXZ1ZRFMbpP8bQQnuLF7ZZkJuIXCiKHBO KhVvG34siKThLFv1A5KhCrEvYXVrHggyANIeNHknJjVrOSXaDwMcKXojNA6+ID4+VJkzHE9SRZfmmnPk ZMUtYx0ZNJCuMFTtUN1jWAYtBPIyI0C7jTwrARWAZw LeV4qnvolcFZ3qYPTmF228yFmjzsQpMYWpXMHiMe3QDTCmAIG0KKRebANqPuPdSQUNTIzvHE9FyPQqAF F1pF1aTMgiYQCqPCNaR0jUIsMjaBbqDD83eOpzgnJysRHcQUo+Ts8LTH6fa3IhGAr1srBwAThlFVM3SK vqWMTeHSKzHLMrSGQ4XNR9WMHFXjAjEAWrHOCzUImh EPJpRTSijo5SJMGtWJWdUOO2YuZcSXTfZMUcAHxmCLPhLNOrEkFpKYVkDGNmIO6EJgHhBPJiIVWeKBpg LGKpOAIccu2XJSLdUWLsPmN4LeJiVBMzCAAjHImaDBEoQVApAbFzZEUwGXQmAH4CGqMqVUEuPUXlJnLe ZLKqAEPhdv6HTZMhNMIuYxM7YnPpBQTqOPHeOYnxMR JeKRNyElL4WZAwFDZyGX8VYvMpQROhOLB0OLFdNDEiYNImuk0ZGTKiIIEiSOt5RpRtRJTyCOHtJRchYH CjMWO7BHosIYCiLAJjFS9JAqVjCOQwZAQhYzmrYCVbTPPbts5RFHLlGVOiOiW9ZBNxUOQbZRZpGPxuZY UzCKG4JLGtKIStUWZoGZ0ZWgBjELMyWWdkVMBaZURd FHNvpp4QZLYyDPFvTuV1VNVbGPSmINOsNSveKAJxOBJ9YZuyQYMuEBAyOI9NTnKhGOCtWZueSqXkKZDm IQVyqo8FBWQzQRNoJTQ3KJTaGUZeZFIkSTcyAZWqMAD0JXEkATDhOFVaIV6JZlNaXBCtIsFxWGjmYDIa OTDhwa6WPOXuIETxHSQ3ZODxMWRjUKHhLGyeBCWwEL EuAgGlJUUgOXKaMK7IGsQuDOkkSPHFIpx2FKtvL6c8TQBxPG6MH2Cch6GoCvQzSMUWDAxjLZ3boySpBE NqVl6IV9oYYrw0T9Q1AxV2BApwHwQyXYShNELlYPLuLzKtDRPoNXVrAB0gBNO1NOU1VXs6TuHjDQL2Kz M2TXL1TGYkTfA8NCXkTFA0ViZiIM7SQp1IVzD0CUN5kGUbZk4DMyA7WwGDUvUfMF6OPDw= ID Date Data Source [id number] 12/07/2020 10:54:29 AM EDT [facility] Name Value Range Interpretation Code Description Data Kim rce(s) Supporting Document(s) Progress Note [facility] PLELZg1hDsHRFaRy59/POZuyMLMan7CdGPmeLXm4YUjdDCPyQ9FvKEZ5yJ7lYCB0KHmBRbCxMxExOIQz lbm [file] performance improvement director+M0XyCP2+rFLU8xGxP9gILd+JV82akXjN1BN7982 [file] ID Date Data Source [id number] 12/20/2020 02:20:01 PM EDT [facility] Cmnt XXX-Imp : NoneAcid fast Stn XXX : Unable to perform testSwabs are suboptimal specimens for the isolation of most microorganism due to the small amount of material that is absorbed onto and released from the swab. Tissue, fluids, and aspirates are the preferred specimens for detection of microorganisms.Microorganism XXX Cult : No growth 56 days Name Value Range Interpretation Code Description Data Kim rce(s) Supporting Document(s) ID Date Data Source [id number] 10/28/2020 11:19:36 AM EST [facility] Cmnt XXX-Imp : NoneGram Stn XXX : Unable to perform testMicroorganism XXX Cult : 2+MucoidPseudomonas aeruginosaATTENTION This species is always resistant to aminopenicillins, ampicillin-sulbactam, amoxicillin-clavulanic acid, first-generation cephalosporins, cefuroxime, cephamycins, cefotaxime, ceftriaxone, ertapenem, tetracyclines, trimethoprim, trimethoprim- sulfamethoxazole, and chloramphenicol.4+Indigenous microorganisms. Name Value Range Interpretation Code Description Data Kim rce(s) Supporting Document(s) ID Date Data Source [id number] 10/21/2020 07:30:00 AM EST [facility] ([facility]) Name Value Range Interpretation Code Description Data Kim rce(s) Supporting Document(s) Laboratory test finding (navigational concept) 41.0 % 3 8.0-51.0 Normal (applies to non-numeric results) [facility] Laboratory test finding (navigational concept) 207 mg/dL 7 0-105 Above high normal [facility] ([facility]) Laboratory test finding (navigational concept) 3.9 meq/L 3 .5-5.1 Normal (applies to non-numeric results) [facility] ([facility]) Laboratory test finding (navigational concept) 139 meq/L 1 36-145 Normal (applies to non-numeric results) [facility] ([facility]) Laboratory test finding (navigational concept) 99 meq/L 9 8-109 Normal (applies to non-numeric results) [facility] ([facility]) Laboratory test finding (navigational concept) 4.8 mg/dL 4 .5-5.3 Normal (applies to non-numeric results) [facility] ([facility]) Laboratory test finding (navigational concept) 26.0 MM/L 2 3.0-27.0 Normal (applies to non-numeric results) [facility] ([facility]) Laboratory test finding (navigational concept) 1.1 mg/dL 0 .6-1.3 Normal (applies to non-numeric results) [facility] ([facility]) Laboratory test finding (navigational concept) 8 mg/dL 8 -26 Normal (applies to non-numeric results) [facility] ([facility]) ID Date Data Source [id number] 10/21/2020 07:18:00 AM EST [facility] ([facility]) Name Value Range Interpretation Code Description Data Kim rce(s) Supporting Document(s) Choriogonadotropin.beta subunit [Moles/volume] in Seru m or Plasma Laboratory test result Normal (applies to non-numeric results) [facility] ([facility]) <content>QUANTITATIVE RESULT QU ALITATIVE INTERPRETATION</content>
<content> </content>
<content><5.0 IU/L NEGATIVE</content>
<content>5.0 - 25.0 IU/L INDETERMINATE</content>
<content>>25.0 IU/L POSITIVE</content>
<content></content> ID Date Data Source [id number] 10/21/2020 07:08:00 AM EST [facility] ([facility]) Name Value Range Interpretation Code Description Data Kim rce(s) Supporting Document(s) Appearance, Urine RFX Laboratory test result Nor mal (applies to non-numeric results) [facility] ([facility]) Color, Urine RFX Laboratory test result Normal ( applies to non-numeric results) [facility] ([facility]) Specific [place] Ur Auto RFX 1.014 1.002-1.035 Nor mal (applies to non-numeric results) [facility]) PH,Urine RFX 5.0 units 5.0-9.0 Normal (applies to non-numeric res ults) [facility] ([facility]) Ketone, Urine Auto RFX Laboratory test result No rmal (applies to non-numeric results) [facility] ([facility]) Protein, Urine Auto RFX Laboratory test result N ormal (applies to non-numeric results) [facility] ([facility]) Glucose, Urine (Ua) Auto RFX Laboratory test result Above high normal [facility] ([facility]) Bilirubin, Urine Auto RFX Laboratory test result Normal (applies to non- numeric results) [facility] ([facility]) Urobilinogen, Urine Auto RFX 0.2 mg/dL 0.0-2.0 Nor mal (applies to non-numeric results) [facility] ([facility]) Nitrite, Urine Auto RFX Laboratory test result N ormal (applies to non-numeric results) [facility] ([facility]) Leukocyte Esterase Ur Auto RFX Laboratory test result Normal (applies to non- numeric results) [facility] ([facility]) Blood, Urine Blood RFX Laboratory test result Above high n ormal [facility] ([facility]) WBC, Urine Auto RFX 2 /HPF 0-3 Normal (applies to non-nume dennys results) [facility] ([facility]) Bacteria, Urine Auto RFX Laboratory test result Normal (applies to non-numeric results) [facility] ([facility]) RBC, Urine Auto RFX 5 /HPF 0-3 Above high normal [facility] ([facility]) Mucus, Urine RFX Laboratory test result Normal ( applies to non-numeric results) [facility]) Squam Epithelial Cell Ur Aurfx 2 /HPF 0-6 N ormal (applies to non-numeric results) [facility] ([facility]) Hyaline Cast, Urine Auto RFX 0 /LPF 0-1 Normal (appl ies to non-numeric results) [facility] ([facility]) ID Date Data Source [id number] 10/21/2020 06:58:00 AM EST [facility] ([facility]) Name Value Range Interpretation Code Description Data Kim rce(s) Supporting Document(s) White Blood Count 10.5 10 4.0-10.0 Above high normal [facility] ([facility]) Red Blood Count 4.30 10 4.00-5.40 Normal (applies to non-numeric results) [facility] ([facility]) Hemoglobin 12.7 g/dL 12.0-15.5 Normal (applies to non-numeric resul ts) [facility] ([facility]) Mean Corpuscular Volume 93.0 fl 80.0-96.0 Normal ( applies to non-numeric results) [facility] ([facility]) Hematocrit 40.0 % 36.0-47.0 Normal (applies to non-numeric resul ts) [facility] ([facility]) Mean Corpuscular HGB Conc 31.8 g/dL 32.0-36.5 Below low normal [facility] ([facility]) Mean Corpuscular Hemoglobin 29.5 pg 27.0-33.0 Norm al (applies to non-numeric results) [facility] ([facility]) Red Cell Distribution Width 13.5 % 11.5-14.5 Norm al (applies to non-numeric results) [facility] ([facility]) Platelet Count, Automated 650 10 150-450 Above high normal [facility] ([facility]) Lymph % 25.3 % 24.0-44.0 Normal (applies to non-numeric resul ts) [facility] ([facility]) Neutrophils % 58.8 % 36.0-66.0 Normal (applies to non-numeric re sults) [facility] ([facility]) [place] % 11.0 % 2.0-8.0 Above high normal [facility] ([facility]) Eos % 3.8 % 0.0-3.0 Above high normal [facility] ([facility]) Baso % 0.8 % 0.0-1.0 Normal (applies to non-numeric resul ts) [facility] ([facility]) Immature Granulocyte % 0.3 % 0-3.0 Normal (applies to non-n umeric results) [facility] ([facility]) Neutrophils # 6.2 10 1.5-8.5 Normal (applies to non-numeric re sults) [facility] ([facility]) Nucleated Red Blood Cell % 0.0 % 0-0 Normal (applies to n on-numeric results) [facility] ([facility]) [place] # 1.2 10 0.0-0.8 Above high normal [facility] ([facility]) Lymph # 2.7 10 1.5-5.0 Normal (applies to non-numeric resul ts) [facility] ([facility]) Eos # 0.4 10 0.0-0.5 Normal (applies to non-numeric resul ts) [facility] ([facility]) Baso # 0.1 10 0.0-0.2 Normal (applies to non-numeric resul ts) [facility] ([facility]) ID Date Data Source [id number] 10/21/2020 06:58:00 AM EST [facility] ([facility]) Name Value Range Interpretation Code Description Data Kmi rce(s) Supporting Document(s) Ast/Sgot 11 U/L 7-37 Normal (applies to non-numeric resul ts) [facility] ([facility]) Alt/SGPT 45 U/L 12-78 Normal (applies to non-numeric resul ts) [facility] ([facility]) Bilirubin,Total 0.2 mg/dL 0.2-1.0 Normal (applies to non-numeric results) [facility] ([facility]) Alkaline Phosphatase 190 U/L 45-117 Above high normal [facility] ([facility]) Bilirubin,Direct Laboratory test result 0.0-0.2 Normal ( applies to non-numeric results) [facility] ([facility]) Albumin 3.6 GM/DL 3.2-5.2 Normal (applies to non-numeric resul ts) [facility] ([facility]) Total Protein 7.2 GM/DL 6.4-8.2 Normal (applies to non-numeric re sults) [facility] ([facility]) Albumin/Globulin Ratio 1.0 1.2-2.2 Below low normal [facility] ([facility]) ID Date Data Source [id number] 10/21/2020 06:58:00 AM EST [facility] ([facility]) Name Value Range Interpretation Code Description Data Kim rce(s) Supporting Document(s) Lipase [Enzymatic activity/volume] in Serum or Plasma 17 U/L 73-393 Below low normal [facility] ([facility]) ID Date Data Source [id number] 09/04/2020 10:15:43 PM [facility] Name Value Range Interpretation Code Description Data Kim rce(s) Supporting Document(s) Progress Note [facility] WPAWZm3qPzNYEqVf02/DSYptXQYoe9AoVUwiGHs9CKeaJPDoY0VhMQH2jM3gRAO2TOeAVdGrMjOsFPT3 [facility] [file] MANAGEMENT CONSULTANT+Bt8VHBUqPCf5N9A4FKUsWBn4V1URR1ZBAUZpRXvqSYipIQLaBQd9W5X6CYYwF6WOF5Guvnfxyp8+ XT5HF28XWXWiRAa0M0Z0jSBnP0F9sXmLoVA7PP7QXE5FhHu4wDRchY5+TL5RL5XGDbKvOGn5T0C5zHAr R3Y2qNbBsES6TO2QFN0GbWHkYBOfmoJjUt5tZ3BMLL yQZdNYABO2GZ9NrCMwGT8WoBKYM7WjpSEkRe0tGAijoWZnqL9hXm3pCVqnCC8IDaBILJgMEZU3IP7KaL FeMV1YiLLOZ1IzkEUbTt0dAEtvsMGhfq2+NJ2LLWEmYd6LDd4+FKeshfVwVatOYtDzGSIcz8TiSFn9MF 2RSM9pkUchKNY3Vv8FuNK6iHQoV4mWFP8LrKNbS56t kLRrITOgQl2LUcU7ghTvnC5CPZ62pBOco5H5HQDeL1imWJcdp03rRYivBPkOBE8sJOTBZKggTEvyQXT2 CbXsaeitFTCnWw6VKyGuPKb2lQ4jqVU7WJK4EturaUQdJNrnUoKpFhEsVyY0eWmzqdq8FDmqCQ8kZJmw czptZXRhLyc+PGkyNCSxBNIqZhsBXXUijB8lsqE6fr QgZJanmRHsSu3mo8a7VfbxUe9pWm9pGPr1FfPeYbVsZMFzCs2rfA90HHminyEfQe4QQmZjYOR2W2XqLi pSREY+VFquOPvhkBi9aUNsGFExIx8XXMPvPBTtQOOeOJFlQPTzTZIsIYPcONVaNHBoWWIfDJBkNREuSG AgICAgICAgICAgICAgICAgICAgICAgICAgICAgICAg DYSkJZDpVAXmJSEtOIBqHVQnYFCeVWBgZZVbBKRkEX5ALQUzXIRuGATlMAKvTEWcLVNpIJImYGClMJJa ICAgICAgICAgICAgICAgICAgICAgICAgICAgICAgICAgICAgICAgICAgICAgICAgICAgICAgICAgICAg CBGtLPWlOGEuDTBdGO2FHSPzCVGyESGuULLpYKZoWZ AgICAgICAgICAgICAgICAgICAgICAgICAgICAgICAgICAgICAgICAgICAgICAgICAgICAgICAgICAgIC QnZVTtFTAnFQEsSGJfCGAaCHWjHIBjPM0YUFEbMEUnMBFzODRdDBCcXFMrOACjDUJuBRCrIQKsCRCoQA AgICAgICAgICAgICAgICAgICAgICAgICAgICAgICAg BDNdHCAhKJBwKZCsRCCfQVTrPIZgNBBcVKNgNZYdWFLqES8TVWThMRIcFASnQRKnNJDpFWRaRKTqHVJa ICAgICAgICAgICAgICAgICAgICAgICAgICAgICAgICAgICAgICAgICAgICAgICAgICAgICAgICAgICAg FCPeOVKvKGGaJVDeNCQuWE2YGRVbMVHsSICtDODaFK AgICAgICAgICAgICAgICAgICAgICAgICAgICAgICAgICAgICAgICAgICAgICAgICAgICAgICAgICAgIC VtWKInSYWrYIUoXAUgQUKsFARaQVTdTUYdXF2ULZSqRRSmEFGsTDDdVNIoWIDiHVCdXQKjPJTqUHSpTZ AgICAgICAgICAgICAgICAgICAgICAgICAgICAgICAg FOVwHSGxMELzFDKmBANqXEZnCQMaPKDnISWcHELqVXBxKAEbZP3JMPFnJOPdRPRuJXLtQECcZVNnDKTy ICAgICAgICAgICAgICAgICAgICAgICAgICAgICAgICAgICAgICAgICAgICAgICAgICAgICAgICAgICAg YJJaFPYlNTRgUFJxMFOqRKGeEX0MAYQrGODxEVNdQY AgICAgICAgICAgICAgICAgICAgICAgICAgICAgICAgICAgICAgICAgICAgICAgICAgICAgICAgICAgIC OtOVTcFOGiEHGjMSPsKNWlTOBpBJZuHCDjQHCdXI3FTXOuWJLeUKOgFXZyTDAaTPSyLYRcNGHsDDBgRZ AgICAgICAgICAgICAgICAgICAgICAgICAgICAgICAg INSkVZOzVYFiGEUyFOJrNYDrKZOqLJPgVXGmNIAmECIkELHxBPIuZF3KRK51wNJlz1O3FIAtNM0vsnm/ Al5JZWghzlPdeBQnPM7BRtKvZA5szq6CPiRtPP1hue7PYYfLWxPzY6C7wUPeAEVeMQNGJrCgE23dZQtz Bu89TXynOSCtPjJzFUa0Og8LCjXwL8asMPAiBxZ3ZG YfHuY4JCLyEnF0HCLwXcLvEZAeMNNuCRJfBBNQFOL5WYWeMkBuKEltHQ6Sg0DeiWE1LUg+Xs9KLI0qi1 YiTNgyIlJkIR7aae4WEVcYLwVcI4NktuX3YHYkALJsWk4WLHIzXEZbdXAvUsGzENUCUbZeJ6IquG02QW ENCj4+RMvnvrGuZrvVBtHdEJXdy5EkHAc4KZ0QOPJt LOe2hIEmOWDcW9Yls4TuPm81PNExXpgsT0OtPK6wvaYsBe1cdDszMH5VBZG2WYDcIZRkDeGgMRXnZQdn ZSFJAKwPKgGxW7Lqe8AmDrT3XWLgJqVcTTpbIZYaWQlvCJ28mRafZL9DRNQqTMKwAN79EJDyRLQkIb5Y Ly0JRyYxGB9jkx6OEeSlOAEcBneFXcp0ROehUA1CsC AzF0TsfHYhk9eZRxKvH5ASRMCqNZBmZf1RIRWwGaSoACNbRKgiFF2fJFPsSWSXtIwhuxE4VR4TXD1ycl OzDX5LUtCiIx9oPm6DQhZpO6CrC2FxACOeRJRFFAcmWO8CFXstPM4uHI5Gn7ESmNThrO7usn9FRINbPA VpNtoeml2CGyksS9C2wAdsKYMnDaBgWEHAZYglLQ7M PHQjHKA4YQSfIXVaKABEFyWdB75sPR4RP1Keq38eTuH1YNSfCvFsIEdfIY23zMpbwsGigUOgtTctWB7Y Cj4+TTfovzEhAcdBYbpgQHHDEbXsVvGBHmJlSPToWUIgUTOrTiS0QwOmMf6NTBEnYWJgPXUeJcXvVOTm IMCkARahJKBlATX3DKVkKOWaCMArOX7VCrBvHMHkYx s6QsjzKIGbPGKahr2XXQYsAWIuHQZ2NzDqQZXpAYTuTGasQBFxESX9MaCoJKAsLXIvYQ6BZqOyRYJbQO J5XEufQEIuIZDdhq9NBNZlOPSnDDO4LUJoQDEdJRYrYYqwICNsVBD5UDgeZKZlOZDeHG5QXbEmGDYaVD EaKuRhWAEvRLPcof1AHPEnVOTnKiEtBwJgHMRdFSIq KAsuGSUwRRM8MyH9XAQiUWZmTR4BUsQxBLFsLIJ1UkXoDCLjSQSjum1YEIZwIIZcCTkbIyAqYSQdDTRc LZvtAJKgAEP9BKD1IYMkXFZlYW9YQfXmKGWwYmP7ACErYWRnGFFvqo6FTODnLOKlLOd0OTWnZLKrKMXg BScxSWPgGFFoTjNnONHcLXUuXV2LIcDtCNWwPtT3ZG dwUPFuXLEwzj9BMESdLUBhPvS6VJHsRUOiMFVbRZdbDWBqMMTmPKR9POEtDRJfJA4QRbKdIINmSxWdKM HwCHCvYZSkli0WYRYiYNPhZiGwBOQsSWVpQXBkPZblOSLfLIU1LAY8XEIyPIEkSJ1ALhToUDOiSnHfGV FaRTZzKGDqcb5JLUXpXREkTZXpHzNlFIJiIFHoJLuf BREaZWO7ReGdYAEhEAJtKQ2EYiLpGIRfEkL8BMgmIEUrVNWobr7QZWAnQRWsLoc5FsVmPICcSHUvPDuh BFGgVOI2UBDiYXGdNVNnQA2WCvNvXTOrQbpoDNViKOMsZVDekt5BFGLjKSOdNwFjQRQdHNWlABGxANri FTOtKMD6KIg6ECHtTMPsDX9ZUmYmPPAbUsaqVxYkFU KuENKrxk2PDFPlGJLnAXTaAMOsUNLiLCZbXIi3xzWylCZlNXt2HL9ZN5HwznAcMhDARh5Qj722WBJ8CJ KaSh2PE1qlFa7cXBDmOKSXBn5PCSa2MmJ7GkK1FidmNaKiOCM4NVafK6PaR0IfQLRlFMU1LBA+IDwzMT b8DVugJYZnCYK2FORsRxP7IXEtIHJ2C4HxUOw8Gs0y XSANCj4+VSgpkKGegFyrSNDZUmU3FTEsYNnvBEPBHh2X ID Date Data Source [id number] 09/02/2020 11:47:31 AM [facility] Name Value Range Interpretation Code Description Data Kim rce(s) Supporting Document(s) Progress Note [facility] [id number]IEJiT3DpDKG1tH0dIMT1LAbTXkTkDsRfFLW7 lbm [file] 0K ID Date Data Source [id number] 09/01/2020 10:23:00 AM EST [facility] ([facility]) Name Value Range Interpretation Code Description Data Kim rce(s) Supporting Document(s) Hepatitis C Virus Ruby Index Laboratory test result Normal (applies to non- numeric results) [facility] ([facility]) Hepatitis B Surface Antigen Laboratory test result Normal (applies to non- numeric results) [facility] ([facility]) Hepatitis B Core Antibody Igm Laboratory test result Normal (applies to non- numeric results) [facility] ([facility]) Hepatitis A Antibody Igm Laboratory test result Normal (applies to non-numeric results) [facility] ([facility]) ID Date Data Source [id number] 09/01/2020 10:23:00 AM EST [facility] ([facility]) Name Value Range Interpretation Code Description Data Kim rce(s) Supporting Document(s) Ast/Sgot 60 U/L 7-37 Above high normal [facility] ([facility]) Alt/SGPT 134 U/L 12-78 Above high normal [facility] ([facility]) Alkaline Phosphatase 287 U/L 45-117 Above high normal [facility] ([facility]) Bilirubin,Total 0.4 mg/dL 0.2-1.0 Normal (applies to non-numeric results) [facility] ([facility]) Bilirubin,Direct Laboratory test result 0.0-0.2 Normal ( applies to non-numeric results) [facility] ([facility]) Total Protein 7.5 GM/DL 6.4-8.2 Normal (applies to non-numeric re sults) [facility] ([facility]) Albumin 3.6 GM/DL 3.2-5.2 Normal (applies to non-numeric resul ts) [facility] ([facility]) Albumin/Globulin Ratio 0.9 1.2-2.2 Below low normal [facility] ([facility]) ID Date Data Source [id number] 08/31/2020 10:05:58 AM EST [facility] Name Value Range Interpretation Code Description Data Kim rce(s) Supporting Document(s) Progress Note [facility] [id number]/NXDcoGFLyr7GdQBxuAUm1KFkaEUKoZ9DeHCQ9uR8yYJA9ZZzKMtAuJtOlKXNe [facility] [file] [id number]Er1HTbV6NOY5pLJkKh2NJeQ5OtURYjUmFA8PRBm= ID Date Data Source [id number] 08/26/2020 08:58:00 AM EST [facility] Name Value Range Interpretation Code Description Data Kim rce(s) Supporting Document(s) Prothrombin Time 12.2 s 12.5-14.3 Normal (applies to non-numeric results) [facility] ([facility]) Inr 0.89 Normal (applies to non-numeric resul ts) [facility] ([facility]) THERAPUTIC HUMAN INR VALUES INDICATIONS NORMAL RANGES PROPHYLAXIS/TREATMENT OF: VENOUS THROMBOSIS 2.0-3.0 PULMONARY EMBOLISM 2.0-3.0 PREVENTION OF SYSTEMIC EMBOLISM FROM: TISSUE HEART VALVES 2.0-3.0 ACUTE MYOCARDIAL INFARCTION 2.0-3.0 VALVULAR HEART DISEASE 2.0-3.0 ATRIAL FIBRILLATION 2.0-3.0 MECHANICAL VALVES(HIGH RISK) 2.5-3.5 RECURRENT MYOCARDIAL INFARCTION 2.5-3.5 ID Date Data Source [id number] 08/26/2020 08:58:00 AM EST [facility] ([facility]) Name Value Range Interpretation Code Description Data Kim rce(s) Supporting Document(s) aPTT in Platelet poor plasma by Coagulation assay 29.2 s 24.2-38.5 Normal (applies to non-numeric results) [facility] ID Date Data Source [id number] 08/26/2020 08:58:00 AM EST [facility] ([facility]) Name Value Range Interpretation Code Description Data Kim rce(s) Supporting Document(s) White Blood Count 10.3 10 4.0-10.0 Above high normal [facility] ([facility]) Red Blood Count 4.75 10 4.00-5.40 Normal (applies to non-numeric results) [facility] ([facility]) Hemoglobin 14.1 g/dL 12.0-15.5 Normal (applies to non-numeric resul ts) [facility] ([facility]) Hematocrit 45.4 % 36.0-47.0 Normal (applies to non-numeric resul ts) [facility] ([facility]) Mean Corpuscular Volume 95.6 fl 80.0-96.0 Normal ( applies to non-numeric results) [facility] ([facility]) Red Cell Distribution Width 12.9 % 11.5-14.5 Norm al (applies to non-numeric results) [facility] ([facility]) Mean Corpuscular HGB Conc 31.1 g/dL 32.0-36.5 Below low normal [facility] ([facility]) Mean Corpuscular Hemoglobin 29.7 pg 27.0-33.0 Norm al (applies to non-numeric results) [facility] ([facility]) Platelet Count, Automated 486 10 150-450 Above high normal [facility] ([facility]) Neutrophils % 61.0 % 36.0-66.0 Normal (applies to non-numeric re sults) [facility] ([facility]) Lymph % 24.6 % 24.0-44.0 Normal (applies to non-numeric resul ts) [facility] ([facility]) Furnas % 10.2 % 0.0-5.0 Above high normal [facility] ([facility]) Eos % 2.8 % 0.0-3.0 Normal (applies to non-numeric resul ts) [facility] ([facility]) Baso % 1.0 % 0.0-1.0 Normal (applies to non-numeric resul ts) [facility] ([facility]) Immature Granulocyte % 0.4 % 0-3.0 Normal (applies to non-n umeric results) [facility] ([facility]) Neutrophils # 6.3 10 1.5-8.5 Normal (applies to non-numeric re sults) [facility] ([facility]) Nucleated Red Blood Cell % 0.0 % 0-0 Normal (applies to n on-numeric results) [facility] ([facility]) Lymph # 2.5 10 1.5-5.0 Normal (applies to non-numeric resul ts) [facility] ([facility]) Furnas # 1.1 10 0.0-0.8 Above high normal [facility] ([facility]) Baso # 0.1 10 0.0-0.2 Normal (applies to non-numeric resul ts) [facility] ([facility]) Eos # 0.3 10 0.0-0.5 Normal (applies to non-numeric resul ts) [facility] ([facility]) ID Date Data Source [id number] 08/26/2020 08:58:00 AM EST [facility] ([facility]) Name Value Range Interpretation Code Description Data Kim rce(s) Supporting Document(s) Glucose, Fasting 183 mg/dL 70-100 Above high normal [facility] ([facility]) Blood Urea Nitrogen 15 mg/dL 7-18 Normal (applies to non-nume dennys results) [facility] ([facility]) Creatinine For GFR 1.10 mg/dL 0.55-1.30 Normal (applies to non -numeric results) [facility] ([facility]) Sodium Level 134 meq/L 136-145 Below low normal [facility] ([facility]) Glomerular Filtration Rate Laboratory test result Normal (applies to non- numeric results) [facility] ([facility]) <content>Units are mL/min/1.73 m2</content>
<content></content>
<content>Chronic Kidney Disease Staging per NKF:</content>
<content></content>
<content>Stage I & II GFR >=60 Normal to Mildly Decreased</content>
<content>Stage III GFR 30-59 Moderately Decreased</content>
<content>Stage IV GFR 15-29 Severely Decreased</content>
<content>Stage V GFR <15 Very Little GFR Left</content>
<content>ESRD GFR <15 on GRAPHIC PRE PRESS TRADES WORKER</content>
<content></content> Chloride Level 100 meq/L 98-107 Normal (applies to non-numeric r esults) [facility] ([facility]) Potassium Serum 4.7 meq/L 3.5-5.1 Normal (applies to non-numeric results) [facility] ([facility]) Anion Gap 6 meq/L 8-16 [facility] Carbon Dioxide Level 28 meq/L 21-32 Normal (applies to non-num raymon results) [facility] ([facility]) Calcium Level 9.6 mg/dL 8.5-10.1 Normal (applies to non-numeric re sults) [facility] ([facility]) Ast/Sgot 174 U/L 7-37 Above high normal [facility] ([facility]) Alt/SGPT 433 U/L 12-78 Above high normal [facility] ([facility]) Bilirubin,Total 0.3 mg/dL 0.2-1.0 Normal (applies to non-numeric results) [facility] ([facility]) Alkaline Phosphatase 433 U/L 45-117 Above high normal [facility] ([facility]) Albumin 4.0 GM/DL 3.2-5.2 Normal (applies to non-numeric resul ts) [facility] ([facility]) Total Protein 7.6 GM/DL 6.4-8.2 Normal (applies to non-numeric re sults) [facility] ([facility]) Albumin/Globulin Ratio 1.1 1.2-2.2 Below low normal [facility] ([facility]) ID Date Data Source [id number] 08/26/2020 08:58:00 AM EST [facility] ([facility]) Name Value Range Interpretation Code Description Data Kim rce(s) Supporting Document(s) Triglycerides Level 227 mg/dL Above high normal [facility] ([facility]) Cholesterol Level 206 mg/dL Above high normal [facility] ([facility]) HDL Cholesterol 49 mg/dL Normal (applies to non-numeric results) [facility] ([facility]) Non-HDL-C 157 mg/dL Normal (applies to non-numeric resul ts) [facility] ([facility]) LDL Cholesterol 112 mg/dL Above high normal [facility] ([facility]) Cholesterol Risk Ratio 4.204 Normal (applies to non-n umeric results) [facility] ([facility]) ID Date Data Source [id number] 08/26/2020 08:58:00 AM EST [facility] ([facility]) Name Value Range Interpretation Code Description Data Kim rce(s) Supporting Document(s) Gamma glutamyl transferase [Enzymatic activity/volume] in Serum or Plasma 606 U/L 5-55 Above high normal [facility] Magnesium [Mass/volume] in Serum or Plasma 2.1 mg/dL 1.8-2 .4 Normal (applies to non-numeric results) [facility] ([facility]) ID Date Data Source [id number] 08/26/2020 08:58:00 AM EST [facility] ([facility]) Name Value Range Interpretation Code Description Data Kim rce(s) Supporting Document(s) Total Iron Binding Capacity 357 ug/dL 250-450 Norm al (applies to non-numeric results) [facility] ([facility]) Iron (Fe) 123 ug/dL 50-170 Normal (applies to non-numeric resul ts) [facility] ([facility]) Percent Saturation 34.5 % 13.2-45.0 Normal (applies to non-numer ic results) [facility] ID Date Data Source [id number] 08/26/2020 08:58:00 AM EST [facility] ([facility]) Name Value Range Interpretation Code Description Data Kim rce(s) Supporting Document(s) IgE [Mass/volume] in Serum 135.0 IU/ml Above high normal [facility] ([facility]) Calcidiol [Mass/volume] in Serum or Plasma 22.8 ng/mL 30.0- 100.0 Below low normal [facility] ([facility]) Retinol [Mass/volume] in Serum or Plasma 62.7 ug/dL 18.9-57.3 Above high normal [facility] ([facility]) Reference intervals for vitamin A determ ined from [facility] internal studies. Individuals with vitamin A less than 20 ug/dL are considered vitamin A deficient and those with serum concentrations less than 10 ug/dL are considered severely deficient. . This test was developed and its performance characteristics determined by [facility]. It has not been cleared or approved by the Food and Drug Administration. Performed at: [address] [id number] [address] Process Automation Engineer: Vance Veras MD, Phone: [phone] ID Date Data Source [id number] 08/26/2020 08:58:00 AM EST [facility] ([facility]) Name Value Range Interpretation Code Description Data Kim rce(s) Supporting Document(s) Vitamin E(Alpha Tocopherol) 16.5 mg/L 5.9-19.4 Norm al (applies to non-numeric results) [facility] ([facility]) Vitamin E(Gamma Tocopherol) 0.8 mg/L 0.7-4.9 Norm al (applies to non-numeric results) [facility] ([facility]) Reference intervals for alpha and gamma- tocopherol determined from National Health and Nutrition Examination Survey, 4342-2491. Individuals with alpha-tocopherol levels less than 5.0 mg/L are considered vitamin E deficient. ID Date Data Source [id number] 08/26/2020 08:58:00 AM EST [facility] ([facility]) Name Value Range Interpretation Code Description Data Kim rce(s) Supporting Document(s) Hemoglobin A1c 9.4 % Normal (applies to non-numeric r esults) [facility] ([facility]) <content>REFERENCE RANGES:</content><br/ ><content></content>
<content><=5.6% NORMAL</content>
<content>5.7-6.4% SUGGESTS IMPAIRED GLUCOSE METABOLISM/PREDIABETIC</content>
<content>>= 6.5% ABNORMAL</content>
<content></content> Estimated Average Glucose 223 mg/dL 60-110 Above high normal [facility] ([facility]) ID Date Data Source [id number] 08/26/2020 08:57:00 AM EST [facility] ([facility]) Name Value Range Interpretation Code Description Data Kim rce(s) Supporting Document(s) Glucose, Fasting 190 mg/dL 70-100 Above high normal [facility] ([facility]) Creatinine For GFR 1.09 mg/dL 0.55-1.30 Normal (applies to non -numeric results) [facility] Blood Urea Nitrogen 15 mg/dL 7-18 Normal (applies to non-nume dennys results) [facility] ([facility]) Glomerular Filtration Rate Laboratory test result Normal (applies to non- numeric results) [facility] ([facility]) <content>Units are mL/min/1.73 m2</content>
<content></content>
<content>Chronic Kidney Disease Staging per NKF:</content>
<content></content>
<content>Stage I & II GFR >=60 Normal to Mildly Decreased</content>
<content>Stage III GFR 30- 59 Moderately Decreased</content>
<content>Stage IV GFR 15-29 Severely Decreased</content>
<content>Stage V GFR <15 Very Little GFR Left</content>
<content>ESRD GFR <15 on GRAPHIC PRE PRESS TRADES WORKER</content>
<content></content> Potassium Serum 4.8 meq/L 3.5-5.1 Normal (applies to non-numeric results) [facility] ([facility]) Sodium Level 135 meq/L 136-145 Below low normal [facility] ([facility]) Chloride Level 100 meq/L 98-107 Normal (applies to non-numeric r esults) [facility] Carbon Dioxide Level 28 meq/L 21-32 Normal (applies to non-num raymon results) [facility] ([facility]) Calcium Level 9.5 mg/dL 8.5-10.1 Normal (applies to non-numeric re sults) [facility] ([facility]) Anion Gap 7 meq/L 8-16 Below low normal [facility] ( [facility]) Ast/Sgot 171 U/L 7-37 Above high normal [facility] ([facility]) Alt/SGPT 433 U/L 12-78 Above high normal [facility] ([facility]) Alkaline Phosphatase 415 U/L 45-117 Above high normal [facility] ([facility]) Total Protein 7.6 GM/DL 6.4-8.2 Normal (applies to non-numeric re sults) [facility] ([facility]) Bilirubin,Total 0.3 mg/dL 0.2-1.0 Normal (applies to non-numeric results) [facility] ([facility]) Albumin 4.0 GM/DL 3.2-5.2 Normal (applies to non-numeric resul ts) [facility] ([facility]) Albumin/Globulin Ratio 1.1 1.2-2.2 Below low normal [facility] ([facility]) ID Date Data Source [id number] 08/26/2020 08:57:00 AM EST [facility] ([facility]) Name Value Range Interpretation Code Description Data Kim rce(s) Supporting Document(s) Red Blood Count 4.82 10 4.00-5.40 Normal (applies to non-numeric results) [facility] ([facility]) White Blood Count 10.1 10 4.0-10.0 Above high normal [facility] ([facility]) Hemoglobin 14.3 g/dL 12.0-15.5 Normal (applies to non-numeric resul ts) [facility] ([facility]) Hematocrit 45.6 % 36.0-47.0 Normal (applies to non-numeric resul ts) [facility] ([facility]) Mean Corpuscular Volume 94.6 fl 80.0-96.0 Normal ( applies to non-numeric results) [facility] ([facility]) Mean Corpuscular Hemoglobin 29.7 pg 27.0-33.0 Norm al (applies to non-numeric results) [facility] ([facility]) Mean Corpuscular HGB Conc 31.4 g/dL 32.0-36.5 Below low normal [facility] ([facility]) Red Cell Distribution Width 13.1 % 11.5-14.5 Norm al (applies to non-numeric results) [facility] ([facility]) Platelet Count, Automated 466 10 150-450 Above high normal [facility] ([facility]) Neutrophils % 61.5 % 36.0-66.0 Normal (applies to non-numeric re sults) [facility] ([facility]) Furnas % 9.9 % 0.0-5.0 Above high normal [facility] ([facility]) Lymph % 24.6 % 24.0-44.0 Normal (applies to non-numeric resul ts) [facility] ([facility]) Eos % 2.7 % 0.0-3.0 Normal (applies to non-numeric resul ts) [facility] ([facility]) Baso % 1.0 % 0.0-1.0 Normal (applies to non-numeric resul ts) [facility] ([facility]) Immature Granulocyte % 0.3 % 0-3.0 Normal (applies to non-n umeric results) [facility] ([facility]) Nucleated Red Blood Cell % 0.0 % 0-0 Normal (applies to n on-numeric results) [facility] ([facility]) Lymph # 2.5 10 1.5-5.0 Normal (applies to non-numeric resul ts) [facility] ([facility]) Neutrophils # 6.2 10 1.5-8.5 Normal (applies to non-numeric re sults) [facility] ([facility]) Eos # 0.3 10 0.0-0.5 Normal (applies to non-numeric resul ts) [facility] ([facility]) Baso # 0.1 10 0.0-0.2 Normal (applies to non-numeric resul ts) [facility] ([facility]) Furnas # 1.0 10 0.0-0.8 Above high normal [facility] ([facility]) ID Date Data Source [id number] 08/09/2020 12:00:00 AM EST [facility] Name Value Range Interpretation Code Description Data Kim rce(s) Supporting Document(s) Carestart Rapid COVID Antigen Test [facility] This lab was reported by [facility]. ID Date Data Source [id number] 08/09/2020 12:00:00 AM EST [facility] Name Value Range Interpretation Code Description Data Kim rce(s) Supporting Document(s) SARS coronavirus 2 RNA [Presence] in Res piratory specimen by KALIN with probe detection [facility] This lab was ordered by [facility] and reported by [facility]. ID Date Data Source [id number] 07/28/2020 02:10:09 PM EST [facility], PCName: Lidia AmayaDOB: 1990Provider: Marleni MeeksJOSEPH: 07/28/2020 Reason For VisitAmbminnie Amaya is here today for Cervical spine. Lidia Amaya is a new patient. MRI and CT were imported. Other DOI/DOO: 12/2019. NKI. 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 History of Present IllnessChronic neck painEpisodic right scapular/upper arm painEpisodic right upper extremity numbnessDoes see [facility] neurolog[facility] for migrainesPhysical therapy February and March 2020-not helpfulAlso acupuncture treatments February and March 2020-some reliefShe is left-hand dominantStates does have difficulty with grabbing things with her right handAlso will drop things with the right hand The patient complains of pain in the neck. The pain radiates to the right, posterior, shoulder(s), upper arm(s) and the scapula . The patient states that the timing of the pain is continuous . The patient denies signs of bladder dysfunction, bowel dysfunction, cancer/metastasis, infection and myelopathy . Patient's pain is achy . The pain severity is rated 6 out of 10. The pain is aggravated by activity . There is numbness involving the right arm(s), forearm(s) and hand(s). The numbness is intermittent. Results[facility] Mild multilevel DDD. No herniation. No stenosis. No foraminal narrowing. No nerve root impingementReviewed in detail the results of the diagnostic testing. Reviewed the pertinent applicable clinical implications relating to the patient. Also provided a copy of the results for their personal records. Assessment 1. Degenerative cervical disc (722.4) (M50.30) 2. Neck pain (723.1) (M54.2) Condition: Chronicetiology: age-related spine/joint degenerationlevels: C4-5, C5-6 C6-7 PlanPlan, Assessment and Recommendation(s) Follow up as needed, if not improving, or getting worse. The various alternatives and treatment options were discussed with pros and cons, risks, and potential benefits of each option reviewed. For the neck pain issues-recommend conservative measures: medicare compliance auditor, pain management, massage therapy etc.For the episodic right upper extremity numbness-she was advised to call her neurologist for further evaluation of this issue as MRI cervical did not show any compressive lesions This document was dictated and electronically signed using [employer] software. A reasonable attempt at proof reading has been made to minimize errors. Please call with any questions. Signatures Electronically signed by : Marleni Meeks M.D.; Jul 28 2020 2:10PM EST (Author) Name Value Range Interpretation Code Description Data Kim rce(s) Supporting Document(s) ID Date Data Source [id number] 07/07/2020 08:08:44 PM EST [facility] [place] [facility] Name Value Range Interpretation Code Description Data Kim rce(s) Supporting Document(s) SARS-COV-2 KALIN [facility] Not DetectedReference range: Not Detecte d This nucleic acid amplification test was developed and its performance characteristics determined by [employer]. Nucleic acid amplification tests include PCR and TMA. This test has not been FDA cleared or approved. This test has been authorized by FDA under an Emergency Use Authorization (EUA). This test is only authorized for the duration of time the declaration that circumstances exist justifying the authorization of the emergency use of in vitro diagnostic tests for detection of SARS-CoV-2 virus and/or diagnosis of COVID-19 infection under section 564(b)(1) of the Act, 21 U.S.C. 360bbb-3(b) (1), unless the authorization is terminated or revoked sooner. When diagnostic testing is negative, the possibility of a false negative result should be considered in the context of a patient's recent exposures and the presence of clinical signs and symptoms consistent with COVID- 19. An individual without symptoms of COVID- 19 and who is not shedding SARS -CoV-2 virus would expect to have a negative (not detected) result in this assay. Performed At: [employer] [facility] [place], [place] [id number] Radha Lorena A PhD Ph:[id number] ID Date Data Source [id number] 07/03/2020 12:07:24 AM EST [facility] Name Value Range Interpretation Code Description Data Kim rce(s) Supporting Document(s) SARS-COV-2 KALIN [facility] Not DetectedReference range: Not Detecte d This nucleic acid amplification test was developed and its performance characteristics determined by [employer]. Nucleic acid amplification tests include PCR and TMA. This test has not been FDA cleared or approved. This test has been authorized by FDA under an Emergency Use Authorization (EUA). This test is only authorized for the duration of time the declaration that circumstances exist justifying the authorization of the emergency use of in vitro diagnostic tests for detection of SARS-CoV-2 virus and/or diagnosis of COVID-19 infection under section 564(b)(1) of the Act, 21 U.S.C. 360bbb-3(b) (1), unless the authorization is terminated or revoked sooner. When diagnostic testing is negative, the possibility of a false negative result should be considered in the context of a patient's recent exposures and the presence of clinical signs and symptoms consistent with COVID- 19. An individual without symptoms of COVID- 19 and who is not shedding SARS -CoV-2 virus would expect to have a negative (not detected) result in this assay. Performed At: [employer] [address] [place], [place] [id number] Radha Gillette PhD Ph:[phone] ID Date Data Source [id number] 06/27/2020 12:00:00 AM EST [facility] Name Value Range Interpretation Code Description Data Kim rce(s) Supporting Document(s) SARS coronavirus 2 RNA [facility] This lab was ordered by [employer] and reported by [employer]. ID Date Data Source [id number] 06/01/2020 10:40:00 AM EDT [facility] Name Value Range Interpretation Code Description Data Kim rce(s) Supporting Document(s) SARS coronavirus 2 RNA [facility] This lab was ordered by [facility] and reported by [facility]. ID Date Data Source [id number] 05/27/2020 08:50:21 AM EDT [facility] Service Cmnt XXX-Imp : NoneGram Stn XXX : Unable to perform testMicroorganism XXX Cult : 2+MucoidPseudomonas aeruginosaATTENTION This species is always resistant to aminopenicillins, ampicillin-sulbactam, amoxicillin-clavulanic acid, first-generation cephalosporins, cefuroxime, cephamycins, cefotaxime, ceftriaxone, ertapenem, tetracyclines, trimethoprim, trimethoprim- sulfamethoxazole, and chloramphenicol.3+Indigenous microorganisms. 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 [file] j8ESwCD05s4TtPvR99vnzMCaEQay/Dave+2iX3NgjP4fZqxJI4L9xYPyuUYaphbtRUw05mBzwLIo0y1Eeq vT36ShbG81ydbyzPfTegzdosDJdx93wIrirzucfRDB Ny+jOizKSdU/js0JXJUk8fJMYgNquiFrn3cNCzzmCL4CjTezoAmbCDvKDnRvnssu1Y5focI75lXDnTuG qq0M04q5lBPNpkF3DlFGw3N4UT4cW4lYdS35bfFfmPZ2y4/sEK8zS9z2HrXj44IUbQrP0r2UBlYzX8kX JBvgLCrgshLFRgeA+4A4geWcA7CZEfIlp/fbw8fR/w r5+rZQQSt6PfX5sxC+DPDpokavUN/3Le/lVg/QYQ/Vj5/m1eNK9TPPrh7OqXxz9U3VLOuVuP8N+N/pBd qqI2QesQJOdx/nNBkXv8BvkYr5ohc/Pz2+AsJ2w+xHKKRERaJMyK2AZ6sqKOYUwoA3oBafqOUy37RHvM XsKdlCfkwYoj/tQfzOVetOyOtKmY3vwx553KTSGV4w X2iYHFVR7ZlHsnmK0OvH7WqjQg3KuNuwE753vg710uE7o0v/thK00NQ4LPN78RMl0lXPn007uxy58Nv7 IR7oYcxD6+x3rm/0/WmpNL8fIQ8/+30+IAeRWhI+Q/me3tYHHQiuxcuQN48ZuSjhoBK/EgyqHpSN/WATCH CASE POLISHER b1A1dxsHeCSRm9PN3WiWbyuF/A7H5tIY5XkNIBy3pb 7SsxUxO11dHx/sO/B/q9THTy9/3JghVY0m5eMRgNH6+D4QnAR3L1t/C+q5E+V07tQWq9IrIpFg/n6F+M xNX7EgO0GVsOWEFO51+NQPrIEePQfzs9+txbb4QZJbSjZmzmklpw8fijwJ+mdn0eh+lLQll1Sq09vMpi ZBEonJy8T6X9Jb7jz/tFnNdP0lrltUtG7FQl5rK8QM mypD8z/hOriHkT7XjMUeGpC0GaQX9z4Ym9T9O2gAlRofVuLf6pLd3qwgBfK5gPxT0CHjYvmshwxFYCDP +k4QJvr3+PC7VMJAlUEdYfFWtwgkcVi/luy4iq4t5VOL1AfvYQz+w+gYmnW1dL1/Rp/27/j+0j/4U+dY WPl4ZpqNFyZ9tUO1dzs66upod7/8t9+TH6aGc//T/1 2/15QjAkXCBlzX8fjHv13Ut89Sz+4+i3I1nff8k4hY+IVwU3o5MS9Eapr/WZfMjPIqfd/WnC2RR8zhx3 t/TC770b2v3hHjhRfGKwUNJGp09O+GpFfYOX5tSPOha/XPkOBii/cPJwO5gEjxQKspaoy9mJs7zS/LbR ml8khV6PS4NhUsy8G6+fc/fP0NUyC5XZJDk3ivMWyQ VcHxPCFVjmwz6PNTFV7qbke5raFZTd4WA7BfAQAyekQTPMMI0Wfr/0fcDYZMwUgfxDJ8U4YEFXjLxitQ rXHJ/ADAN/H9skvm0xdQPvO+dZWmAU9OZoD6gN0rd8bU4jYn2TDBeCs5vTdG5DZarGOcni4fay5RgrO7Q [file] ICAgICAgICAgICAgICAgICAgICAgICAgICAgICAgIC AgICAgICAgICAgICAgICAgICAgICAgICAgICAgICAgICAgICAgICAgICAgICAgICAgICAgICAgICAgIC AgICANCiAgICAgICAgICAgICAgICAgICAgICAgICAgICAgICAgICAgICAgICAgICAgICAgICAgICAgIC AgICAgICAgICAgICAgICAgICAgICAgICAgICAgICAg ICAgICAgICAgICAgICANCiAgICAgICAgICAgICAgICAgICAgICAgICAgICAgICAgICAgICAgICAgICAg ICAgICAgICAgICAgICAgICAgICAgICAgICAgICAgICAgICAgICAgICAgICAgICAgICAgICAgICANCiAg ICAgICAgICAgICAgICAgICAgICAgICAgICAgICAgIC AgICAgICAgICAgICAgICAgICAgICAgICAgICAgICAgICAgICAgICAgICAgICAgICAgICAgICAgICAgIC AgICAgICANCiAgICAgICAgICAgICAgICAgICAgICAgICAgICAgICAgICAgICAgICAgICAgICAgICAgIC AgICAgICAgICAgICAgICAgICAgICAgICAgICAgICAg ICAgICAgICAgICAgICAgICANCiAgICAgICAgICAgICAgICAgICAgICAgICAgICAgICAgICAgICAgICAg ICAgICAgICAgICAgICAgICAgICAgICAgICAgICAgICAgICAgICAgICAgICAgICAgICAgICAgICAgICAN CiAgICAgICAgICAgICAgICAgICAgICAgICAgICAgIC AgICAgICAgICAgICAgICAgICAgICAgICAgICAgICAgICAgICAgICAgICAgICAgICAgICAgICAgICAgIC AgICAgICAgICANCiAgICAgICAgICAgICAgICAgICAgICAgICAgICAgICAgICAgICAgICAgICAgICAgIC AgICAgICAgICAgICAgICAgICAgICAgICAgICAgICAg ICAgICAgICAgICAgICAgICAgICANCiAgICAgICAgICAgICAgICAgICAgICAgICAgICAgICAgICAgICAg ICAgICAgICAgICAgICAgICAgICAgICAgICAgICAgICAgICAgICAgICAgICAgICAgICAgICAgICAgICAg ICANCiAgICAgICAgICAgICAgICAgICAgICAgICAgIC AgICAgICAgICAgICAgICAgICAgICAgICAgICAgICAgICAgICAgICAgICAgICAgICAgICAgICAgICAgIC AgICAgICAgICAgICANCjw/zRNwR9xelPAldmE2B0ijKa2FXx5AKO3ce9MuPMGvTCkcyzOhNdsRAbEfFG BjNviLGid7KZxvFZ2ZyIUpT7AfS3OsWRyqGI7PZYZy OZSmzQIuQOKmKKEfLeP4KGHoUWrzTZ8DbTGtGInmXYRjUDJxMbDsJWLnMFQmZRIcHPZiANDFXPXwYRMa MjJeIHBzWVGfRO0JSOQhQ694qmSgCy3YTk4JRaTrAC1iln7BToCnTSFxRalTDga8AXvcGO9SpPRbhNKk NrBkMBKUXyMyS2rge4QyZgBhBWFQZYccCJ8Tm4JluV AxDQo+Bj7KVA3cg8RuJLucDzMsXX8hfk4DJWxRNiTsJ4TedYkrXLUgb1ckITGwBH8hoPCzZOT2NTVupc RhYRJvTJUguUQwQYJFNBNeoYNnFJ53FeSjUvJxCQC6QZUoUU0lFFsjQB2YWTA2LBodVCWnGJWvP7oYTn ZtRBW4FzOilIuvLS8CJjWsP9XdnjPcvCQsCiGyVRNR Cj4+YHlidlRgDshKBfZ2KUDoh1EnTEc9LL4NKPOaFBxcTB1RSFOknL3uRPckXD5ZFhLvOYKaOWMZPkDi B39tpEEwOOy6A7VmKrZfZIDxYaudVZGuOVohQtQvLDQdVcWrWDehZA1+ID4+TFsdIF6RZLxvefPfXQPq Qn2VNUMmVIMmKU8pQPXnMOIkQ1E7zUupUMVABoMjY9 ggfmoyLA0zDZOaZ490qBzitlIwXJOoXFOwCc8LAALhRAP6ABCdkQMqThGzOANVHPwrDU8XxWRbBEM6qX 4tZSfeJYWoIRZlR2xGKwImyXwvIJ47jAftnbCywKQzIKb+Lt0ZTZ1ki9TfEGs5mwGhEYbpUQL4AEqkUK XhYVHfMOGcFSS6JTB0FKCSKsWeGMDoOYUjFOdxVXAp MOEifa1ZRALcZIF8UdM9PuLdKXNdMNOtWYjuTHFdCQM6FlMkARJgBESgJN4CUyJrXABuBDKyIUbxEPDk GDMrqa1OBMReHFRbCNM1NgQoBPJrXSEwUIycMHBpIRD7MyqwTXWcPJCwVN4EXfTuNHLtBVG9WTHjZOQe PZLqsp7MCNFeDDSjBhu5ZlUpZUXfTGUyNQalDWMiGK NfYrE9HXQoPQNxCI0QEfOoUOMmBKQ9ZETtYXPiALUahe7AVOOuZMZlFaC4KUHpIYFoYSCoAAofDBXjQF X6IqmsEMAoEZCxOU5QAuDtLFQzGnJpBBAoWRLfAJLzac5EWTInCZNpYIZxCdFrNNNpAKRzRTcuVIWcEK DbKHD0NKXzAMEnRU7YGjTnKNIcEbZuKrIvFOGjEFSz fw8EMOBnYVTiIeR0CqJnYSZtOKAcKBquUEXvXVTfBCe2ECLyYZJuCG0EQbBtNFSgMpG2RmJoXVQgUTXs nm7DMPRvDXByHJWqQALmSVVhGGSfWWloRIXpEAN0XCAsHTZjGUEkKN3UHfBfUFQgBcCsJDPrFUQfMSHb yk8BHLMuKGY1YBRiFrKvNRHwUQEsSTzjWXHuSOS9XG e1SUCoWCCdPH9NEiKtCJLbFlSkUDXsYQNfIEXjan6IGUAsVWG2CEd3WDVbAZCgWBUrXMzhFVVnGMRyNG J9QVVcAAPjLB9LSsZzFIYzBmNiThnrWBHnGCSwso6HGKZhDKC0KlJ7UgEiGNWmXXZdZLuvHMAeSEPlUE Q5KEPoFAGxOO5VBlRoSIBfVoB6HfOdZDAtSWMlhg1S INJuKVW9XZFgUlEsAUScNVYdIJacVKIeSRZ8SDZqHQRcISWfTH9YTrEqFKVsGeZ9REYkVBSwEXGjde7C xWZbkHgsuh0BGRkSPi8YcIbxLMI0FVjaUj5pqZKyVETfQTZHIy3XvyFaJNJpCESBIHwkRDMvLEDiTPQ8 XrM2GDt0OWlbJQVhYmObXXGvTHRxYJK5ZUR1JgU3RG O9BPMjTTrwUVqeWxP6JmVrS4M9NCV3XEOaOBSuBZY+ED3eGWu+Ct6Ma5LyftR4voQtBSz9DHv2Kp1TDD LAS5YYWf== ID Date Data Source [id number] 05/23/2020 02:28:15 PM EDT [facility] Name Value Range Interpretation Code Description Data Kim rce(s) Supporting Document(s) Progress Note [facility] GTCEOu6mSiTESiQm86/FPTcyHEWoc8YnHQaiBDv9MIrcBXEmN5TiJWM3qL4uNVL2SRlEXhFhSbLzSQH6 lbm [file] F0EYDuADP0SSnlFRbnBrVtInFzFC9PFo1TJcX1OVL4pYYsEn6APbY2MtQJViArKR7KWLl= ID Date Data Source [id number] 05/23/2020 01:43:57 PM EDT [facility] Name Value Range Interpretation Code Description Data Kim rce(s) Supporting Document(s) Progress Note [facility] KAPIVh1jObSEWpRs01/CWZcfBSFvw7PmRSveQRi9KYptIHCuV4UrGUV9iZ3dBXC2FKuFAyBkUoSfIUQ4 lbm [file] JsAfEtVrGERoKuf8EqHdVXOoMnI4NrK7TmQrFW0r XSANCj4+GSwxuCNyiTmgKGDYQdDrWOE4WTmuRELUQy3M ID Date Data Source [id number] 05/09/2020 12:38:00 PM EDT [facility] ([facility]) Name Value Range Interpretation Code Description Data Kim rce(s) Supporting Document(s) Alt/SGPT 41 U/L 12-78 Normal (applies to non-numeric resul ts) [facility] ([facility]) Ast/Sgot 18 U/L 7-37 Normal (applies to non-numeric resul ts) [facility] ([facility]) Bilirubin,Total 0.3 mg/dL 0.2-1.0 Normal (applies to non-numeric results) [facility] ([facility]) Alkaline Phosphatase 138 U/L 45-117 Above high normal [facility] ([facility]) Albumin 3.8 GM/DL 3.2-5.2 Normal (applies to non-numeric resul ts) [facility] ([facility]) Bilirubin,Direct 0.1 mg/dL 0.0-0.2 Normal (applies to non-numeric results) [facility] ([facility]) Total Protein 7.3 GM/DL 6.4-8.2 Normal (applies to non-numeric re sults) [facility] ([facility]) Albumin/Globulin Ratio 1.1 1.2-2.2 Below low normal [facility] ([facility]) ID Date Data Source [id number] 05/09/2020 12:38:00 PM EDT [facility] ([facility]) Name Value Range Interpretation Code Description Data Kim rce(s) Supporting Document(s) Hemoglobin A1c 7.5 % Normal (applies to non-numeric r esults) [facility] ([facility]) <content>REFERENCE RANGES:</content><br/ ><content></content>
<content><=5.6% NORMAL</content>
<content>5.7-6.4% SUGGESTS IMPAIRED GLUCOSE METABOLISM/PREDIABETIC</content>
<content>>= 6.5% ABNORMAL</content>
<content></content> Estimated Average Glucose 169 mg/dL 60-110 Above high normal [facility] ([facility]) ID Date Data Source [id number] 04/18/2020 04:09:51 PM EDT [facility] Name Value Range Interpretation Code Description Data Kim rce(s) Supporting Document(s) Progress Note [facility] HWHWZo0mCySPRwFw87/WBGclABEuk9AzSSjlCVf8MYltFOQcD5YhPCA9rP2xDYG4ROeLBbPvMuAsJJGo lbm [file] Rk4BHxE4YPwQJhCsEW7PQUt= Procedure Social History Code Duration Value Status Description Data Source(s ) Smoking 02/23/2021 12:00:00 AM EDT Never Smoker completed Never S moker [facility] Smoking 02/23/2021 12:00:00 AM EDT Never Smoker completed Never S moker [facility]CW1 ([facility]) Smoking 01/10/2021 12:00:00 AM EDT Never Smoker completed Never S moker eCW1 ([facility]) Tattoo/Piercing 01/06/2021 12:00:00 AM EDT Pierced ears completed Pi erced ears [facility] ([facility]) Tattoo/Piercing 01/06/2021 12:00:00 AM EDT Tattoo completed Tatt oo [facility] ([facility]) Smoking 01/06/2021 12:00:00 AM EDT Patient has never smoked co mpleted Patient has never smoked [facility] ([facility]) Smoking 12/14/2020 12:00:00 AM EDT Never Smoker completed Never S moker eCW1 ([facility]) Smoking 12/14/2020 12:00:00 AM EDT Never Smoker completed Never S moker eCW1 ([facility]) Alcohol intake 12/07/2020 12:00:00 AM EDT Current drinker of al cohol (finding) completed Current drinker of alcohol (finding) [facility] Tobacco use and exposure 12/07/2020 12:00:00 AM EDT Never used co mpleted Never used [facility] Smoking 12/07/2020 12:00:00 AM EDT Never smoker completed Never s [facility] Smoking 11/15/2020 12:00:00 AM EDT Never Smoker completed Never S moker eCW1 ([facility]) Alcohol intake 09/02/2020 12:00:00 AM EST Current drinker of al cohol (finding) completed Current drinker of alcohol (finding) [facility] Alcohol intake 08/31/2020 12:00:00 AM EST Current drinker of al cohol (finding) completed Current drinker of alcohol (finding) [facility] Vital Signs ID Date Data Source [id number] Name Value Range Interpretation Code Description Data Source(s) Oxygen saturation in Arterial blood by Pulse oximetry 98 % 98 % MEDSUSY ([facility]) [place] body weight 125 [lb_av] 125 [lb_av] KASSIDYEN T ([facility]) Systolic blood pressure 130 mm[Hg] 130 mm[Hg] M EDENT ([facility]) Diastolic blood pressure 80 mm[Hg] 80 mm[Hg] MEDSUSY ([facility]) Body height 65.5 [in_i] 65.5 [in_i] NETO ([facility]) 5'5.50" Body weight 171.50 [lb_av] 171.50 [lb_av] MEDEN T ([facility]) Body mass index (BMI) [Ratio] 28.1 kg/m2 28.1 k g/m2 [facility] ([facility]) Heart rate 94 /min 94 /min [facility] ([facility]) Respiratory rate 14 /min 14 /min [facility] ( [facility]) Body temperature 98.0 [degF] 98.0 [degF] [facility] ([facility]) Systolic blood pressure 152 mm[Hg] 152 mm[Hg] M EDENT ([facility]) Diastolic blood pressure 93 mm[Hg] 93 mm[Hg] [facility] ([facility]) Heart rate 90 /min 90 /min [facility] ([facility]) Body temperature 98.0 [degF] 98.0 [degF] [facility] ([facility]) Respiratory rate 16 /min 16 /min [facility] ( [facility]) Body height 66 [in_i] 66 [in_i] [facility] ([facility]) 5'6" Body weight 174.00 [lb_av] 174.00 [lb_av] MEDEN T ([facility]) Body mass index (BMI) [Ratio] 28.1 kg/m2 28.1 k g/m2 [facility] ([facility]) Systolic blood pressure 122 mm[Hg] 122 mm[Hg] M EDENT ([facility]) Diastolic blood pressure 82 mm[Hg] 82 mm[Hg] [facility] ([facility]) Heart rate 80 /min 80 /min [facility] ([facility]) Body weight 186.00 [lb_av] 186.00 [lb_av] MEDEN T ([facility]) Body weight 183 [lb_av] 183 [lb_av] eCW1 (Counts include 234 beds at the [facility]) Body height 64 [in_i] 64 [in_i] eCW1 ([facility]) Body mass index (BMI) [Ratio] 31.41 kg/m2 31.41 kg/m2 eCW1 [facility]) Systolic blood pressure 118 mm[Hg] 118 mm[Hg] e CW1 ([facility]) Diastolic blood pressure 80 mm[Hg] 80 mm[Hg] eCW1 ([facility]) Body mass index (BMI) [Ratio] 30.7 kg/m2 30.7 k g/m2 [facility] ([facility]) Respiratory rate 18 /min 18 /min [facility] ( [facility]) Diastolic blood pressure 76 mm[Hg] 76 mm[Hg] [facility] ([facility]) Heart rate 82 /min 82 /min [facility] ([facility]) Body temperature 98.2 [degF] 98.2 [degF] [facility] ([facility]) Body height 66 [in_i] 66 [in_i] [facility] ([facility]) 5'6" Body weight 190.00 [lb_av] 190.00 [lb_av] MEDEN T ([facility]) Systolic blood pressure 125 mm[Hg] 125 mm[Hg] M EDENT ([facility]) Body weight 190.2 [lb_av] 190.2 [lb_av] eCW1 ([facility]) Body height 64 [in_i] 64 [in_i] eCW1 ([facility]) Body mass index (BMI) [Ratio] 32.64 kg/m2 32.64 kg/m2 W1 ([facility]) Heart rate 94 /min 94 /min eCW1 ([facility]) Respiratory rate 18 /min 18 /min eCW1 ([facility]) Body temperature 98.1 [degF] 98.1 [degF] eCW1 ( [facility]) Systolic blood pressure 108 mm[Hg] 108 mm[Hg] e CW1 ([facility]) Diastolic blood pressure 71 mm[Hg] 71 mm[Hg] eCW1 ([facility]) Body temperature 97.5 [degF] 97.5 [degF] [facility] ([facility]) Body mass index (BMI) [Ratio] 31.1 kg/m2 31.1 k g/m2 [facility] ([facility]) Diastolic blood pressure 76 mm[Hg] 76 mm[Hg] [facility] ([facility]) Heart rate 97 /min 97 /min [facility] ([facility] Body height 66 [in_i] 66 [in_i] [facility] ([facility] 5'6" Body weight 193.00 [lb_av] 193.00 [lb_av] MEDEN T ([facility]) Systolic blood pressure 126 mm[Hg] 126 mm[Hg] M EDENT ([facility]) Body temperature 98.6 [degF] 98.6 [degF] MEDENT ([facility], [facility]) Diastolic blood pressure 83 mm[Hg] 83 mm[Hg] MEDENT ([facility], [facility]) Heart rate 82 /min 82 /min MED[facility] ([facility], [facility]) Respiratory rate 17 /min 17 /min [facility] ( [facility], [facility]) Oxygen saturation in Arterial blood by Pulse oximetry 97 % 97 % [facility] ([facility], [facility]) Body weight 192.00 [lb_av] 192.00 [lb_av] MEDEN T ([facility], [facility]) Body height 66 [in_i] 66 [in_i] MEDENT ([facility], [facility]) 5'6" Body mass index (BMI) [Ratio] 31.0 kg/m2 31.0 k g/m2 [facility] ([facility]) Systolic blood pressure 126 mm[Hg] 126 mm[Hg] M EDENT ([facility], [facility]) Body weight 192 [lb_av] 192 [lb_av] eCW1 (Counts include 234 beds at the [facility]) Body height 64 [in_i] 64 [in_i] eCW1 ([facility]) Body mass index (BMI) [Ratio] 32.95 kg/m2 32.95 kg/m2 [facility]) Systolic blood pressure 126 mm[Hg] 126 mm[Hg] e CW1 ([facility]) Diastolic blood pressure 72 mm[Hg] 72 mm[Hg] eCW1 ([facility]) Body weight 190 [lb_av] 190 [lb_av] eCW1 (Counts include 234 beds at the [facility]) Body weight 86.18 kg 86.18 kg eCW1 ([facility]) Body height 64 [in_i] 64 [in_i] eCW1 ([facility]) Body mass index (BMI) [Ratio] 32.61 kg/m2 32.61 kg/m2 eCW1 ([facility]) Systolic blood pressure 120 mm[Hg] 120 mm[Hg] e CW1 ([facility]) Diastolic blood pressure 60 mm[Hg] 60 mm[Hg] eCW1 ([facility]) Body temperature 98.9 [degF] 98.9 [degF] MEDENT ([facility] ) Oxygen saturation in Arterial blood by Pulse oximetry 95 % 95 % [facility] ([facility]) [place] body weight 125 [lb_av] 125 [lb_av] MEDEN T ([facility]) Heart rate 112 /min 112 /min MED[facility] ([facility]) Body mass index (BMI) [Ratio] 31.2 kg/m2 31.2 k g/m2 [facility] ([facility]) Body temperature 98.5 [degF] 98.5 [degF] [facility] ([facility]) Respiratory rate 18 /min 18 /min [facility] ( [facility]) Systolic blood pressure 122 mm[Hg] 122 mm[Hg] M EDENT ([facility]) Diastolic blood pressure 72 mm[Hg] 72 mm[Hg] MEDENT ([facility]) Body height 65.5 [in_i] 65.5 [in_i] MEDENT ([facility]) 5'5.50" Body weight 190.12 [lb_av] 190.12 [lb_av] MEDEN T ([facility]) Body mass index (BMI) [Ratio] 30.7 kg/m2 30.7 k g/m2 MEDENT ([facility]) Body weight 190.00 [lb_av] 190.00 [lb_av] MEDEN T ([facility]) Body temperature 97.3 [degF] 97.3 [degF] MEDENT ([facility]) Body height 66 [in_i] 66 [in_i] MEDENT ([facility]) 5'6" Heart rate 95 /min 95 /min MEDENT ([facility]) Systolic blood pressure 118 mm[Hg] 118 mm[Hg] M EDENT ([facility]) Diastolic blood pressure 70 mm[Hg] 70 mm[Hg] MEDENT ([facility]) Body height 65.5 [in_i] 65.5 [in_i] MEDENT ([facility]) 5'5.50" Body weight 190.38 [lb_av] 190.38 [lb_av] MEDEN T ([facility]) Body mass index (BMI) [Ratio] 31.2 kg/m2 31.2 k g/m2 MEDENT ([facility]) Respiratory rate 18 /min 18 /min [facility] Body temperature 98.3 [degF] 98.3 [degF] [facility] Oxygen saturation in Arterial blood by Pulse oximetry 98 % 98 % [facility]) [place] body weight 125 [lb_av] 125 [lb_av] MEDEN T ([facility]) ID Date Data Source [id number] 08/31/2020 10:05:58 AM EST [facility] Name Value Range Interpretation Code Description Data Source(s) WEIGHT RECORDED 190 lb 190 lb [facility] ID Date Data Source [id number] 05/27/2020 01:56:31 PM T [facility] Name Value Range Interpretation Code Description Data Source(s) WEIGHT RECORDED 189 lb 189 lb [facility] Body height Measured 66.54 in 66.54 in [facility] ID Date Data Source [id number] 04/18/2020 04:09:51 PM [facility] Value Range Interpretation Code Description Data Source(s) WEIGHT RECORDED 186 lb 186 lb [facility] WEIGHT RECORDED 186 lb 186 lb [facility] Patient Treatment Plan of Care Planned Activity Planned Date Details Description Data Source (s) Triamcinolone Acetonide 1 MG/ML Topical Cream 12/14/2020 12:00:00 A M EDT [facility] levocetirizine dihydrochloride 5 MG Oral Tablet 12/14/2020 12:00:00 AM EDT [facility]CW1 ([facility]) Prednisone 10 MG Oral Tablet 12/14/2020 12:00:00 AM EDT [facility]CW1 ([facility]) Triamcinolone Acetonide 1 MG/ML Topical Cream 12/14/2020 12:00:00 A M EDT [facility]CW1 ([facility]) levocetirizine dihydrochloride 5 MG Oral Tablet 12/14/2020 12:00:00 AM EDT [facility]CW1 ([facility]) Prednisone 10 MG Oral Tablet 12/14/2020 12:00:00 AM EDT eCW1 ([facility]) Insulin Lispro 100 UNT/ML Injectable Solution [Humalog ] 11/25/2020 12:00:00 AM [facility]ital doxycycline hyclate 100 MG Oral Capsule 10/11/2020 12:00:00 AM [facility] Clindamycin 10 MG/ML Topical Lotion 10/11/2020 12:00:00 AM [facility] T: slim X2 Ins [employer] Supervisor/Control 7.4 Device 09/05/2020 12:00:00 AM [facility] Felisa Microlet Lancets 09/02/2020 12:00:00 AM [facility] Contour Next Test In Vitro Strip (glucose blood) 08/31/2020 12:00:0 0 AM [facility] BD Pen Needle Lori U/F 32G X 4 MM (Insulin Pen Needle) 08/31/2020 12:00:00 AM [facility] Acetaminophen 325 MG / Oxycodone Hydrochloride 5 MG Or al Tablet 08/18/2020 12:00:00 AM [facility] Nurtec 75 MG Oral Tablet Disintegrating 08/03/2020 12:00:00 AM [facility] Trikafta 100-50-75 & 150 MG Oral Tablet Therapy Pack (metdnfeniiy-njiicvfiqf-ioxctdjeo and ivacaftor) 07/29/2020 12:00:00 AM [facility] Dornase Tanner 1 MG/ML Inhalant Solution [Pulmozyme] 07/29/2020 12 :00:00 AM [facility] Tobramycin 28 MG Inhalant Powder 07/29/2020 12:00:00 AM [facility] rizatriptan 10 MG Oral Tablet 07/22/2020 12:00:00 AM [facility] Ondansetron 4 MG Oral Tablet 06/22/2020 12:00:00 AM [facility] linaclotide 0.29 MG Oral Capsule [Linzess] 06/10/2020 12:00:00 AM [facility] 60 ACTUAT Albuterol 0.09 MG/ACTUAT Metered Dose Inhale r 05/23/2020 01:00:00 PM [facility] 30 ACTUAT umeclidinium 0.0625 MG/ACTUAT / vilanterol 0.025 MG/ACTUAT Dry Powder Inhaler 05/23/2020 12:00:00 AM [facility] Sodium Chloride 0.598 MEQ/ML Inhalant Solution 05/23/2020 12:00:00 AM [facility] Omeprazole 40 MG Delayed Release Oral Capsule 05/23/2020 12:00:00 A M [facility] Albuterol 0.833 MG/ML / Ipratropium [place] 0.167 MG/M L Inhalant Solution 05/23/2020 12:00:00 AM [facility] Azithromycin 250 MG Oral Tablet 05/23/2020 12:00:00 AM [facility] Albuterol Sulfate HFA 108 (90 Base) MCG/ ACT Inhalation Aerosol Solution (PROVENTIL HFA) 05/23/2020 12:00:00 AM [facility] Tobramycin 28 MG Inhalant Powder 05/23/2020 12:00:00 AM [facility] Dornase Tanner 1 MG/ML Inhalant Solution [Pulmozyme] 05/23/2020 12 :00:00 AM [facility] Metoclopramide 10 MG Oral Tablet 02/25/2020 12:00:00 AM [facility] Azithromycin 250 MG Oral Tablet 01/12/2020 12:00:00 AM [facility] Dornase Tanner 1 MG/ML Inhalant Solution 12/02/2019 12:00:00 AM [facility] 30 ACTUAT umeclidinium 0.0625 MG/ACTUAT / vilanterol 0.025 MG/ACTUAT Dry Powder Inhaler 11/25/2019 12:00:00 AM [facility] Albuterol Sulfate HFA 108 (90 Base) MCG/ ACT Inhalation Aerosol Solution (PROVENTIL HFA;VENTOLIN HFA) 11/18/2019 12:00:00 AM [facility] Sodium Chloride 0.598 MEQ/ML Inhalant Solution 10/28/2019 12:00:00 AM [facility] 3 ML Insulin Glargine 100 UNT/ML Pen Injector 09/14/2019 12:00:00 A M [facility] Insulin Pen Needle 32G X 4 MM (BD PEN NEEDLE LORI U/F) 09/01/2019 12:00:00 AM [facility] Glucose Blood In Vitro Strip (CONTOUR NEXT TEST) 09/01/2019 12:00:0 0 AM [facility] Felisa Microlet Lancets 09/01/2019 12:00:00 AM [facility] 3 ML Insulin Glargine 100 UNT/ML Pen Injector 09/01/2019 12:00:00 A M [facility] Tobramycin 28 MG Inhalant Powder 07/02/2019 12:00:00 AM [facility] Dornase Tanner 1 MG/ML Inhalant Solution 07/02/2019 12:00:00 AM [facility] tizanidine 2 MG Oral Capsule 06/16/2019 12:00:00 AM [facility] Omeprazole 40 MG Delayed Release Oral Capsule 09/23/2018 12:00:00 A M [facility] Albuterol 0.833 MG/ML / Ipratropium [place] 0.167 MG/M L Inhalant Solution 09/23/2018 12:00:00 AM [facility] Insulin, Aspart, Human 100 UNT/ML Injectable Solution 09/15/2018 12:00:00 AM [facility] KETOSTIX strip 08/25/2018 12:00:00 AM [facility] Glucagon 1 MG Injection 08/25/2018 12:00:00 AM [facility] Tamsulosin hydrochloride 0.4 MG Oral Capsule [facility] Insulin Glargine (SAWYER LYNN) [facility] naratriptan 2.5 MG Oral Tablet [facility] Acetaminophen 325 MG Oral Capsule [facility] Naproxen sodium 220 MG Oral Capsule [facility] gabapentin 100 MG Oral Capsule [facility] Methylprednisolone 4 MG Oral Tablet [facility]
--- OUTSIDE RECORDS SUMMARY | 2021-06-16 10:29 | CCD ---
Author Author [facility] Organization [facility] Address Unknown Phone Unavailable Care Team Providers Care Technical Publications Writer Name Role Phone Alma Cota MD Unavailable Unavailable BeataAlma MD Unavailable Unavailable Beata, Alma Aaron MD Unavailable Unavailable Beata, Alma Aaron MD Unavailable Unavailable Beata, Alma Aaron MD Unavailable Unavailable BeataAlma MD Unavailable Unavailable BeataAlma MD Unavailable Unavailable BeataAlma MD Unavailable Unavailable BeataAlma MD Unavailable Unavailable BeaatAlma MD Unavailable Unavailable BeataAlma MD Unavailable Unavailable [...] Beata, Alma Aaron MD Unavailable Unavailable Beata, Amla Aaron MD Unavailable Unavailable Beata, Alma Aaron [...] Unavailable IBARRA, J ROMAINE PA Unavailable Unavailable BIARRA, J ROMAINE PA Unavailable Unavailable IBARRA, J [...] Unavailable Unavailable James Zaldivar MD Unavailable Unavailable aJmes Zaldivar MD Unavailable Unavailable James Zaldivar MD [...] Wooten MD Unavailable Unavailable MEDENT_991, NA Unavailable [phone] CRISTINA SOUZA Unavailable [phone] CRISTINA SOUZA Unavailable [phone] EUSEBIO-TEJAL, GRAHAM DO Unavailable Unavailable EUSEBIO-TEJAL, GRAHAM [...] Unavailable MARISOL Leta GRIMALDO Unavailable Unavailable Fish, [facility], PA-C Unavailable Unavailabl e Fish, [facility], PA-C Unavailable Unavailabl e Fish, [facility], PA-C Unavailable Unavailabl e Fish, [facility], PA-C Unavailable Unavailabl e Fish, [facility], PA-C Unavailable Unavailabl e Fish, [facility], PA-C Unavailable Unavailabl e Fish, [facility], PA-C Unavailable Unavailabl e Fish, [facility], PA-C Unavailable Unavailabl e Fish, [facility], PA-C Unavailable Unavailabl e Fish, [facility], PA-C Unavailable Unavailabl e Fish, [facility], PA-C Unavailable Unavailabl e Fish, [facility], PA-C Unavailable Unavailabl e Fish, [facility], PA-C Unavailable Unavailabl e Fish, [facility], PA-C Unavailable Unavailabl e Fish, [facility], PA-C Unavailable Unavailabl e Fish, [facility], PA-C Unavailable Unavailabl e Fish, [facility], PA-C Unavailable Unavailabl e Fish, [facility], PA-C Unavailable Unavailabl e Fish, [facility], PA-C Unavailable Unavailabl e Fish, [facility], PA-C Unavailable Unavailabl e Fish, [facility], PA-C Unavailable Unavailabl e Fish, [facility], PA-C Unavailable Unavailabl e Fish, Jacquelyn Huong MPAS, PA-C Unavailable Unavailabl e Fish, [facility], PA-C Unavailable Unavailabl e Fish, [facility], PA-C Unavailable Unavailabl e Fish, [facility], PA-C Unavailable Unavailabl e Fish, [facility], PA-C Unavailable Unavailabl e Fish, [facility], PA-C Unavailable Unavailabl e Fish, [facility], PA-C Unavailable Unavailabl e Fish, [facility], PA-C Unavailable Unavailabl e Fish, [facility], PA-C Unavailable Unavailabl e Fish, [facility], PA-C Unavailable Unavailabl e Fish, [facility], PA-C Unavailable Unavailabl e Fish, [facility], PA-C Unavailable Unavailabl e Fish, [facility], PA-C Unavailable Unavailabl e Fish, [facility], PA-C Unavailable Unavailabl e Jatinder Chappell MD [...] Unavailable ImMemo caballero MD Unavailable Unavailable ImMemo acballero MD Unavailable Unavailable ImMemo caballero MD Unavailable [...] EUSEBIO-TEJAL, GRAHAM DO Unavailable Unavailable FEDORS, MANDI [employer] Unavailable Unavailable FEDORS, MANDI [employer]CH[employer] Unavailable Unavailable FEDORS, MANDI [employer]CH[employer] Unavailable Unavailable FEDORS, MANDI [employer] MECHANIC Unavailable Unavailable FEDORS, MANDI [employer] MECHANIC Unavailable Unavailable FEDORS, MANDI [employer]FT MECHANIC Unavailable Unavailable FEDORS, MANDI ARM[employer]ENT [employer]FT MECHANIC Unavailable Unavailable FEDORS, MANDI ARMAMENT [employer]CRAFT MECHANIC Unavailable Unavailable FEDORS, MANDI ARMAMENT AIRCRAFT MECHANIC Unavailable Unavailable FEDORS, MANDI ARMAMENT [employer]FT MECHANIC Unavailable Unavailable FEDORS, MANDI [employer]FT MECHANIC Unavailable Unavailable FEDORS, MANDI [employer]ENT [employer]FT MECHANIC Unavailable Unavailable FEDORS, MANDI [employer] MECHANIC Unavailable Unavailable FEDORS, MANDI ARM[employer]ENT [employer] MECHANIC Unavailable Unavailable FEDORS, MANDI ARM[employer]ENT [employer]FT MECHANIC Unavailable Unavailable FEDORS, MANDI ARM[employer]ENT [employer]FT MECHANIC Unavailable Unavailable FEDORS, MANDI ARM[employer]ENT [employer]CRAFT MECHANIC Unavailable Unavailable FEDORS, MANDI ARM[employer]ENT [employer]FT MECHANIC Unavailable Unavailable FEDORS, MANDI ARM[employer] MECHANIC Unavailable Unavailable FEDORS, MANDI [employer] MECHANIC Unavailable Unavailable BISWAS, JAMAR Unavailable Unavailable Re-disclosure [...] is protected by Article 27-F of the [facility] Public Health law. If you continue you may have access to information: Regarding HIV / AIDS; Provided by facilities licensed or operated by the [facility] Office of Mental Health; or Provided by the [facility] Office for People With Developmental Disabilities. If such information is present, then the following [facility] mandated warning applies: This information has been [...] law may result in a fine or retirement sentence or both. A general authorization for the release of medical or other information is NOT sufficient authorization for further disc losure. Family History Family Member Name Family Member Gender Family Member Status Date o f Status Description Data Source(s) Unknown Unknown Problem [facility] ([facility] ) Unknown Female Problem MEDENT ([facility]) Encounters Encounter Providers Location Date Indications Data Source(s ) Outpatient Attender: Agnieszka Cota MD 09/26/2021 12:00:0 0 AM [facility] Outpatient 06/20/2021 12:00:00 AM [facility] Outpatient Attender: Agnieszka Cota MD 06/20/2021 12:00:0 0 AM [facility] Outpatient Attender: ÁLVARO MC 06/14/20 02:56:00 PM EDT - 06/14/2021 02:56:00 PM [facility] Outpatient Attender: KAITLIN ARMENDARIZ 07A-PPCPOB 06/05/2021 04:08:46 PM [facility] Outpatient Attender: RADHAMES BENAVIDESAttender: RADHAMES BENAVIDES [id number] 06/05/2021 12:00:00 AM EDT - 06/06/2021 08:37:58 AM [facility] Outpatient Attender: Jeanne PEREIRAeferrer: GRAHAM POLLACK DO 07A-PPCPOB 06/05/2021 12:00:00 AM [facility] Outpatient Attender: LAW FLEMING 06/05/2021 12: 00:00 AM EDT Cystic fibrosis, unspecified [facility] Cystic fibrosis, unspecified [place] [address] [facility] [address] 06/05/2021 12:00:00 AM EDT eCW1 ([facility]) Outpatient Attender: ROMAINE DYKES Family Practice 05/31 08:20:00 AM EDT MEDENT ([facility]) Outpatient Attender: ROMAINE DYKES 05/31 08:10:00 AM EDT - 05/31/2021 08:10:[address] [facility] Outpatient Attender: Humza DYKES [facility] 05/25/2021 09:30:00 AM EDT MEDENT ([facility]) Outpatient Attender: Ayo Wooten MD [place] 05/23/2021 01:15:00 PM EDT MEDENT ([facility]) Outpatient Attender: CRISTINA SOUZA Main Office 05/22/2021 12:30:00 P M EDT MEDENT ([facility]) Outpatient Attender: ÁLVARO MC 05/19/20 03:08:00 PM EDT - 05/19/2021 03:08:[address] [facility] Emergency Attender: LUBNA PEMBERTON MD 04/21/2021 06:28:00 PM EDT - 04/21/2021 10:38:[address] [facility] Patient discharged. Outpatient 04/18/2021 12:00:00 AM [facility] Outpatient Attender: Imani Tuttle MD 04/18/2021 12:00:00 AM [facility] Outpatient Attender: ÁLVARO MC 04/03/20 05:02:00 PM EDT - 04/03/2021 05:02:[address] [facility] Outpatient Attender: Agnieszka Cota MD 03/29/2021 12:00:0 0 AM [facility] Outpatient Attender: ÁLVARO MC 03/17/20 08:02:00 AM EDT - 03/17/2021 08:02:[address] [facility] Outpatient Attender: Agnieszka Cota MD 03/07/2021 12:00:0 0 AM [facility] Outpatient Attender: ROMAINE DYKES Family Practice 03/02 01:00:00 PM EDT [facility] Outpatient Attender: ÁLVARO MC 03/02/20 12:59:00 PM EDT - 03/02/2021 12:59:[address] [facility] Outpatient Attender: ROMAINE GARCIAttender: ÁLVARO [place] 03/02/2021 10:00:00 AM EDT - 03/02/2021 10:00:[address] [facility] Outpatient [address] [facility] [facility] [address] 02/27/2021 12:00:00 AM EDT eC ([facility]) Outpatient Attender: CORNELIUS LOPEZ 021 10:55:00 AM EDT - 02/22/2021 10:55:[address] [facility] Outpatient Attender: YOGESH RAYA 02/17/2021 12:00:0 0 AM EDT Cystic fibrosis, unspecified [facility] Cystic fibrosis, unspecified Outpatient Attender: Ayo Wooten MD [place] 02/14/2021 10:15:00 AM EDT MEDENT ([facility]) Outpatient 02/14/2021 12:00:00 AM [facility] Outpatient 02/10/2021 12:00:00 AM [facility] Outpatient Attender: ÁLVARO MC 02/03/20 10:02:00 AM EDT - 02/02/2021 10:02:[address] [facility] Outpatient Attender: JAMAR BISWAS [id number] 02/02/2021 09:22:50 AM [facility] Outpatient Attender: ROMAINE DYKES 01/30 09:01:00 AM EDT - 01/30/2021 09:01:[address] [facility] Outpatient Attender: ROMAINE DYKES Family Practice 01/30 09:00:00 AM EDT [facility] Outpatient Attender: ÁLVARO MC 01/21/20 10:06:00 AM EDT - 01/20/2021 10:06:[address] [facility] Outpatient [address] [facility] [address] 01/10/2021 12:00:00 AM EDT eCW1 ([facility]) Outpatient Attender: Patricia Zaldivar MD [place] [address] 01/06/2021 10:30:00 AM EDT MEDENT ([facility]) Outpatient Attender: ÁLVARO MC 01/06/20 01:01:00 PM EDT - 01/05/2021 01:01:[address] [facility] Unknown [address] [facility] [address] 12/29/2020 12:00:00 AM EDT eCW1 ([facility]) Outpatient Attender: TYLER BURGOS 12/29/2020 12:00:00 AM [facility] Outpatient Attender: Memo Leo MD 12/29/2020 12:00:00 AM [facility] Outpatient Attender: ROMAINE DYKES 12/28 09:43:00 AM EDT - 12/28/2020 09:43:[address] [facility] Outpatient Attender: ROMAINE DYKES Family Practice 12/28 09:40:00 AM EDT MEDENT ([facility]) Outpatient Attender: RADHAMES [facility] 12/24/2020 12:40:00 PM EDT MEDENT ([facility]) Outpatient 12/23/2020 12:00:00 AM [facility] Outpatient Attender: ÁLVARO MC 12/23/19 09:01:00 AM EDT - 12/22/2020 09:01:[address] [facility] Outpatient [address] [facility] [facility] [address] 12/14/2020 12:00:00 AM EDT eCW1 ([facility]) Outpatient Attender: Imani Tuttle MD 12/12/2020 12:00:00 AM EDT [facility] Outpatient Attender: Agnieszka Cota MD [id number] 12/07/2020 1 2:00:00 AM EDT Vitamin D deficiency, unspecified [facility] Vitamin D deficiency, unspecified Outpatient Attender: Agnieszka Cota MD 12/02/2020 12:00:0 0 AM EDT [facility] Outpatient Attender: ROMAINE DYKES 11/15 03:06:00 PM EDT - 11/15/2020 03:06:[address] [facility] Outpatient [address] [facility] [address] 11/15/2020 12:00:00 AM EDT [facility] ([facility]) Outpatient Attender: ÁLVARO MC 11/01/19 10:02:00 AM EDT - 10/31/2020 10:02:[address] [facility] Outpatient Attender: RE DAMON 2020 12:00:00 AM EST - 10/26/2020 12:00:00 AM [facility] Outpatient Attender: ROMAINE IBARRA PAAttender: ÁLVARO [place] 10/13/2020 12:40:00 PM [facility] - 10/13/2020 12:40:[address] [facility] Outpatient Attender: ÁLVARO MC 10/13/19 10:01:00 AM [facility] - 10/13/2020 10:01:[address] [facility] Office Visit Attender: Huong ACUNA PA-C Physical Therapy 10/13/2020 07:45:00 AM EST MEDENT ([facility]) Outpatient Attender: ÁLVARO CM 10/04/19 01:52:00 PM [facility] - 10/04/2020 01:52:[address] [facility] Office Visit Attender: David DYKES Physical Therapy 08:45:00 AM EST MEDENT ([facility]) Outpatient Attender: ÁLVARO MC 09/19/19 10:58:00 AM EST - 09/19/2020 10:58:[address] [facility] Outpatient Admitter: FREDRICK REEDER MDReferrer: Isaac REEDER MD [id number] 09/16/2020 12:00:00 AM [facility] Office Visit Attender: Huong ACUNA PA-C Physical Therapy 09/15/2020 09:30:00 AM EST MEDENT ([facility]) Outpatient Attender: ROMAINE DYKES 09/12 01:45:00 PM EST - 09/12/2020 01:45:[address] [facility] Outpatient Attender: JAMAR BISWAS [id number] 09/02/2020 11:47:31 AM E [facility] Outpatient Attender: Imani Tuttle MDReferrer: MARVIN POLLACK DO 07A-PPCPOB 09/02/2020 12:00:00 AM [facility] Outpatient Attender: Agnieszka Cota MD [id number] 08/31/2020 1 2:00:00 AM [facility] Type 1 diabetes mellitus with hyperglycemia [facility] Type 1 diabetes mellitus with hyperglyce juan manuel Outpatient Admitter: FREDRICK REEDER MDReferrer: Isaac REEDER MD [id number] 08/24/2020 12:00:00 AM [facility] Outpatient Attender: Humza DYKES [facility] 08/22/2020 08:40:00 AM EST MEDENT ([facility]) Office Visit Attender: NA NETO_991 Physical Therapy 020 02:00:00 PM EST MEDENT ([facility]) Outpatient Attender: ÁLVARO MC 08/18/20 08:03:00 AM EST - 08/18/2020 08:03:[address] [facility] OFFICE OUTPATIENT NEW 30 MINUTES Attender: Huong ACUNA PA-C Physical Therapy 08/15/2020 12:30:00 PM EST MEDENT ([facility]) Outpatient Attender: DARIAN DIAZ 08/03/2020 12 :00:00 AM [facility] Outpatient Attender: MARLENI MEEKS MDReferrer: GRAHAMSRIDEVI LONGORIABER 07/28/2020 02:10:09 PM EST [facility] Recurring Patient Referrer: GRAHAM KAPLANRIC DO 07/28/2020 12:47:08 PM EST [facility] Recurring Patient Referrer: GRAHAM ROGERELMOBER DO 07/28/2020 12:39:55 PM EST [facility] Recurring Patient Referrer: GRAHAM ROGEREANOTrentonTEJAL DO 07/28/2020 12:39:17 PM EST [facility] Recurring Patient Referrer: GRAHAM ROGEREANOTrentonTEJAL DO 06/16/2020 09:35:41 AM EDT [facility] Outpatient Attender: ROMAINE DYKES Family Practice 06/15 08:20:00 AM EDT [facility] ([facility] Outpatient Attender: ROMAINE IBARRA PAReferrer: Sebastián potts MD 06/15/2020 08:19:00 AM EDT - 06/15/2020 [facility]: Hum[facility]YKES [facility] 06/09/2020 08:40:00 AM [facility] Outpatient Attender: Agnieszka Cota MD 06/07/2020 12:00:0 0 AM [facility] Outpatient Attender: Agnieszka Cota MD 06/07/2020 12:00:0 0 AM [facility] Outpatient Attender: Agnieszka Cota MD 06/03/2020 12:00:0 0 AM [facility] Outpatient Attender: ÁLVARO MCReferrer: Sebastián craig MD 06/02/2020 09:01:00 AM EDT - 06/02/2020 09:01:00 AM [facility] Outpatient Attender: Agnieszka Cota MD 05/25/2020 12:00:0 0 AM [facility] Outpatient Attender: RAIEL SMITH MNT [id number] 05/23/2020 02:28:15 P M [facility] Outpatient Attender: JAMAR BISWAS [id number] 05/23/2020 01:43:57 PM E [facility] Outpatient Attender: MANDI KNOX YASMEEN 07A-PPCPOB 2019 12:00:00 AM EDT - 05/24/2020 12:00:00 AM EDT Cystic fibrosis, unspecified [facility] Cystic fibrosis, unspecified Outpatient Attender: ELODIA LEBRON 05/23/2020 12:00:00 AM [facility] Outpatient Attender: ROMAINE BENJAMINeferrer: Sebastián potts MD 05/18/2020 09:03:00 AM EDT - 05/18/2020 09:03:[address] [facility] Outpatient Attender: ROMAINE DYKES [facility] 05/02 02:00:00 PM EDT [facility] Outpatient Attender: ROMAINE Booerrer: Sebastián potts MD 05/02/2020 01:52:00 PM EDT - 05/02/2020 01:52:[address] [facility] Outpatient Attender: ÁLVARO Cuevas daphne: ROMAINE IBARRA PAReferrer: Sebastián Chappell MD 05/02/2020 01:01:00 PM EDT - 05/02/2020 01:01:[address] [facility] Outpatient Attender: ROMAINE Booerrer: Sebastián potts MD 04/18/2020 09:44:00 AM EDT - 04/18/2020 09:44:[address] [facility] Outpatient Attender: ROMAINE DYKES Family Practice 04/18 09:40:00 AM EDT [facility] ([facility] Outpatient Attender: ÁLVARO Cuevas daphne: ROMAINE Booerrer: Sebastián Chappell MD 04/18/2020 09:04:00 AM EDT - 04/18/2020 09:04:[address] [facility] Outpatient Attender: ÁLVARO Ballerrer: Sebastián craig MD 03/17/2020 09:05:00 AM EDT - 03/17/2020 09:05:[address] [facility] Outpatient Attender: MANDI ARTEAGARED ARMAMENT [employer]CRA[employer] MECHANIC 07A-PPCPOB 2019 12:00:00 AM EDT - 02/23/2020 01:54:59 PM EDT Cystic fibrosis, unspecified [facility] Cystic fibrosis, unspecified Immunizations Vaccine Date Status Description Data Source(s) COVID-19 VACCINE Pfizer 06/03/2021 12:00:00 AM EDT completed [facility] Vaccine Series Complete: YESThis Data wa s Submitted to [facility] Via [employer]. meningococcal B, OMV 10/25/2020 12:00:00 AM EST completed <td ID="[id number]">Meningococcal B, OMV (Bexsero)</td><td>10/25/2020</td><td></td> [facility] Meningococcal MCV4O 10/25/2020 12:00:00 AM EST completed < td ID="[id number]">Meningococcal Conjugate MCV4O (MENVEO)</td><td>10/25/2020</td><td></td> [facility] COVID-19 VACCINE Pfizer 09/16/2020 12:00:00 AM EST completed [facility] Vaccine Series Complete: YESThis Data wa s Submitted to [facility] [employer]. 208 08/24/2020 12:00:00 AM EST completed <td I D="[id number]">Pfizer SARS-CoV-2 Vaccination</td><td>08/24/2020</td><td></td> [facility] COVID-19 VACCINE Pfizer 08/24/2020 12:00:00 AM EST completed [facility] Vaccine Series Complete: NOThis Data was Submitted to [facility] Via [employer]. New in 2011. IIV4 05/11/2020 12:00:00 AM EDT completed <t d ID="[id number]">Influenza Quad IM Pres Free (0.5 mL dose)</td><td>05/11/2020, 06/03/2019</td><td></td> [facility] Medications Medication Brand Name Start Date Product Form Dose Route Admi nistrative Instructions Pharmacy Instructions Status Indications Reaction Description Data Source(s) Ergocalciferol 37302 UNT Oral Capsule Vitamin D (Ergocalcife rol) 05/31/2021 12:00:00 AM EDT active M [facility] ([facility]) adapalene 0.003 MG/MG Topical Gel Adapalene 05/22/2021 12:00:00 AM EDT active MEDENT ([facility]) Sulfacetamide Sodium 100 MG/ML Medicated Liquid Soap Sulface tamide Sodium 05/22/2021 12:00:00 AM EDT active MEDENT ([facility]) Phentermine Hydrochloride 37.5 MG Oral Capsule Phentermine H CL 05/18/2021 12:00:00 AM EDT ORAL active M EDENT ([facility]) Sulfacetamide Sodium 100 MG/ML Ophthalmic Solution Sulfaceta mide Sodium 04/23/2021 12:00:00 AM EDT OPHTHALMIC completed MED[facility] ([facility]) Nifedipine 10 MG Oral Capsule Nifedipine 02/14/2021 12:00:00 AM EDT active MEDENT ([facility]) 24 HR Bupropion Hydrochloride 150 MG Extended Release Oral Tablet Bupropion Hydrochloride ER (XL) 12/28/2020 12:00:00 AM EDT ORAL a ctive MEDENT ([facility]) Ciprofloxacin 500 MG Oral Tablet [Cipro] Cipro 12/24/2020 12:00: 00 AM EDT ORAL active MEDENT ([facility]) Prednisone 10 MG Oral Tablet PredniSONE 10 MG PredniSONE 10 MG 12/14/2020 12:00:00 AM EDT 1.0 {tablet} active Pr edniSONE 10 MG eCW1 ([facility]) Triamcinolone Acetonide 1 MG/ML Topical Cream Triamcin olone Acetonide 0.1 % Triamcinolone Acetonide 0.1 % 12/14/2020 12:00:00 AM EDT 1.0 {appli cation} active Triamcinolone Acetonide 0 .1 % eCW1 ([facility]) levocetirizine dihydrochloride 5 MG Oral Tablet Levocetirizine Dihydrochloride 5 MG Levocetirizine Dihydrochloride 5 MG 12/14/2020 12:00:00 AM EDT 1.0 {tablet_in_the_evening} active Levoceti rizine Dihydrochloride 5 MG eCW1 ([facility]) Prednisone 10 MG Oral Tablet PredniSONE 10 MG PredniSONE 10 MG 12/14/2020 12:00:00 AM EDT 1.0 {tablet} active Pr edniSONE 10 MG eCW1 ([facility]) Triamcinolone Acetonide 1 MG/ML Topical Cream Triamcin olone Acetonide 0.1 % Triamcinolone Acetonide 0.1 % 12/14/2020 12:00:00 AM EDT 1.0 {appli cation} active Triamcinolone Acetonide 0 .1 % eCW1 ([facility]) levocetirizine dihydrochloride 5 MG Oral Tablet Levocetirizine Dihydrochloride 5 MG Levocetirizine Dihydrochloride 5 MG 12/14/2020 12:00:00 AM EDT 1.0 {tablet_in_the_evening} active Levoceti rizine Dihydrochloride 5 MG eCW1 ([facility]) Insulin Lispro 100 UNT/ML Injectable Bailey ution [Humalog] HumaLOG 100 UNIT/ML Subcutaneous Solution HumaLOG 100 UNIT/ML Subcutaneous Solution 11/25/2020 12:00:00 AM EDT active Diab etes mellitus related to CF (cystic fibrosis) Use as directed via insulin pump, total daily dose not to exceed 100 units with titration. Dx:E84.8 [facility] Diabetes mellitus related to CF (cystic fibrosis) Tamsulosin hydrochloride 0.4 MG Oral Capsule Tamsulosin HCL 10/25/2020 12:00:00 AM EST ORAL active MEDENT ([facility]) doxycycline hyclate 100 MG Oral Capsule Doxycycline Hyclate 100 MG Oral Capsule (VIBRAMYCIN) Doxycycline Hyclate 100 MG Oral Capsule (VIBRAMYCIN) 0 10/11/2020 12:00:00 AM EST 100 mg Oral active Take 100 mg by mouth Two Times Daily [facility] Clindamycin 10 MG/ML Topical Lotion Clin damycin Phosphate 1 % External Lotion (CLEOCIN T) Clindamycin Phosphate 1 % External Lotion (CLEOCIN T) 10/11/2020 12:00:00 AM EST active APPLY EXTERNALLY TO THE AFFECTED AREA TWICE DAILY [facility] meloxicam 15 MG Oral Tablet Meloxicam 09/18/2020 12:00:00 AM EST active MED[facility] ([facility]) T: slim X2 Ins Can Technician/Control 7.4 Device [address]-9 09/05/2020 12:00 :00 AM EST active [facility] Felisa Microlet Lancets [id number] 09/02/2020 12:00:00 AM EST active Diabetes mellitus related to CF (cystic fibrosis) Use as directed. Use as directed to check blood sugar 6 times daily. Dx:E84.9 [facility] Diabetes mellitus related to CF (cystic fibrosis) BD Pen Needle Lori U/F 32G X 4 MM (Insulin Pen Needle) [id number] 08/31/2020 12:00:00 AM EST active Type 1 diabetes mellitus with hyperglycemia Use as directed. Use as directed to inject insulin 4 times per day. Dx: E10.65 [facility] Type 1 diabetes mellitus with hyperglyce juan manuel Contour Next Test In Vitro Strip (glucose blood) 0704-1124-2 5 08/31/2020 12:00:00 AM EST active Diab etes mellitus related to CF (cystic fibrosis) Use as instructed 6x daily. Dx:E84.9 [facility] Diabetes mellitus related to CF (cystic fibrosis) 24 HR venlafaxine 75 MG Extended Release Oral Capsule [Effex or] Effexor XR 08/23/2020 12:00:00 AM EST ORAL active MED[facility] ([facility]) Acetaminophen 325 MG / Oxycodone Hydroch loride 5 MG Oral Tablet oxyCODONE- Acetaminophen 5-325 MG Oral Tablet (PERCOCET) oxyCODONE-Acetaminophen 5-325 MG Oral Tablet (PERCOCET) 08/18/2020 12:00:00 AM EST aborted TAKE 1 TABLET BY MOUTH EVERY 12 HOURS FOR PAIN. MAXIMUM DAILY DOSE IS 2 [facility] Acetaminophen 325 MG / Oxycodone Hydrochloride 5 MG Or al Tablet Oxycodone-Acetaminophen 08/18/2020 12:00:00 AM EST ORAL active [facility] ([facility]) Nurtec 75 MG Oral Tablet Disintegrating [id number] 08/03/20 12:00:00 AM EST active DISSOLVE 1 TABLE T ON THE TONGUE EVERY 24 HOURS NEEDED [facility] Trikafta 100-50-75 & 150 MG Oral Tablet Therapy Pack (benheutohok-xvcwptzpgo-sxkryorvc and ivacaftor) 00933-881-06 07/29 12:00:00 AM EST active Cystic fibrosis Take 2 orange tablets in the morning. Take 1 blue tablet in the evening [facility] Cystic fibrosis Dornase Tanner 1 MG/ML Inhalant Solution [ Pulmozyme] Pulmozyme 1 MG/ML Inhalation Solution (dornase tanner) Pulmozyme 1 MG/ML Inhalation Solution (dornase tanner) 07/29/2020 12:00:00 AM EST 2.5 mg Inhalation active Cy stic fibrosis Inhale 2.5 mg into the lungs daily [facility] Cystic fibrosis Tobramycin 28 MG Inhalant Powder Tobramycin 28 MG Inha lation Capsule Tobramycin 28 MG Inhalation Capsule 07/29/2020 12:00:00 AM EST 4 {capsule} Inhal ation active Cystic fibrosis Place 4 capsules into Inhaler and inh Two Times Daily Alternating 28 days on and 28 days off. [facility] Cystic fibrosis rizatriptan 10 MG Oral Tablet Rizatriptan Benzoate 10 MG Oral Tablet (MAXALT) Rizatriptan Benzoate 10 MG Oral Tablet (MAXALT) 07/22/2020 12:00:00 AM EST active [facility] 07/04/2020 12:00:00 AM EST ORAL active [facility] ([facility]) Ondansetron 4 MG Oral Tablet Ondansetron HCl 4 MG Oral Tablet (ZOFRAN) Ondansetron HCl 4 MG Oral Tablet (ZOFRAN) 06/22/2020 12:00:00 AM EST active TK 1 TO 2 TS PO Q 6 H PRF NAUSEA [facility] linaclotide 0.29 MG Oral Capsule [Linzess] Linzess 290 MCG Oral Capsule Linzess 290 MCG Oral Capsule 06/10/2020 12:00:00 AM EDT active TK 1 C PO QD [facility] Novofine 06/09/2020 12:00:00 AM EDT active [facility] ([facility]) Toujeo Max Solostar Toujeo Max Solostar 06/09/2020 12:00:00 AM EDT SUBCUTANEOUS active [facility] ([facility]) hydrocortisone acetate 25 MG Rectal Suppository Hydrocortiso ne Acetate 06/09/2020 12:00:00 AM EDT active [facility] ([facility]) linaclotide 0.29 MG Oral Capsule [Linzess] Linzess 06/09/2020 12:00:00 AM EDT ORAL active [facility] ([facility]) Ajovy Ajovy 06/09/2020 12:00:00 AM EDT SUBCUTANEOUS act ho MEDENT ([facility]) rizatriptan 10 MG Oral Tablet Rizatriptan Benzoate 06/09/2020 12:00 :00 AM EDT ORAL active [facility] ([facility]) 60 ACTUAT Albuterol 0.09 MG/ACTUAT Meter ed Dose Inhaler albuterol (PROVENTIL HFA) inhaler 2 puff albuterol (PROVENTIL HFA) inhaler 2 puff 05/23/2020 01 :00:00 PM EDT 2 {puff} Inhalation active Ups [facility] Azithromycin 250 MG Oral Tablet Azithromycin 250 MG Or al Tablet (ZITHROMAX) Azithromycin 250 MG Oral Tablet (ZITHROMAX) 05/23/2020 12:00:00 AM EDT 250 mg Oral active Cystic fibrosis Take 1 tablet by mouth daily [facility] Cystic fibrosis Dornase Tanner 1 MG/ML Inhalant Solution [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 DhZAGKuQRDyASSR7AQRPPOC7VJXaIHZsHHSiMDAbMSCwFrAmRpTaDJEcRtctNZK0VBZ6WAe9Gad1UQPB GXYlQhLgScTkw5MgCTGpJOLplWlfTt1oESz+Ny7SSJ8tq5FbSGivQaCgTP2odb1YRZwKMoJqV9L7fQNi V8Umta82PN8JjET0lABbGA5SuV3uOS7Yc2JeXPIeDh TtLUUfEDQeHKLwLZEqEcMyIT3MFBLeCgKfuTUoFvU1BOI8UdPmCofzBSZ3GGUFIdXzB5CgLFfdQvVyWL MQKU0GMxvhNWYqNyxMCPlFR0JHBPhIAFUVJs4YE9CQSM6GZV0RHTGSMVZgIF1EDAnrCkLUEGzXRniRAo WDVn6AJGYUYwGNTKeEHPxRECR1VTJVWHF8ZMYtNFZf HODxVPNrDJBmGbNmQxGtUAEvRibuRLG0TNL8DEy3Uyf7RDWWGEDxZnYoJbWor3VyXYKfHZJfjJbvFs5z DQo+Tw2LBG8wf6VnZVuiWUYcSB3kls2OHWdAGqRiV2N7pORwW5Iyxt38GT3LmYB3oEQjFS0RiG5dRW0G s4RsZUWmMdYxYKAkMYYbFNYrVEYfNoOtVX8HDFAmRx SkhRXuERBtAGLaLGN6AVO8MhUnBS4JFKJfAQA7XI6TCZ6OLahtP5MQNUkirIdyRhGMYRP/QUNUSVZJVF yeNEIlYqVTM6CWH5CNMQiJEq7RN0ASAW5PRGBHXkZMGCLuFc0HR2GSXW8TOUFcH0EaJ9IdAZzeSgK5YQ FDWQY2YsH8ENS9MHW9CNTmYLPoKTbrYqKsRqVqLTSM KWI3VIGfIItcZRSvGdLpZzJFTWvyRJBRPRCwhKt7VFA+PiANCj4+WIjbcgIbGegUZfD1ZBLwe9XkDVs7 MP4NFYBdPZheNXYkBQ4nh2RbH9B7NhQ3vYWlR1tpeldbC1EgqcQitlKoOAZrIVMcJN7DIE1HPA4VJYGk URerPB4YAAZ1CUbcSeWpABEdNSWsDKY2TqAcJJ7WNV PcAFQ7UT8HLP7KPpkjJ3OVDFliePzpXfXQAFE/BJAPPYECYBcqQEEaXeBMY1MUY3UEKNvRYe9KA8VATZ 9HNYSFZjDOMPKqWd6ZI3LLOB4BFXIoX6EqV5XrHVyvDwW3BCDCVJG2NzU3ADT2JZI6KIDlSWUbMXquNn SbKkMnVFSSPZE2GUEkQPgzXRNoNtVySeTUAGutYEPO JRLhlFp3GRX+PiANCj4+SJliqfVxTjxCVfIiJKObg2OfOFi2VI0KISLiAYxlDATaUK6vs9UxC3A8WaU9 wYFyS0utmgkyQ4MffeCefqJxHZWrRQIoJG9HMJ6KRA1GVYSkCAqtGJ5XOXA7XGt3GjA1XmnvUdUrYSMi J87nNCmbWC4KIQt9K2NnA3SFNFPwBGCSPNYeiXH4GI IGOo5QE1MWVdiNCFTEOl0UKBLVDvXyApsHF0VDP07UXUQYS7DGL4dgVVVYVCTnMUDfEvWVF1GIWhE7Ar T3IdXbWaDxMeorBJC1FVUpTMCFDPTDFGIOWSSoXJSfWkN7SeK5HJKsSRS3FIV0XS22UQY5HJTeSdHpEk OmrRJcYpWcGhM7qGUhXE7+TO0WBd7SAtLrGI4ree0I WoOrPDYrMhsNIym0IMjoJC7VlIZlAA3Fca0kbFCvB9NubFaxYKKrEWsukyIeEu4kNHJlSKveWXIePB5p P0oiY6frZ7WbIFVPFpBiX3KpC6BrPeFhRlC8HgieYyFxZQVuY04wIHrvRR7FITn3M9KwX0IIGTIhWVRZ YQVgmBN9FDVZEe7XT4ECGjgIRIAJVl7SGEGLGjFqXk zOO4MUA28OIQXRB8TKP4fzEPPYFIZmZELxKnSZQ3IXKjD9XxO3KlBiJvKjWhhgLGD0QFSwOMFYOXCSDF NHRUHjSPVvFpH4YtB4RQNgLHV5QNB9FI97DVD9IQSlNrIwOpWmdUEqDkCjZpV2pWJpFQ8+MC0PZj3FOw IkCX2ujf4VTtOtLNGaRedGGku7ANruXS6YnMPrRR1H db3njXOkI4FfvYxbDZXyEGfnacEiJy5mKDFzHIukEOFnPO5oL6yzE4muT5BaZVVDNgBjF0MzW3TzHfJ9 OBBpRcMtRONaPZNeDNXPNmEaN9QyCCogSsVgGDHRQR7PQhjaLAWtImvPLAnES4TICYjLPBMEQs7IA4UF XH5LLK1DVKVOLEYcXQ9KZLwbLuPWKUkFEsrFNkGJEw 4LHKLFFnAAVSaAJGrJXZS0AITGTGC9AGOaBQEeWBMxXSOnSMDaNhKsAuHvAXPlUkwsDBC4ZYV1KNo5Kg a5XEHDTTBsTcSfQkNpm7VhJPSdRAQyhZcmAc8xHUh+Bv1HUK4ps2XkLRsjEpCgZQ6igu8ZHHwWMgLpA9 G0vIJjI0Fiwq43AA8JfFH8gCNfAF3HiO0wOJ2It3Ni ALLeFxSlPJEfBYZhNMGkSPKsQwKzPY1STHYzGnNodSOfDvptJVOkYrIvCqFxUSBcSKIMSfHaH4BhGUnb TuLjOTHYMG6GGvxzNXRnImyMQMhTU1PKJAiCZBUQGc1YP5KKYD8STI3KZETUQMMdQR7UQWbvIsYDRAwU MokVAhNTAj4PKSMXSyRQQZyVRKdDATD2JKZHBBT7LV WoKMLuCGWwWBEnBNMeJnBdWtKoDETdBstpQFR5MSU9WTs8Vrj3CSEBYMBiUeFyLcOsr4JdLEIgYLZseB qrUm2pTEi+Rq0ZCV0nv2AuMDtjIILwCF5dat4EDAmLZdKeE6Y2jKBhH8Bglv95GK4JvLA2oCKwLW9HcL 7xBG0Mk8KgPYXyYrZiQEZfKSNxLJZrXIUxWyXrHJ2S EMNuYgFspVGmJVUzMFRvTKDbRMV0IUxlKO2QWJPpBBP4NZ2CBW1DFakpG0FMAFpcxLcxJfPSWLG/QUNU PERXRIdiZPDiRpFNY5QMM5MJPVtHFp9KF8WIJP0PYJTRUmIKSYEkMp5AO4WUMZ3YTZBwV9AtT0JlTBph LgZ8MYYVGQT1LqE7VTL4NJE2WZYtLMTuSZtiIiQxGl JzPIDEXUZ6FFKgIMjmLCRgVlNlAqWNQRtkVXGQDCNsnGm6OTH+PiANCj4+CFmpctVzBvzTCnM5GCBbr2 HlGPh4JC9XHMJzAXxkOJLxSZ4kd9NzR0J2ToA9xEZbF4hwviqiN0RtejDkwgDeTNYmNNCrJH2VUP3LQM 5QREPcBOhwLL1VLAX1UTevAVYfDXAoCAD5SKL5YNpe YS3WXTUsBEM5EK8XDX0KIjktA1YRJScvmWykElSFCET/FYJVPMALTDpiDOYrNvCIH7JBE7AWXCyQMo4S D5IAVI2QFNTXLqKSCXAmZx2ND6TMDY4OWMEdW6PyV1MwRXwqObY6WRBVZMX4PcV6GEO1SFT0RTIiYCOs VTqzWbYeArRcDQSSBTD6CHYdQErqCYKiHlKtSwNANH zmUYSLPXEmgWt0QUR+PiANCj4+ALpitpVaIyfAVxU3GELqg5TxWPa0TF5EVNZtILhpHKXcBS0zp9QrP1 X7BeR1dQCvJ8ftzoguP0DlgcQqasGlCBXhHLJqGH1IQE8TTO2YZATfGZypSP5NHAY1SQk3KgL4NPSzIr B9OMM4TS7kKTdeIT7EARx7Z9YeD4BUTDPjKRCYZOEs pSR9MJWYQe7QO6FICvnYKYOCPp4XXXZAYiVxYwbCB7YBC29ANWSZW7NYZ7txVCVIXZArTIUwIfLEZ8PV McE6AvY8PiRaKwUeLxltNAX2AUCqORQZRJDRALBHKRXcSOMkIhB0CcU0SLGfZRV1ZCY0WP89JKJ7AQVq OhMmKsWcfARcBzZsQiV6uJRpBJ6+MB0IAf9ILjVdEQ 3ibi9JZtcnHAPtZlrOCjm7DMajJQ7LjSScQY5Pck5ulEUzL3QfrGanTAHkLEgahxPzKg1vNHZkBKbxWF PbLM5fJ4afU4lxA0VaUBRYWlHmQ9VkH5SeOlQnMQP4SPXzDhE2GVA9HP9oUIwhDU3VBYg8Q6PjN6NMPG WwXNXRFJZuvET6IQLAKv8BR0CNSoeAZTAFSr3QFMAB TkPiFhtYK2ONE31NDVTHI2RMJ9siCVRZLOHpQDKiEbDNP9HGGzE0HvH8TsFkNrWgJbmjLAM3BJSzBXLK HKILWMYPNXXrJQZmVbK7VpK0TCVwMSO4MZS8KJ01EPX9QTTwAcMhUsTiqZVcRfCkXzH2mSPyOW0+IA0K Ty2EZrJlTR9byw3OPiaeKWBpLbcHEda5TLxlYG2HqC YxPY7Zec3zmUGpM1ArcMowOPWcSItobiNrBz7mLAEnBDcxSTSqNL2eY2beT0rjX2BkAFOICbGwB9BfY1 DxHeN4NOP6HSDnVUdjDUhjNDVZEfJkI1PfZHcnUgOoFMFYAH3STeyrUFKdClxMOLcBK5SVDQfYNFQMCd 2GY2YCXU2TFL3CGCMGPICfTD1BKWtgAqWNLCeHCyoP JtPPHu4PJCNADqEMCAmRRMrZDCN8EICVGWB3AUXgJNIvXUJdBCGeUWOeVlOoMqXbIPNdRralEAD3HSP5 HAn0Ict5IVBNGNCbAdMeMbHck1CsUSLiYVOaqWubCb9qJGu+Pr8IPJ9hy1SiRHtmTZWfCS5pkx2DGFnO EpNyM7N7eJWaW1Hvsh73TZ3ExGL7iYUcYY8UnO1zFV 1Oo4JeUQLlPvNuUVTyGDQnNGTvLQHwNoGcJH9TOCVtUpQeeIEwXxH0ASB8VEDaQeCdFUcgKUPMTdLsI9 NcNIbnFhBsDRMUEO0AXnpdUIFjOrrSTUtEB5VLHNyBRSIXIk3NM3YQFG6KVW4DCBGPGZFhNN9MIZpdQg HZCCgVKefUQzQKOs9KZCURDjHAYRhPNAhRKQV8MNDR KGS0WUUdYLFpZQIhTTThFFJcZjFeEbIxQTZgIediNQG4CON7UGh5Dtu7FXYYZVHpEoMsIwHoj1NgEREx LWNglPowSv1sOEu+Vc4RMW7fl3PaOXueKWCaFW7bqj0CFPqTHlIpE3K7fRFzX5Leif76WC5LrSN9zLIi HA8JbI2qMK6Eo6GeKHUlGxUhNRWjBGIrFQEyNGZwWe ZpYU7SSATwKxOouILaNKHgPGz0XDJ8JpW6BrHrPI3UJBMeXON7HU6IWU0TZsbhX0GJYFpxfMhyUsWRQL M/VGHNZOLXWXugLUGxPbPHP3FIO1DGXNiYIy5PX0YDYK2OPKFDAxGPISIzZy5MF3MCAX5XBGEvI5ImR6 OgGIlcEtL2LDDBJHO8PfI9DKG7QOH3JGQkJTVuNHbt WkOxDxKqTJXIDOR6ZKPtFOumUAJtOgJbFwOPYFfvVGLBRXWotCr9DVK+PiANCj4+DQplbmRvYmoNCjMx PINdr0WvCDl7XB7THHMaNEgsFUXmRN2gf3WgS6L1NzW2eMBuQ3wcxtqoE5UpjnZjpuPvCSThAKMdHD1D ZW8DCO9PMFLmRUhlBW0IREP5TEoyPEYlBQp1TJH8BB B8AdOgTO9FCLVtHIW9TV9GGS1OAwbqC5KKJHvooDuoSqBRAVE/ZGZITKSPLIqgLSZhRuXWA8BCC6DCFN qYXh5UP9EFUL0WBAZHWyEFLCTwFm0JB0BNQT3UQZBiG7NiX1VrLEpsXtD5TOIFQVA8LiU4LAL7HZB6HG YmXSArKVybAuMaSnXnMNMBKEI9RMJxWVpvELOpYwEu GoUYIShqXANZEOXmiWj3PNU+PiANCj4+PDaisaBtJvsPOgSpCYTrx4XxDIz1PU3NGXFzENltREAmRG2g o0OdH4F5MmG7bWJvE5kluyzpZ1LadfLxmsWvLZPuZEVgTB0MJH4VPP7BHBVtJPthVB5DZNT1PJm6JpU6 ViIhJKNrNRK8LOCAEvWoP6DjWCrrDeMwGAIPOZ2LKe paXBXlFcdAIUeZU1VQQHeNZFUKTv3TJ4MQCI6CFH3UAIQKWUHwNZ4GXKiwAoGNGKvQRbvBPeYBHt2KMJ APPvOQIWcFTFhQXWH9DFZOZLH8FAKzENKaGYHsJIZfVMGqAjPtRnXkNJOlWlcdEJA2MTH7GTt9Moj9TV JGDXNjGhIsZrSha1SxLRPlFYTkaJnyEv2wCBl+Pg0K VV8xl9LoFGogIeNhRJ0ejm7RZCsGUuRhF6A4kOLhA3Uxfi64NE3ZxUU8vWUgHU9MvJ6bKR8Ss4TaZQMp McLtHNTzOLYsSATiCWMdVoElMP7FOORoXlIkvCXwGCEwBYAjYUViChK7HNvgVI3ACDOeSON0XA8LYU1F JnheN6BKJGnkrCgaLuBWNVE/QUNUSVZJVFkmTVJfUk UJW7MNM6UJAKxLQu2JS6BSTN0KLKOZIxCNONZwEi5KB2EEPL0WZBFdZ7EkM6KbSRhvYcI6JZEHXWQ4Zd U3DUP6RED0YAIjSHSwEDktFvCsWqPpJTKSJGZ3TGBcVRmlJCRsJoOmVhXTOYfrKCAMRGOivIz0TOM+Pi ANCj4+OVwmhjNuGnsRLaA2CPUvs8YhDNh1MV2MWCCp NYihLV1YBJJfqU2rFFooSC4GWlP6MtPrVQMFSuCkB36veMFyJQv1T1MbKmAfFIPkAqshONZuSOsfCzSj ZXMgWyBdDQogID4+ID4+WInuRV1AJQiqdkSiZJEaDv8JMUXwQRXqRT0mHWKaBUJeV9B9vMjbLTWWIqYp W5parkxpHX2eMWYwB459nWqgowClVYU3YTDfLe5PJK ReZQB3FNJpvJYvLDHoYCBPVChoUF2CmNUsLGZ5aN1tTJwhWZGwEIMsF6xFNcAdkUncYZ05kRnjwjIphW BdDQo+Up3NDN0qp3JtHSt1gaCcSObgVUT8KWdxNNJoAXZaCNOySRV0FAT6DASVPaZkWVXbZHGzBZygSR XvMFJaxe7FJAMzNXH6Fus1SRHgMKNyQMHkCPxhNAKn SMZ4YTVhHWJoANVwUA0JBnSyTYCyESXkARetXYSyLHUvdj6KWGMdUCOfVzz7XUObIEAlZWKxPKvuLCDx VOK6DAD7BMBgMGCpQW4PMuFkIXOkHJi0UCRwKJSwYWGnvt0CIXCzFJGjYUc5XlLqSZZpXIWwZBpqZTBq KJZjGZUkGLBxEQHvMZ3VYhTbFWNvAYK0SlGiLFAgQM Rhvr0MGYCuAGPfDFH7CbBxLSSjWRVyCNmnCYEjBPA5QAZrQYQoJBMhFL9WRdQxYJKeFMx4NHLvBQFiCL Kkzh6LRAPnWLZqPQv9VTIlMVFkEWDuBEofAYLkWTXmVTTkTDDiCXMpRP3DMlPaTAFdRBU3NmHzSICyUS Pbxq7HOXFzQEJ3VqV7YJDxEFOvUHXfUOyuADCtUYB5 XIMsLUWcTTCyKA6QXlKcMCZoAPA9MUQtSYSnTZJduu2YZIIqXJG0Hkq9CEWiIUTbYSPdUCtcSXEoJCV7 EvK6FMOyJFIgOT1ECaRuMZSwLLp3WQqcXRQxYAEynh7BVETbAUQ8CnjcMURzQEXhHFKrFKhmJBHaUKQ7 NHQ8AZCmYSZbWK6RCgQpVUQwZVxlDXQfIRWcDIIlim 6PSVDgVKT7VXO6LGBnZIBjXHQjBVfnJSScOPG1HMJ5WYSwEIThLA2OYvJzKOLyDIoqAOqeUPErCHMxkh 9CAMBzHLQ5GAH8EvBjPJEnKHTuRGqiXVXrNRF8Wnj1GFGpCUTtYU3ITqHfEHGtMZLxMGLaSMFvVFCcvl 3NHAFzUYJ1SUVvRgUuAUGkCUNiUPcvRJYtUMOtDhX4 CUGiDLOkWX5WFtQkBZLuWpR8PIUmECOzGWSied7VSRRfZSLhPrC3MDWaNZCqOMDmBAggATEvKLSbSvts WVUnNGMbNC9WGrBfVLAtNsL5LWXwWJVkGCDivn6BTXRtXKKlPbwjETPjGVRnROEzCIjnAIArVRP7MSJ0 UTLlZLJfBS3MHxVmRLVkDaArUBMaENNmWVMtah3AZH JiONDwZIkrTBZsFEXdMNQgZYtfAPYcZTO9EMN3EMZwWTUuDZ1PSiTvQHNbJbOdJsiuCPRaJNMnzz5HAU IyAIEoEvOeLMLnRCFgJDOqRDuxTLHdOPT0GoM7VQWaUDLpXM0QVkZvSJMwOhz6ZEvzDLOvYIVpkb8YND FrBTUjCim3VDNdVYAmJZPdUYlsKHNmBAW2FNa2YEZh OUHpEO0VLaCxKZBuQDI7DgIqZSJpTFEuqi9VJLYfTJC1KoP5RMJqYPBzSUMwXUeqUEStBRWlOsMvMGLz LDOdXG9BPxPwMNBfGXH8KVVaNNVyRUEmvk7KNAVsDIM8Xea7ZWAxKVJoBLZrYBxoSFRfRZO2ZRvlPOAe DEJlTK5TMpThYZJyIYO9PQQmRNCjSTZiap4FAKAzZF Y0YYtiXKHiLQVrYVWuVArgYKWxTAKmMVs6PHAcYULlEA3PXyDrHMirUVPMQkh5FMgwV5d3DDG2WD2GG6 Eqm5HkTSktLLQSQMbfIK0ajwYqKIWwDl1QR7qNRnzpRAk9RuAtAGN7UCP8Z4AsHuctQSY2GnocI0GsEN IgLS7pOLR5SMgqCxReGlb4KkiiKeYqXOA4NKCfRFQt FbYmPVBgMfXsJS2FOg2HVcV1UXO0pNUeUo8LVZGqTxMRWlDvNB8KDGr= ID Date Data Source [id number] 06/05/2021 04:08:46 PM EDT [facility] Name Value Range Interpretation Code Description Data Kim rce(s) Supporting Document(s) Progress Note [facility] HGFQQs3sKoDSLuUb74/NRXpzWWKgt8UfNJwnNBf7QPsgHEUwK8NgDEE9tW1uMJW3PXpWXmSeCoRoWXQ7 lbm [file] QmVWE6XpZoKG1DCu2KTrR3SUU6kVBoFz9ASoNeUiLFWjUcXV0SPQe= ID Date Data Source [id number] 05/25/2021 10:26:00 AM EDT [facility] ([facility]) Name Value Range Interpretation Code Description Data Kim rce(s) Supporting Document(s) Glucose, Fasting 99 mg/dL 70-100 Normal (applies to non-numeric results) [facility] ([facility]) Blood Urea Nitrogen 12 mg/dL 7-18 Normal (applies to non-nume dennys results) [facility] ([facility]) Creatinine For GFR 0.83 mg/dL 0.55-1.30 Normal (applies to non -numeric results) [facility] ([facility]) Glomerular Filtration Rate Laboratory test result Normal (applies to non- numeric results) [facility] ([facility]) <content>Units are mL/min/1.73 m2</content>
<content></content>
<content>Chronic Kidney Disease Staging per NKF:</content>
<content></content>
<content>Stage I & II GFR >=60 Normal to Mildly Decreased</content>
<content>Stage III GFR 30-59 Moderately Decreased</content>
<content>Stage IV GFR 15-29 Severely Decreased</content>
<content>Stage V GFR <15 Very Little GFR Left</content>
<content>ESRD GFR <15 on PAY [employer]</content>
<content></content> Sodium Level 138 meq/L 136-145 Normal (applies to non-numeric res ults) [facility] ([facility]) Potassium Serum 4.4 meq/L 3.5-5.1 Normal (applies to non-numeric results) [facility] ([facility]) Carbon Dioxide Level 26 meq/L 21-32 Normal (applies to non-num raymon results) [facility] ([facility]) Anion Gap 9 meq/L 8-16 Normal (applies to non-numeric resul ts) [facility] ([facility]) Chloride Level 103 meq/L 98-107 Normal (applies to non-numeric r esults) [facility] ([facility]) Calcium Level 10.5 mg/dL 8.5-10.1 Above high normal [facility] ([facility]) Ast/Sgot 23 U/L 7-37 Normal (applies to non-numeric resul ts) [facility] ([facility]) Alt/SGPT 52 U/L 12-78 Normal (applies to non-numeric resul ts) [facility] ([facility]) Bilirubin,Total 0.2 mg/dL 0.2-1.0 Normal (applies to non-numeric results) [facility] ([facility]) Alkaline Phosphatase 236 U/L 45-117 Above high normal [facility] ([facility]) Albumin 4.2 GM/DL 3.2-5.2 Normal (applies to non-numeric resul ts) [facility] ([facility]) Total Protein 8.2 GM/DL 6.4-8.2 Normal (applies to non-numeric re sults) [facility] ([facility]) Albumin/Globulin Ratio 1.1 1.2-2.2 Below low normal [facility] ([facility]) ID Date Data Source [id number] 05/25/2021 10:26:00 AM EDT [facility] Name Value Range Interpretation Code Description Data Kim rce(s) Supporting Document(s) Calcidiol [Mass/volume] in Serum or Plasma 30.1 ng/mL 30.0- 100.0 Normal (applies to non-numeric results) [facility] ID Date Data Source [id number] 05/25/2021 10:26:00 AM EDT [facility] ([facility]) Name Value Range Interpretation Code Description Data Kim rce(s) Supporting Document(s) Creatinine, Urine 137.0 mg/dL Normal (applies to non-numer ic results) [facility] ([facility]) Malb Urine Siemens 8.4 mg/L Normal (applies to non-numer ic results) [facility] ([facility]) Carlos/Creat Ratio 6.1 MCG/MG 0.0-30.0 Normal (applies to non-numeric results) [facility] ([facility]) [employer] STATES THAT MICROALBUMINURIA IS PRESENT IF THE MICROALBUMIN/CREATININE RATIO EXCEEDS 30 MCG/MG. THE THRESHOLD FOR CLINICAL ALBUMINURIA IS REACHED AT 300 MCG/MG. THE CLASSIFICATION OF A PATIENT SHOULD BE BASED UPON AT LEAST 2 OF 3 ABNORMAL RESULTS ON SPECIMENS COLLECTED WITHIN A 3 TO 6 MONTH TIME FRAME. ID Date Data Source [id number] 05/25/2021 10:26:00 AM EDT [facility] Name Value Range Interpretation Code Description Data Kim rce(s) Supporting Document(s) Red Blood Count 4.98 10 4.00-5.40 Normal (applies to non-numeric results) [facility] White Blood Count 13.4 10 4.0-10.0 Above high normal [facility] ([facility]) Hematocrit 45.8 % 36.0-47.0 Normal (applies to non-numeric resul ts) [facility] ([facility]) Hemoglobin 15.0 g/dL 12.0-15.5 Normal (applies to non-numeric resul ts) [facility] ([facility]) Mean Corpuscular Hemoglobin 30.1 pg 27.0-33.0 Norm al (applies to non-numeric results) [facility] ([facility]) Mean Corpuscular Volume 92.0 fl 80.0-96.0 Normal ( applies to non-numeric results) [facility] ([facility]) Mean Corpuscular HGB Conc 32.8 g/dL 32.0-36.5 Normal (applies to non-numeric results) [facility] ([facility]) Platelet Count, Automated 686 10 150-450 Above high normal [facility] ([facility]) Red Cell Distribution Width 13.2 % 11.5-14.5 Norm al (applies to non-numeric results) [facility] ([facility]) Day % 6.4 % 2.0-8.0 Normal (applies to non-numeric resul ts) [facility] ([facility]) Neutrophils % 69.4 % 36.0-66.0 Above high normal [facility] ([facility]) Lymph % 22.1 % 24.0-44.0 Below low normal [facility] ( [facility]) Eos % 1.2 % 0.0-3.0 Normal (applies to non-numeric resul ts) [facility] ([facility]) Baso % 0.6 % 0.0-1.0 Normal (applies to non-numeric resul ts) [facility] ([facility]) Immature Granulocyte % 0.3 % 0-3.0 Normal (applies to non-n umeric results) [facility] ([facility]) Nucleated Red Blood Cell % 0.0 % 0-0 Normal (applies to n on-numeric results) [facility] ([facility]) Neutrophils # 9.3 10 1.5-8.5 Above high normal [facility] ([facility]) Day # 0.9 10 0.0-0.8 Above high normal [facility] ([facility]) Lymph # 3.0 10 1.5-5.0 Normal (applies to non-numeric resul ts) [facility] ([facility]) Eos # 0.2 10 0.0-0.5 Normal (applies to non-numeric resul ts) [facility] ([facility]) Baso # 0.1 10 0.0-0.2 Normal (applies to non-numeric resul ts) [facility] ([facility]) ID Date Data Source [id number] 05/25/2021 10:26:00 AM EDT [facility] ([facility]) Name Value Range Interpretation Code Description Data Kim rce(s) Supporting Document(s) Hemoglobin A1c 10.3 % Normal (applies to non-numeric r esults) [facility] ([facility]) <content>REFERENCE RANGES:</content><br/ ><content></content>
<content><=5.6% NORMAL</content>
<content>5.7-6.4% SUGGESTS IMPAIRED GLUCOSE METABOLISM/PREDIABETIC</content>
<content>>= 6.5% ABNORMAL</content>
<content></content> Estimated Average Glucose 249 mg/dL 60-110 Above high normal [facility] ([facility]) ID Date Data Source [id number] 04/21/2021 06:28:[address] [facility] [address] [facility] Emergency Department [address] [place] [address] Phone #: ext- [phone] 04/21/2021 18:27 [id number] Sex[facility] F : 1990 Age: 30yWEIGHT:83.9 kg [...] not crush or Femi Max [address] [facility] Emergency Department [address] [place] [address] Phone #: ext- [phone] 04/21/2021 18:27 Patient: [...] rce(s) Supporting Document(s) ID Date Data Source [id number] 04/21/2021 06:28:[address] [facility] [address] [facility] Emergency Department [address] [place] [address] Phone #: ext- [phone] 04/21/2021 18:27 Patient: [...] Xanax Oral (0.5 mg), daily Zenpep Oral ([id number] unit) 1 capsule, 3x a dayThe source(s) of the original Home Medication information:Not obtained.The following Medications were given to the patient in the Emergency Department:Protonix [PO] PO 40 mg, administered: 19:30 04/21/2021 [address] [facility] Emergency Department [address] [place] [address] Phone #: ext- [phone] 04/21/2021 18:27 Patient: [...] to Pharmacy - USE Rx DISCOUNTCARD: $12.85, BIN:[id number], PCN:VIANCA, Group:[id number], ID:[id number].Pharmacy - [id number] - [address] [place], [place] [id number]. . -- DONIS Peters Name Value Range Interpretation Code Description Data Kim rce(s) Supporting Document(s) ID Date Data Source [id number] 04/21/2021 06:28:[address] [facility] [address] [facility] Emergency Department [address] [place] [address] Phone #: [phone]- [phone] 04/21/2021 18:27 Patient: LIDIA AMAYA Sex: F : 1990 Age: 30yWeight: 83.9 kgHeight/Length: 66 inBMI: 29.9ALLERGIES: Flagyl, HYDROcodone GF Date/Time Medication Administered Medication OrderedStart NS [IV] NS IV 1000 mL Bolus: : Bolus [id number] 04/21/2021 Dose: IV Fluids mL (X1)Mansoor Dorsey, Bolus: 1000 mL wide open---- Dispensed: 1000 mL bagStop Site: #1 right :29 04/21/2021Mansoor Dorsey,Given PROTONIX [PO] (PANTOPRAZOLE Protonix PO 40 mg (Do not crush19:30 04/21/2021 SODIUM) or chew)Mansoor Cheung, Dose: 40 mg Tablets POStart Ofirmev IV * Ofirmev IV 1000 mg (NOW x1,20:13 04/21/2021 Dose: 1000mg * IV Fluids Infuse over 15 minutes)Mansoor Dorsey,----Stop21:14 04/21/2021Mansoor DorseyStart NS [IV] NS IV 1000 mL Bolus: : Bolus [id number] 04/21/2021 Dose: IV Fluids mL (X1)Mansoor Dorsey, Bolus: 1000 mL wide open---- Dispensed: 1000 mL bagStop Site: #1 right nqpemop49:23 04/21/2021tenilay Palacios RN Name Value Range Interpretation Code Description Data Kim rce(s) Supporting Document(s) ID Date Data Source [id number] 04/21/2021 06:28:[address] [facility] [address] [facility] Emergency Department [address] [place] [address] Phone #: ext- [phone] 04/21/2021 18:27 [id number] Sex: F : 1990 Age: 30yChronic, moderately [...] daily.Zenpep Oral : Capsule Delayed Release Particles [id number] unit, 1 capsule 3x a day.Prescription Medications:fluconazole 150 mg tablet Take 1 tablet single dose as needed for 1 days -- May repeat in 1 week if s/spersist. Dispense 2 tablet. Refills: 0. Substitution permitted. Note to Pharmacy - USE Rx DISCOUNTCARD: $12.85, BIN:[id number], PCN:VIANCA, Group:GENEVA, ID:[id number].Pharmacy - [facility] #[id number] - [address] [place], [place] [id number]. .Follow-up:Follow up with a specialist as scheduled. Reason for referral: evaluation and treatment. Summary of careprovided to patient. [address] [facility] Emergency Department [address] [place] [address] Phone #: ext- [phone] 04/21/2021 18:27 Patient: LIDIA AMAYA Sex: F [...] away if these occur: [address] [facility] Emergency Department [address] [place] [address] Phone #: ext- [phone] 04/21/2021 18:27 ----- [...] hospital emergency room or urgent care center.Call [phone] if you have any of the following: Confusion Dizziness, lightheadedness, or loss of consciousness Shortness of breath Chest pain Weakness of an arm, leg, or one side of the face Sudden trouble with speech or vision [phone] [employer] [place] [address]. All rights reserved. This information is not [...] infection and cause symptoms. [address] [facility] Emergency Department [address] [place] [address] Phone #: ext- [phone] 04/21/2021 18:27 [id number] Sex: F : 1990 Age: 30ySymptoms of [...] Note: Don't try to treat yourself using [id number]-kcp-[id number] products without talking to your provider first. [...] joint pain, or sores. [address] [facility] Emergency Department [address] [place] [address] Phone #: ext- [phone] 04/21/2021 18:27 Patient: LIDIA AMAYA Sex: F : 1990 Age: 30y [phone] [employer] [place] [address]. All rights reserved. This information is not [...] true for older adults) [address] [facility] Emergency Department [address] [place] [address] Phone #: ext- [phone] 04/21/2021 18:27 Patient: LIDIA AMAYA Sex: F [...] with your healthcare provider. [address] [facility] Emergency Department [address] [place] [address] Phone #: [phone]- [phone] 04/21/2021 18:27 Patient: LIDIA AMAYA Sex: F [...] have more tests or see a specialist.Call [phone] if any of these occur: Trouble breathing Stiff, rigid abdomen that is severely painful to touch Confusion Fainting or loss of consciousness Rapid heart rate Chest painWhen to seek medical adviceCall your healthcare provider right away if any of these occur: [address] [facility] Emergency Department [address] [place] [address] Phone #: ext- [phone] 04/21/2021 18:27 Patient: LIDIA AMAYA Sex: F : 1990 Age: 30y Fever of 100.4F (38C) or higher, or as directed by your healthcare provider Failure to resume normal bowel movements Pain in your abdomen or back gets worse Nausea or vomiting Swelling in your abdomen Blood in the stool Black, tarry stool Involuntary weight loss Weakness 3922-1840 [employer]. [address] [place] [address], [place] [address]. All rights reserved. This information is not [...] cause for alarm.Home care [address] [facility] Emergency Department [address] [place] [address] Phone #: [phone] ext- [phone] 04/21/2021 18:27 Patient: LIDIA AMAYA Sex: F [...] following occur: Loss of consciousness Vomiting blood [phone] [employer] [address] [place] [address]. All rights reserved. This information is not [...] Stress incontinence most often [address] [facility] Emergency Department [address] [place] [address] Phone #: ext- [phone] 04/21/2021 18:27 Patient: [...] the risk of skin [address] [facility] Emergency Department [address] [place] [address] Phone #: ext- [phone] 04/21/2021 18:27 [id number] Sex: F : 1990 Age: 30y or [...] vomiting Back pain Weakness, dizziness, or fainting [employer]. [address] [place] [address], [place] [address]. All rights reserved. This information is not [...] rce(s) Supporting Document(s) ID Date Data Source [id number] 04/21/2021 06:28:[address] [facility] 1 Clinical Report - Nurses [facility] Emergency Department [address] [place] [address] Phone #: ext- [phone] 04/21/2021 18:27 Patient: LIDIA AMAYA Sex: F : 1990 Age: 30yTRIAGEArrived by private vehicle. Historian: patient. Unaccompanied. 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 (1000).SEPSIS SCREEN: SIRS SCREEN NEGATIVE. SEPSIS [...] R.N. Zenpep Oral (Capsule Delayed Release Particles [id number] unit) 1 capsule, 3x a day. --18:369 [...] Zavaleta R.N.AllergiesFlagyl. 2 Clinical Report - Nurses [facility] Emergency Department [address] [place] [address] Phone #: ext- [phone] 04/21/2021 18:27 Patient: LIDIA AMAYA Sex: F [...] Zavaleta R.N.Interventions 3 Clinical Report - Nurses [facility] Emergency Department [address] [place] [address] Phone #: ext- [phone] 04/21/2021 18:27 Patient: [...] understanding. --20:13 04/21/21 Mansoor Dorsey 20:13 04/21/2021 [facility] IV * IV Fluids 1000mg Infuse over [...] disposition. --21:01 04/21/21 Mansoor Dorsey 21:14 04/21/2021 [facility] IV IV Fluids Discontinued: bag #1 infused. [...] no pain, 4 Clinical Report - Nurses [facility] Emergency Department [address] [place] [address] Phone #: ext- [phone] 04/21/2021 18:27 Patient: LIDIA AMAYA Sex: F [...] swelling. IV flushed thoroughly. --22:38 04/21/21 Delgado aPlacios RN.DISPOSITION / DISCHARGE [place] Coma Scale: 15- eyes open- spontaneous (4); [...] Palacios RN 5 Clinical Report - Nurses [facility] Emergency Department [address] [place] [address] Phone #: ext- [phone] 04/21/2021 18:27 Patient: LIDIA AMAYA Sex: F : 1990 Age: 30y Name Value Range Interpretation Code Description Data Kim rce(s) Supporting Document(s) ID Date Data Source [id number] 04/21/2021 06:28:[address] [facility] 1 Clinical Report - Physicians/Mid Levels [facility] Emergency Department [address] [place] [address] Phone #: ext- [phone] 04/21/2021 18:27 Patient: LIDIA AMAYA Sex: F : 1990 Age: 30y Time Seen: 19:03 04/21/2021. Arrived- By private vehicle. Historian- patient.HISTORY OF PRESENT ILLNESS Chief Complaint: ABDOMINAL PAIN Constipation, anal fissure, urinary incontinence. (HAS A RECTAL FISSURE sees specialist in [place], pain is bad and bleeding, has 2 [...] Splenectomy. 2 Clinical Report - Physicians/Mid Levels [facility] Emergency Department [address] [place] [address] Phone #: ext- [phone] 04/21/2021 18:27 Patient: [...] daily. Zenpep Oral (Capsule Delayed Release Particles [id number] unit) 1 capsule, 3x a day. PriLOSEC [...] me. 3 Clinical Report - Physicians/Mid Levels [facility] Emergency Department [address] [place] [address] Phone #: ext- [phone] 04/21/2021 18:27 ------- Patient: LIDIA AMAYA Sex: [...] 5.0) 4 Clinical Report - Physicians/Mid Levels [facility] Emergency Department [address] [place] [address] Phone #: ext- [phone] 04/21/2021 18:27 Patient: [...] Normal Lactic Acid: (PRISCILLA: 04/21/2021 19:10) ( [facility] 04/21/2021 19:32) Final results Test Result Flag Units (Reference) LACTIC ACID 3.0 H MMOL/L (0.2 - 2.2) Lipase: (PRISCILLA: 04/21/2021 19:10) ( [facility] 04/21/2021 19:50) Final results Test Result Flag Units (Reference) LIPASE 5 L U/L (13 - 60) Urinalysis: (PRISCILLA: 04/21/2021 18:45) ( [facility] 04/21/2021 19:19) Final results Test Result Flag [...] tx 5 Clinical Report - Physicians/Mid Levels [facility] Emergency Department [address] [place] [address] Phone #: ext- [phone] 04/21/2021 18:27 Patient: [...] Zenpep Oral : Capsule Delayed Release Particles [id number] unit, 1 caps ule 3x a day. Prescription Medications: fluconazole 150 mg tablet Take 1 tablet single dose as needed for 1 days -- May repeat in 1 week if s/s persist. Dispense 2 tablet. Refills: 0. Substitution permitted. Note to Pharmacy - USE Rx DISCOUNT CARD: $12.85, BIN:[id number], PCN:VIANCA, Group:EMR, ID:[id number]. [id number] - [address] [place] [address], [place] [id number]. 6 Clinical Report - Physicians/Mid Levels [facility] Emergency Department [address] [place] [address] Phone #: ext- [phone] 04/21/2021 18:27 [facility]: [id number] Sex: F : 1990 Age: 30y . Follow-up: Follow up with a sp ecialist as scheduled. Reason for referral: evaluation and treatment. Summary of care provided to patient. Understanding of the discharge instructions verbalized by patient.(Electronically signed by DONIS Peters 04/22/2021 19:46) Name Value Range Interpretation Code Description Data Kim rce(s) Supporting Document(s) ID Date Data Source [id number] 04/21/2021 06:28:[address] [facility] Addenda for LIDIA AMAYA VisitID: [id number] Date: 14:29accucheck order done in error, no finger stick glucose reading done (for Robert)(Electronically signed by Gerard Chinchilla M.D. - 04/26/2021 14:29) Name Value Range Interpretation Code Description Data Kim rce(s) Supporting Document(s) ID Date Data Source [id number] 04/25/2021 08:12:00 AM EDT [facility] Name Value Range Interpretation Code Description Data Kim rce(s) Supporting Document(s) SARS coronavirus 2 RNA [Presence] in Res piratory specimen by KALIN with probe detection NEGATIVE [facility] This lab was ordered by [facility] [place] [facility] a nd reported by [facility]. ID Date Data Source [id number] 04/23/2021 12:07:00 PM EDT [facility] Name Value Range Interpretation Code Description Data Kim rce(s) Supporting Document(s) SARS coronavirus 2 RNA [Presence] in Res piratory specimen by KALIN with probe detection NEGATIVE [facility] This lab was ordered by [facility] [place] a nd reported by [facility]. ID Date Data Source [id number] 04/22/2021 03:59:00 PM EDT [facility] [address] [place] [address] PHONE: [phone] FAX: [phone] Name .................. : [facility]QUE [facility]rez [facility] : [id number] ROOM. ................. : TR-05 Number ................... : [id number] Stay type ............. : E/R Discharge Date......... ... : 04/21/21 Admit Date ......... : 04/21/21 Admit Phys .................... : NIECY Date of ....... : 1990 Family Phys ................... : Phone .................. : [phone] Age ................................ : 30 Film# .................. .:[id number] Sex ................................. : F Unsigned transcriptions are preliminary reports and do not represent a medical or legal document CT ABD & PELVIS W/ IV ONLY [id number] COMPLETE:04/21/21 22:32 DLA Reason(s): Abdominal Pain CT [...] Grossly normal bladder. Page 1 of 3 [facility] [address] [place] [address] PHONE: [phone] FAX: [phone] Name .................. : MONIQUE Torrez Acct Number.................. : [id number] ROOM. ................. : TR-05 MR Number ................... : [id number] Stay type ............. : E/R Discharge Date......... ... : 04/21/21 Admit Date ......... : 04/21/21 Admit Phys .................... : NIECY Date of ....... : 1990 Family Phys ................... : Phone .................. : [phone] Age ................................ : 30 Film# .................. .:[id number] Sex ................................. : F Unsigned transcriptions are preliminary reports and do not represent a medical or legal document CT ABD & PELVIS W/ IV ONLY [id number] COMPLETE:04/21/21 22:32 DLA Reason(s): Abdominal Pain No [...] 04/22/21 15:59, SCB Page 2 of [address] [place] [address] PHONE: [phone] FAX: [phone] Name .................. : MONIQUE Torrez Acct Number.................. : [id number] ROOM. ................. : TR-05 Number ................... : [id number] Stay type ............. : E/R Discharge Date......... ... : 04/21/21 Admit Date ......... : 04/21/21 Admit Phys .................... : [facility] Date of ....... : 1990 Family Phys ................... : Phone .................. : [phone] Age ................................ : 30 Film# .................. .:[id number] Sex ................................. : F Unsigned transcriptions are preliminary reports and do not represent a medical or legal document CT ABD & PELVIS W/ IV ONLY [id number] COMPLETE:04/21/21 22:32 DLA Reason(s): Abdominal Pain Transcribe Initials: BLANCA , Transcribe Date: 04/22/21 13:14, Dictation Date: Copy for: ROBERT SHANNON via fax Copy for: EMERGENCY DEPT via modem Copy for: 710 MED REC DISCHARGED Page 3 of 3 Name Value Range Interpretation Code Description Data Kim rce(s) Supporting Document(s) ID Date Data Source [id number] 04/21/2021 07:53:[address] [facility] Name Value Range Interpretation Code Description Data Kim rce(s) Supporting Document(s) CBC W/AUTOMATED DIFF [facility] COMPLETE BLOOD COUNT Leukocytes [#/volume] in Blood by Automated count 12.5 10^3/uL 4.2 - 11.[address] [facility] Erythrocytes [#/volume] in Blood by Automated count 4.61 10^6/uL 4. 20 - 5.40 [facility] Hemoglobin [Mass/volume] in Blood 13.9 g/dL 12.0 - 16.0 [facility] Hematocrit [Volume Fraction] of Blood by Automated count 41.3 % 3 7.0 - 47.0 [facility] Erythrocyte mean corpuscular volume [Entitic volume] by Auto mated count 89.6 fL 81.0 - 101 [facility] Erythrocyte mean corpuscular hemoglobin [Entitic mass] by Automated count 30.2 pg 27.0 - 34.0 [facility] Erythrocyte mean corpuscular hemoglobin concentration [Mass/volume] by Automated count 33.7 g/dL 31.0 - 36.0 [facility] Erythrocyte distribution width [Ratio] by Automated count 13.2 % 11.5 - 14.5 [facility] Platelets [#/volume] in Blood by Automated count 584 10^3/uL 150 - [address] [facility] Platelet mean volume [Entitic volume] in Blood by Automated count 11.0 fL 7.4 - 10.[address] [facility] Neutrophils/100 leukocytes in Blood by Automated count 61.3 % 37. 0 - 80.0 [facility] Lymphocytes/100 leukocytes in Blood by Manual count 24.2 % 25.0 - 40.[address] [facility] Monocytes/100 leukocytes in Blood by Automated count 11.0 % 3.0 - 8.[address] [facility] Eosinophils/100 leukocytes in Blood by Automated count 2.6 % 0.0 - 7.0 [facility] Basophils/100 leukocytes in Blood by Automated count 0.7 % 0.0 - 2.5 [facility] %IG 0.2 % 0.0 - 0.0 H [facility] al %NRBC 0.0 % 0.0 - 0.0 [facility] Neutrophils [#/volume] in Blood by Automated count 7.68 10^3/uL 2.00 - 6.[address] [facility] Lymphocytes [#/volume] in Blood by Automated count 3.03 10^3/uL 0.60 - 3.40 [facility] Monocytes [#/volume] in Blood by Automated count 1.38 10^3/uL 0.00 - 0.[address] [facility] Eosinophils [#/volume] in Blood by Automated count 0.33 10^3/uL 0.00 - 0.70 [facility] Basophils [#/volume] in Blood by Automated count 0.09 10^3/uL 0.00 - 0.20 [facility] #IG 0.03 10^3/uL 0.00 - 0.10 [facility]ital #NRBC 0.00 10^3/uL 0.00 - 0.00 [facility] ospital MANUAL DIFF SEE BELOW [facility] ital Segmented neutrophils/100 leukocytes in Blood by Manual count 66 % 37 - 80 [facility] %LYMPH 22 % 25 - 40 L [facility] al %MONO 9 % 3 - 8 [facility] %EOS 3 % 0 - 7 [facility] RBC MORPH NOT INDICATED [facility] ID Date Data Source [id number] 04/21/2021 07:50:[address] [facility] Name Value Range Interpretation Code Description Data Kim rce(s) Supporting Document(s) Lipase [Enzymatic activity/volume] in Serum or Plasma 5 U/L 13 - [address] [facility] ID Date Data Source [id number] 04/21/2021 07:49:[address] [facility] Name Value Range Interpretation Code Description Data Kim rce(s) Supporting Document(s) COMPREHENSIVE METABOLIC PANEL [facility] COMPREHENSIVE METABOLIC PANEL Sodium [Moles/volume] in Serum or Plasma 134 mEq/L 134 - 153 [facility] Potassium [Moles/volume] in Serum or Plasma 4.4 mEq/L 3.6 - 5.0 [facility] Chloride [Moles/volume] in Serum or Plasma 97 mEq/L 98 - [address] [facility] Carbon dioxide, total [Moles/volume] in Serum or Plasma 25 MEQ/L 22 - 30 [facility] Glucose [Mass/volume] in Serum or Plasma 449 MG/DL 70 - [address] [facility] CALL/ READ BACK Dr. Pemberton in ED [facility] BY: GOLDEN [facility] DATE/TIME 04.21.21 at 1945. [facility] BUN 8 MG/DL 7 - 21 [facility] Creatinine [Mass/volume] in Serum or Plasma 1.2 MG/DL 0.7 - 1.5 [facility] BUN/CREAT 7 8 - 27 L [facility] Protein [Mass/volume] in Serum or Plasma 6.8 G/DL 6.3 - 8.2 [facility] Albumin [Mass/volume] in Serum or Plasma 4.1 G/DL 3.9 - 5.0 [facility] Globulin [Mass/volume] in Serum by calculation 2.7 GM/DL 2.4 - 3.2 [facility] A/G RATIO 1.5 0.8 - 2.0 [facility] Calcium [Mass/volume] in Serum or Plasma 9.7 MG/DL 8.4 - 10.2 [facility] Bilirubin.total [Mass/volume] in Serum or Plasma <0.7 MG/DL 0.2 - 1.3 [facility] Alkaline phosphatase [Enzymatic activity/volume] in Serum or Plasma 256 U/L 38 - [address] [facility] Aspartate aminotransferase [Enzymatic activity/volume] in Serum or Plasma 39 U/L 5 - 40 [facility] Alanine aminotransferase [Enzymatic activity/volume] in Seru m or Plasma 88 U/L 7 - [address] [facility] Anion gap 3 in Serum or Plasma 12.0 mmol/L 8.0 - 16.0 [facility] AGE 30 yrs [facility] NON-AA GFR 56 mL/min [facility] AFR AMER GFR >60 mL/min [facility] Male GFR In terprentation 20-49 [...] >32 mL/min Normal ID Date Data Source [id number] 04/21/2021 07:32:[address] [facility] Name Value Range Interpretation Code Description Data Kim rce(s) Supporting Document(s) Lactate [Moles/volume] in Serum or Plasma 3.0 MMOL/L 0.2 - 2.[address] [facility] ID Date Data Source [id number] 04/21/2021 07:19:[address] [facility] Name Value Range Interpretation Code Description Data Kim rce(s) Supporting Document(s) URINALYSIS [facility] URINALYSIS SOURCE R [facility] COLOR yellow NORMAL: Yellow [facility] CLARITY clear NORMAL: Clear [facility] Specific gravity of Urine by Test strip 1.015 1.001 - 1.030 [facility] pH 5 5 - 9 [facility] al Glucose [Mass/volume] in Urine by Test strip 1000 NORMAL: Negat [facility] Bilirubin.total [Presence] in Urine by Test strip NEG NORMAL: Negative [facility] Ketones [Presence] in Urine by Test strip NEG NORMAL: Negative [facility] Protein [Mass/volume] in Urine by Test strip NEG NORMAL: Negat [facility] Nitrite [Presence] in Urine by Test strip NEG NORMAL: Negative [facility] BLOOD 25 NORMAL: Negative [facility] LEUK EST NEG NORMAL: Negative [facility] Urobilinogen [Mass/volume] in Urine by Test strip NOR less jason n 1.0 mg/dL [facility] MICROSCOPIC See Below [facility] ital WBC 0 - 1 NORMAL: NONE SEEN [facility] Erythrocytes [#/volume] in Urine by Test strip 0 - 1 NORMAL: NON E SEEN [facility] EPITHELIAL FEW NORMAL: NONE SEEN [facility] Bacteria [Presence] in Urine sediment by Light microscopy Tr toni NORMAL: NONE SEEN [facility] YEAST Trace A [facility] al ID Date Data Source [id number] 02/20/2021 10:33:00 PM EDT [facility]) Name Value Range Interpretation Code Description Data Kim rce(s) Supporting Document(s) Ethanol [Mass/volume] in Serum or Plasma Laboratory test result 0.000-0.010 Normal (applies to non-numeric results) [facility] ([facility]) Salicylates [Mass/volume] in Serum or Plasma Laboratory test res ult 5.0-30.0 Below low normal [facility] ([facility]) Acetaminophen [Mass/volume] in Serum or Plasma Laboratory test r esult 10.0-30.0 Below low normal [facility] ([facility]) Thyrotropin [Units/volume] in Serum or Plasma 3.050 uIU/ML 0. 358-3.740 Normal (applies to non-numeric results) [facility] ([facility]) ID Date Data Source [id number] 02/20/2021 10:33:00 PM EDT [facility] ([facility]) Name Value Range Interpretation Code Description Data Kim rce(s) Supporting Document(s) Glucose, Fasting 200 mg/dL 70-100 Above high normal [facility] ([facility]) Blood Urea Nitrogen 5 mg/dL 7-18 Below low normal [facility] ([facility]) Creatinine For GFR 1.03 mg/dL 0.55-1.30 Normal (applies to non -numeric results) [facility] ([facility]) Glomerular Filtration Rate Laboratory test result Normal (applies to non- numeric results) [facility] ([facility]) <content>Units are mL/min/1.73 m2</content>
<content></content>
<content>Chronic Kidney Disease Staging per NKF:</content>
<content></content>
<content>Stage I & II GFR >=60 Normal to Mildly Decreased</content>
<content>Stage III GFR 30- 59 Moderately Decreased</content>
<content>Stage IV GFR 15-29 Severely Decreased</content>
<content>Stage V GFR <15 Very Little GFR Left</content>
<content>ESRD GFR <15 on PAY STATION COLLECTOR</content>
<content></content> Potassium Serum 4.5 meq/L 3.5-5.1 Normal (applies to non-numeric results) [facility] ([facility]) Sodium Level 140 meq/L 136-145 Normal (applies to non-numeric res ults) [facility] ([facility]) Carbon Dioxide Level 25 meq/L 21-32 Normal (applies to non-num raymon results) [facility] ([facility]) Chloride Level 106 meq/L 98-107 Normal (applies to non-numeric r esults) [facility] ([facility]) Anion Gap 9 meq/L 8-16 Normal (applies to non-numeric resul ts) [facility] ([facility]) Calcium Level 9.2 mg/dL 8.5-10.1 Normal (applies to non-numeric re sults) [facility] ([facility]) ID Date Data Source [id number] 02/20/2021 10:33:00 PM EDT [facility] ([facility]) Name Value Range Interpretation Code Description Data Kim rce(s) Supporting Document(s) Alt/SGPT 41 U/L 12-78 Normal (applies to non-numeric resul ts) [facility] ([facility]) Ast/Sgot 18 U/L 7-37 Normal (applies to non-numeric resul ts) [facility] ([facility]) Bilirubin,Total 0.2 mg/dL 0.2-1.0 Normal (applies to non-numeric results) [facility] ([facility]) Bilirubin,Direct Laboratory test result 0.0-0.2 Normal ( applies to non-numeric results) [facility] ([facility]) Alkaline Phosphatase 220 U/L 45-117 Above high normal [facility] ([facility]) Total Protein 7.7 GM/DL 6.4-8.2 Normal (applies to non-numeric re sults) [facility] ([facility]) Albumin 3.7 GM/DL 3.2-5.2 Normal (applies to non-numeric resul ts) [facility] ([facility]) Albumin/Globulin Ratio 0.9 1.2-2.2 Below low normal [facility] ([facility]) ID Date Data Source [id number] 02/20/2021 10:33:00 PM EDT [facility] ([facility]) Name Value Range Interpretation Code Description Data Kim rce(s) Supporting Document(s) White Blood Count 13.3 10 4.0-10.0 Above high normal [facility] ([facility]) Hemoglobin 14.6 g/dL 12.0-15.5 Normal (applies to non-numeric resul ts) [facility] ([facility]) Red Blood Count 4.87 10 4.00-5.40 Normal (applies to non-numeric results) [facility] ([facility]) Hematocrit 44.8 % 36.0-47.0 Normal (applies to non-numeric resul ts) [facility] ([facility]) Mean Corpuscular Volume 92.0 fl 80.0-96.0 Normal ( applies to non-numeric results) [facility] ([facility]) Mean Corpuscular HGB Conc 32.6 g/dL 32.0-36.5 Normal (applies to non-numeric results) [facility] ([facility]) Mean Corpuscular Hemoglobin 30.0 pg 27.0-33.0 Norm al (applies to non-numeric results) [facility] ([facility]) Platelet Count, Automated 687 10 150-450 Above high normal [facility] ([facility]) Red Cell Distribution Width 13.4 % 11.5-14.5 Norm al (applies to non-numeric results) [facility] ([facility]) Nucleated Red Blood Cell % 0.0 % 0-0 Normal (applies to n on-numeric results) [facility] ([facility]) ID Date Data Source [id number] 02/02/2021 09:22:50 AM EDT [facility] Name Value Range Interpretation Code Description Data Kim rce(s) Supporting Document(s) Progress Note [facility] FPMXOx0uAwOMVpHo31/MWUdeNGFed8QsPEkhJGk3XCqaQTGcL2XhJJG8bR7cHEX2GJcYJbNzDnVeXtO3 lbm [file] c/UpvEacJ93Vju0v62TQye+t/YOdK9mJiUkElJ/ qknnS1f+87pK7C6sZ2NWifuXfAc6+koLXmGchJwKKuvzzxgdQfRrab7fFavooAdNdWJGLrtdgauDHh8U cF42kw7LMrNKeM5ggyW+PQrPPOMeyFmwq0jGWvNxRzeo9B3gjue9qFnhm2VQ36nnabNPNJnxu6tGbqPy I2krpn00/+0Mh9Mk2fsgrycOegr8k9Mg6VVLvkRsSa y0cHSOLyoJl5Zrsnp3j+RVcw0fPUO7RMLBbERNLstpNhRcbdQjNZPItzu10pUS73X91H7kIxLyfmRQkY uXIYvlfKqfJaea+0T84Zm0qsUM/MRFuG4zP4Hl/lWb3bRa+3NUmkndTln9/WPtG+107ja+pKgv1ryDjz WXp/faJ+vt2YY6StExJAotnofzXwtPRbFYW+3XOpp4 9kuWtY2spWJM5dpls8blufg+dWfmUqP6ye8h3wpeRS7F065FvnlAfF/jvLqmRhYv9UybBE7J5bu7x56f d1WN6efO8vbxiu0+Yz8zlIFvlxzjLitlv479oPevCHZZ94FrL5cdOokbZ9tdunwiYaiAbZbqQLGimiAy 3XuiC6Bk5eTthZ/tj4c0pDKqCw+fI6OI2fX2son5xR vOklkf3wqJr5IIwkcf07k9BnGjJwsOnVtoqoW66cKA9WO+utkNcBgBw6P47KbkjM/xoE9GuD4jWM6HpG 9FbLtnjQFBM8Y98xsyF2VprXdOTaN7N07jIYzRM2ruvDMjqe11v0k36zY0g9bmm3U+fOepi1UbrBY8QF uzSbSg6hv8445MinNC6TNBXzEHfB+iGmu0o6QR0A1Y ZolQnQadswundAD/PLyoOiGA5vMGdZQBtJBksjdu1J9AVhLMgCffE5WPxB9qRAnkXaM7ehiHNCq8lQsN ryUn0gFhaF91JC6RDf8a9ZuKB8NcjPZmQz3bumJ0uYKZ+KmSayFMBQRj5ubWlTcjLdo83d0LBGInQa0T 4bmz7SA5Bzo4YdxU+76SlK8m3OJlZ2MnSNsAXw+TeU QBPmDV8km7hdo1Myu/f9dOLWA1t+IS4VjcxqXIpZVe6AUyNpiC9N3a051f83MB850tpAg4bzOz6KYIRR W9dD/baAj0HU7zsY+gKw2Av3/ncX5VQ3CC2yNDY2Jgwdk5TeUdrzUQWL01SNkE7iQyYBavwekV+71lpr Lc5RR8vWMnub5bLa+nXQ/JjFstXTj+cnZCZwU4Sxww uO5Hj5bmzghP2UZoTXbARKw8H9aNljMlHXz8yauQDmmu+6B8bbCPhOuXWggVB5PSPTPMA2YSnjwZvpAk gHeAwwFR+KcQWgA2CAK9PTDXuKsX7FiY0s+g6Uiaz4Sdq2C1rmPXzp18CtNRLwGwRw+KGqnv64U+dL7O QGgYQm6y8qxSy7WHosV+Bt5ljga31SuW4Z1+Ip [file] YlGv4IHgB6LOBWSaYcMF5PZIq= ID Date Data Source [id number] 01/10/2021 05:00:00 PM EDT [facility] ([facility]) Name Value Range Interpretation Code Description Data Kim rce(s) Supporting Document(s) Gastrointestinal (GI) Panel Laboratory test result [facility] ([facility]) This Gastrointestinal PCR Panel detects the following [...] NUCLEIC ACID PCR ID Date Data Source [id number] 01/10/2021 05:00:00 PM EDT [facility] ([facility]) Name Value Range Interpretation Code Description Data Kim rce(s) Supporting Document(s) Elastase.pancreatic [Mass/mass] in Stool Laboratory test result Normal (applies to non-numeric results) [facility] ([facility]) Request Problem Test not performed. Consistency of stool specimen too watery for analysis. TEST: [id number] Pancreatic Elastase, Fecal Testing performed at reference lab . Report copy to follow on a separate form. 01/17/21 REF LAB#:[id number] Calprotectin [Mass/mass] in Stool 31 ug/g 0-120 Normal (applies to non-numeric results) [facility] ([facility]) <content>Concentration Interpretatio n Follow-Up</content>
<content><16 - 50 ug/g Normal None</content>
<content>>50 -120 ug/g Borderline Re-evaluate in 4-6 weeks</content>
<content>>120 ug/g Abnormal Repeat as clinically</content>
<content>indicated</content>
<content></content> ID Date Data Source [id number] 01/10/2021 05:00:00 PM EDT [facility] ([facility]) Name Value Range Interpretation Code Description Data Kim rce(s) Supporting Document(s) Elastase.pancreatic [Mass/mass] in Stool Laboratory test result [facility] ([facility]) Request Problem Test not performed. Consistency of stool specimen too watery for analysis. TEST: [id number] Pancreatic Elastase, Fecal Testing performed at reference lab . Report copy to follow on a separate form. 01/17/21 REF LAB#:[id number] ID Date Data Source [id number] 01/10/2021 05:00:00 PM EDT [facility] ([facility]) Name Value Range Interpretation Code Description Data Kim rce(s) Supporting Document(s) Gastrointestinal (GI) Panel Laboratory test result [facility] ([facility]) This Gastrointestinal PCR Panel detects the following [...] NUCLEIC ACID PCR ID Date Data Source [id number] 01/10/2021 05:00:00 PM EDT [facility] ([facility]) Name Value Range Interpretation Code Description Data [facility](s) Supporting Document(s) Calprotectin [Mass/mass] in Stool 31 ug/g 0-120 [facility] ([facility]) <content>Concentration Interpretatio n Follow-Up</content>
<content><16 - 50 ug/g Normal None</content>
<content>>50 -120 ug/g Borderline Re-evaluate in 4-6 weeks</content>
<content>>120 ug/g Abnormal Repeat as clinically</content>
<content>indicated</content>
<content></content> ID Date Data Source [id number] 01/10/2021 04:58:00 PM EDT [facility] ([facility]) Name Value Range Interpretation Code Description Data [facility](s) Supporting Document(s) Hepatitis C virus Ab [Units/volume] in Serum by Immunoassay 0.0 INDEX Normal (applies to non-numeric results) [facility] ([facility]) Negative Not infected with HCV, unless recent infection is suspected or other evidence exists to indicate HCV infection. IgA [Mass/volume] in Serum or Plasma 428.0 mg/dL 70-400 Above hig h normal [facility] ([facility]) Hepatitis B virus surface Ag [Presence] in Serum or Pl asma by Immunoassay Laboratory test result Normal (applies to non-numeric results) [facility]) Hepatitis B virus surface Ab [Presence] in Serum by Im munoassay Laboratory test result Normal (applies to non-numeric results) [facility]) ID Date Data Source [id number] 01/10/2021 04:58:00 PM EDT [facility]) Name Value Range Interpretation Code Description Data Kim rce(s) Supporting Document(s) Thyroid Stimulating Hormone 1.900 uIU/ML 0.358-3.740 Norm al (applies to non- numeric results) [facility]) Free T4 0.94 ng/dL 0.76-1.46 Normal (applies to non-numeric resul ts) [facility]) ID Date Data Source [id number] 01/10/2021 04:58:00 PM EDT [facility]) Name Value Range Interpretation Code Description Data Kim rce(s) Supporting Document(s) Actin IgG Ab [Units/volume] in Serum or Plasma 3 units 0 -19 Normal (applies to non-numeric results) [facility]) Negative 0 - 19 Weak positive 20 - 30 Moderate to strong positive >30 . Actin Antibodies are found in 52-85% of patients with autoimmune hepatitis or chronic active hepatitis and in 22% of patients with primary biliary cirrhosis. ID Date Data Source [id number] 01/10/2021 04:58:00 PM EDT [facility]) Name Value Range Interpretation Code Description Data Kim rce(s) Supporting Document(s) Laboratory test finding (navigational concept) 123 mg/dL 1 00-188 Normal (applies to non-numeric results) [facility]) Laboratory test finding (navigational concept) Laboratory test r esult Normal (applies to non-numeric results) [facility]) Phenotype Population A-1-AT Concent ration* Incidence % [...] to confirm phenotype. ID Date Data Source [id number] 01/10/2021 04:58:00 PM EDT [facility] ([facility]) Name Value Range Interpretation Code Description Data Kim rce(s) Supporting Document(s) Tissue transglutaminase IgA Ab [Units/volume] in Serum Labor atory test result 0-3 Normal (applies to non-numeric results) [facility] ([facility]) Negative 0 - 3 Weak Positive 4 - 10 Positive >10 . Tissue Transglutaminase (tTG) has been identified as the endomysial antigen. Studies have demonstr- ated that endomysial IgA antibodies have over 99% specificity for gluten sensitive enteropathy. Ceruloplasmin [Mass/volume] in Serum or Plasma 25.1 mg/dL 1 9.0-39.0 Normal (applies to non-numeric results) [facility] ([facility]) Performed at: - [facility] [address] [id number] Wire Walker: Charley Tiwari MD, Phone: [phone] Performed at: - [facility] [address] [id number] Wire Walker: Vance Veras MD, Phone: [phone] Mitochondria Ab [Units/volume] in Serum Laboratory test result 0 .0-20.0 Normal (applies to non-numeric results) [facility]) Negative 0.0 - 20.0 Equivocal 20.1 - 24.9 Positive >24.9 . Mitochondrial (M2) Antibodies are found in 90-96% of patients with primary biliary cirrhosis. ID Date Data Source [id number] 01/10/2021 04:58:00 PM EDT [facility] ([facility]) Name Value Range Interpretation Code Description Data Kim rce(s) Supporting Document(s) Glucose, Fasting 494 mg/dL 70-100 Above upper panic limits [facility] ([facility]) Blood Urea Nitrogen 10 mg/dL 7-18 Normal (applies to non-nume dennys results) [facility] ([facility]) Glomerular Filtration Rate 57.7 Below low normal [facility] ([facility]) <content>Units are mL/min/1.73 m2</content>
<content></content>
<content>Chronic Kidney Disease Staging per NKF:</content>
<content></content>
<content>Stage I & II GFR >=60 Normal to Mildly Decreased</content>
<content>Stage III GFR 30- 59 Moderately Decreased</content>
<content>Stage IV GFR 15-29 Severely Decreased</content>
<content>Stage V GFR <15 Very Little GFR Left</content>
<content>ESRD GFR <15 on PAY STATION COLLECTOR</content>
<content></content> Creatinine For GFR 1.18 mg/dL 0.55-1.30 Normal (applies to non -numeric results) [facility] ([facility]) Sodium Level 134 meq/L 136-145 Below low normal [facility] ([facility]) Potassium Serum 4.5 meq/L 3.5-5.1 Normal (applies to non-numeric results) [facility] ([facility]) Carbon Dioxide Level 29 meq/L 21-32 Normal (applies to non-num raymon results) [facility] ([facility]) Chloride Level 99 meq/L 98-107 Normal (applies to non-numeric r esults) [facility] ([facility]) Calcium Level 9.5 mg/dL 8.5-10.1 Normal (applies to non-numeric re sults) [facility] ([facility]) Anion Gap 6 meq/L 8-16 Below low normal [facility] ( [facility]) Ast/Sgot 42 U/L 7-37 Above high normal [facility] ([facility]) Alkaline Phosphatase 264 U/L 45-117 Above high normal [facility] ([facility]) Alt/SGPT 83 U/L 12-78 Above high normal [facility] ([facility]) Bilirubin,Total 0.2 mg/dL 0.2-1.0 Normal (applies to non-numeric results) [facility] ([facility]) Total Protein 7.6 GM/DL 6.4-8.2 Normal (applies to non-numeric re sults) [facility] ([facility]) Albumin 3.8 GM/DL 3.2-5.2 Normal (applies to non-numeric resul ts) [facility] ([facility]) Albumin/Globulin Ratio 1.0 1.2-2.2 Below low normal [facility] ([facility]) ID Date Data Source [id number] 01/10/2021 04:58:00 PM EDT [facility] ([facility]) Name Value Range Interpretation Code Description Data Kim rce(s) Supporting Document(s) Ceruloplasmin [Mass/volume] in Serum or Plasma 25.1 mg/dL 19.0-39.0 [facility] ([facility]) Performed at: - [facility] [address] [id number] Wire Walker: Charley Tiwari MD, Phone: [phone] Performed at: - [facility] [address] [id number] Wire Walker: Vance Veras MD, Phone: [phone] Tissue transglutaminase IgA Ab [Units/volume] in Serum Labor atory test result 0-3 [facility] ([facility]) Negative 0 - 3 Weak Positive 4 - 10 Positive >10 . Tissue Transglutaminase (tTG) has been identified as the endomysial antigen. Studies have demonstr- ated that endomysial IgA antibodies have over 99% specificity for gluten sensitive enteropathy. Deprecated Mitochondria M2 IgG Ab [Units/volume] in Se rum Laboratory test result 0.0-20.0 [facility] ([facility]) Negative 0.0 - 20.0 Equivocal 20.1 - 24.9 Positive >24.9 . Mitochondrial (M2) Antibodies are found in 90-96% of patients with primary biliary cirrhosis. ID Date Data Source [id number] 01/10/2021 04:58:00 PM EDT [facility] ([facility]) Name Value Range Interpretation Code Description Data Kim rce(s) Supporting Document(s) Laboratory test finding (navigational concept) Laboratory test result [facility] ([facility]) Phenotype Population A-1-AT Concent ration* Incidence [...] concept) 123 mg/dL 100-188 [facility] ([facility]) ID Date Data Source [id number] 01/10/2021 04:58:00 PM EDT [facility] ([facility]) Name Value Range Interpretation Code Description Data Kim rce(s) Supporting Document(s) Actin IgG Ab [Units/volume] in Serum or Plasma 3 units 0-19 [facility] ([facility]) Negative 0 - 19 Weak positive 20 - 30 Moderate to strong positive >30 . Actin Antibodies are found in 52-85% of patients with autoimmune hepatitis or chronic active hepatitis and in 22% of patients with primary biliary cirrhosis. ID Date Data Source [id number] 01/10/2021 04:58:00 PM EDT [facility] ([facility]) Name Value Range Interpretation Code Description Data Kim rce(s) Supporting Document(s) Laboratory test finding (navigational concept) 1.900 uIU/ML 0.358-3.7 40 [facility] ([facility]) Laboratory test finding (navigational concept) 0.94 ng/dL 0.76-1.46 [facility] ([facility]) ID Date Data Source [id number] 01/10/2021 04:58:00 PM EDT [facility] ([facility]) Name Value Range Interpretation Code Description Data Kim rce(s) Supporting Document(s) Hepatitis B virus surface Ag [Presence] in Serum or Pl asma by Immunoassay Laboratory test result [facility] ([facility]) IgA [Mass/volume] in Serum or Plasma 428.0 mg/dL 70-400 [facility] ([facility]) Hepatitis C virus Ab [Units/volume] in Serum by Immunoassay 0.0 INDEX [facility] ([facility]) Negative Not infected with HCV, unless recent infection is suspected or other evidence exists to indicate HCV infection. Hepatitis B virus surface Ab [Presence] in Serum by Im munoassay Laboratory test result [facility] ([facility]) ID Date Data Source [id number] 01/10/2021 04:58:00 PM EDT [facility] ([facility]) Name Value Range Interpretation Code Description Data Kim rce(s) Supporting Document(s) Blood Urea Nitrogen 10 mg/dL 7-18 [facility] ([facility]) Glucose, Fasting 494 mg/dL 70-100 Above upper panic limits [facility] ([facility]) Creatinine For GFR 1.18 mg/dL 0.55-1.30 [facility] ([facility]) Glomerular Filtration Rate 57.7 [facility] ([facility]) <content>Units are mL/min/1.73 m2</content>
<content></content>
<content>Chronic Kidney Disease Staging per NKF:</content>
<content></content>
<content>Stage I & II GFR >=60 Normal to Mildly Decreased</content>
<content>Stage III GFR 30- 59 Moderately Decreased</content>
<content>Stage IV GFR 15-29 Severely Decreased</content>
<content>Stage V GFR <15 Very Little GFR Left</content>
<content>ESRD GFR <15 on PAY STATION COLLECTOR</content>
<content></content> Sodium Level 134 meq/L 136-145 [facility] ([facility] Chloride Level 99 meq/L 98-107 [facility] ([facility] Potassium Serum 4.5 meq/L 3.5-5.1 [facility] Calcium Level 9.5 mg/dL 8.5-10.1 [facility] ([facility] Carbon Dioxide Level 29 meq/L 21-32 [facility] ([facility]) Anion Gap 6 meq/L 8-16 [facility] ([facility] Alt/SGPT 83 U/L 12-78 [facility] ([facility] Ast/Sgot 42 U/L 7-37 [facility] ([facility] Bilirubin,Total 0.2 mg/dL 0.2-1.0 [facility] ([facility] Total Protein 7.6 GM/DL 6.4-8.2 [facility] ([facility]) Alkaline Phosphatase 264 U/L 45-117 MEDE NT ([facility]) Albumin 3.8 GM/DL 3.2-5.2 [facility] ([facility]) Albumin/Globulin Ratio 1.0 1.2-2.2 ME DENT ([facility]) ID Date Data Source [id number] 12/27/2020 10:31:00 AM EDT [facility] ([facility]) Name Value Range Interpretation Code Description Data Kim rce(s) Supporting Document(s) Reflex Urine Culture Laboratory test result Norm al (applies to non-numeric results) [facility] ([facility]) FULL REPORT IN LAB NOTES (eCW and [facility] ). NO GROWTH ID Date Data Source [id number] 12/27/2020 10:31:00 AM EDT [facility] ([facility]) Name Value Range Interpretation Code Description Data Kim rce(s) Supporting Document(s) Choriogonadotropin.beta subunit [Moles/volume] in Seru m or Plasma Laboratory test result Normal (applies to non-numeric results) [facility] ([facility]) GESTATIONAL AGE APPROXIMATE HCG RANGE (MIU/ML) - [...] monitoring the treatment of cancer patients. Siemens GigsWiz methodology. ID Date Data Source [id number] 12/27/2020 10:31:00 AM EDT [facility] ([facility]) Name Value Range Interpretation Code Description Data Kim rce(s) Supporting Document(s) Blood Urea Nitrogen 7 mg/dL 7-18 Normal (applies to non-nume dennys results) [facility] ([facility]) Glucose, Fasting 112 mg/dL 70-[address] Above high [address] [facility]) Glomerular Filtration Rate Laboratory test result Normal (applies to non- numeric results) [facility]) <content>Units are mL/min/1.73 m2</content>
<content></content>
<content>Chronic Kidney Disease Staging per NKF:</content>
<content></content>
<content>Stage I & II GFR >=60 Normal to Mildly Decreased</content>
<content>Stage III GFR 30- 59 Moderately Decreased</content>
<content>Stage IV GFR 15-29 Severely Decreased</content>
<content>Stage V GFR <15 Very Little GFR Left</content>
<content>ESRD GFR <15 on PAY STATION COLLECTOR</content>
<content></content> Creatinine For GFR 0.94 mg/dL 0.55-1.30 Normal (applies to non -numeric results) [facility] ([facility]) Sodium Level 137 meq/L 136-145 Normal (applies to non-numeric res ults) [facility] ([facility]) Potassium Serum 4.8 meq/L 3.5-5.1 Normal (applies to non-numeric results) [facility] ([facility]) Chloride Level 108 meq/L 98-107 Above high normal [facility] ([facility]) Anion Gap 4 meq/L 8-16 Below low normal [facility] Carbon Dioxide Level 25 meq/L 21-32 Normal (applies to non-num raymon results) [facility] ([facility]) Alt/SGPT 63 U/L 12-78 Normal (applies to non-numeric resul ts) [facility] ([facility]) Ast/Sgot 24 U/L 7-37 Normal (applies to non-numeric resul ts) [facility] ([facility]) Calcium Level 9.2 mg/dL 8.5-10.1 Normal (applies to non-numeric re sults) [facility] ([facility]) Alkaline Phosphatase 261 U/L 45-117 Above high normal [facility] Bilirubin,Total 0.2 mg/dL 0.2-1.0 Normal (applies to non-numeric results) [facility] ([facility]) Albumin 3.6 GM/DL 3.2-5.2 Normal (applies to non-numeric resul ts) [facility] ([facility]) Total Protein 7.6 GM/DL 6.4-8.2 Normal (applies to non-numeric re sults) [facility] ([facility]) Albumin/Globulin Ratio 0.9 1.2-2.2 Below low normal [facility] ([facility]) ID Date Data Source [id number] 12/27/2020 10:31:00 AM EDT [facility] ([facility]) Name Value Range Interpretation Code Description Data Kim rce(s) Supporting Document(s) White Blood Count 14.7 10 4.0-10.0 Above high normal [facility] ([facility]) Red Blood Count 4.86 10 4.00-5.40 Normal (applies to non-numeric results) [facility] ([facility]) Hematocrit 45.1 % 36.0-47.0 Normal (applies to non-numeric resul ts) [facility] ([facility]) Hemoglobin 14.7 g/dL 12.0-15.5 Normal (applies to non-numeric resul ts) [facility] ([facility]) Mean Corpuscular Hemoglobin 30.2 pg 27.0-33.0 Norm al (applies to non-numeric results) [facility] ([facility]) Mean Corpuscular Volume 92.8 fl 80.0-96.0 Normal ( applies to non-numeric results) [facility] Red Cell Distribution Width 13.4 % 11.5-14.5 Norm al (applies to non-numeric results) [facility] ([facility]) Mean Corpuscular HGB Conc 32.6 g/dL 32.0-36.5 Normal (applies to non-numeric results) [facility] ([facility]) Neutrophils % 64.4 % 36.0-66.0 Normal (applies to non-numeric re sults) [facility] ([facility]) Platelet Count, Automated 702 10 150-450 Above high normal [facility] ([facility]) Eos % 3.4 % 0.0-3.0 Above high normal [facility] ([facility]) Lymph % 23.1 % 24.0-44.0 Below low normal [facility] ( [facility]) Day % 8.2 % 2.0-8.0 Above high normal [facility] ([facility]) Immature Granulocyte % 0.3 % 0-3.0 Normal (applies to non-n umeric results) [facility] ([facility]) Baso % 0.6 % 0.0-1.0 Normal (applies to non-numeric resul ts) [facility] ([facility]) Nucleated Red Blood Cell % 0.0 % 0-0 Normal (applies to n on-numeric results) [facility] ([facility]) Lymph # 3.4 10 1.5-5.0 Normal (applies to non-numeric resul ts) [facility] ([facility]) Neutrophils # 9.5 10 1.5-8.5 Above high normal [facility] ([facility]) Day # 1.2 10 0.0-0.8 Above high normal [facility] ([facility]) Eos # 0.5 10 0.0-0.5 Normal (applies to non-numeric resul ts) [facility] ([facility]) Baso # 0.1 10 0.0-0.2 Normal (applies to non-numeric resul ts) [facility] ([facility]) ID Date Data Source [id number] 12/27/2020 10:31:00 AM EDT [facility] ([facility]) Name Value Range Interpretation Code Description Data Kim rce(s) Supporting Document(s) Appearance, Urine RFX Laboratory test result Nor mal (applies to non-numeric results) [facility] ([facility]) Color, Urine RFX Laboratory test result Normal ( applies to non-numeric results) [facility] ([facility]) Specific Rheems Ur Auto RFX 1.009 1.002-1.035 Nor mal (applies to non-numeric results) [facility] PH,Urine RFX 5.0 units 5.0-9.0 Normal (applies to non-numeric res ults) [facility] ([facility]) Protein, Urine Auto RFX Laboratory test result N ormal (applies to non-numeric results) [facility] ([facility]) Glucose, Urine (Ua) Auto RFX Laboratory test result Normal (applies to non- numeric results) [facility] ([facility]) Ketone, Urine Auto RFX Laboratory test result No rmal (applies to non-numeric results) [facility] ([facility]) Urobilinogen, Urine Auto RFX 0.2 mg/dL 0.0-2.0 Nor mal (applies to non-numeric results) [facility] ([facility]) Bilirubin, Urine Auto RFX Laboratory test result Normal (applies to non- numeric results) [facility] ([facility]) Blood, Urine Blood RFX Laboratory test result Above high n ormal [facility] ([facility]) Nitrite, Urine Auto RFX Laboratory test result N ormal (applies to non-numeric results) [facility] ([facility]) Leukocyte Esterase Ur Auto RFX Laboratory test result Abov e high normal [facility] ([facility]) WBC, Urine Auto RFX 11 /HPF 0-3 Above high normal [facility] ([facility]) RBC, Urine Auto RFX 32 /HPF 0-3 Above high normal [facility] ([facility]) Bacteria, Urine Auto RFX Laboratory test result Above high normal [facility] ([facility]) Squam Epithelial Cell Ur Aurfx 4 /HPF 0-6 N ormal (applies to non-numeric results) [facility] ([facility]) Mucus, Urine RFX Laboratory test result Normal ( applies to non-numeric results) [facility] ([facility]) Hyaline Cast, Urine Auto RFX 0 /LPF 0-1 Normal (appl ies to non-numeric results) [facility] ([facility]) ID Date Data Source [id number] 12/24/2020 12:00:00 AM EDT [facility] Name Value Range Interpretation Code Description Data Kim rce(s) Supporting Document(s) SARS-CoV2 Rapid Antigen Negative [facility] This lab was ordered by [facility] and reported by [facility]. ID Date Data Source [id number] 12/07/2020 10:54:34 AM EDT [facility] Name Value Range Interpretation Code Description Data Kim rce(s) Supporting Document(s) Progress Note [facility] [id number]/YZByjGVUcn7LwBEkzYRg8HXpqPEIhI8XsOQT0jA8jLVB4ZVoOWtNwAzAmATMm lbm [file] AgICAgICAgICAgICAgICAgICAgICAgICAgICAgICAgICAgICAgICAgICAgICAgICAgICAgICAgICAgIC TsUXNmJXOkEANqVWWxYNHqKJBhMQTfAUOcTZWdQVYrYHLlTNFjIZ2UHJCiVMOtXFBsAFFaUMWfCXBvXO AgICAgICAgICAgICAgICAgICAgICAgICAgICAgICAg OPKfOVSkAPAxWAUxNBLrUPUbOTUoAZMrBHVjOHNxUHYqICJlXOToDHGbGBTjHCUnGU8TLJNlIANfXIPr ICAgICAgICAgICAgICAgICAgICAgICAgICAgICAgICAgICAgICAgICAgICAgICAgICAgICAgICAgICAg ICAgICAgICAgICAgICAgICAgICAgICAgICAgICAgIA 0KICAgICAgICAgICAgICAgICAgICAgICAgICAgICAgICAgICAgICAgICAgICAgICAgICAgICAgICAgIC ZzMANkQVKqQTKnQQJwLCWoSAAxFVThYWCpLZJxDLYyNSAtSYVfWTOkLF8LENBcPDXbZIKwIQHsEUFkFE AgICAgICAgICAgICAgICAgICAgICAgICAgICAgICAg NVEnXCZrFJNtTRLkXKScMCYaERYxCADvPLIcJKFxUIVbEEZxCWQwJZTjBAFfNOMiKKNuDV6LYHGeFJKz ICAgICAgICAgICAgICAgICAgICAgICAgICAgICAgICAgICAgICAgICAgICAgICAgICAgICAgICAgICAg ICAgICAgICAgICAgICAgICAgICAgICAgICAgICAgIC GcMG5FSXBcVWPuLROkJNXzEQFsFSOdDKEyJHAcHNHyXPAiLVSyGWMnQKJkJMAzATQyPGTeSJDnFBTcXU WhHXOeHZXsPJPoBSVcAMKmXTBkYHBvJLCvCLQxMPFaUVEzXDKwUPWeOCQdRC5KIFLxRQPpWCPfQVIqOR AgICAgICAgICAgICAgICAgICAgICAgICAgICAgICAg GGJnZFZrZFByOKUmACGhRQPvVKPsIDYhKWYsIPMhTRWgFYNlQWPmIYQlIPWrYGXgZZBsKKFhOH8UUVXf ICAgICAgICAgICAgICAgICAgICAgICAgICAgICAgICAgICAgICAgICAgICAgICAgICAgICAgICAgICAg ICAgICAgICAgICAgICAgICAgICAgICAgICAgICAgIC QoDOUeHP5MSVUjVRAbEDKjPURtURUwCJGoDHQmEGQeJNUuRKLxYAChSJIbWVKwZSJlYSDrWTKlWVJrJX KdHAVdYFXlAFNoPFMlHJBlIYEnWRRaBPVmQTSjTVExPITfUJQwAEWyIGCxUDXjDW2MBL20nJFnb0S0VA VoVY7pgqk/Jj0AORynsnZcuMJhYN0DDcOcAH9viy0S SbHjTQ0lqx2WARwDGrDgL2Z5eLAjGNZhJZFFFvTfM87wWHfrHx40KUxuOBJyZiByYTd9Te5QGcAfT3iw QOAfBdL8GVAcGhLoPBtqGO1Jq7PdhWMcLZu+Bz8MEW6hg2AoRQnsTxVmBX4qqc2DQBjHVaDkF2QvbpT1 UHYgXHUtTu1XJLOaMBVtqVZsKdToPUBPQpSkM3QjeR 11XLMVLk2+WGgfjxIxZfiEReNcJQUhj7TmCQc7UZ8MWHTcIKl4xLWoXQIwX5Kcu6TfPi73VYDlAgrrOC jrASSQZLHbijQytPFwDYuWFwHquKQ4VqGhCxZmXoSdFAI5WJQpIQ3fDYtsFV6NADA4KNhnUFFkAAIkB4 xEMdOuVUJhFHDofNwmVI5MLtCoY3JfrvScfRKlNfAa IFINCj4+KSfyuwGaQtzSCjF9ROEjx0FrGCq2NT0GGDZsAWyhJK7JIWLasR0kEEamWI9CKnRiQTMwXKCQ KfZxY07ygCSxQVc3X6ZkRzTfFRQwLlwxUSNsPKvlPbYxAYVsRlRjMFyqXM7+ID4+QCsdPD2WQIynloFe FGAcRa5UQZKqLKYwBD4zFZKwUUYxX0C5oKlgOEFWVg UnJ9xhypqoVQ8zHPNfP749oKnjjhGnVUMwSPWpYz5JIDLoFHR0LHRstSWyOkFwOIHBHHsrWR5VhAAkYW H3hU5aMPrhCBAfULJtL2yZXuKkwDdnZH13kFzvxjPbmAVrEWo+Al9ZWB2fc9XzFAt4tpRfUCxeKDA8PP nsRDYoLQWtDHYnORM4XCU0JKJSFbGcPQKvDWQjQUzq DSVuRJXutc6UTSIqDQVoWSU9TiBfUMAiTNIgFKrdBGBpMYKuFwCiDYOvJUWmIU5LCtFcLSGcSZFdOGgc HUEyEOUrku9PTZDbHZVnWlO7RsThYRWyFTDkPFhhEZPqPMNpIdSqOMLoPPNqYJ9FCtBlCBDkIMGbZbBl CLTdWEFcij9YOTHcJQBpQhJ1TaNbQHIgNLDkITzbIN NtAWAhOcC8EOXhVAWbBM5JTlAwVHQdYTG8ZNQrYQUdQGOhmq3UFFAzUYExWXn1MuJmCXVbCEZrODzmAZ RxEWM6AAwxGXFkEFSpWQ9WJqDiBDHgDPNaAplkSXVpUTExeq2GUGEsKQVhMoS8NFJsALCeJHFbYPhgDH LwUPI7DEWfFWFgXZQgLY5ZMlEsSBZjAXilSTJuAHBc YYBqes5KVYJqDNThIsT9HDVwYDUqMUMrOYgjFCRiBXF4JPirLXZcSFGdZT6XReFgVCQaZMnkBhDyLEKx HIZxsc3MCNXlMOJtXDA4TKRdQOLkLKBjSLpzEVOqAMV2OSDdFQKwVBOkKS0EKwGzMGGvPdGzCTnlSCKe HBInjb8ZFVDvXIRoPRC3VWNuNPNgONPxFNbiFLZaKA EhTgKpVPYfXMBeCA5WQvFsBLoeRAYMZjl3PJlfW3b5GGQmOT8PV7Hpg3IjViRjZUEBSYgsRH9hxaXcZY ZiKm6KW8oMJqr4D4I2JmC5DTwfOkEiMSRvXUMpXMDxQwByUWFpVHQvEY4fWMG9LBQ2SHw5WxUiJPJ2Xi A3INL0AAGtEgM5JLQzJZM6ArQiQO1TQo5BBuF9LYM3sOGnRq2QJsM7TeEMCtFqJG8YTCd= ID Date Data Source [id number] 12/07/2020 10:54:29 AM EDT [facility] Name Value Range Interpretation Code Description Data Kim rce(s) Supporting Document(s) Progress Note 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 specialist manager+C9ZrGQ0+nRGP2eWxI6lXTa+[id number] [file] ID Date Data Source [id number] 12/20/2020 02:20:01 PM EDT [facility] Cmnt XXX-Imp : NoneAcid fast Stn [...] rce(s) Supporting Document(s) ID Date Data Source [id number] 10/28/2020 11:19:36 AM EST [facility] Cmnt XXX-Imp : NoneGram Stn XXX : Unable to perform testMicroorganism XXX Cult : 2+MucoidPseudomonas aeruginosaATTENTION This species is always resistant to aminopenicillins, ampicillin-sulbactam, amoxicillin-clavulanic acid, first-generation cephalosporins, cefuroxime, cephamycins, cefotaxime, ceftriaxone, ertapenem, tetracyclines, trimethoprim, trimethoprim- sulfamethoxazole, and chloramphenicol.4+Indigenous microorganisms. Name Value Range Interpretation Code Description Data Kim rce(s) Supporting Document(s) ID Date Data Source [id number] 10/21/2020 07:30:00 AM EST [facility] ([facility]) Name Value Range Interpretation Code Description Data Kim rce(s) Supporting Document(s) Laboratory test finding (navigational concept) 41.0 % 3 8.0-51.0 Normal (applies to non-numeric results) [facility] Laboratory test finding (navigational concept) 207 mg/dL 7 0-105 Above high normal [facility] ([facility]) Laboratory test finding (navigational concept) 3.9 meq/L 3 .5-5.1 Normal (applies to non-numeric results) [facility] ([facility]) Laboratory test finding (navigational concept) 139 meq/L 1 36-145 Normal (applies to non-numeric results) [facility] ([facility]) Laboratory test finding (navigational concept) 99 meq/L 9 8-109 Normal (applies to non-numeric results) [facility] ([facility]) Laboratory test finding (navigational concept) 4.8 mg/dL 4 .5-5.3 Normal (applies to non-numeric results) [facility]) Laboratory test finding (navigational concept) 26.0 MM/L 2 3.0-27.0 Normal (applies to non-numeric results) [facility] ([facility]) Laboratory test finding (navigational concept) 1.1 mg/dL 0 .6-1.3 Normal (applies to non-numeric results) [facility] ([facility]) Laboratory test finding (navigational concept) 8 mg/dL 8 -26 Normal (applies to non-numeric results) [facility] ([facility]) ID Date Data Source [id number] 10/21/2020 07:18:00 AM EST [facility]) Name Value Range Interpretation Code Description Data Kim rce(s) Supporting Document(s) Choriogonadotropin.beta subunit [Moles/volume] in Seru m or Plasma Laboratory test result Normal (applies to non-numeric results) [facility] ([facility]) <content>QUANTITATIVE RESULT QU ALITATIVE INTERPRETATION</content>
<content> </content>
<content><5.0 IU/L NEGATIVE</content>
<content>5.0 - 25.0 IU/L INDETERMINATE</content>
<content>>25.0 IU/L POSITIVE</content>
<content></content> ID Date Data Source [id number] 10/21/2020 07:08:00 AM EST [facility] Name Value Range Interpretation Code Description Data Kim rce(s) Supporting Document(s) Appearance, Urine RFX Laboratory test result Nor mal (applies to non-numeric results) [facility] ([facility]) Color, Urine RFX Laboratory test result Normal ( applies to non-numeric results) [facility] ([facility]) Specific Rheems Ur Auto RFX 1.014 1.002-1.035 Nor mal (applies to non-numeric results) [facility] PH,Urine RFX 5.0 units 5.0-9.0 Normal (applies to non-numeric res ults) [facility]) Ketone, Urine Auto RFX Laboratory test result No rmal (applies to non-numeric results) [facility]) Protein, Urine Auto RFX Laboratory test result N ormal (applies to non-numeric results) [facility] ([facility]) Glucose, Urine (Ua) Auto RFX Laboratory test result Above high normal [facility] ([facility]) Bilirubin, Urine Auto RFX Laboratory test result Normal (applies to non- numeric results) [facility] ([facility]) Urobilinogen, Urine Auto RFX 0.2 mg/dL 0.0-2.0 Nor mal (applies to non-numeric results) [facility] ([facility]) Nitrite, Urine Auto RFX Laboratory test result N ormal (applies to non-numeric results) [facility] ([facility]) Leukocyte Esterase Ur Auto RFX Laboratory test result Normal (applies to non- numeric results) [facility]) Blood, Urine Blood RFX Laboratory test result Above high n ormal [facility] ([facility]) WBC, Urine Auto RFX 2 /HPF 0-3 Normal (applies to non-nume dennys results) [facility] ([facility]) Bacteria, Urine Auto RFX Laboratory test result Normal (applies to non-numeric results) [facility] ([facility]) RBC, Urine Auto RFX 5 /HPF 0-3 Above high normal [facility] ([facility]) Mucus, Urine RFX Laboratory test result Normal ( applies to non-numeric results) [facility]) Squam Epithelial Cell Ur Aurfx 2 /HPF 0-6 N ormal (applies to non-numeric results) [facility] ([facility]) Hyaline Cast, Urine Auto RFX 0 /LPF 0-1 Normal (appl ies to non-numeric results) [facility] ([facility]) ID Date Data Source [id number] 10/21/2020 06:58:00 AM EST [facility] ([facility]) Name Value Range Interpretation Code Description Data Kim rce(s) Supporting Document(s) White Blood Count 10.5 10 4.0-10.0 Above high normal [facility] ([facility]) Red Blood Count 4.30 10 4.00-5.40 Normal (applies to non-numeric results) [facility] ([facility]) Hemoglobin 12.7 g/dL 12.0-15.5 Normal (applies to non-numeric resul ts) [facility] ([facility]) Mean Corpuscular Volume 93.0 fl 80.0-96.0 Normal ( applies to non-numeric results) [facility] ([facility]) Hematocrit 40.0 % 36.0-47.0 Normal (applies to non-numeric resul ts) [facility] ([facility]) Mean Corpuscular HGB Conc 31.8 g/dL 32.0-36.5 Below low normal [facility] ([facility]) Mean Corpuscular Hemoglobin 29.5 pg 27.0-33.0 Norm al (applies to non-numeric results) [facility] ([facility]) Red Cell Distribution Width 13.5 % 11.5-14.5 Norm al (applies to non-numeric results) [facility] ([facility]) Platelet Count, Automated 650 10 150-450 Above high normal [facility] ([facility]) Lymph % 25.3 % 24.0-44.0 Normal (applies to non-numeric resul ts) [facility] ([facility]) Neutrophils % 58.8 % 36.0-66.0 Normal (applies to non-numeric re sults) [facility] ([facility]) Day % 11.0 % 2.0-8.0 Above high normal [facility] ([facility]) Eos % 3.8 % 0.0-3.0 Above high normal [facility] ([facility]) Baso % 0.8 % 0.0-1.0 Normal (applies to non-numeric resul ts) [facility] ([facility]) Immature Granulocyte % 0.3 % 0-3.0 Normal (applies to non-n umeric results) [facility] ([facility]) Neutrophils # 6.2 10 1.5-8.5 Normal (applies to non-numeric re sults) [facility] ([facility]) Nucleated Red Blood Cell % 0.0 % 0-0 Normal (applies to n on-numeric results) [facility] ([facility]) Day # 1.2 10 0.0-0.8 Above high normal [facility] ([facility]) Lymph # 2.7 10 1.5-5.0 Normal (applies to non-numeric resul ts) [facility] ([facility]) Eos # 0.4 10 0.0-0.5 Normal (applies to non-numeric resul ts) [facility] ([facility]) Baso # 0.1 10 0.0-0.2 Normal (applies to non-numeric resul ts) [facility] ([facility]) ID Date Data Source [id number] 10/21/2020 06:58:00 AM EST [facility] ([facility]) Name Value Range Interpretation Code Description Data Kim rce(s) Supporting Document(s) Ast/Sgot 11 U/L 7-37 Normal (applies to non-numeric resul ts) [facility] ([facility]) Alt/SGPT 45 U/L 12-78 Normal (applies to non-numeric resul ts) [facility] ([facility]) Bilirubin,Total 0.2 mg/dL 0.2-1.0 Normal (applies to non-numeric results) [facility] ([facility]) Alkaline Phosphatase 190 U/L 45-117 Above high normal [facility] ([facility]) Bilirubin,Direct Laboratory test result 0.0-0.2 Normal ( applies to non-numeric results) [facility] ([facility]) Albumin 3.6 GM/DL 3.2-5.2 Normal (applies to non-numeric resul ts) [facility] ([facility]) Total Protein 7.2 GM/DL 6.4-8.2 Normal (applies to non-numeric re sults) [facility] ([facility]) Albumin/Globulin Ratio 1.0 1.2-2.2 Below low normal [facility] ([facility]) ID Date Data Source [id number] 10/21/2020 06:58:00 AM EST [facility] ([facility]) Name Value Range Interpretation Code Description Data Kim rce(s) Supporting Document(s) Lipase [Enzymatic activity/volume] in Serum or Plasma 17 U/L 73-393 Below low normal [facility] ([facility]) ID Date Data Source [id number] 09/04/2020 10:15:43 PM [facility] Name Value Range Interpretation Code Description Data Kim rce(s) Supporting Document(s) Progress Note [facility] GKKKVh1gSvJOPiCv97/QGKadVQCwy7VmDMdgMXg5VWrgGSYrB9TcRRQ8bM2xQAI8BEnGNjFtQfWxAGL1 [facility] [file] UM NURSE+Hm1YSNFnZCy9K9Y7ZJMfVZc1C0TWF5OTKZKzTJpxZTrfIWBrGXm7O8K3OHMtR4MUM9Mqfcinuz7+ DU8ZZ02BPTAlAIj3W8P2dRWiA0O0fHaKwTL8AL2FBH0AuBa5vMZzrJ8+CR7SQ3UEWwAoTZt0Q0M4bNWm Y3T2vXaYxQG9YJ5CMM4EtMKsFCLwjoBtBw5hW2EDFH wVImGOHIV1BV0WxFSgLF4CpXCZI8VlfNFfAv0sZLjpkJWqoV7wUo7cAOblWD4SErNGJFcEHRD5TK4QbP SlPQ2EbOGPG6DmuXVlZe5sJCiunDLwgo5+AB0IGNOtEc3HVq8+WLivujVdJfhXOnQrTQUcu4KlOIc5UK 7PQF0krTljSSJ3Mp8ElZN3lUSlV2oQRP4EgFIsJ71b pNHnCPHqFv8KKbO8qeHsdA8ZMX04iQNtv2G0QNHmQ7cbIQsgt81jVAowHCmXAP0rVWOQPBnkANvaIFH4 LfYojzgtZDPoDo0XJxStMSk4iE0jeUO1GQT4CqehaTTnJYgrLjNhYtGeMpM9iFlzfmv1UJvlMX9oWAtm czptZXRhLyc+XBvtZLBmFAJhRotGJCLakT1mehS4so OpVDiirIYuBb7ht4u9YvjoXz3dTc5aCLk3MaJiUkWdMRBzDm9dvR25EHlqkpOyIe0LViBqKCX3F2JqPs pSREY+TYzkPKhgtXf1bRNdCJEbTz4MIUGdVSAmTOYcUDMjYMWmAIXtXKCeAVZrDNIyIYVpHNWbQTZuRB AgICAgICAgICAgICAgICAgICAgICAgICAgICAgICAg PJFbQVLsIEEdUHVsMBUpOJExHIVeAVTiZQNqMLFxVS5QXTCvPSPvRVTwNEYxSRXsEVWzIZPkWALzGMMy ICAgICAgICAgICAgICAgICAgICAgICAgICAgICAgICAgICAgICAgICAgICAgICAgICAgICAgICAgICAg NXRiOEBdCJQvGRFuJH4MPJVyFAMcVFFqHXOsUTQiBH AgICAgICAgICAgICAgICAgICAgICAgICAgICAgICAgICAgICAgICAgICAgICAgICAgICAgICAgICAgIC KxJYVnJMNdKXKkCMHhKWPpVRHwJCRqOP5EPHCsZNNdGYFbLKCpUKYqQCSiTHGwHVEuYKWsTYDwTLFoOM AgICAgICAgICAgICAgICAgICAgICAgICAgICAgICAg DWCsSZKqMWWpMKGrCICrGFGwKEDcBCTeNWDzFJNzMGBvJD7OCZDhQDMcUVReCVXxFSKtWNRaYILnLALy ICAgICAgICAgICAgICAgICAgICAgICAgICAgICAgICAgICAgICAgICAgICAgICAgICAgICAgICAgICAg TZKeMYLjJJLbGJVuBHAsAA3VXWOiGEWtIBNgHTJgKG AgICAgICAgICAgICAgICAgICAgICAgICAgICAgICAgICAgICAgICAgICAgICAgICAgICAgICAgICAgIC CfMWXgTAYcTICfJJDkGIDoXRWxWKXgPQXoYF9XEGHpEQTgFIVeATTeWAWuGOIcKZQxZPFvGWOmTOYmPG AgICAgICAgICAgICAgICAgICAgICAgICAgICAgICAg FSPtHRUhWBFySALxEVKrJSFzDZSdZYFrVDOsHBDsCCGfCSOaGL7EYEElAUOpLDImDJKfNOUmXHUmDTDe ICAgICAgICAgICAgICAgICAgICAgICAgICAgICAgICAgICAgICAgICAgICAgICAgICAgICAgICAgICAg RYJmELUzWZCmIXTnIILdAVVnCG1UPNOvHGObFUIdHC AgICAgICAgICAgICAgICAgICAgICAgICAgICAgICAgICAgICAgICAgICAgICAgICAgICAgICAgICAgIC MsVJLyYZYtHDBzNXKqHJMtFYXyJCYnEGRbADMfYA9GKFFeJGHjGKRpCTVaYNLlYSOxNRDpBGFbWGKvFP AgICAgICAgICAgICAgICAgICAgICAgICAgICAgICAg VCHfTTBnAPHdOAWqCCZlJNKeZMYaOGHoZTGjXIWgGRRgUQNbTOKcXL7DKX99qCKlv8M3UMRvGP9yovp/ Lq8SCJvtgpTbqOCcBS3VGqVzUS5nek3UEoXjZH4bsi8HYRaNCqGaA5A7zQHrZEMhHVKWPpVvZ07zDLmd Uc60PExxZCAvJdKhGPt9Ad4LEyRlM1xxJFYaNsM1US MiKwN8ADKfJqW5JRCpSqOdWVScLBVcXZGbZDETUED6ZVKyQlZeJRzeDP0Sz4RwyVT3BPu+Xg0NWQ4kc3 CjNJonIsJxPI7kbo1VYUrLSpQmE9PjioM9UVSiOSBvNi5NEVLfWASsdTEcYgZuDTYDZoDoL7EzkQ68LH ENCj4+ZXgtaqCpXjfRIsBhVAMgk7BzAZf7VW7QFJIe YBt1sYGgINLqG4Zwu2IdOk45MQTcQcmrC2EiYJ4tflOzBr2yxGpjPQ1TKPM9GZCuWZKoVfNtXLFuVDom SJHQVLxJFeDqM3Pva9GbPaS2DKAiIkKdWMmlJRNmVHhuZZ36uPxvZK3UDXBaTXRhEM59PGKzGGTsVl2Z Ob0TMfXdFH7dzv1DDjSxAPXbMviNFyf3BNjiDC9LkA ImZ9KqdJBxw0oOLyIfN5JZXBIdPBLhGe3GLCPbUrKjUINkUQsrYC5cPDMkFAGOsCgyflY0VM2ORM7fyw QqEK5REvIvLc5zSz0RPjNaE1XwP7BkKHQuVXBKQIakBM0SXJsbIW6nBF4Zg8RUiOUquR3xkq2RSCQrYH DuWfopfs1PIbfuE9K7fChpFUBdJeVhTFUEAHlrKF6G LQIoMNH1VTApNQOrTKBJApRiI45zHB9MK4Vja31xVbZ6YUJsEjLkXBspQA77vCislsWaiOVacXkbPH0H Cj4+WZdnzwDeWkaZFpunNTNLLxKhHdZREmLuWIVzXUDxNRRlTiA9YuLbIe6PPWMkVAStATCtPsNqNIOc JPGxEUunOGLuDSF2UYCvDCBbXAMkDF5JDbLhWGBaNb j6IbydZGBrJABynm2FFTSlDNHkOKR2XmUyFYDqHIVdRPtuQMSfNFO1ImObMEBlYMOwMQ5XOnKsFKZlNE L0XAaaVYEvEYIrjb7WGUYlIZXaMKO4RQEkASRvZOAdCZbkAVLgQLG2ZGzjHTWxRMRjOB0KDyNdPNEdCI FbLqBhPBLaSDQuzb7MXGGeUMYhEsCfLmWtMLRzVOAk YQscKNNoJLK7QpP7CKGhTEZmSN1PSnLaZQMuKRI5WgJbPTDyNSNxtp3FIATzQZTbEHtqEeZrQYXsYULs GBoiDWKzGZD3CRS9LHPxCLRgMA4CRnUiSPBtKrS8LFUyKMGnMMMdnw2XXLBcQAVgQRm9HKCdZDCeVGQd GHzvWHTrWKAjPlCwMQIbZEVeKI1WPbEvNYSlOvA8WF orAZNzWOWkpn4MKZPtUXBxMvA3SLRrKTSxNCZbAOisZPEvQVAyOEW6FIWlKTZjCC8JIgPrFTThBkVaIT JhAULcXRFobx3FDHPnBXEkFhMzFFObIYLsMCVxZOkoVEQpHBZ9SVX3OUSfGIIhHQ2CVtOnNTTgDzKvLX IvEAFeNAGmel7VKIIuONLoEXXjLcGtCTKcDQUsOKna QHKiZXW3NeSlWLDwVLSzYU5TXvJkUNElVyE7DVmpAKKkOGHjhk3JKLTdSIUdLhh2FwPgDTJsNZVqRCru RPKrUSL4NBLiJUBqMSHhWU8OVrUcDOWqDawcRTZjKBSgORKojz9RFGYbWAPhYeOlGRBxEDEsLYUpNCzp GESaSWE8IIn6EGLhJRPkJF8FZuKqIWNdRcmuQqTrYJ JpLNFnmj3JSCAcRKWoASTeTKYmPTYtNQMbMRw8fhRmnYZxWHn1BO9EO3CkafNmErYIUf3Mx867UUI8KN MgJj9NK1hsQo3aATXgBVCWIu4CVKz6KgN4PhO3LsddDqFwMFH5UCwzY0UaJ2IhUGXaOJU7EHT+IDwzMT c7JZgqHNWpOKO9QBRlMiV7LCSaOHM1S4HuDCv6La4j XSANCj4+IOjwwDNvcGixKJOXMzQ6IZQwJMwrARCQHc5H ID Date Data Source [id number] 09/02/2020 11:47:31 AM [facility] Name Value Range Interpretation Code Description Data Kim rce(s) Supporting Document(s) Progress Note [facility] VEZJYp7kGqWNYyTi64/NUXvwLGMeu0XdUKohZWf5IZwtRKInX8AvVPJ5fQ0aATI3TUkBXkRsTlRxCUT6 lbm [file] 0K ID Date Data Source [id number] 09/01/2020 10:23:00 AM EST [facility] ([facility]) Name Value Range Interpretation Code Description Data Kim rce(s) Supporting Document(s) Hepatitis C Virus Ruby Index Laboratory test result Normal (applies to non- numeric results) [facility] ([facility]) Hepatitis B Surface Antigen Laboratory test result Normal (applies to non- numeric results) [facility] ([facility]) Hepatitis B Core Antibody Igm Laboratory test result Normal (applies to non- numeric results) [facility] ([facility]) Hepatitis A Antibody Igm Laboratory test result Normal (applies to non-numeric results) [facility] ([facility]) ID Date Data Source [id number] 09/01/2020 10:23:00 AM EST [facility] ([facility]) Name Value Range Interpretation Code Description Data Kim rce(s) Supporting Document(s) Ast/Sgot 60 U/L 7-37 Above high normal [facility] ([facility]) Alt/SGPT 134 U/L 12-78 Above high normal [facility] ([facility]) Alkaline Phosphatase 287 U/L 45-117 Above high normal [facility] ([facility]) Bilirubin,Total 0.4 mg/dL 0.2-1.0 Normal (applies to non-numeric results) [facility] ([facility]) Bilirubin,Direct Laboratory test result 0.0-0.2 Normal ( applies to non-numeric results) [facility] ([facility]) Total Protein 7.5 GM/DL 6.4-8.2 Normal (applies to non-numeric re sults) [facility] ([facility]) Albumin 3.6 GM/DL 3.2-5.2 Normal (applies to non-numeric resul ts) [facility] ([facility]) Albumin/Globulin Ratio 0.9 1.2-2.2 Below low normal [facility] ([facility]) ID Date Data Source [id number] 08/31/2020 10:05:58 AM EST [facility] Name Value Range Interpretation Code Description Data Kim rce(s) Supporting Document(s) Progress Note [facility] [id number]/XVIgtSNOou4NhTDarSUc1QIyrFMLyE4ImPXF2eT0uJCZ0FDfEKvSpHgGsFHQn [facility] [file] [id number]TIc2LThN0ZCA9cCCpAg4LUkN1WyUJNfHwEF4KTKt= ID Date Data Source [id number] 08/26/2020 08:58:00 AM EST [facility] Name Value Range Interpretation Code Description Data Kim rce(s) Supporting Document(s) Prothrombin Time 12.2 s 12.5-14.3 Normal (applies to non-numeric results) [facility] ([facility]) Inr 0.89 Normal (applies to non-numeric resul ts) [facility] ([facility]) THERAPUTIC HUMAN INR VALUES INDICATIONS NORMAL RANGES PROPHYLAXIS/TREATMENT OF: VENOUS THROMBOSIS 2.0-3.0 PULMONARY EMBOLISM 2.0-3.0 PREVENTION OF SYSTEMIC EMBOLISM FROM: TISSUE HEART VALVES 2.0-3.0 ACUTE MYOCARDIAL INFARCTION 2.0-3.0 VALVULAR HEART DISEASE 2.0-3.0 ATRIAL FIBRILLATION 2.0-3.0 MECHANICAL VALVES(HIGH RISK) 2.5-3.5 RECURRENT MYOCARDIAL INFARCTION 2.5-3.5 ID Date Data Source [id number] 08/26/2020 08:58:00 AM EST [facility] ([facility]) Name Value Range Interpretation Code Description Data Kim rce(s) Supporting Document(s) aPTT in Platelet poor plasma by Coagulation assay 29.2 s 24.2-38.5 Normal (applies to non-numeric results) [facility] ID Date Data Source [id number] 08/26/2020 08:58:00 AM EST [facility] ([facility]) Name Value Range Interpretation Code Description Data Kim rce(s) Supporting Document(s) White Blood Count 10.3 10 4.0-10.0 Above high normal [facility] ([facility]) Red Blood Count 4.75 10 4.00-5.40 Normal (applies to non-numeric results) [facility] ([facility]) Hemoglobin 14.1 g/dL 12.0-15.5 Normal (applies to non-numeric resul ts) [facility] ([facility]) Hematocrit 45.4 % 36.0-47.0 Normal (applies to non-numeric resul ts) [facility] ([facility]) Mean Corpuscular Volume 95.6 fl 80.0-96.0 Normal ( applies to non-numeric results) [facility] ([facility]) Red Cell Distribution Width 12.9 % 11.5-14.5 Norm al (applies to non-numeric results) [facility] ([facility]) Mean Corpuscular HGB Conc 31.1 g/dL 32.0-36.5 Below low normal [facility] ([facility]) Mean Corpuscular Hemoglobin 29.7 pg 27.0-33.0 Norm al (applies to non-numeric results) [facility] ([facility]) Platelet Count, Automated 486 10 150-450 Above high normal [facility] ([facility]) Neutrophils % 61.0 % 36.0-66.0 Normal (applies to non-numeric re sults) [facility] ([facility]) Lymph % 24.6 % 24.0-44.0 Normal (applies to non-numeric resul ts) [facility] ([facility]) Day % 10.2 % 0.0-5.0 Above high normal [facility] ([facility]) Eos % 2.8 % 0.0-3.0 Normal (applies to non-numeric resul ts) [facility] ([facility]) Baso % 1.0 % 0.0-1.0 Normal (applies to non-numeric resul ts) [facility] ([facility]) Immature Granulocyte % 0.4 % 0-3.0 Normal (applies to non-n umeric results) [facility] ([facility]) Neutrophils # 6.3 10 1.5-8.5 Normal (applies to non-numeric re sults) [facility] ([facility]) Nucleated Red Blood Cell % 0.0 % 0-0 Normal (applies to n on-numeric results) [facility] ([facility]) Lymph # 2.5 10 1.5-5.0 Normal (applies to non-numeric resul ts) [facility] ([facility]) Day # 1.1 10 0.0-0.8 Above high normal [facility] ([facility]) Baso # 0.1 10 0.0-0.2 Normal (applies to non-numeric resul ts) [facility] ([facility]) Eos # 0.3 10 0.0-0.5 Normal (applies to non-numeric resul ts) [facility] ([facility]) ID Date Data Source [id number] 08/26/2020 08:58:00 AM EST [facility] ([facility]) Name Value Range Interpretation Code Description Data Kim rce(s) Supporting Document(s) Glucose, Fasting 183 mg/dL 70-100 Above high normal [facility] ([facility]) Blood Urea Nitrogen 15 mg/dL 7-18 Normal (applies to non-nume dennys results) [facility] ([facility]) Creatinine For GFR 1.10 mg/dL 0.55-1.30 Normal (applies to non -numeric results) [facility] ([facility]) Sodium Level 134 meq/L 136-145 Below low normal [facility] ([facility]) Glomerular Filtration Rate Laboratory test result Normal (applies to non- numeric results) [facility] ([facility]) <content>Units are mL/min/1.73 m2</content>
<content></content>
<content>Chronic Kidney Disease Staging per NKF:</content>
<content></content>
<content>Stage I & II GFR >=60 Normal to Mildly Decreased</content>
<content>Stage III GFR 30-59 Moderately Decreased</content>
<content>Stage IV GFR 15-29 Severely Decreased</content>
<content>Stage V GFR <15 Very Little GFR Left</content>
<content>ESRD GFR <15 on PAY STATION [employer]LECT[employer]</content>
<content></content> Chloride Level 100 meq/L 98-107 Normal (applies to non-numeric r esults) [facility] ([facility]) Potassium Serum 4.7 meq/L 3.5-5.1 Normal (applies to non-numeric results) [facility] ([facility]) Anion Gap 6 meq/L 8-16 [facility] Carbon Dioxide Level 28 meq/L 21-32 Normal (applies to non-num raymon results) [facility] ([facility]) Calcium Level 9.6 mg/dL 8.5-10.1 Normal (applies to non-numeric re sults) [facility] ([facility]) Ast/Sgot 174 U/L 7-37 Above high normal [facility] ([facility]) Alt/SGPT 433 U/L 12-78 Above high normal [facility] ([facility]) Bilirubin,Total 0.3 mg/dL 0.2-1.0 Normal (applies to non-numeric results) [facility] ([facility]) Alkaline Phosphatase 433 U/L 45-117 Above high normal [facility] ([facility]) Albumin 4.0 GM/DL 3.2-5.2 Normal (applies to non-numeric resul ts) [facility] ([facility]) Total Protein 7.6 GM/DL 6.4-8.2 Normal (applies to non-numeric re sults) [facility] ([facility]) Albumin/Globulin Ratio 1.1 1.2-2.2 Below low normal [facility] ([facility]) ID Date Data Source [id number] 08/26/2020 08:58:00 AM EST [facility] ([facility]) Name Value Range Interpretation Code Description Data Kim rce(s) Supporting Document(s) Triglycerides Level 227 mg/dL Above high normal [facility] ([facility]) Cholesterol Level 206 mg/dL Above high normal [facility] ([facility]) HDL Cholesterol 49 mg/dL Normal (applies to non-numeric results) [facility] ([facility]) Non-HDL-C 157 mg/dL Normal (applies to non-numeric resul ts) [facility] ([facility]) LDL Cholesterol 112 mg/dL Above high normal [facility] ([facility]) Cholesterol Risk Ratio 4.204 Normal (applies to non-n umeric results) [facility] ([facility]) ID Date Data Source [id number] 08/26/2020 08:58:00 AM EST [facility] ([facility]) Name Value Range Interpretation Code Description Data Kim rce(s) Supporting Document(s) Gamma glutamyl transferase [Enzymatic activity/volume] in Serum or Plasma 606 U/L 5-55 Above [facility] Magnesium [Mass/volume] in Serum or Plasma 2.1 mg/dL 1.8-2 .4 Normal (applies to non-numeric results) [facility] ([facility]) ID Date Data Source [id number] 08/26/2020 08:58:00 AM EST [facility] ([facility]) Name Value Range Interpretation Code Description Data Kim rce(s) Supporting Document(s) Total Iron Binding Capacity 357 ug/dL 250-450 Norm al (applies to non-numeric results) [facility] ([facility]) Iron (Fe) 123 ug/dL 50-170 Normal (applies to non-numeric resul ts) [facility] ([facility]) Percent Saturation 34.5 % 13.2-45.0 Normal (applies to non-numer ic results) [facility] ID Date Data Source [id number] 08/26/2020 08:58:00 AM EST [facility] ([facility]) Name Value Range Interpretation Code Description Data Kim rce(s) Supporting Document(s) IgE [Mass/volume] in Serum 135.0 IU/ml Above high normal [facility] ([facility]) Calcidiol [Mass/volume] in Serum or Plasma 22.8 ng/mL 30.0- 100.0 Below low normal [facility] ([facility]) Retinol [Mass/volume] in Serum or Plasma 62.7 ug/dL 18.9-57.3 Above high normal [facility] ([facility]) Reference intervals for vitamin A determ ined from [facility] internal studies. Individuals with vitamin A less than 20 ug/dL are considered vitamin A deficient and those with serum concentrations less than 10 ug/dL are considered severely deficient. . This test was developed and its performance characteristics determined by [facility]. It has not been cleared or approved by the Food and Drug Administration. Performed at: [address] [id number] [address]: Vance Veras MD, Phone: [phone] ID Date Data Source [id number] 08/26/2020 08:58:00 AM EST [facility] ([facility]) Name Value Range Interpretation Code Description Data Kim rce(s) Supporting Document(s) Vitamin E(Alpha Tocopherol) 16.5 mg/L 5.9-19.4 Norm al (applies to non-numeric results) [facility] ([facility]) Vitamin E(Gamma Tocopherol) 0.8 mg/L 0.7-4.9 Norm al (applies to non-numeric results) [facility] ([facility]) Reference intervals for alpha and gamma- tocopherol determined from National Health and Nutrition Examination Survey, 4429-5019. Individuals with alpha-tocopherol levels less than 5.0 mg/L are considered vitamin E deficient. ID Date Data Source [id number] 08/26/2020 08:58:00 AM EST [facility] ([facility]) Name Value Range Interpretation Code Description Data Kim rce(s) Supporting Document(s) Hemoglobin A1c 9.4 % Normal (applies to non-numeric r esults) [facility] ([facility]) <content>REFERENCE RANGES:</content><br/ ><content></content>
<content><=5.6% NORMAL</content>
<content>5.7-6.4% SUGGESTS IMPAIRED GLUCOSE METABOLISM/PREDIABETIC</content>
<content>>= 6.5% ABNORMAL</content>
<content></content> Estimated Average Glucose 223 mg/dL 60-110 Above high normal [facility] ([facility]) ID Date Data Source [id number] 08/26/2020 08:57:00 AM EST [facility] ([facility]) Name Value Range Interpretation Code Description Data Kim rce(s) Supporting Document(s) Glucose, Fasting 190 mg/dL 70-100 Above high normal [facility] ([facility]) Creatinine For GFR 1.09 mg/dL 0.55-1.30 Normal (applies to non -numeric results) [facility] Blood Urea Nitrogen 15 mg/dL 7-18 Normal (applies to non-nume dennys results) [facility] ([facility]) Glomerular Filtration Rate Laboratory test result Normal (applies to non- numeric results) [facility] ([facility]) <content>Units are mL/min/1.73 m2</content>
<content></content>
<content>Chronic Kidney Disease Staging per NKF:</content>
<content></content>
<content>Stage I & II GFR >=60 Normal to Mildly Decreased</content>
<content>Stage III GFR 30- 59 Moderately Decreased</content>
<content>Stage IV GFR 15-29 Severely Decreased</content>
<content>Stage V GFR <15 Very Little GFR Left</content>
<content>ESRD GFR <15 on PAY STATION [employer]</content>
<content></content> Potassium Serum 4.8 meq/L 3.5-5.1 Normal (applies to non-numeric results) [facility] ([facility]) Sodium Level 135 meq/L 136-145 Below low normal [facility] ([facility]) Chloride Level 100 meq/L 98-107 Normal (applies to non-numeric r esults) [facility] Carbon Dioxide Level 28 meq/L 21-32 Normal (applies to non-num raymon results) [facility] ([facility]) Calcium Level 9.5 mg/dL 8.5-10.1 Normal (applies to non-numeric re sults) [facility] ([facility]) Anion Gap 7 meq/L 8-16 Below low normal [facility] ( [facility]) Ast/Sgot 171 U/L 7-37 Above high normal [facility] ([facility]) Alt/SGPT 433 U/L 12-78 Above high normal [facility] ([facility]) Alkaline Phosphatase 415 U/L 45-117 Above high normal [facility] ([facility]) Total Protein 7.6 GM/DL 6.4-8.2 Normal (applies to non-numeric re sults) [facility] ([facility]) Bilirubin,Total 0.3 mg/dL 0.2-1.0 Normal (applies to non-numeric results) [facility] ([facility]) Albumin 4.0 GM/DL 3.2-5.2 Normal (applies to non-numeric resul ts) [facility] ([facility]) Albumin/Globulin Ratio 1.1 1.2-2.2 Below low normal [facility] ([facility]) ID Date Data Source [id number] 08/26/2020 08:57:00 AM EST [facility] ([facility]) Name Value Range Interpretation Code Description Data Kim rce(s) Supporting Document(s) Red Blood Count 4.82 10 4.00-5.40 Normal (applies to non-numeric results) [facility] ([facility]) White Blood Count 10.1 10 4.0-10.0 Above high normal [facility] ([facility]) Hemoglobin 14.3 g/dL 12.0-15.5 Normal (applies to non-numeric resul ts) [facility] ([facility]) Hematocrit 45.6 % 36.0-47.0 Normal (applies to non-numeric resul ts) [facility] ([facility]) Mean Corpuscular Volume 94.6 fl 80.0-96.0 Normal ( applies to non-numeric results) [facility] ([facility]) Mean Corpuscular Hemoglobin 29.7 pg 27.0-33.0 Norm al (applies to non-numeric results) [facility] ([facility]) Mean Corpuscular HGB Conc 31.4 g/dL 32.0-36.5 Below low normal [facility] ([facility]) Red Cell Distribution Width 13.1 % 11.5-14.5 Norm al (applies to non-numeric results) [facility] ([facility]) Platelet Count, Automated 466 10 150-450 Above high normal [facility] ([facility] [place]) Neutrophils % 61.5 % 36.0-66.0 Normal (applies to non-numeric re sults) [facility] ([facility] [place]) Day % 9.9 % 0.0-5.0 Above high normal [facility] ([facility] [place]) Lymph % 24.6 % 24.0-44.0 Normal (applies to non-numeric resul ts) [facility] ([facility] [place]) Eos % 2.7 % 0.0-3.0 Normal (applies to non-numeric resul ts) [facility] ([facility] [place]) Baso % 1.0 % 0.0-1.0 Normal (applies to non-numeric resul ts) [facility] ([facility] [place]) Immature Granulocyte % 0.3 % 0-3.0 Normal (applies to non-n umeric results) [facility] ([facility] [place]) Nucleated Red Blood Cell % 0.0 % 0-0 Normal (applies to n on-numeric results) [facility] ([facility]) Lymph # 2.5 10 1.5-5.0 Normal (applies to non-numeric resul ts) [facility] ([facility]) Neutrophils # 6.2 10 1.5-8.5 Normal (applies to non-numeric re sults) [facility] ([facility]) Eos # 0.3 10 0.0-0.5 Normal (applies to non-numeric resul ts) [facility] ([facility]) Baso # 0.1 10 0.0-0.2 Normal (applies to non-numeric resul ts) [facility] ([facility]) Day # 1.0 10 0.0-0.8 Above high normal [facility] ([facility]) ID Date Data Source [id number] 08/09/2020 12:00:00 AM EST [facility] Name Value Range Interpretation Code Description Data Kim rce(s) Supporting Document(s) Carestart Rapid COVID Antigen Test [facility] This lab was reported by Delta Burch. ID Date Data Source [id number] 08/09/2020 12:00:00 AM EST [facility] Name Value Range Interpretation Code Description Data Kim rce(s) Supporting Document(s) SARS coronavirus 2 RNA [Presence] in Res piratory specimen by KALIN with probe detection [facility] This lab was ordered by Delta Mcintyre and reported by [employer] [facility]). ID Date Data Source [id number] 07/28/2020 02:10:09 PM EST [facility], PCName: Lidia AmayaDOB: 1990Provider: Marleni MeeksJOSEPH: 07/28/2020 Reason For VisitAmbminnie Amaya is here today for Cervical spine. Lidia Amaya is a new patient. MRI and CT were imported. Other DOI/DOO: 12/2019. NKI. 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 History of Present IllnessChronic neck painEpisodic right scapular/upper arm painEpisodic right upper extremity numbnessDoes see [facility] neurolog[facility] for migrainesPhysical therapy February and March [...] hand(s). The numbness is intermittent. Results/Data OtherMRI Health system 03/09/2020: Mild multilevel DDD. No herniation. No [...] For the neck pain issues-recommend conservative measures: ambulatory care, pain management, massage therapy etc.For the episodic right upper extremity numbness-she was advised to call her neurologist for further evaluation of this issue as MRI cervical did not show any compressive lesions This document was dictated and electronically signed using [employer] software. A reasonable attempt at proof reading has been made to minimize errors. Please call with any questions. Signatures Electronically signed by : Marleni Meeks M.D.; Jul 28 2020 2:10PM EST (Author) Name Value Range Interpretation Code Description Data Kim rce(s) Supporting Document(s) ID Date Data Source [id number] 07/07/2020 08:08:44 PM EST [facility] Name Value Range Interpretation Code Description Data Kim rce(s) Supporting Document(s) SARS-COV-2 KALIN [facility] Not DetectedReference range: Not Detecte d This nucleic acid amplification test was developed and its performance characteristics determined by [facility]. Nucleic acid amplification tests include PCR and [...] detected) result in this assay. Performed At: [facility] [place], [place] [id number] Radha Lorena A PhD Ph:[phone] ID Date Data Source [id number] 07/03/2020 12:07:24 AM EST [facility] Name Value Range Interpretation Code Description Data Kim rce(s) Supporting Document(s) SARS-COV-2 KALIN [facility] Not DetectedReference range: Not Detecte d This nucleic acid amplification test was developed and its performance characteristics determined by [facility]. Nucleic acid amplification tests include PCR and [...] detected) result in this assay. Performed At: [facility] [address] [place], [place] [id number] Radha Gillette PhD Ph:[phone] ID Date Data Source [id number] 06/27/2020 12:00:00 AM EST [facility] Name Value Range Interpretation Code Description Data Kim rce(s) Supporting Document(s) SARS coronavirus 2 RNA [facility] This lab was ordered by [employer] and reported by [facility]. ID Date Data Source [id number] 06/01/2020 10:40:00 AM EDT [facility] Name Value Range Interpretation Code Description Data Kim rce(s) Supporting Document(s) SARS coronavirus 2 RNA [facility] This lab was ordered by [facility] and reported by [facility]. ID Date Data Source [id number] 05/27/2020 08:50:21 AM EDT [facility] Service Cmnt XXX-Imp : NoneGram Stn XXX : Unable to perform testMicroorganism XXX Cult : 2+MucoidPseudomonas aeruginosaATTENTION This species is always resistant to aminopenicillins, ampicillin-sulbactam, amoxicillin-clavulanic acid, first-generation cephalosporins, cefuroxime, cephamycins, cefotaxime, ceftriaxone, ertapenem, tetracyclines, trimethoprim, trimethoprim- sulfamethoxazole, and chloramphenicol.3+Indigenous microorganisms. Name Value Range Interpretation Code Description Data Kim rce(s) Supporting Document(s) ID Date Data Source [id number] 05/23/2020 03:31:33 PM EDT [facility] Name Value Range Interpretation Code Description Data Kim rce(s) Supporting Document(s) Progress Note 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 [file] u9CJgKD71f4IgRgS84gcdWIrGEqs/Dave+1xP4GltQ7zIfdEG2S9tANeuLXtbaceLWr68dCdkAId1o4Tgv kO31DmzO39fugnhHsGbebnavRJyh97zKcsgxsfqQQG Ny+jOizKSdU/hv9VJYMq2yITKeFazpLft6oFFxhnUG2ItCifrHcsGZdOYgWqooii4Y7xgzV40wMVtMvW vv8H39h2lNSJgxE3PyTRr2E5KV3qQ7lYwU32orOpbUF8g7/lCH1gB4v5ArUh41BCwBwT7o4ZFxPqS3qP JBvgLCrgshLFRgeA+2G1qpRpC8HRJxNse/fbw8fR/w r5+nUPGMs2YzT5mqA+DPDpokavUN/3Le/lVg/QYQ/Vj5/e7tUP6NFVle4LsJyf4M0RAGaBeL7Y+N/pBd qfV4IpmJBNiq/yULrOs3PprNl8mhz/Pz2+AsJ2w+oAZOXOEiBVoI6TT5dyXORNwaB6sHejdEWz35FYkE XsKdlCfkwYoj/fUjkKMwmGuCbBnO9gaw590JBMQU0e Z1fKOUJE1MmOwmvZ0GhR5XpjZy2HtVyhG575pz603nB1b5y/xpG70BA5OQR70UYo9aAGr743mwm57Qh9 CV2wLwpC6+x3rm/0/ZitGX6tCB8/+30+IAeRWhI+Q/pk7dYTCSfubugSD54XxIgkrRT/EgyqHpSN/FLAT POLISHER y8G9cazEjWLSu8DJ7VcJthwX/Q3N0tTW0PvVXJc5qc 8DhcOpT04rCe/sO/B/y6KWTd0/7AckIT7z7dRAoLS6+Z6AvYP8N6w/C+q5E+K63lMVz3KnRiGi/n6F+M aBC3EpD1UOkCOTUO82+NQPrIEePQfzs9+chxo3JDXhUrErnckscx9teunT+mdn0eh+gCBns1Ph45tXma FAUfzMo8P2T2Cq8eg/fQlHlN1mxrsReF8WYg8nE0PZ mypD8z/lNabXpT4TuWKnXrF1LrSG4m9Yb2G3D1fBqYxkIkQw8rOn5lbmRsH2iVbM3CQhRrhanqtRUVTQ +o7RBru9+OE3KMDDwLFeZoLEbtgqrPe/gqj3qp6l6HBB2TvkCSb+w+aLcsZ7aK9/Rp/27/j+0j/4U+dY ZCo8GlzYNhW2qQE8vko90nrba7/8t9+TH6aGc//T/1 2/57MwEhYYNjnF4wtSb83Ea06Tb+4+k1M6gxb1z3dY+JUjK5d0DS5Rmzr/WZfMjPIqfd/CeW1OB2lhr9 t/FY294x3y8rAqkSvABmXJKHy41F+ZgSpINA4zNCRar/XPkOBii/rKJnW3vTbgWVpxccs2nZo5hX/LbR dd6ywD9CF2RiJfr4W8+fc/tI6DExL8SWPYf5hnRTxJ RdNtGOOZgpft0OCPSJ7trre0grHRVv2OB9HlHJEshpDZYOUS2Qrw/1qwSPSCvQvimPM7C4AJANrWdfzF rXHJ/ADAN/Y7enlx7edZVfE+dWSoLA4OVzD0yI8hh3tG1wWo3KNOuPy4wMbZ1FKhhHOfwi3hdz7FhkO0Q [file] ICAgICAgICAgICAgICAgICAgICAgICAgICAgICAgIC AgICAgICAgICAgICAgICAgICAgICAgICAgICAgICAgICAgICAgICAgICAgICAgICAgICAgICAgICAgIC AgICANCiAgICAgICAgICAgICAgICAgICAgICAgICAgICAgICAgICAgICAgICAgICAgICAgICAgICAgIC AgICAgICAgICAgICAgICAgICAgICAgICAgICAgICAg ICAgICAgICAgICAgICANCiAgICAgICAgICAgICAgICAgICAgICAgICAgICAgICAgICAgICAgICAgICAg ICAgICAgICAgICAgICAgICAgICAgICAgICAgICAgICAgICAgICAgICAgICAgICAgICAgICAgICANCiAg ICAgICAgICAgICAgICAgICAgICAgICAgICAgICAgIC AgICAgICAgICAgICAgICAgICAgICAgICAgICAgICAgICAgICAgICAgICAgICAgICAgICAgICAgICAgIC AgICAgICANCiAgICAgICAgICAgICAgICAgICAgICAgICAgICAgICAgICAgICAgICAgICAgICAgICAgIC AgICAgICAgICAgICAgICAgICAgICAgICAgICAgICAg ICAgICAgICAgICAgICAgICANCiAgICAgICAgICAgICAgICAgICAgICAgICAgICAgICAgICAgICAgICAg ICAgICAgICAgICAgICAgICAgICAgICAgICAgICAgICAgICAgICAgICAgICAgICAgICAgICAgICAgICAN CiAgICAgICAgICAgICAgICAgICAgICAgICAgICAgIC AgICAgICAgICAgICAgICAgICAgICAgICAgICAgICAgICAgICAgICAgICAgICAgICAgICAgICAgICAgIC AgICAgICAgICANCiAgICAgICAgICAgICAgICAgICAgICAgICAgICAgICAgICAgICAgICAgICAgICAgIC AgICAgICAgICAgICAgICAgICAgICAgICAgICAgICAg ICAgICAgICAgICAgICAgICAgICANCiAgICAgICAgICAgICAgICAgICAgICAgICAgICAgICAgICAgICAg ICAgICAgICAgICAgICAgICAgICAgICAgICAgICAgICAgICAgICAgICAgICAgICAgICAgICAgICAgICAg ICANCiAgICAgICAgICAgICAgICAgICAgICAgICAgIC AgICAgICAgICAgICAgICAgICAgICAgICAgICAgICAgICAgICAgICAgICAgICAgICAgICAgICAgICAgIC AgICAgICAgICAgICANCjw/zJQgE6fhvGSdjrQ2Z2lfZe3FHk5PKP1kj1BbOLVxRLeewdCrQxoYNkAbGP VwDiyOJoe6GMhnOQ1GpSWzJ7BcD3SgEHogNK5IJLQu TSFkyGWbPZYiBCLoVvZ6XHPhNVheVK3EsULiGHloDYHvDXSoZtMvFRNfNAJjIRToVFWrAIPPXUJcAVTp QwYbXWVmGJTvRG5BGRDkF906xlImAz7COq8PStKwZH2vym2PZwIlKINeUgaHVol3QHoqTF4EmDOzlVFs IsRwZMNYZzSpN1iyq1DaNkSzHDIOJJliYX7Os4DetR AxDQo+Ep1NYL3bd8NiLLsiOcUrVB5zqm3DADaYFzTxN1QtmPmtCFSwa9bvHGFeDT2qxNYeSMG8QWCacc OvSBWkIPZszEQoMFZYAEZzvPPgOD87AsRiQfLqSKD4JYPhXC2cGUyrPN7EHMO9TOiwQZHxMQCpC4fGCb LdMLO6MoTrbGciFQ1SMnIqU1YtbqKacUQlBnBcHMPO Cj4+EYnklaTiJqaPVlR8QGIpc5GsXTs1CM6VDRRbHOzwTZ5CQUCgcO0cUZzzDE3RPnHnGIOgXWVAWeRf E91lxGLsVAm4B5KrLuPoRKOdJedqESLsPFnxQkByTOXlLmHbHJgfUW6+ID4+CYgzBQ0BPOayhuKnOWYj Qc6MHJDfRENeUD1pAMIyOCZbW1O3jPsvDRIEUnXcG5 whlintAU8cAFAuH538sBymjtOhRUBoQVKqZq8WARHrUNF2ZCOuuCPsWpQnATOEUQaoAN2PqRGmRZE5lB 6yOIbwBPWtACXsZ4hDXrSkuOgpHS03pGrttnZpfEKdPYq+Zz5WQT6gy8OhJSn8tmGgIErnNAJ9SCupYR XoLHBaYBIrYXC7NPT6YDZDFeJoYUNyPOGvORecNDBt YUQsga2FACBpTYI7IyQ8VfJbMSYqKLVjNAibXUDkFGY1SoSnAULmGVJjDW2NBhPwKZDyQYJqBBfgADSq FSLavt2AKXExUIVlJES6ImCkUERmNCEnTQatFEKuKWJ1FlqgDIPnYLLeWJ2DRrRpHWAdTNS2EPMeSYGx UACbjz8ZMEShJZWiYjj8CtJyDAIoYWFjDWdvFTLjOX TdGyQ0LNVxYMSkBQ2LZaJaEFTvGKH0JINcQXGwJOJypv8PSQMoZTMzUkE4LNJrCDDnOLNySMvsKZZeSJ G6NifiWONzINPpWQ8OVdIaLVTdIgBqTYMrLNPhILCfez9CPRUeNUIwZBYjPqZgMDMzKSIyCMnnPHCbUW XoODQ6UVCfVNGnQA1PVwOySVFrIrDdQzYeDKPjJMQv gw4MINObINWbOqD6HpXtZCRwPFIuKJfcNEZxQWTcESk8GNKjCDNvGL3IYcPjNKMxYtF8VyVmDPNaTICh bj0SITKiVIGmFOTdTGHiTDVzOHYgVBndZXOkAIM2SEDrPUGvQWLvEH3VQdRwWCDgTsXsLHGdPQZiBNKs sj7IBDFeFXN2ABNeYyCqQHPvTYRsIYykYJXiHSA5IK r1HXWiFDBrKK5BPyYoGUOmYsRwJFYuXREhBZFwhe1YSVJqIZT5FXe0BABtEODvVZWsWAjoPHQtVQWvFZ Q0TAVzZISmTL5AJvMgRJWzEbVvYovpWKFfHHYlal0DPJEzUGA4GkA6OlFiWLVcNXVxSOlcVXDmSCUyVF T7INFtKDRoVK7BMyFlOPHcHwF8QiDeQVTtWYPysj2W VHDoJAR6LSTeFkHaGHEaHTYkJGcuPKRbAKP1EXZmWWGbPYJqAG3XBoUdFOIyRlR7JTSvJYWcYMCshd9D qHKnkXuuhy7NNTcIUw1RlCdaMYQ4JEypHp4mcHHyPCYjCXKEQn7JfbZrMKJnMDAJFFeaILNrMJLgLMG7 KnK1WUl7AIfaQYTtSxUoEZLtXAQzGPO0PTC0BaP7VX P0YZAvEWflCGqtIeU2PiXxB0M8OUY7HKXxFVTiSYP+LQ8pQNh+Yr1Kt9ZxwqD2jzXdEYt7CTb7Hz0IVI UAM9MUAs== ID Date Data Source [id number] 05/23/2020 02:28:15 PM EDT [facility] Name Value Range Interpretation Code Description Data Kim rce(s) Supporting Document(s) Progress Note [facility] FSYFHb1rIxPEKmSx90/BQHqmSULfy5PeCYdlBUo2PBajSKKiU6ZkMZT4iX8kQRS3UDrHPjEkMdPbJAW6 lbm [file] U4KRDfHZJ4KCpsXSonRlXoFeOjWX3VLq4MIhW5SLL9iTYbRy2XMfQ0YhWZRfLzMS0LGKf= ID Date Data Source [id number] 05/23/2020 01:43:57 PM EDT [facility] Name Value Range Interpretation Code Description Data Kim rce(s) Supporting Document(s) Progress Note [facility] SXABOd6oMcQOTcVk91/NPAveDTTmd9RoHCkbZCp6IHreDRVrI0OuXGA5uC2zNMH2BDiPZrXjNhJwDVO3 lbm [file] CfTjVuBiDUJpSep3TgJfCISbRmV7HlJ8KqDdUU5e XSANCj4+UUjmjHWheYcxEVWUWlHfADW3WVpbAQCCTz7Y ID Date Data Source [id number] 05/09/2020 12:38:00 PM EDT [facility] ([facility]) Name Value Range Interpretation Code Description Data Ikm rce(s) Supporting Document(s) Alt/SGPT 41 U/L 12-78 Normal (applies to non-numeric resul ts) [facility] ([facility]) Ast/Sgot 18 U/L 7-37 Normal (applies to non-numeric resul ts) [facility] ([facility]) Bilirubin,Total 0.3 mg/dL 0.2-1.0 Normal (applies to non-numeric results) [facility] ([facility]) Alkaline Phosphatase 138 U/L 45-117 Above high normal [facility] ([facility]) Albumin 3.8 GM/DL 3.2-5.2 Normal (applies to non-numeric resul ts) [facility] ([facility]) Bilirubin,Direct 0.1 mg/dL 0.0-0.2 Normal (applies to non-numeric results) [facility] ([facility]) Total Protein 7.3 GM/DL 6.4-8.2 Normal (applies to non-numeric re sults) [facility] ([facility]) Albumin/Globulin Ratio 1.1 1.2-2.2 Below low normal [facility] ([facility]) ID Date Data Source [id number] 05/09/2020 12:38:00 PM EDT [facility] ([facility]) Name Value Range Interpretation Code Description Data Kim rce(s) Supporting Document(s) Hemoglobin A1c 7.5 % Normal (applies to non-numeric r esults) [facility] ([facility]) <content>REFERENCE RANGES:</content><br/ ><content></content>
<content><=5.6% NORMAL</content>
<content>5.7-6.4% SUGGESTS IMPAIRED GLUCOSE METABOLISM/PREDIABETIC</content>
<content>>= 6.5% ABNORMAL</content>
<content></content> Estimated Average Glucose 169 mg/dL 60-110 Above high normal [facility] ([facility]) ID Date Data Source [id number] 04/18/2020 04:09:51 PM EDT [facility] Name Value Range Interpretation Code Description Data Kim rce(s) Supporting Document(s) Progress Note [facility] BFJSPd5zExUNOcWg31/GRUqdCFBke0CgJAvjLKa9XRcxMOWvR2KkXZY7aS0eEFK5SCeQLgUqKnJoUBQy lbm [file] Ea4KMwJ7BHqLLvMzNL2HSXj= Procedure Social History Code Duration Value Status Description Data Source(s ) Smoking 02/23/2021 12:00:00 AM EDT Never Smoker completed Never S moker eCW1 ([facility]) Smoking 02/23/2021 12:00:00 AM EDT Never Smoker completed Never S moker eCW1 ([facility]) Smoking 01/10/2021 12:00:00 AM EDT Never Smoker completed Never S moker eCW1 ([facility]) Tattoo/Piercing 01/06/2021 12:00:00 AM EDT Pierced ears completed Pi erced ears [facility] ([facility]) Tattoo/Piercing 01/06/2021 12:00:00 AM EDT Tattoo completed Tatt oo [facility] ([facility]) Smoking 01/06/2021 12:00:00 AM EDT Patient has never smoked co mpleted Patient has never smoked [facility] ([facility]) Smoking 12/14/2020 12:00:00 AM EDT Never Smoker completed Never S moker eCW1 ([facility]) Smoking 12/14/2020 12:00:00 AM EDT Never Smoker completed Never S moker eCW1 ([facility]) Alcohol intake 12/07/2020 12:00:00 AM EDT Current drinker of al cohol (finding) completed Current drinker of alcohol (finding) [facility] Tobacco use and exposure 12/07/2020 12:00:00 AM EDT Never used co mpleted Never used [facility] Smoking 12/07/2020 12:00:00 AM EDT Never smoker completed Never s [facility] Smoking 11/15/2020 12:00:00 AM EDT Never Smoker completed Never S moker eCW1 ([facility]) Alcohol intake 09/02/2020 12:00:00 AM EST Current drinker of al cohol (finding) completed Current drinker of alcohol (finding) [facility] Alcohol intake 08/31/2020 12:00:00 AM EST Current drinker of al cohol (finding) completed Current drinker of alcohol (finding) [facility] Vital Signs ID Date Data Source [id number] Name Value Range Interpretation Code Description Data Source(s) Oxygen saturation in Arterial blood by Pulse oximetry 98 % 98 % MEDSUSY ([facility]) [place] body weight 125 [lb_av] 125 [lb_av] KASSIDYEN T ([facility]) Systolic blood pressure 130 mm[Hg] 130 mm[Hg] M EDENT ([facility]) Diastolic blood pressure 80 mm[Hg] 80 mm[Hg] MEDSUSY ([facility]) Body height 65.5 [in_i] 65.5 [in_i] NETO ([facility]) 5'5.50" Body weight 171.50 [lb_av] 171.50 [lb_av] MEDEN T ([facility]) Body mass index (BMI) [Ratio] 28.1 kg/m2 28.1 k g/m2 [facility] ([facility]) Heart rate 94 /min 94 /min [facility] ([facility]) Respiratory rate 14 /min 14 /min [facility] ( [facility]) Body temperature 98.0 [degF] 98.0 [degF] MED[facility] ([facility]) Systolic blood pressure 152 mm[Hg] 152 mm[Hg] [...] pressure 122 mm[Hg] 122 mm[Hg] M EDENT ([facility]) Diastolic blood pressure 82 mm[Hg] 82 mm[Hg] MED[facility] ([facility]) Heart rate 80 /min 80 /min [facility] ([facility]) Body weight 186.00 [lb_av] 186.00 [lb_av] MEDEN T ([facility]) Body weight 183 [lb_av] 183 [lb_av] eCW1 ([facility]) Body height 64 [in_i] 64 [in_i] eCW1 ([facility]) Body mass index (BMI) [Ratio] 31.41 kg/m2 31.41 kg/m2 eCW1 ([facility]) Systolic blood pressure 118 mm[Hg] 118 mm[Hg] e CW1 ([facility]) Diastolic blood pressure 80 mm[Hg] 80 mm[Hg] eCW1 ([facility]) Body mass index (BMI) [Ratio] 30.7 kg/m2 30.7 k g/m2 MED[facility] ([facility]) Respiratory rate 18 /min 18 /min [facility] ( [facility]) Diastolic blood pressure 76 mm[Hg] 76 mm[Hg] MED[facility] ([facility]) Systolic blood pressure 125 mm[Hg] 125 mm[Hg] M EDENT ([facility]) Heart rate 82 /min 82 /min [facility] ([facility]) Body temperature 98.2 [degF] 98.2 [degF] MED[facility] ([facility]) Body height 66 [in_i] 66 [in_i] MEDENT ([facility]) 5'6" Body weight 190.00 [lb_av] 190.00 [lb_av] MEDEN T ([facility]) Body weight 190.2 [lb_av] 190.2 [lb_av] eCW1 ([facility]) Body height 64 [in_i] 64 [in_i] eCW1 ([facility]) Body mass index (BMI) [Ratio] 32.64 kg/m2 32.64 kg/m2 W1 ([facility]) Heart rate 94 /min 94 /min eCW1 ([facility]) Respiratory rate 18 /min 18 /min eCW1 ([facility]) Body temperature 98.1 [degF] 98.1 [degF] eCW1 ( [facility]) Systolic blood pressure 108 mm[Hg] 108 mm[Hg] e CW1 ([facility]) Diastolic blood pressure 71 mm[Hg] 71 mm[Hg] eCW1 ([facility]) Body mass index (BMI) [Ratio] 31.1 kg/m2 31.1 k g/m2 MEDENT ([facility]) Body temperature 97.5 [degF] 97.5 [degF] MEDENT ([facility]) Diastolic blood pressure 76 mm[Hg] 76 mm[Hg] MEDENT ([facility]) Heart rate 97 /min 97 /min [facility] Body height 66 [in_i] 66 [in_i] MEDENT [facility] 5'6" Body weight 193.00 [lb_av] 193.00 [lb_av] MEDEN T ([facility]) Systolic blood pressure 126 mm[Hg] 126 mm[Hg] M EDENT ([facility]) Systolic blood pressure 126 mm[Hg] 126 mm[Hg] M EDENT ([facility], [facility]) Body temperature 98.6 [degF] 98.6 [degF] MEDENT ([facility], [facility]) Heart rate 82 /min 82 /min MEDENT ([facility], [facility]) Respiratory rate 17 /min 17 /min MEDENT ( [facility], [facility]) Oxygen saturation in Arterial blood by Pulse oximetry 97 % 97 % MEDENT ([facility], [facility]) Body weight 192.00 [lb_av] 192.00 [lb_av] MEDEN T ([facility], [facility]) Body height 66 [in_i] 66 [in_i] MEDENT ([facility]) 5'6" Body mass index (BMI) [Ratio] 31.0 kg/m2 31.0 k g/m2 MEDENT ([facility]) Diastolic blood pressure 83 mm[Hg] 83 mm[Hg] MEDENT ([facility], [facility]) Body weight 192 [lb_av] 192 [lb_av] eCW1 ([facility]) Body height 64 [in_i] 64 [in_i] eCW1 ([facility]) Body mass index (BMI) [Ratio] 32.95 kg/m2 32.95 kg/m2 [facility] ([facility]) Systolic blood pressure 126 mm[Hg] 126 mm[Hg] e CW1 ([facility]) Diastolic blood pressure 72 mm[Hg] 72 mm[Hg] eCW1 ([facility]) Body weight 190 [lb_av] 190 [lb_av] eCW1 ([facility]) Body weight 86.18 kg 86.18 kg eCW1 ([facility]) Body height 64 [in_i] 64 [in_i] eCW1 ([facility]) Body mass index (BMI) [Ratio] 32.61 kg/m2 32.61 kg/m2 eCW1 ([facility]) Systolic blood pressure 120 mm[Hg] 120 mm[Hg] e CW1 ([facility]) Diastolic blood pressure 60 mm[Hg] 60 mm[Hg] eCW1 ([facility]) Body temperature 98.9 [degF] 98.9 [degF] MEDENT ([facility]) Oxygen saturation in Arterial blood by Pulse oximetry 95 % 95 % MEDENT ([facility]) [place] body weight 125 [lb_av] 125 [lb_av] MEDEN T ([facility]) Heart rate 112 /min 112 /min MEDENT ([facility]) Body mass index (BMI) [Ratio] 31.2 kg/m2 31.2 k g/m2 MEDENT ([facility]) Body temperature 98.5 [degF] 98.5 [degF] MEDENT ([facility]) Respiratory rate 18 /min 18 /min MED[facility] ( [facility]) Systolic blood pressure 122 mm[Hg] 122 mm[Hg] M EDENT ([facility]) Diastolic blood pressure 72 mm[Hg] 72 mm[Hg] MEDENT ([facility]) Body height 65.5 [in_i] 65.5 [in_i] MEDENT ([facility]) 5'5.50" Body weight 190.12 [lb_av] 190.12 [lb_av] MEDEN T ([facility]) Body weight 190.00 [lb_av] 190.00 [lb_av] MEDEN T ([facility]) Body mass index (BMI) [Ratio] 30.7 kg/m2 30.7 k g/m2 MEDENT ([facility]) Body temperature 97.3 [degF] 97.3 [degF] MEDENT ([facility]) Body height 66 [in_i] 66 [in_i] MEDENT ([facility]) 5'6" Heart rate 95 /min 95 /min MEDENT ([facility]) Systolic blood pressure 118 mm[Hg] 118 mm[Hg] M EDENT ([facility]) Diastolic blood pressure 70 mm[Hg] 70 mm[Hg] MEDENT ([facility]) Body height 65.5 [in_i] 65.5 [in_i] MEDENT ([facility]) 5'5.50" Body weight 190.38 [lb_av] 190.38 [lb_av] MEDEN T ([facility]) Body mass index (BMI) [Ratio] 31.2 kg/m2 31.2 k g/m2 MEDENT ([facility]) Respiratory rate 18 /min 18 /min [facility] Body temperature 98.3 [degF] 98.3 [degF] [facility] Oxygen saturation in Arterial blood by Pulse oximetry 98 % 98 % [facility] [place] body weight 125 [lb_av] 125 [lb_av] MEDEN T ([facility]) ID Date Data Source [id number] 08/31/2020 10:05:58 AM EST [facility] Name Value Range Interpretation Code Description Data Source(s) WEIGHT RECORDED 190 lb 190 lb Health system ID Date Data Source [id number] 05/27/2020 01:56:31 PM T [facility] Name Value Range Interpretation Code Description Data Source(s) WEIGHT RECORDED 189 lb 189 lb Health system Body height Measured 66.54 in 66.54 in [facility] ID Date Data Source [id number] 04/18/2020 04:09:51 PM [facility] Value Range Interpretation Code Description Data Source(s) WEIGHT RECORDED 186 lb 186 lb Health system WEIGHT RECORDED 186 lb 186 lb Health system Patient Treatment Plan of Care Planned Activity Planned Date Details Description Data Source (s) Triamcinolone Acetonide 1 MG/ML Topical Cream 12/14/2020 12:00:00 A M EDT [facility] ([facility]) levocetirizine dihydrochloride 5 MG Oral Tablet 12/14/2020 12:00:00 AM EDT eCW1 ([facility]) Prednisone 10 MG Oral Tablet 12/14/2020 12:00:00 AM EDT eCW1 ([facility]) Triamcinolone Acetonide 1 MG/ML Topical Cream 12/14/2020 12:00:00 A M EDT eCW1 ([facility]) levocetirizine dihydrochloride 5 MG Oral Tablet 12/14/2020 12:00:00 AM EDT eCW1 ([facility]) Prednisone 10 MG Oral Tablet 12/14/2020 12:00:00 AM EDT eCW1 ([facility]) Insulin Lispro 100 UNT/ML Injectable Solution [Humalog ] 11/25/2020 12:00:00 AM [facility]spital doxycycline hyclate 100 MG Oral Capsule 10/11/2020 12:00:00 AM [facility] Clindamycin 10 MG/ML Topical Lotion 10/11/2020 12:00:00 AM [facility] T: slim X2 Ins Can Technician/Control 7.4 Device 09/05/2020 12:00:00 AM [facility] Felisa Microlet Lancets 09/02/2020 12:00:00 AM [facility] Contour Next Test In Vitro Strip (glucose blood) 08/31/2020 12:00:0 0 AM [facility] BD Pen Needle Lori U/F 32G X 4 MM (Insulin Pen Needle) 08/31/2020 12:00:00 AM [facility]spital Acetaminophen 325 MG / Oxycodone Hydrochloride 5 MG Or al Tablet 08/18/2020 12:00:00 AM [facility] Nurtec 75 MG Oral Tablet Disintegrating 08/03/2020 12:00:00 AM [facility] Trikafta 100-50-75 & 150 MG Oral Tablet Therapy Pack (fmccslgobxw-[id number]-kdvdfnhlj and ivacaftor) 07/29/2020 12:00:00 AM [facility] Dornase Tanner 1 MG/ML Inhalant Solution [Pulmozyme] 07/29/2020 12 :00:00 AM [facility] Tobramycin 28 MG Inhalant Powder 07/29/2020 12:00:00 AM [facility] rizatriptan 10 MG Oral Tablet 07/22/2020 12:00:00 AM [facility] Ondansetron 4 MG Oral Tablet 06/22/2020 12:00:00 AM [facility] linaclotide 0.29 MG Oral Capsule [Linzess] 06/10/2020 12:00:00 AM [facility] 60 ACTUAT Albuterol 0.09 MG/ACTUAT Metered Dose Inhale r 05/23/2020 01:00:00 PM [facility] 30 ACTUAT umeclidinium 0.0625 MG/ACTUAT / vilanterol 0.025 MG/ACTUAT Dry Powder Inhaler 05/23/2020 12:00:00 AM [facility] Sodium Chloride 0.598 MEQ/ML Inhalant Solution 05/23/2020 12:00:00 AM [facility] Omeprazole 40 MG Delayed Release Oral Capsule 05/23/2020 12:00:00 A M [facility] Albuterol 0.833 MG/ML / Ipratropium [place] 0.167 MG/M L Inhalant Solution 05/23/2020 12:00:00 AM [facility] Azithromycin 250 MG Oral Tablet 05/23/2020 12:00:00 AM [facility] Albuterol Sulfate HFA 108 (90 Base) MCG/ ACT Inhalation Aerosol Solution (PROVENTIL HFA) 05/23/2020 12:00:00 AM [facility] Tobramycin 28 MG Inhalant Powder 05/23/2020 12:00:00 AM [facility] Dornase Tanner 1 MG/ML Inhalant Solution [Pulmozyme] 05/23/2020 12 :00:00 AM [facility] Metoclopramide 10 MG Oral Tablet 02/25/2020 12:00:00 AM [facility] Azithromycin 250 MG Oral Tablet 01/12/2020 12:00:00 AM [facility] Dornase Tanner 1 MG/ML Inhalant Solution 12/02/2019 12:00:00 AM [facility] 30 ACTUAT umeclidinium 0.0625 MG/ACTUAT / vilanterol 0.025 MG/ACTUAT Dry Powder Inhaler 11/25/2019 12:00:00 AM [facility] Albuterol Sulfate HFA 108 (90 Base) MCG/ ACT Inhalation Aerosol Solution (PROVENTIL HFA;VENTOLIN HFA) 11/18/2019 12:00:00 AM [facility] Sodium Chloride 0.598 MEQ/ML Inhalant Solution 10/28/2019 12:00:00 AM [facility] 3 ML Insulin Glargine 100 UNT/ML Pen Injector 09/14/2019 12:00:00 A M [facility] Insulin Pen Needle 32G X 4 MM (BD PEN NEEDLE LORI U/F) 09/01/2019 12:00:00 AM [facility]spital Glucose Blood In Vitro Strip (CONTOUR NEXT TEST) 09/01/2019 12:00:0 0 AM [facility] Felisa Microlet Lancets 09/01/2019 12:00:00 AM [facility] 3 ML Insulin Glargine 100 UNT/ML Pen Injector 09/01/2019 12:00:00 A M [facility] Tobramycin 28 MG Inhalant Powder 07/02/2019 12:00:00 AM [facility] Dornase Tanner 1 MG/ML Inhalant Solution 07/02/2019 12:00:00 AM [facility] tizanidine 2 MG Oral Capsule 06/16/2019 12:00:00 AM [facility] Omeprazole 40 MG Delayed Release Oral Capsule 09/23/2018 12:00:00 A M [facility] Albuterol 0.833 MG/ML / Ipratropium [place] 0.167 MG/M L Inhalant Solution 09/23/2018 12:00:00 AM [facility] Insulin, Aspart, Human 100 UNT/ML Injectable Solution 09/15/2018 12:00:00 AM [facility] ospital KETOSTIX strip 08/25/2018 12:00:00 AM [facility] Glucagon 1 MG Injection 08/25/2018 12:00:00 AM [facility] Tamsulosin hydrochloride 0.4 MG Oral Capsule [facility] Insulin Glargine (SAWYER LYNN) [facility] naratriptan 2.5 MG Oral Tablet [facility] Acetaminophen 325 MG Oral Capsule [facility] Naproxen sodium 220 MG Oral Capsule [facility] gabapentin 100 MG Oral Capsule [facility] Methylprednisolone 4 MG Oral Tablet [facility]
[2021-06-16] MEDS ORDERED: EXPOSURE KIT-ADULT 7 DAY SUPPLY PO ONE (10:35)
[2021-06-16 10:40] LABS: HEMATOCRIT 47.2 % (36.0-47.0); MEAN CORPUSCULAR HEMOGLOBIN 29.6 pg (27.0-33.0); MEAN CORPUSCULAR HGB CONC 31.8 g/dl (32.0-36.5); MEAN CORPUSCULAR VOLUME 93.1 fl (80.0-96.0); PLATELET COUNT, AUTOMATED 763 10^3/uL (150-450); RED BLOOD COUNT 5.07 10^6/uL (4.00-5.40); WHITE BLOOD COUNT 12.6 10^3/uL (4.0-10.0)
[2021-06-16 11:11] LABS: ATYPICAL LYMPH 10 % (0-5); BASOPHILS 1 % (0-1); LYMPHOCYTES 7 % (16-44); MONOCYTES 4 % (0-5); NEUTROPHILS 78 % (28-66); PLATELET ESTIMATE INCREASED (NORMAL)
[2021-06-16 11:20] LABS: HCG, SERUM QUALITATIVE NEGATIVE (NEGATIVE)
[2021-06-16] MEDS ORDERED: TRUVADA 200MG/300MG TABLET PO ONE (11:30)
[2021-06-16] MEDS ORDERED: RALTEGRAVIR 400 MG TAB (ISENTRESS) PO ONE (11:30)
[2021-06-16 11:40] LABS: ALBUMIN 4.1 GM/DL (3.2-5.2); ALT/SGPT 344 U/L (12-78); BILIRUBIN,TOTAL 0.5 MG/DL (0.2-1.0); BLOOD UREA NITROGEN 14 MG/DL (7-18); CALCIUM LEVEL 9.9 MG/DL (8.5-10.1); CARBON DIOXIDE LEVEL 27 MEQ/L (21-32); CHLORIDE LEVEL 104 MEQ/L (98-107); GLOMERULAR FILTRATION RATE > 60.0 (>60); GLUCOSE, FASTING 191 MG/DL (70-100); POTASSIUM SERUM 4.3 MEQ/L (3.5-5.1); SODIUM LEVEL 138 MEQ/L (136-145); TOTAL PROTEIN 8.2 GM/DL (6.4-8.2)
[2021-06-16 12:21] LABS: HEPATITIS B SURFACE ANTIBODY NEGATIVE (POSITIVE)
[2021-06-16 12:32] LABS: HEPATITIS B SURFACE ANTIGEN NEGATIVE (NEGATIVE)
[2021-06-16 13:00] LABS: HEPATITIS C VIRUS ABY INDEX < 0.0 INDEX (<0.8)
--- NOTE | 2021-06-16 13:36 | REP ---
INDICATION: elevated liver enzymes. COMPARISON: 09/12/2020. TECHNIQUE: Real-time sonographic evaluation of right upper quadrant performed. FINDINGS: There has been a prior cholecystectomy.. There is no intrahepatic or extrahepatic biliary dilatation, common bile duct measures 5 mm in maximum diameter. There is diffuse fatty infiltration of the liver. No liver mass is seen. Pancreas is not seen due to overlying bowel gas. The right kidney demonstrates no hydronephrosis, with a normal size of 11.0 cm in length. No free fluid is seen. IMPRESSION: Fatty infiltration of the liver. Status post cholecystectomy with no biliary dilatation or free fluid.. <Electronically signed by Rashad Ray > 06/16/21 [id number]
[2021-06-16 14:47] VITALS: BP 120/80
== END 2021-06-16 14:43 | disposition home or self-care (01) ==
LOC: M ED 09:50
DX: Z77.21 Contact with and (suspected) exposure to potentially hazardous body fluids (principal); E10.65 Type 1 diabetes mellitus with hyperglycemia; D75.839 Thrombocytosis, unspecified; R94.5 Abnormal results of liver function studies; E84.9 Cystic fibrosis, unspecified; K21.9 Gastro-esophageal reflux disease without esophagitis; Z79.899 Other long term (current) drug therapy; Z79.4 Long term (current) use of insulin; Z88.5 Allergy status to narcotic agent; Z88.8 Allergy status to other drugs, medicaments and biological substances

== ENCOUNTER → 2021-08-16 | Outpatient (REF) | payer BC ==
[~2021-08-16] MED LIST changes: -RALTEGRAVIR 400 MG TAB (ISENTRESS) PO SCH; -TRUVADA 200MG/300MG TABLET PO SCH
[2021-08-16 19:24] LABS: GC DNA AMPLIFICATION NEGATIVE (NEGATIVE)
== END ==
LOC: M LAB REF 16:50
PROVIDERS: ATTEND Family Medicine
DX: N76.0 Acute vaginitis (principal)

== ENCOUNTER → 2021-12-12 | Outpatient (REF) | payer OTHER ==
[~2021-12-12] MED LIST changes: +BASA100I; -CEFD1CAP8 PO; +CEFD300C41 PO; +HUMA100I5; +PLEC3TAB; +REGL5TAB2 PO; +TIZA10TA; -TIZA4TAB4
== END ==
LOC: M LAB REF 16:51
PROVIDERS: ATTEND Physician Assistant
DX: R30.0 Dysuria (principal)

== ENCOUNTER → 2022-01-01 | Outpatient (CLI) | payer OTHER ==
[2022-01-01 16:55] LABS: BASO # 0.1 10^3/uL (0.0-0.2); BASO % 0.9 % (0.0-1.0); EOS # 0.2 10^3/uL (0.0-0.5); EOS % 1.6 % (0.0-3.0); HEMATOCRIT 44.8 % (36.0-47.0); HEMOGLOBIN 14.5 g/dl (12.0-15.5); LYMPH # 3.3 10^3/uL (1.5-5.0); LYMPH % 27.9 % (24.0-44.0); MEAN CORPUSCULAR HEMOGLOBIN 30.9 pg (27.0-33.0); MEAN CORPUSCULAR HGB CONC 32.4 g/dl (32.0-36.5); MEAN CORPUSCULAR VOLUME 95.5 fl (80.0-96.0); MONO # 0.9 10^3/uL (0.0-0.8); MONO % 7.8 % (2.0-8.0); NEUTROPHILS # 7.2 10^3/uL (1.5-8.5); NEUTROPHILS % 61.5 % (36.0-66.0); PLATELET COUNT, AUTOMATED 599 10^3/uL (150-450); RED BLOOD COUNT 4.69 10^6/uL (4.00-5.40); WHITE BLOOD COUNT 11.8 10^3/uL (4.0-10.0)
[2022-01-01 17:16] LABS: INR 0.95; PARTIAL THROMBOPLASTIN TIME 32.1 SECONDS (25.9-37.0); PROTHROMBIN TIME 13.1 SECONDS (12.7-14.5)
[2022-01-01 17:22] LABS: HEMOGLOBIN A1c 11.2 %
[2022-01-01 17:29] LABS: ALBUMIN 3.9 GM/DL (3.2-5.2); ALT/SGPT 154 U/L (12-78); BILIRUBIN,DIRECT 0.1 MG/DL (0.0-0.2); BILIRUBIN,TOTAL 0.2 MG/DL (0.2-1.0); BLOOD UREA NITROGEN 8 MG/DL (7-18); CALCIUM LEVEL 9.7 MG/DL (8.5-10.1); CARBON DIOXIDE LEVEL 31 MEQ/L (21-32); CHLORIDE LEVEL 104 MEQ/L (98-107); CREATININE FOR GFR 0.92 MG/DL (0.55-1.30); FREE T4 0.93 NG/DL (0.76-1.46); GLOMERULAR FILTRATION RATE > 60.0 (>60); GLUCOSE, FASTING 75 MG/DL (70-100); LIPASE 30 U/L (73-393); POTASSIUM SERUM 4.2 MEQ/L (3.5-5.1); SODIUM LEVEL 139 MEQ/L (136-145); TOTAL PROTEIN 7.6 GM/DL (6.4-8.2)
[2022-01-01 19:17] LABS: TOTAL 25(OH) VITAMIN D 24.1 NG/ML (30.0-100.0)
== END ==
LOC: M WUC 11:33
PROVIDERS: ATTEND Physician Assistant
DX: E10.65 Type 1 diabetes mellitus with hyperglycemia (principal); E84.19 Cystic fibrosis with other intestinal manifestations; R74.01 Elevation of levels of liver transaminase levels

== ENCOUNTER → 2022-04-12 | Outpatient (REF) ==
[~2022-04-12] MED LIST changes: +GLUC3SPR; +MYRB25TA; +NIRM1TAB
== END ==
LOC: M LABSMTC 11:29
PROVIDERS: ATTEND Family Medicine
DX: Z20.822 Contact with and (suspected) exposure to COVID-19 (principal)

== ENCOUNTER 2022-04-16 14:25 | Emergency (ER) | payer BC, OTHER ==
[~2022-04-16] VITALS: Ht 167.6 cm; Wt 72.2 kg
[~2022-04-16 14:25] MED LIST changes: -GLUC3SPR; -MYRB25TA; -NIRM1TAB
[2022-04-16] MEDS ORDERED: NIRM1TAB (15:34)
[2022-04-16] MEDS ORDERED: GLUC3SPR (15:34)
[2022-04-16] MEDS ORDERED: MYRB25TA (15:34)
[2022-04-16 16:12] LABS: VENOUS BASE EXCESS -1.8 (-2.0-2.0); VENOUS O2 SATURATION 57.4 % (60.0-80.0); VENOUS PARTIAL PRESSURE CO2 50.2 mmHg (38.0-50.0); VENOUS PH 7.315 UNITS (7.330-7.430); VENOUS TOTAL CO2 26.5 MEQ/L (24.0-28.0)
[2022-04-16 16:14] LABS: BASO # 0.1 10^3/uL (0.0-0.2); BASO % 0.6 % (0.0-1.0); EOS # 0.1 10^3/uL (0.0-0.5); EOS % 0.7 % (0.0-3.0); HEMATOCRIT 45.1 % (36.0-47.0); HEMOGLOBIN 14.7 g/dl (12.0-15.5); LYMPH # 3.9 10^3/uL (1.5-5.0); LYMPH % 35.9 % (24.0-44.0); MEAN CORPUSCULAR HEMOGLOBIN 30.4 pg (27.0-33.0); MEAN CORPUSCULAR HGB CONC 32.6 g/dl (32.0-36.5); MEAN CORPUSCULAR VOLUME 93.2 fl (80.0-96.0); MONO # 1.3 10^3/uL (0.0-0.8); MONO % 11.6 % (2.0-8.0); NEUTROPHILS # 5.6 10^3/uL (1.5-8.5); NEUTROPHILS % 50.8 % (36.0-66.0); PLATELET COUNT, AUTOMATED 599 10^3/uL (150-450); RED BLOOD COUNT 4.84 10^6/uL (4.00-5.40); WHITE BLOOD COUNT 10.9 10^3/uL (4.0-10.0)
[2022-04-16 16:52] LABS: ALBUMIN 3.6 GM/DL (3.2-5.2); ALT/SGPT 203 U/L (12-78); BILIRUBIN,DIRECT 0.2 MG/DL (0.0-0.2); BILIRUBIN,TOTAL 0.1 MG/DL (0.2-1.0); BLOOD UREA NITROGEN 7 MG/DL (7-18); CARBON DIOXIDE LEVEL 24 MEQ/L (21-32); CHLORIDE LEVEL 105 MEQ/L (98-107); CREATININE FOR GFR 0.87 MG/DL (0.55-1.30); GLOMERULAR FILTRATION RATE > 60.0 (>60); GLUCOSE, FASTING 78 MG/DL (70-100); POTASSIUM SERUM 4.1 MEQ/L (3.5-5.1); SODIUM LEVEL 136 MEQ/L (136-145); THYROXINE (T4) 8.4 UG/DL (4.5-12.0); TOTAL PROTEIN 7.8 GM/DL (6.4-8.2)
[2022-04-16] MEDS ORDERED: NS 1,000 ML IV ONE (16:55)
[2022-04-16 17:03] LABS: HCG, SERUM QUALITATIVE NEGATIVE (NEGATIVE)
[2022-04-16] MEDS ORDERED: ISOVUE-370 76% 100ML VIAL As Ordered ONE (17:11)
[2022-04-16 18:22] VITALS: BP 128/77
[2022-04-16 19:02] LABS: C REACTIVE PROTEIN QUANTITATIV 2.22 MG/DL (0.00-0.30)
== END 2022-04-16 18:24 | disposition home or self-care (01) ==
LOC: M ED 14:25
DX: U07.1 COVID-19 (principal); R68.89 Other general symptoms and signs; E10.9 Type 1 diabetes mellitus without complications; E84.9 Cystic fibrosis, unspecified; K21.9 Gastro-esophageal reflux disease without esophagitis; J30.89 Other allergic rhinitis; Z87.442 Personal history of urinary calculi; Z88.5 Allergy status to narcotic agent; Z88.8 Allergy status to other drugs, medicaments and biological substances; Z79.899 Other long term (current) drug therapy; Z79.4 Long term (current) use of insulin
CPT/HCPCS: 71045; 71275; 80048; 80076; 82803; 83605; 84145; 84436; 84443; 84703; 85025; 85379; 86140; 87040; 93005; 96360; 99284; Q9967

== ENCOUNTER → 2022-04-27 | Outpatient (CLI) | payer BC ==
[~2022-04-27] MED LIST changes: +GLUC3SPR; +MYRB25TA; +NIRM1TAB
== END ==
LOC: M WHC 08:13
PROVIDERS: ATTEND Obstetrics & Gynecology
DX: F52.6 Dyspareunia not due to a substance or known physiological condition (principal)

== ENCOUNTER → 2022-04-27 | Outpatient (CLI) | payer BC ==
[2022-04-27 15:00] LABS: BASO # 0.1 10^3/uL (0.0-0.2); BASO % 0.7 % (0.0-1.0); EOS # 0.3 10^3/uL (0.0-0.5); EOS % 2.4 % (0.0-3.0); HEMATOCRIT 45.8 % (36.0-47.0); HEMOGLOBIN 14.5 g/dl (12.0-15.5); LYMPH # 3.3 10^3/uL (1.5-5.0); LYMPH % 25.8 % (24.0-44.0); MEAN CORPUSCULAR HEMOGLOBIN 29.7 pg (27.0-33.0); MEAN CORPUSCULAR HGB CONC 31.7 g/dl (32.0-36.5); MEAN CORPUSCULAR VOLUME 93.7 fl (80.0-96.0); MONO # 0.9 10^3/uL (0.0-0.8); NEUTROPHILS # 8.1 10^3/uL (1.5-8.5); NEUTROPHILS % 63.2 % (36.0-66.0); PLATELET COUNT, AUTOMATED 826 10^3/uL (150-450); RED BLOOD COUNT 4.89 10^6/uL (4.00-5.40); WHITE BLOOD COUNT 12.8 10^3/uL (4.0-10.0)
[2022-04-27 15:17] LABS: INR 0.93; PROTHROMBIN TIME 12.9 SECONDS (12.7-14.5)
[2022-04-27 15:18] LABS: PARTIAL THROMBOPLASTIN TIME 27.9 SECONDS (25.9-37.0)
[2022-04-27 15:19] LABS: ALBUMIN 3.7 GM/DL (3.2-5.2); ALT/SGPT 374 U/L (12-78); BILIRUBIN,DIRECT 0.2 MG/DL (0.0-0.2); BILIRUBIN,TOTAL 0.4 MG/DL (0.2-1.0); BLOOD UREA NITROGEN 15 MG/DL (7-18); C REACTIVE PROTEIN QUANTITATIV 0.32 MG/DL (0.00-0.30); CALCIUM LEVEL 9.5 MG/DL (8.5-10.1); CARBON DIOXIDE LEVEL 28 MEQ/L (21-32); CHLORIDE LEVEL 100 MEQ/L (98-107); CREATININE FOR GFR 0.95 MG/DL (0.55-1.30); FERRITIN 237 NG/ML (8-252); GLOMERULAR FILTRATION RATE > 60.0 (>60); GLUCOSE, FASTING 209 MG/DL (70-100); IRON (FE) 178 UG/DL (50-170); MAGNESIUM LEVEL 2.2 MG/DL (1.8-2.4); PERCENT SATURATION 47.3 % (13.2-45.0); POTASSIUM SERUM 5.1 MEQ/L (3.5-5.1); SODIUM LEVEL 133 MEQ/L (136-145); TOTAL IRON BINDING CAPACITY 376 UG/DL (250-450); TOTAL PROTEIN 7.7 GM/DL (6.4-8.2)
[2022-04-27 15:43] LABS: HEMOGLOBIN A1c 12.2 %
[2022-04-27 15:52] LABS: TOTAL 25(OH) VITAMIN D 15.1 NG/ML (30.0-100.0)
== END ==
LOC: M PLAIMG 08:57
PROVIDERS: ATTEND Nurse Practitioner Adult Health
DX: E84.9 Cystic fibrosis, unspecified (principal); E55.9 Vitamin D deficiency, unspecified

== ENCOUNTER → 2022-05-17 | Outpatient (CLI) | payer BC | LOC: M WHC 08:52 | PROVIDERS: ATTEND Nurse Practitioner Women's Health | DX: R30.0 Dysuria (principal); R39.15 Urgency of urination; R39.89 Other symptoms and signs involving the genitourinary system; Z87.442 Personal history of urinary calculi ==

== ENCOUNTER → 2024-11-06 | Outpatient (CLI) | payer BC ==
[~2024-11-06] MED LIST changes: +CEFD1CAP9 PO; -CEFD300C41 PO; -EFFE150C2 PO; +EFFE150C3 PO; +GABA-1172; -GABA-282; +ONDA-282 PO; -ONDA4TAB6 PO
[2024-11-06 15:47] LABS: APPEARANCE, URINE CLEAR (CLEAR); BACTERIA, URINE AUTO 1+ (NEGATIVE); BILIRUBIN, URINE AUTO NEGATIVE (NEGATIVE); BLOOD, URINE BLOOD 2+ (NEGATIVE); COLOR, URINE YELLOW (YELLOW); GLUCOSE, URINE (UA) AUTO 2+ mg/dL (NEGATIVE); KETONE, URINE AUTO NEGATIVE (NEGATIVE); LEUKOCYTE ESTERASE, URINE AUTO NEGATIVE (NEGATIVE); NITRITE, URINE AUTO NEGATIVE (NEGATIVE); PROTEIN, URINE AUTO NEGATIVE (NEGATIVE); RBC, URINE AUTO 5 /HPF (0-3); SPECIFIC GRAVITY URINE AUTO 1.006 (1.002-1.035); SQUAMOUS EPITHELIAL CELL UR AU 3 /HPF (0-6); UROBILINOGEN, URINE AUTO 0.2 mg/dL (0.0-2.0); WBC, URINE AUTO 2 /HPF (0-3)
[2024-11-06 15:49] LABS: BASO # 0.1 10^3/uL (0.0-0.2); BASO % 0.3 % (0.0-1.0); EOS % 0.2 % (0.0-3.0); HEMATOCRIT 41.6 % (36.0-47.0); HEMOGLOBIN 13.6 g/dl (12.0-15.5); LYMPH # 2.9 10^3/uL (1.5-5.0); LYMPH % 14.8 % (24.0-44.0); MEAN CORPUSCULAR HEMOGLOBIN 31.3 pg (27.0-33.0); MEAN CORPUSCULAR HGB CONC 32.7 g/dl (32.0-36.5); MEAN CORPUSCULAR VOLUME 95.9 fl (80.0-96.0); MONO # 1.5 10^3/uL (0.0-0.8); MONO % 7.3 % (2.0-8.0); NEUTROPHILS # 15.2 10^3/uL (1.5-8.5); NEUTROPHILS % 76.9 % (36.0-66.0); PLATELET COUNT, AUTOMATED 620 10^3/uL (150-450); RED BLOOD COUNT 4.34 10^6/uL (4.00-5.40); WHITE BLOOD COUNT 19.7 10^3/uL (4.0-10.0)
[2024-11-06 15:54] LABS: THYROID STIMULATING HORMONE 1.942 uIU/ML (0.55-4.78)
[2024-11-06 15:55] LABS: TOTAL 25(OH) VITAMIN D 35.7 NG/ML (20.0-100.0)
[2024-11-06 15:56] LABS: FREE T4 1.12 NG/DL (0.89-1.76)
[2024-11-06 16:01] LABS: ALBUMIN 3.8 G/DL (3.2-5.2); ALKALINE PHOSPHATASE 179 U/L (35-104); ALT/SGPT 45 U/L (7.0-40); AST/SGOT 16 U/L (<34); BILIRUBIN,TOTAL 0.3 MG/DL (0.3-1.2); BLOOD UREA NITROGEN < 5 MG/DL (9-23); CALCIUM LEVEL 9.8 MG/DL (8.5-10.1); CARBON DIOXIDE LEVEL 27 MMOL/L (20-31); CHLORIDE LEVEL 104 MMOL/L (98-107); CREATININE FOR GFR 0.89 MG/DL (0.55-1.30); GLOMERULAR FILTRATION RATE > 60.0 (>60); GLUCOSE, FASTING 81 MG/DL (60-100); POTASSIUM SERUM 4.2 MMOL/L (3.5-5.1); SODIUM LEVEL 142 MMOL/L (136-145); TOTAL PROTEIN 7.5 G/DL (5.7-8.2)
[2024-11-06 16:19] LABS: CREATININE, URINE 43.4 MG/DL; MAU/CREAT RATIO 11.5 MCG/MG (0.0-30.0)
== END ==
LOC: M PLALAB 12:11
PROVIDERS: ATTEND Physician Assistant
DX: Z01.818 Encounter for other preprocedural examination (principal); E10.65 Type 1 diabetes mellitus with hyperglycemia; E55.9 Vitamin D deficiency, unspecified; E84.19 Cystic fibrosis with other intestinal manifestations

== ENCOUNTER → 2024-12-14 | Outpatient (REF) | payer OTHER ==
[~2024-12-14] MED LIST changes: -AMBI10TA PO; -FLOM0.4C39 PO; +TAMS-18 PO; +ZOLP-533 PO
[2024-12-14 18:09] LABS: APPEARANCE, URINE CLEAR (CLEAR); BACTERIA, URINE AUTO NEGATIVE (NEGATIVE); BILIRUBIN, URINE AUTO NEGATIVE (NEGATIVE); BLOOD, URINE BLOOD 2+ (NEGATIVE); COLOR, URINE COLORLESS (YELLOW); GLUCOSE, URINE (UA) AUTO NEGATIVE (NEGATIVE); KETONE, URINE AUTO NEGATIVE (NEGATIVE); LEUKOCYTE ESTERASE, URINE AUTO NEGATIVE (NEGATIVE); NITRITE, URINE AUTO NEGATIVE (NEGATIVE); PROTEIN, URINE AUTO NEGATIVE (NEGATIVE); RBC, URINE AUTO 0 /HPF (0-3); SPECIFIC GRAVITY URINE AUTO 1.002 (1.002-1.035); SQUAMOUS EPITHELIAL CELL UR AU 0 /HPF (0-6); UROBILINOGEN, URINE AUTO 0.2 mg/dL (0.0-2.0); WBC, URINE AUTO 0 /HPF (0-3)
== END ==
LOC: M LAB REF 16:48
PROVIDERS: ATTEND Physician Assistant
DX: N39.0 Urinary tract infection, site not specified (principal)